=== PATIENT | male | born 1960 | race Caucasian/White ===

== ENCOUNTER → 2020-02-08 | Outpatient (CLI) | payer BC, SELFPAY | END | disposition home or self-care (01) | PROVIDERS: Referring Provider Family Medicine; Visit Provider Family Medicine | DX: R10.9 Unspecified abdominal pain (principal) | CPT/HCPCS: 87086 ==

== ENCOUNTER → 2020-03-13 10:27 | Outpatient (CLI) | payer BC, SELFPAY ==
[2020-03-13 10:46] LABS: Hematocrit 46.8 % (40-54); Hemoglobin 15.2 g/dL (13.0-16.5); Mean Corp Hgb Conc 32.5 g/dL (32-36); Mean Corpuscular Hgb 28.6 pg (27.0-32.0); Mean Corpuscular Volume 88.1 fL (80-94); Mean Platelet Vol. 10.3 fl (6.2-12.0); Platelet Count 213 K/mm3 (150-450); RBC Distribution Width CV 12.6 % (11.6-14.6); RBC Distribution Width SD 40.5 fl (35.1-43.9); Red Blood Count 5.31 M/mm3 (4.6-6.2); White Blood Count 6.6 K/mm3 (4.4-11.0)
[2020-03-13 11:10] LABS: ALB/GLOB Ratio 0.9 RATIO (0.9-2.4); AST(SGOT) 18 U/L (15-37); Alanine Aminotransfer ALT/SGPT 32 U/L (16-61); Albumin, Serum 3.8 g/dL (3.2-5.0); Alkaline Phosphatase 127 U/L (45-117); Anion Gap 4 (5-15); BUN 20 mg/dL (7-18); BUN/Creat Ratio 19.8 RATIO (10-20); Calcium,Total 9.2 mg/dL (8.5-10.1); Chloride 105 mmol/L (98-107); Creatinine, Serum 1.01 mg/dL (0.70-1.30); EST Glomerular Filtration Rate 80 mL/min (>60); Est Glom Filt Rate - Afr Amer 97 mL/min (>60); Globulin 4.1 g/dL (2.2-4.2); Glucose 155 mg/dL (74-106); Potassium 4.4 mmol/L (3.5-5.1); Protein, Total 7.9 g/dL (6.4-8.2); Sodium Level 137 mmol/L (136-145)
== END ==
PROVIDERS: PCP Family Medicine; Referring Provider Surgery; Visit Provider Surgery
DX: K62.5 Hemorrhage of anus and rectum (principal); R53.83 Other fatigue
CPT/HCPCS: 36415; 80053; 85027

== ENCOUNTER 2020-03-28 08:29 | Day surgery (SDC) | payer OTHER, SELFPAY ==
--- NOTE | 2020-03-28 08:52 | HP.PCM_ITS ---
Problem List (1) Rectal bleeding Status: Acute History of Present Illness Date of Admission: 03/28/20 The patient is a 59 year old M who presents for colonoscopy secondary to rectal bleeding. CBC was normal. BUN 20. Glucose 155. Body weight 335 pounds. Intake Intake Visit Reasons: PHONE VISIT/ CSCOPE,RECTAL BLEEDING Allergies No Known Allergies Allergy (Verified 03/13/20 09:51) Medications NK 03/13/20 [History Confirmed 03/13/20] [facility] Medical History (Updated 03/13/20 @ 10:[address] Isai Taylor MD) Morbid obesity due to excess calories (Acute) Heart murmur (Acute) Rectal bleeding (Acute) Acid reflux (Acute) Fatigue (Acute) Hypertension (Chronic) Surgical History (Updated 03/13/20 @ 09:50 by Aidee Soto) Hx of cardiac cath (Acute) Family History (Updated 03/13/20 @ 09:50 by Aidee Soto) Father Heart disease HPI HPI Details: Patient was informed that this visit will be billed to patient. This visit was conducted during - pandemic. HERMINIA OREILLY, is a 59 M who Was contacted by telephone today. He is present in his home and I am present in the office.The patient states that a month ago he had an episode of bright red rectal bleeding.He has had approximately a week later he had another episode. He was evaluated by his primary care physician Dr Gasper Schmidt and stool was Hemoccult positive. He complains also that he had a previous episode of abdominal pain and bloating. He was not sure whether he had a bladder infection or colon problem. He states he was placed on antibiotic with improvement. He denies family history of colon cancer or colon polyps. States that he used to be a cigarette smoker. He ceased that and over the past year or so put on 100 pounds. He claims that his body weight is 335 pounds. In addition he claims that he will drive 6 to 8 hours daily. He is been very fatigued. He has tried to change his eating habits to more fruits and vegetables with some improvement. He does not recall that he has had any laboratory obtained recently. He denies constipation. He is not currently having rectal bleeding. He does not recall being told that he has diverticula or hemorrhoids. He has never had a colonoscopy Exam Details: Details:: Exam was limited due to phone visit with no video. Assessment & Plan Problems 1. Rectal hemorrhage K62.5 2. Morbid obesity due to excess calories E66.01 Plan 59-year-old gentleman. 2 episodes of rectal bleeding. Complained of fatigue. I recommend to the him that we obtain a CMP and a CBC to assure that he is not markedly anemic. I have offered him a colonoscopy with possible biopsy or polypectomy as indicated. He has had an opportunity to ask and have questions answered. Because of his body habitus we will utilize monitored anesthesia care. I anticipate utilizing an adult colonoscope. He is aware that if it is hemorrhoidal bleeding that we will not be treating his hemorrhoids at that same setting. He has had an opportunity ask and have questions answered. We will schedule and proceed at his discretion. I appreciate the opportunity of assisting with his surgical care Copy: Dr Gasper Taylor M.D., F.A.C.S. Past Medical History Past Medical History (Chronic Problems): Chronic Problems (Last Reviewed 03/13/20 @ 09:51 by Aidee Soto) Hypertension (Chronic) Medical History: Medical History (Last Reviewed 03/13/20 @ 09:51 by Aidee Soto) Morbid obesity due to excess calories (Acute) E66.01 Heart murmur (Acute) R01.1 Rectal bleeding (Acute) K62.5 Acid reflux (Acute) K21.9 Fatigue (Acute) R53.83 Hypertension (Chronic) I10 Allergies No Known Allergies Allergy (Verified 03/21/20 15:39) Home Medications: Ambulatory Orders Medication Instructions Recorded NK 03/13/20 Surgical History: Surgical History (Last Reviewed 03/13/20 @ 09:51 by Aidee Soto) Hx of cardiac cath (Acute) Z98.890 Smoking Status: Former smoker Tobacco Use: Non-smoker Review of Systems Constitutional: Denies: Fever, Night Sweats Cardiovascular: Denies: Chest Pressure Respiratory: Denies: Cough Gastrointestinal: Denies: Abdominal Pain - No further rectal bleeding Endocrine: Denies: Change in Body Habitus VTE Information - Inpt Only VTE Present on Admission: No Patient Problems: Active and Suspected Problems (Last Reviewed 03/13/20 @ 09:51 by Aidee Soto) Rectal bleeding (Acute) - Physical Exam General: Alert, Oriented x3, Cooperative, No apparent distress HEENT: Atraumatic Neck: Supple Lungs: Clear to auscultation, Normal air movement Cardiovascular: Regular rate, Regular Rhythm Abdomen: Soft, - - Morbidly obese Psych/Mental Status: Normal Affect Microbiology Past 72 Hours 03/27/20 08:40 Interface Orders SARS-CoV-2 Antigen (Rapid) - Final Assessment/Plan All Active Problems (Last Reviewed 03/13/20 @ 09:51 by Aidee Soto) Morbid obesity due to excess calories (Acute) Hx of cardiac cath (Acute) Heart murmur (Acute) Rectal bleeding (Acute) Acid reflux (Acute) Fatigue (Acute) 59-year-old gentleman with presentation concerning for rectal bleeding. Laboratory for blood count normal except BUN is 20 and glucose 155. Plan to proceed with a colonoscopy with possible biopsy or polypectomy is indicated. He is aware of the technique, benefit, risk, alternatives. He has had an opportunity to ask and have questions answered. We will proceed as noted. Isai Taylor M.D., F.A.C.S.
[2020-03-28 09:04] VITALS: BP 156/101; PULSE 93; RESP 18; TEMP 36.6; O2SAT 99
[2020-03-28] MEDS: Lactated Ringers 1,000 ML 100 ML IV (09:25)
--- NOTE | 2020-03-28 10:15 | COLBX_PTH ---
PATIENT: HERMINIA OREILLY LOC: EN U#:[id number] AGE/SX: 59/M ROOM: RE03/28/[address]: Dr. Isai Taylor MD : 1960 BED: DIS: 03/28/2020 SPEC #: [id number] RECD: 03/28/20 11:26 STATUS: ANA STEPHANIE #: [id number] PONCHO: 03/28/20 10:[address]: Isai Taylor DEPT: SURGICAL PATHOLOGY RECD BY: Allie Shin ENTERED: 03/28/20 12:06 SP TYPE: COLON BX OTHR DR: Dr. Angely Weems MD Tissues: Sigmoid colon biopsy Procedures: Surgery Specimen Level IV HEADER OPERATION: Colonoscopy (MAC) PRE-OP DIAGNOSIS: Rectal bleeding TISSUE SUBMITTED: Distal sigmoid polyp MICROSCOPIC DIAGNOSIS Distal sigmoid polyp, biopsy: Hyperplastic polyp. AM:earnestine 03/31/2020 MICROSCOPIC DESCRIPTION Slides are reviewed. GROSS DESCRIPTION Received in fixative is one container labeled with the patient's name and designated distal sigmoid polyp. The specimen consists of a escobar-pink polyp measuring 0.5 x 0.5 x 0.2 cm. The specimen is totally submitted in one cassette. / SJ:earnestine 03/28/20 TC:5 CPT: 15177
[2020-03-28 10:26] VITALS: BP 124/96; BP 156/101; PULSE 88; RESP 16; TEMP 36.4; O2SAT 93
--- NOTE | 2020-03-28 10:28 | OP.COLON_ITS ---
Patient Name: Francis Thapa Procedure Date: 03/28/2020 10:03 AM Date of : 1960 Age: 59 Procedure: Colonoscopy Indications: Rectal bleeding Providers: Isai Taylor MD Referring MD: Angely Weems Medicines: See the Anesthesia note for documentation of the administered medications Patient Profile: Last Colonoscopy: none. The patient's first colonoscopy is today. Complications: No immediate complications. Procedure: Pre-Anesthesia Assessment: - Prior to the procedure, a History and Physical was performed, and patient medications and allergies were reviewed. The patient's tolerance of previous anesthesia was also reviewed. The risks and benefits of the procedure and the sedation options and risks were discussed with the patient. All questions were answered, and informed consent was obtained. Prior Anticoagulants: The patient has taken no previous anticoagulant or antiplatelet agents. ASA Grade Assessment: III - A patient with severe systemic disease. After reviewing the risks and benefits, the patient was deemed in satisfactory condition to undergo the procedure. After I obtained informed consent, the scope was passed under direct vision. Throughout the procedure, the patient's blood pressure, pulse, and oxygen saturations were monitored continuously. The colonoscope was introduced through the anus and advanced to the cecum, identified by appendiceal orifice and ileocecal valve. The colonoscopy was performed without difficulty. The patient tolerated the procedure well. The quality of the bowel preparation was good. The ileocecal valve and the appendiceal orifice were photographed. Scope In: 10:08:54 AM Scope Withdrawal Time 0 hours 8 minutes 57 seconds Scope Out: 10:22:02 AM Total Procedure Duration Time 0 hours 13 minutes 8 seconds Findings: The digital rectal exam findings include non-thrombosed internal hemorrhoids and internal hemorrhoids that prolapse with straining, but require manual replacement into the anal canal (Grade III). Pertinent negatives include normal prostate (size, shape, and consistency). A 7 mm polyp was found in the distal sigmoid colon. The polyp was sessile. The polyp was removed with a hot snare. Resection and retrieval were complete. The exam was otherwise without abnormality. Impression: - Non-thrombosed internal hemorrhoids and internal hemorrhoids that prolapse with straining, but require manual replacement into the anal canal (Grade III) found on digital rectal exam. - One 7 mm polyp in the distal sigmoid colon, removed with a hot snare. Resected and retrieved. - The examination was otherwise normal. Recommendation: - Discharge patient to home. - Resume previous diet. - Continue present medications. - Repeat colonoscopy in 5 years for surveillance based on pathology results. - Telephone my office for pathology results in 1 week. Suspect hemorrhoidal bleeding. Encourage daily fiber supplementation and working with Dr Weems on a planned weight loss program if feasible Procedure Code(s): --- Professional --- 43096, Colonoscopy, flexible; with removal of tumor(s), polyp(s), or other lesion(s) by snare technique Diagnosis Code(s): --- Professional --- K64.2, Third degree hemorrhoids D12.5, Benign neoplasm of sigmoid colon K62.5, Hemorrhage of anus and rectum CPT copyright 2017 [employer]. All rights reserved. The codes documented in this report are preliminary and upon professional fee coder review may be revised to meet current compliance requirements. Isai Taylor MD 03/28/2020 10:27:54 AM This report has been signed electronically. Number of Addenda: 0 Note Initiated On: 03/28/2020 10:03 AM
--- NOTE | 2020-03-28 10:28 | OP.CCLET_ITS ---
03/28/2020 Angely Weems [address] [place] [address] Re : Colonoscopy procedure for Francis Thapa Dear Dr. Weems This procedure was performed on Saturday, March 28, 2020. My impressions and recommendations are as follows: Impressions : - Non-thrombosed internal hemorrhoids and internal hemorrhoids that prolapse with straining, but require manual replacement into the anal canal (Grade III) found on digital rectal exam. - One 7 mm polyp in the distal sigmoid colon, removed with a hot snare. Resected and retrieved. - The examination was otherwise normal. Recommendations : - Discharge patient to home. - Resume previous diet. - Continue present medications. - Repeat colonoscopy in 5 years for surveillance based on pathology results. - Telephone my office for pathology results in 1 week. Suspect hemorrhoidal bleeding. Encourage daily fiber supplementation and working with Dr Weems on a planned weight loss program if feasible My findings are described in the full procedure note, which is enclosed. If I can be of further assistance, please feel free to contact me at Doctor phone number(s): Work: . Sincerely, Isai Taylor MD 03/28/2020 10:27:54 AM This report has been signed electronically.
[2020-03-28 10:30] VITALS: BP 136/97; BP 156/101; PULSE 90; RESP 16; O2SAT 95
[2020-03-28 10:35] VITALS: BP 135/91; BP 156/101; PULSE 86; RESP 16; O2SAT 94
[2020-03-28 10:40] VITALS: BP 139/96; BP 156/101; PULSE 84; RESP 16; TEMP 36.3; O2SAT 93
[2020-03-28 11:00] VITALS: BP 156/101
== END 2020-03-28 11:26 | disposition home or self-care (01) ==
LOC: EN 08:34 → AC 08:44
PROVIDERS: PCP Family Medicine; Referring Provider Family Medicine; Visit Provider Surgery
PROC: 0DJD8ZZ Inspection of Lower Intestinal Tract, Via Natural or Artificial Opening Endoscopic (ICD-10-PCS; CPT 45378; principal; 2020-03-28 10:10)
DX: K63.5 Polyp of colon (principal); K64.2 Third degree hemorrhoids; K21.9 Gastro-esophageal reflux disease without esophagitis; I10 Essential (primary) hypertension; E66.01 Morbid (severe) obesity due to excess calories; Z68.41 Body mass index [BMI] 40.0-44.9, adult; Z87.891 Personal history of nicotine dependence; Z20.822 Contact with and (suspected) exposure to COVID-19
CPT/HCPCS: 45380; 87426; 88305; C9803; J7120; J2405

== ENCOUNTER → 2021-01-16 16:12 | Outpatient (CLI) | payer OTHER, SELFPAY | PROVIDERS: PCP Family Medicine; Visit Provider Family Medicine | DX: L02.91 Cutaneous abscess, unspecified (principal); L03.90 Cellulitis, unspecified | CPT/HCPCS: 87070; 87077; 87186; 87205 ==

== ENCOUNTER 2021-04-27 08:06 | Outpatient (CLI) | payer BC, SELFPAY ==
[2021-04-27 14:15] LABS: Anion Gap 9 (5-15); BUN 20 mg/dL (7-18); BUN/Creat Ratio 19.2 RATIO (10-20); Calcium,Total 9.1 mg/dL (8.5-10.1); Chloride 99 mmol/L (98-107); Cholesterol 207 mg/dL (200); Creatinine, Serum 1.04 mg/dL (0.70-1.30); EST Glomerular Filtration Rate 77 mL/min (>60); Est Glom Filt Rate - Afr Amer 93 mL/min (>60); Glucose 162 mg/dL (74-106); High Density Lipoprotein 48 mg/dL; Potassium 4.1 mmol/L (3.5-5.1); Sodium Level 137 mmol/L (136-145); Thyroid Stim Hormone (TSH) 3.59 uIU/mL (0.358-3.74); Triglycerides 183 mg/dL; Very Low Density Lipoprotein 37 mg/dL (5-40)
== END 2021-04-27 23:59 | disposition home or self-care (01) ==
PROVIDERS: PCP Family Medicine; Visit Provider Family Medicine
DX: E66.01 Morbid (severe) obesity due to excess calories (principal); I10 Essential (primary) hypertension
CPT/HCPCS: 36415; 80048; 80061; 84403; 84443

== ENCOUNTER → 2021-12-16 | Outpatient (CLI) | payer BC, SELFPAY ==
[2021-12-16 13:08] LABS: Anion Gap 5 (5-15); BUN 18 mg/dL (7-18); Calcium,Total 9.3 mg/dL (8.5-10.1); Chloride 105 mmol/L (98-107); EST Glomerular Filtration Rate 91 mL/min (>60); Est Glom Filt Rate - Afr Amer 110 mL/min (>60); Glucose 144 mg/dL (74-106); PSA,Total - Annual Screen 0.52 ng/mL (0.00-4.00); Potassium 4.3 mmol/L (3.5-5.1); Sodium Level 138 mmol/L (136-145)
[2021-12-16 14:37] LABS: Hemoglobin A1c 6.8 % (3.8-5.6)
[2021-12-17 14:44] LABS: Microalbumin:Creatinine Ratio 73.6 mg/g CRE (<30 mg/g CRE)
== END | disposition home or self-care (01) ==
LOC: MFPLAB 10:18
PROVIDERS: PCP Family Medicine; Referring Provider Family Medicine; Visit Provider Family Medicine
DX: Z00.00 Encounter for general adult medical examination without abnormal findings (principal); E11.9 Type 2 diabetes mellitus without complications; Z12.5 Encounter for screening for malignant neoplasm of prostate
CPT/HCPCS: 36415; 80048; 82043; 82570; 83036; 84153; G0103

== ENCOUNTER → 2022-12-20 | Outpatient (CLI) | payer BC, SELFPAY ==
[2022-12-20 13:23] LABS: AST(SGOT) 19 U/L (15-37); Alanine Aminotransfer ALT/SGPT 35 U/L (16-61); Albumin, Serum 3.5 g/dL (3.2-5.0); Alkaline Phosphatase 135 U/L (45-117); Anion Gap 5 (5-15); BUN 19 mg/dL (7-18); BUN/Creat Ratio 19.4 RATIO (10-20); Bilirubin, Direct 0.11 mg/dL (0.00-0.30); Calcium,Total 8.9 mg/dL (8.5-10.1); Chloride 101 mmol/L (98-107); Cholesterol 152 mg/dL (200); Creatinine, Serum 0.98 mg/dL (0.70-1.30); EST Glomerular Filtration Rate 82 mL/min (>60); Est Glom Filt Rate - Afr Amer 100 mL/min (>60); Globulin 3.8 g/dL (2.2-4.2); Glucose 173 mg/dL (74-106); High Density Lipoprotein 38 mg/dL; PSA,Total - Annual Screen 0.43 ng/mL (0.00-4.00); Potassium 4.7 mmol/L (3.5-5.1); Protein, Total 7.3 g/dL (6.4-8.2); Sodium Level 134 mmol/L (136-145); Triglycerides 185 mg/dL; Very Low Density Lipoprotein 37 mg/dL (5-40)
== END | disposition home or self-care (01) ==
LOC: MFPLAB 09:56
PROVIDERS: PCP Family Medicine; Visit Provider Family Medicine
DX: E11.69 Type 2 diabetes mellitus with other specified complication (principal); Z12.5 Encounter for screening for malignant neoplasm of prostate
CPT/HCPCS: 36415; 80048; 80061; 80076; 84153; G0103

== ENCOUNTER → 2023-12-28 | Outpatient (CLI) | payer BC, SELFPAY ==
[2023-12-28 12:20] LABS: Absolute Lymphocyte Count 0.81 X10^3/uL (0.83-4.51); Absolute Neutrophil Count 5.5 X10^3/uL (2.0-7.7); Basophil# 0.03 X10^3/uL; Basophil% 0.4 % (0-1); Eosinophil# 0.11 X10^3/uL; Eosinophils% 1.6 % (0-5); Hematocrit 49.9 % (40-54); Hemoglobin 14.9 g/dL (13.0-16.5); Lymphocyte # 0.81 X10^3/ul (0.83-4.51); Lymphocyte % 11.5 % (19-41); Mean Corp Hgb Conc 29.9 g/dL (32-36); Mean Corpuscular Hgb 27.7 pg (27.0-32.0); Mean Corpuscular Volume 92.8 fL (80-94); Mean Platelet Vol. 10.4 fl (6.2-12.0); Monocyte# 0.57 X10^3/uL; Monocyte% 8.1 % (0-10); NRBC Flagged by Analyzer 0 % (0-5); Neutrophil # 5.49 X10^3/uL (2.7-7.7); Neutrophil % 78.3 % (47-70); Platelet Count 194 K/mm3 (150-450); RBC Distribution Width CV 14.3 % (11.6-14.6); Red Blood Count 5.38 M/mm3 (4.6-6.2)
== END | disposition home or self-care (01) ==
LOC: MFPLAB 11:16
PROVIDERS: PCP Family Medicine; Visit Provider Family Medicine
DX: R06.00 Dyspnea, unspecified (principal)
CPT/HCPCS: 36415; 84443; 85025

== ENCOUNTER 2024-02-20 16:15 | Inpatient (IN) | payer BC, SELFPAY ==
[2024-02-20] VITALS (7 sets, daily range): BP systolic 153–180; BP diastolic 79–121; PULSE 87–114; RESP 18–26; TEMP 36.7–36.8; O2SAT 91–100; BMI 51.5
[2024-02-20 17:32] LABS: Absolute Lymphocyte Count 0.85 X10^3/uL (0.83-4.51); Absolute Neutrophil Count 6.4 X10^3/uL (2.0-7.7); Basophil# 0.03 X10^3/uL; Basophil% 0.4 % (0-1); Eosinophil# 0.08 X10^3/uL; Hematocrit 48.3 % (40-54); Hemoglobin 14.1 g/dL (13.0-16.5); Lymphocyte # 0.85 X10^3/ul (0.83-4.51); Lymphocyte % 10.6 % (19-41); Mean Corp Hgb Conc 29.2 g/dL (32-36); Mean Corpuscular Hgb 26.4 pg (27.0-32.0); Mean Corpuscular Volume 90.4 fL (80-94); Mean Platelet Vol. 9.9 fl (6.2-12.0); Monocyte# 0.67 X10^3/uL; Monocyte% 8.3 % (0-10); NRBC Flagged by Analyzer 0 % (0-5); Neutrophil # 6.38 X10^3/uL (2.7-7.7); Neutrophil % 79.5 % (47-70); Platelet Count 186 K/mm3 (150-450); RBC Distribution Width CV 14.9 % (11.6-14.6); RBC Distribution Width SD 49.1 fl (35.1-43.9); Red Blood Count 5.34 M/mm3 (4.6-6.2)
[2024-02-20 17:47] LABS: ALB/GLOB Ratio 1.1 RATIO (0.9-2.4); AST(SGOT) 16 U/L (15-37); Alanine Aminotransfer ALT/SGPT 24 U/L (16-61); Albumin, Serum 3.5 g/dL (3.2-5.0); Alkaline Phosphatase 129 U/L (45-117); Anion Gap 3 (5-15); BUN 18 mg/dL (7-18); BUN/Creat Ratio 16.2 RATIO (10-20); Calcium,Total 9.2 mg/dL (8.5-10.1); Chloride 101 mmol/L (98-107); Creatinine, Serum 1.11 mg/dL (0.70-1.30); EST Glomerular Filtration Rate 71 mL/min (>60); Est Glom Filt Rate - Afr Amer 86 mL/min (>60); Estimated Creatinine Clearance 109.84 ml/min; Globulin 3.3 g/dL (2.2-4.2); Glucose 119 mg/dL (74-106); Potassium 4.5 mmol/L (3.5-5.1); Protein, Total 6.8 g/dL (6.4-8.2); Sodium Level 140 mmol/L (136-145)
--- NOTE | 2024-02-20 18:24 | ED.VIS.GI ---
HPI HPI - GI History of Present Illness Chief Complaint: Abd Pain Informant: patient Abdominal Pain/Flank Pain Onset: Today Context: Gradual Onset Timing: Continuous Quality: Dull Location: RLQ and LLQ Worsened by: Nothing Relieved by: Nothing Nausea/Vomiting/Emesis GI Symptom: Positive for Nausea; Negative for Vomiting Diarrhea/Melena/Hematochezia GI Symptom: Positive for Diarrhea; Negative for Melena or Hematochezia Associated Symptoms Associated Symptoms: Positive for Frequency; Negative for Dysuria or Hematuria Narrative Narrative: Patient presents with abdominal pain and bloating that became worse today. Patient states that he has had pain in his abdomen for the past 2 months. Patient describes it as dull. Patient states today it became sharp. Patient states today it was worse over the lower abdomen. Patient states nothing makes it better and nothing makes it worse. Patient admits to some nausea but denies any vomiting. Patient admits to some diarrhea but denies any melena or hematochezia. Patient admits to some urinary frequency but denies any dysuria or hematuria. Patient states he knows he has not umbilical hernia but has not been able to have a CT scan done to evaluate this. [facility] Medical History (Updated 02/20/24 @ 23:[address] Andrew Cary DO) Hypercholesterolemia Diabetes mellitus Morbid obesity due to excess calories Heart murmur Rectal bleeding Acid reflux Fatigue Hypertension Home Medications ?Medication ?Instructions ?Recorded ?Last Taken ?Type atorvastatin 20 mg tablet 20 mg PO QHS 02/20/24 Unknown History losartan 100 mg tablet 100 mg PO DAILY 02/20/24 Unknown History metformin 1,000 mg tablet 2,000 mg PO QHS 02/20/24 Unknown History Allergy/AdvReac Type Severity Reaction Status Date / Time No Known Allergies Allergy Verified 02/20/24 16:15 Family History Father Heart disease Surgical History (Updated 02/20/24 @ 18:[address] Andrew Cary DO) History of back surgery Hx of cardiac cath Social History Smoking Status: Former smoker second hand exposure: No alcohol intake: former substance use type: former substance user caffeine: Yes frequency: does not exercise ROS ROS ED Constitutional Constitutional ED: Denies chills or fever(s) Eyes Eyes: Denies blurry vision or change in vision ENT ENT ED: Denies rhinorrhea or sore throat Cardiovascular Cardiovascular: Denies chest pain or palpitations Respiratory/Chest Respiratory/Chest: Reports dyspnea; Denies cough Gastrointestinal Gastrointestinal: Reports abdominal pain, diarrhea and nausea; Denies vomiting Genitourinary Genitourinary ED: Denies dysuria or hematuria Musculoskeletal Musculoskeletal: Reports back pain; Denies neck pain Integumentary Denies abscess or rash Neurologic Neurologic: Reports headache(s); Denies weakness Allergic/Immunologic Allergic/Immunologic ED: Denies mouth swelling or urticaria EXAM Physical Exam Const Vital Signs: 02/20/24 16:15 02/20/24 19:03 02/20/24 19:58 Temperature 98.1 F Temperature Source Oral Pulse Rate 106 H 87 105 H Respiratory Rate 26 H 18 18 Blood Pressure 168/121 H 177/106 H 180/117 H Blood Pressure Mean 136 129 138 Pulse Ox 93 100 96 Oxygen Delivery Method Room Air Nasal Cannula Oxygen Flow Rate (L/min) 2 02/20/24 21:00 02/20/24 23:00 Temperature Temperature Source Pulse Rate 109 H 110 H Respiratory Rate 18 18 Blood Pressure 166/79 H 153/105 H Blood Pressure Mean 108 121 Pulse Ox 96 92 Oxygen Delivery Method Nasal Cannula Nasal Cannula Oxygen Flow Rate (L/min) 2 2 Positive well nourished and well developed General Appearance ED: well developed HEENT Reports moist mucous membranes Neck supple and no JVD Resp normal respiratory effort Auscultation: diminished lung sounds diffuse Cardio regular rhythm Rate: tachycardic GI Palpation: soft and tender epigastric, LLQ, RLQ, LUQ, RUQ, periumbilical and suprapubic; Negative for rebound tenderness present Neuro CN's II-XII intact bilaterally, moves all extremities and no sensory deficits noted Sensorium / Orientation: alert Motor Exam: strength 5/5 throughout Psych mental status grossly normal and thought process normal MDM MDM MDM Narrative Medical decision making narrative: Differential diagnosis includes incarcerated hernia, strangulated hernia, bowel obstruction, perforation, colitis, pancreatitis, pyelonephritis, urinary tract infection, and viral illness. CBC will be obtained to assess for leukocytosis and anemia. Comprehensive metabolic profile will be obtained to assess for hepatic function, renal function, and electrolyte abnormality. Lipase will be obtained to assess for pancreatitis. Urinalysis will be obtained to assess for urinary tract infection and hematuria. CT scan of the abdomen pelvis will be obtained to assess for bowel obstruction, perforation, incarcerated hernia, strangulated hernia. Lab Data Attestation: I reviewed the patient's lab results. Lab results narrative: CBC was reviewed and was essentially within normal limits. Comprehensive metabolic profile was reviewed and showed a slightly elevated alkaline phosphatase of 129. The remainder is within normal limits. Lipase was reviewed and was normal at 24. Urinalysis was reviewed. There is no evidence of urinary tract infection or hematuria. Labs: Laboratory Results - last 24 hr 02/20/24 02/20/24 17:18 19:36 WBC 8.0 RBC 5.34 Hgb 14.1 Hct 48.3 MCV 90.4 MCH 26.4 L MCHC 29.2 L RDW Std Deviation 49.1 H RDW Coeff of Ezequiel 14.9 H Plt Count 186 MPV 9.9 Immature Gran % (Auto) 0.200 Neut % (Auto) 79.5 H Lymph % (Auto) 10.6 L Beaver % (Auto) 8.3 Eos % (Auto) 1.0 Baso % (Auto) 0.4 Absolute Neuts (auto) 6.4 Absolute Lymphs (auto) 0.85 Nucleated RBC % 0 Sodium 140 Potassium 4.5 Chloride 101 Carbon Dioxide 36.0 H Anion Gap 3 L BUN 18 Creatinine 1.11 Estim Creat Clear Calc 109.84 Est GFR (MDRD) Af Amer 86 Est GFR (MDRD) Non-Af 71 BUN/Creatinine Ratio 16.2 Glucose 119 H Calcium 9.2 Total Bilirubin 0.60 AST 16 ALT 24 Alkaline Phosphatase 129 H Total Protein 6.8 Albumin 3.5 Globulin 3.3 Albumin/Globulin Ratio 1.1 Lipase 24 Urine Color Yellow Urine Clarity Clear Urine pH 6.0 Ur Specific [place] 1.010 Urine Protein 100 H Urine Glucose (UA) Normal Urine Ketones Negative Urine Occult Blood 10 H Urine Nitrite Negative Urine Bilirubin Negative Urine Urobilinogen Normal Ur Leukocyte Esterase Negative Urine RBC 0-5 SEEN Urine WBC 0 SEEN Ur Squamous Epith Cells 0-5 SEEN Urine Bacteria 0 SEEN Urine Mucus 0 SEEN Radiography Diagnostic Testing: Clinical Impression(s) from Imaging Studies Abdomen/Pelvis CT 02/20/24 18:49 IMPRESSION: 1. Inflammatory changes in the right lower quadrant. Normal caliber of the appendix. Doubt appendicitis. Overall appearance is likely secondary to distal ileitis. Consider oral contrast for further evaluation if definitive management is not performed. No free air. Small volume free fluid. 2. Small right pleural effusion. 3. Colonic diverticulosis without evidence of acute diverticulitis. Electronically Signed: Erick Maya DO at 20:09 EST , Abdomen CT 02/20/24 21:06 IMPRESSION: 1. The oral contrast administered is not propagate through the small bowel into the right lower quadrant, specifically the colon and appendix region. Inflammatory changes in the right lower quadrant are again identified. Doubt appendicitis. Suspect small bowel disease. 2. Colonic diverticulosis without discrete evidence of acute diverticulitis. Electronically Signed: Erick Maya DO at 22:45 EST , Chest X-Ray 02/20/24 21:06 IMPRESSION: Patchy ill-defined pulmonary opacities bilaterally may be in part due to multifocal pneumonia and/or pulmonary edema. Electronically Signed: Erick Maya DO at 22:46 EST , CT scan of the abdomen pelvis was obtained. There are inflammatory changes in the right lower quadrant however there is normal caliber of the appendix. Appendicitis is doubtful. This could be distal ileitis. There is a small volume of free fluid noted. Repeat CT scan with oral contrast may be helpful. There is a small right pleural effusion. This was interpreted by the radiologist and was also independently reviewed by myself. Repeat CT scan of the abdomen and pelvis with oral contrast was obtained. The contrast did not go through the small bowel into the right lower quadrant. There are inflammatory changes in the right lower quadrant. It is suspected to be from small bowel disease and doubtful that it is appendicitis. This was interpreted by the radiologist and was also dependently reviewed by myself. PA and lateral chest x-ray was obtained. There are 2 views. On my independent interpretation, there are patchy ill-defined infiltrates and/or pulmonary edema. Radiologist also interpreted the x-rays and agrees. Treatment and Re-Evaluation :: Patient was given IV fluids, morphine, and Zofran. Patient was feeling better on reevaluation. However, patient ambulated to the bathroom and became hypoxic after that. Patient was placed on 2 L nasal cannula. Because of this, chest x-ray will be obtained to assess for pneumonia. Patient was advised of his findings. Blood cultures were obtained to assess for sepsis. Patient was started on Unasyn and Zithromax. Patient was advised of the need for hospitalization since he became hypoxic while ambulating. Patient is agreeable with this. Case was discussed with the hospitalist. He will admit the patient to his service. Patient understood and was agreeable with plan. All questions were answered. Discharge Plan Dx/Rx/DC Orders Clinical Impression: Pneumonia, Hypoxia, Enteritis, Hypertension Disposition Disposition: Acute Care Hospital [facility]
--- NOTE | 2024-02-20 18:49 | CT_ITS ---
EXAM: CT ABDOMEN AND PELVIS WITH INTRAVENOUS CONTRAST CLINICAL INDICATION: Abdominal pain TECHNIQUE: Helically acquired images were obtained of the abdomen and pelvis with intravenous contrast. This CT exam was performed using one or more of the following dose reduction techniques: automated exposure control, adjustment of the mA and/or kV according to patient size, and/or use of iterative reconstruction technique. CONTRAST: IV 100mL [id number] COMPARISON: MRI lumbar spine, 05/25/2007 FINDINGS: LOWER THORAX: Small right pleural effusion. No cardiomegaly. ABDOMEN: LIVER: No significant abnormality. Homogeneous. No focal mass. GALLBLADDER AND BILE DUCTS: No significant abnormality. No calcified gallstones. No gallbladder distention or wall edema. No intra- or extrahepatic biliary ductal dilation. PANCREAS: No significant abnormality. No focal cystic or solid mass. SPLEEN: No significant abnormality. Normal size without focal cystic or solid mass. ADRENALS: No significant abnormality. No nodules. KIDNEYS AND URETERS: Left renal cyst for which no follow-up is indicated. Normal renal size and position. No hydronephrosis. STOMACH AND BOWEL: Apparent diverticulum of the distal ileum and bowel wall thickening of the ileum. Colonic diverticulosis without evidence of acute diverticulitis. No evidence of bowel obstruction. PELVIS: APPENDIX: Normal diameter of the retrocecal appendix. BLADDER: No significant abnormality. REPRODUCTIVE: Normal as visualized. No mass. ABDOMEN and PELVIS: INTRAPERITONEAL SPACE: Small volume scattered free fluid within the peritoneum is nonspecific. Minimal free fluid focally in the right lower quadrant mesentery. No distinct evidence of free air. Focal inflammatory changes in the right lower quadrant mesentery. BONES/JOINTS: Degenerative changes. No suspicious lytic or blastic abnormality. SOFT TISSUES: No significant abnormality. No discrete abdominal or pelvic wall hernia. VASCULATURE: No significant abnormality. Abdominal aorta is non-dilated. LYMPH NODES: No significant abnormality. No enlarged lymph nodes. CT/Abdomen/Pelvis W IV Cont ONLY IMPRESSION: 1. Inflammatory changes in the right lower quadrant. Normal caliber of the appendix. Doubt appendicitis. Overall appearance is likely secondary to distal ileitis. Consider oral contrast for further evaluation if definitive management is not performed. No free air. Small volume free fluid. 2. Small right pleural effusion. 3. Colonic diverticulosis without evidence of acute diverticulitis. Electronically Signed: Erick Maya DO at 20:09 EST ,
[2024-02-20] MEDS: Ondansetron 4 MG/2 ML Vial IV (18:57)
[2024-02-20] MEDS: 0.9% Normal Saline (1000mL) 1,000 ML 999 ML IV (18:57)
[2024-02-20] MEDS: Morphine 4 MG/ML Syringe IV (18:58)
[2024-02-20 19:00] LABS: Lipase 24 U/L (13-75)
[2024-02-20 19:43] LABS: Bacteria 0 SEEN /hpf (None Seen); Mucous, Urine 0 SEEN /hpf (<or=2+); White Blood Cells 0 SEEN /hpf (0-5)
[2024-02-20 19:45] LABS: Color, Urine Yellow (Yellow); Glucose, Dipstick Normal (Normal); Ketone-Dipstick Negative (Negative); Leukocyte Esterase-Dipstick Negative /ul (Negative); Nitrite-Dipstick Negative (Negative); Occult Blood-Urine 10 /ul (Negative); Protein-Dipstick 100 mg/dl (Negative); Urine Bilirubin Dipstick Negative (Negative); Urine Clarity Clear (Clear); Urine Urobilinogen Normal (Normal)
--- NOTE | 2024-02-20 19:50 | ED.RN ---
Pt got up to go to the bathroom, noticeably short of breath and face changed colors. Pt oxygen levels were in the 80s upon returning. Pt placed on 2L NC, now oxygen levels 98% on 2L NC. Pt states he does not wear oxygen at home.
[2024-02-20 20:12] LABS: Red Blood Cells-Urine 0-5 SEEN /hpf (0-5); Squamous Epithelial Cells - UA 0-5 SEEN /hpf (0-5)
--- NOTE | 2024-02-20 21:06 | CT_ITS ---
EXAM: CT ABDOMEN AND PELVIS WITHOUT INTRAVENOUS CONTRAST CLINICAL INDICATION: Abdominal pain TECHNIQUE: Helically acquired images were obtained of the abdomen and pelvis without intravenous contrast. This CT exam was performed using one or more of the following dose reduction techniques: automated exposure control, adjustment of the mA and/or kV according to patient size, and/or use of iterative reconstruction technique. CONTRAST: gastrograffin oral contrast COMPARISON: CT abdomen and pelvis earlier on the same date. FINDINGS: LOWER THORAX: Small right pleural effusion is again identified. No cardiomegaly. ABDOMEN: LIVER: No significant abnormality. Homogeneous. GALLBLADDER AND BILE DUCTS: No significant abnormality. No calcified gallstones. No gallbladder distention or wall edema. No intra- or extrahepatic biliary ductal dilation. PANCREAS: No significant abnormality. No focal cystic mass. SPLEEN: No significant abnormality. Normal size without focal cystic or solid mass. ADRENALS: No significant abnormality. No nodules. KIDNEYS AND URETERS: Left upper pole renal cyst for which no follow-up is indicated. Normal renal size and position. No hydronephrosis. STOMACH AND BOWEL: Inflammatory changes along the course of the distal ileum. Colonic diverticulosis without discrete evidence of acute diverticulitis. No stomach or bowel distention. PELVIS: APPENDIX: The oral contrast administered is not propagate through the small bowel into the right lower quadrant, specifically the colon and appendix region. Normal caliber of the appendix. BLADDER: Excreted contrast in the urinary bladder. REPRODUCTIVE: Normal as visualized. No mass. ABDOMEN and PELVIS: INTRAPERITONEAL SPACE: See below. BONES/JOINTS: Degenerative changes in the axial and appendicular skeletal structures. No suspicious lytic or blastic abnormality. SOFT TISSUES: Body wall edema/anasarca. Edematous changes in the right lower quadrant mesentery. No discrete abdominal or pelvic wall hernia. VASCULATURE: Atherosclerosis. Abdominal aorta is non-dilated. LYMPH NODES: No significant abnormality. No enlarged lymph nodes. CT/Abdomen/Pel W ORAL Cont Only IMPRESSION: 1. The oral contrast administered is not propagate through the small bowel into the right lower quadrant, specifically the colon and appendix region. Inflammatory changes in the right lower quadrant are again identified. Doubt appendicitis. Suspect small bowel disease.
--- NOTE | 2024-02-20 21:06 | RAD_ITS ---
EXAM: XR CHEST, 2 VIEWS CLINICAL INDICATION: Dyspnea TECHNIQUE: Frontal and lateral views of the chest. COMPARISON: No relevant prior studies available. FINDINGS: LUNGS AND PLEURAL SPACES: Patchy ill-defined pulmonary opacities bilaterally may be in part due to multifocal pneumonia and/or pulmonary edema. No pneumothorax. No effusion. HEART: No significant abnormality. Cardiac silhouette not enlarged. MEDIASTINUM: Central airways and mediastinal contour are unremarkable. BONES/JOINTS: No significant abnormality. No acute fracture. SOFT TISSUES: No significant abnormality. RAD/Chest PA and Lateral IMPRESSION: Patchy ill-defined pulmonary opacities bilaterally may be in part due to multifocal pneumonia and/or pulmonary edema. Electronically Signed: Erick Maya DO at 22:46 EST ,
--- NOTE | 2024-02-20 23:29 | PCM.HP.STD ---
HPI - General General Date of Admission: 02/20/24 Date of Service: 02/20/24 Chief Complaint: Abdominal pain, shortness of breath HPI Narrative HERMINIA OREILLY, is a 63 M who presents to the emergency room with chief complaint of abdominal pain. Onset of symptoms began 2 months ago but became suddenly worse today. Pain is described as generalized and he has had some nausea but no vomiting. Patient has a past medical history of an umbilical hernia that has not been repaired. CT scan was negative for appendicitis but did show ileitis. Chest x-ray revealed bilateral infiltrates consistent with pneumonia. When patient ambulated to the bathroom he desaturated his oxygen into the 80% range and required oxygen support. Laboratory studies show normal white blood cell count however he does have a shift to the left with neutrophils. Due to new pneumonia requiring oxygen support patient was started on Unasyn and azithromycin in the emergency room and admission for observation was requested. Blood cultures were obtained prior to administration of antibiotic therapy. [facility] Medical History (Updated 02/20/24 @ 23:[address] Andrew Cary DO) Hypercholesterolemia Diabetes mellitus Morbid obesity due to excess calories Heart murmur Rectal bleeding Acid reflux Fatigue Hypertension Home Medications ?Medication ?Instructions ?Recorded ?Last Taken ?Type atorvastatin 20 mg tablet 20 mg PO QHS 02/20/24 Unknown History losartan 100 mg tablet 100 mg PO DAILY 02/20/24 Unknown History metformin 1,000 mg tablet 2,000 mg PO QHS 02/20/24 Unknown History Allergy/AdvReac Type Severity Reaction Status Date / Time No Known Allergies Allergy Verified 02/20/24 16:15 Family History Father Heart disease Surgical History (Updated 02/20/24 @ 18:[address] Andrew Cary DO) History of back surgery Hx of cardiac cath Social History Smoking Status: Former smoker second hand exposure: No alcohol intake: former substance use type: former substance user caffeine: Yes frequency: does not exercise ROS Constitutional Constitutional: Reports chills and fever(s) Eyes Eyes: Denies blurry vision ENT HEENT: Denies abnormal hearing Cardiovascular Cardiovascular: Denies chest pain Respiratory/Chest Respiratory/Chest: Reports shortness of breath with exertion Gastrointestinal Gastrointestinal: Reports abdominal pain and nausea; Denies vomiting Musculoskeletal Musculoskeletal: Denies back pain Integumentary Integumentary: Denies dry skin Neurologic Neurologic: Denies abnormal speech Psychiatric Psychiatric: Denies anxiety Vital Signs Vital Signs Vital Signs: 02/20/24 16:15 02/20/24 19:03 02/20/24 19:58 Temperature 98.1 F Temperature Source Oral Pulse Rate 106 H 87 105 H Respiratory Rate 26 H 18 18 Blood Pressure 168/121 H 177/106 H 180/117 H Blood Pressure Mean 136 129 138 Pulse Ox 93 100 96 Oxygen Delivery Method Room Air Nasal Cannula Oxygen Flow Rate (L/min) 2 02/20/24 21:00 02/20/24 23:00 Temperature Temperature Source Pulse Rate 109 H 110 H Respiratory Rate 18 18 Blood Pressure 166/79 H 153/105 H Blood Pressure Mean 108 121 Pulse Ox 96 92 Oxygen Delivery Method Nasal Cannula Nasal Cannula Oxygen Flow Rate (L/min) 2 2 Weight Weight: 380 lb Body Mass Index (BMI) 51.5 Physical Exam Const oriented x3 General Appearance: cooperative HEENT normocephalic and head/scalp atraumatic Eyes PERRL Neck no lymphadenopathy Lymph Lymphatic: no lymphadenopathy noted Resp Auscultation: diminished lung sounds bilateral; Negative for rales, rhonchi or wheezes Cardio regular rate, regular rhythm, S1 normal heart sound and S2 normal heart sound GI GI Narrative: Positive bowel sounds, generalized tenderness with abdominal distention and obesity Palpation: Negative for guarding Extremity normal capillary refill Skin General Skin Exam: no breakdown Neuro no focal motor deficits and no sensory deficits noted Psych thought process normal and cooperative Results Lab / Micro Data 02/20/24 17:18 02/20/24 17:18 Labs: Laboratory Results - last 24 hr 02/20/24 17:18: WBC 8.0, RBC 5.34, Hgb 14.1, Hct 48.3, MCV 90.4, MCH 26.4 L, MCHC 29.2 L, RDW Std Deviation 49.1 H, RDW Coeff of Ezequiel 14.9 H, Plt Count 186, MPV 9.9, Immature Gran % (Auto) 0.200, Neut % (Auto) 79.5 H, Lymph % (Auto) 10.6 L, [place] % (Auto) 8.3, Eos % (Auto) 1.0, Baso % (Auto) 0.4, Absolute Neuts (auto) 6.4, Absolute Lymphs (auto) 0.85, Nucleated RBC % 0, Sodium 140, Potassium 4.5, Chloride 101, Carbon Dioxide 36.0 H, Anion Gap 3 L, BUN 18, Creatinine 1.11, Estim Creat Clear Calc 109.84, Est GFR (MDRD) Af Amer 86, Est GFR (MDRD) Non-Af 71, BUN/Creatinine Ratio 16.2, Glucose 119 H, Calcium 9.2, Total Bilirubin 0.60, AST 16, ALT 24, Alkaline Phosphatase 129 H, Total Protein 6.8, Albumin 3.5, Globulin 3.3, Albumin/Globulin Ratio 1.1, Lipase 24 02/20/24 19:36: Urine Color Yellow, Urine Clarity Clear, Urine pH 6.0, Ur Specific [place] 1.010, Urine Protein 100 H, Urine Glucose (UA) Normal, Urine Ketones Negative, Urine Occult Blood 10 H, Urine Nitrite Negative, Urine Bilirubin Negative, Urine Urobilinogen Normal, Ur Leukocyte Esterase Negative, Urine RBC 0-5 SEEN, Urine WBC 0 SEEN, Ur Squamous Epith Cells 0-5 SEEN, Urine Bacteria 0 SEEN, Urine Mucus 0 SEEN Imaging Radiology Impression Abdomen/Pelvis CT 02/20/24 18:49 IMPRESSION: 1. Inflammatory changes in the right lower quadrant. Normal caliber of the appendix. Doubt appendicitis. Overall appearance is likely secondary to distal ileitis. Consider oral contrast for further evaluation if definitive management is not performed. No free air. Small volume free fluid. 2. Small right pleural effusion. 3. Colonic diverticulosis without evidence of acute diverticulitis. Electronically Signed: Erick Maya DO at 20:09 EST , Abdomen CT 02/20/24 21:06 IMPRESSION: 1. The oral contrast administered is not propagate through the small bowel into the right lower quadrant, specifically the colon and appendix region. Inflammatory changes in the right lower quadrant are again identified. Doubt appendicitis. Suspect small bowel disease. 2. Colonic diverticulosis without discrete evidence of acute diverticulitis. Electronically Signed: Erick Maya DO at 22:45 EST , Chest X-Ray 02/20/24 21:06 IMPRESSION: Patchy ill-defined pulmonary opacities bilaterally may be in part due to multifocal pneumonia and/or pulmonary edema. Electronically Signed: Erick Maya, DO at 22:46 EST , Assessment & Plan Assessment/Plan (1) Enteritis: (2) Hypoxia: (3) Pneumonia: (4) Hypercholesterolemia: (5) Diabetes mellitus: (6) Morbid obesity due to excess calories: PLAN: Plan 1. Community-acquired pneumonia?patient will be admitted to general medical floor for observation, oxygen therapy per routine protocol will continue Unasyn and azithromycin initiated in the emergency room. And Unasyn was added to assist with abdominal infection as well. Will repeat CBC BMP in the morning. Will add respiratory inhalation treatments every 4 hours with albuterol as needed. 2. Enteritis?will allow patient for p.o. fluid intake at this point and monitor progression as he gets IV antibiotics, will initiate liquid diet and advance as tolerated 3. Diabetes?continue routine home management 4. Hyperlipidemia?continue statin 4. DVT prophylaxis?low molecular weight heparin Charges/Coding Visit Charges OBSV E&M: 38583 Observ/hosp same date L2
[2024-02-20] MEDS: Ampicillin/Sulbactam 3 GM in 0.9% Normal Saline (100mL MB+) 100 ML IV (23:35)
[2024-02-21] VITALS (22 sets, daily range): BP systolic 71–162; BP diastolic 54–118; PULSE 74–110; RESP 12–20; TEMP 36.6–39.7; O2SAT 88–100; BMI 52.4
[2024-02-21] MEDS: Azithromycin 500 MG in Dextrose 5%-Water (250mL Bag) 250 ML 250 MG IV (00:32)
[2024-02-21] MEDS: Acetaminophen 325 MG Tablet 650 MG PO ×2 (00:43→22:06)
[2024-02-21] MEDS: Losartan Potassium 100 MG Tablet PO (00:47)
[2024-02-21] MEDS: Ampicillin/Sulbactam 3 GM in 0.9% Normal Saline (100mL MB+) 100 ML IV (05:23)
--- NOTE | 2024-02-21 06:51 | PCM.PN.HOSP ---
Reason for Visit Reason for Visit: Abdominal pain and shortness of breath Subjective Subjective Mr. Thapa is a 63-year-old white male who presents emergency department [facility] on 02/20/2024 with a chief complaint of abdominal pain and shortness of breath. He reported that he started having abdominal pain about 2 months ago. He describes his pain as generalized and has been associated nausea but no vomiting. He does have a known umbilical hernia which has not been repaired. He states he has had some bloating associated with this and the pain has been dull in nature up until the day of admission at which time it became sharp. He indicated nothing was making it better or worse he did admit to having some diarrhea but no melena or hematochezia. Vital signs on presentation showed temperature of 98.1, heart rate 106, respiratory 26, blood pressure 168/121 with a repeat of 177/106 and pulse ox was 93% on room air at rest. CBC showed a normal white count but he did have a left shift with a 79.5% neutrophilia. Chemistry panel was consistent with him being a bit dry as his serum bicarb was elevated beyond his typical at 36. It does appear that he runs in the upper 20s to 30. Renal function remained normal. Serum glucose was 119. Liver functions were unremarkable. Lipase was normal at 24. UA was not suggestive of infection. Chest x-ray showed patchy ill-defined pulmonary opacities bilaterally thought to be related to pulmonary edema or multifocal pneumonia. CT of the abdomen pelvis showed inflammatory changes in the right lower quadrant with a normal caliber appendix suspicious for distal ileitis, small right pleural effusion and colonic diverticulosis without diverticulitis. Contrasted CT abdomen showed oral contrast that did not propagate through the small bowel into the right lower quadrant at the cecum/appendix reason with inflammatory changes in the right lower quadrant suspicious for small bowel disease. Sats were fine at rest however upon ambulation he desatted into the 80s with exertion and he was placed on oxygen. He has had no cough or sputum production and no respiratory symptoms. Initially this was thought to be pneumonia however it appears to be more consistent with heart failure on review of the current data I have available. Patient is not super forthcoming with his history. He does admits that he is having some abdominal discomfort for about 2 months. He states he overall feels better today. I did note that he had lower extremity edema and when I asked him about it he stated that was not new. We discussed sleep apnea and he has never been diagnosed and never had a study however he reports he has an upcoming study ordered in May. I strongly advised him to complete the study as I do anticipate he has untreated sleep apnea probably causing right-sided heart failure. We did discuss that I do not think he has a pneumonia and this is likely volume overload in combination with his enteritis. We discussed for the plan with regards to his bowel is to have a small bowel follow-through tomorrow as long as he continues to improve to assess contrast movement from the small bowel to large bowel. Objective Data Objective Data Vital Signs: Vital Signs Temp Pulse Resp BP Pulse Ox O2 Del Method O2 Flow Rate 97.8 F 74 18 157/81 H 98 Nasal Cannula 4 02/21/24 05:27 02/21/24 05:27 02/21/24 05:27 02/21/24 05:27 02/21/24 05:27 02/21/24 05:30 02/21/24 05:30 Oxygen Flow Rate (L/min) 4 Oxygen Delivery Method Nasal Cannula Weight: 175.54 kg Body Mass Index (BMI) 52.4 Intake & Output: Intake and Output for Last 24 Hours 02/19/24 02/20/24 02/21/24 23:59 23:59 23:59 Intake Total 1000 / 1000 479 / 479 Balance 1000 / 1000 479 / 479 Lab / Micro Data 02/21/24 07:30 02/21/24 07:30 Labs: Laboratory Results - last 24 hr 02/20/24 17:18: WBC 8.0, RBC 5.34, Hgb 14.1, Hct 48.3, MCV 90.4, MCH 26.4 L, MCHC 29.2 L, RDW Std Deviation 49.1 H, RDW Coeff of Ezequiel 14.9 H, Plt Count 186, MPV 9.9, Immature Gran % (Auto) 0.200, Neut % (Auto) 79.5 H, Lymph % (Auto) 10.6 L, [place] % (Auto) 8.3, Eos % (Auto) 1.0, Baso % (Auto) 0.4, Absolute Neuts (auto) 6.4, Absolute Lymphs (auto) 0.85, Nucleated RBC % 0, Sodium 140, Potassium 4.5, Chloride 101, Carbon Dioxide 36.0 H, Anion Gap 3 L, BUN 18, Creatinine 1.11, Estim Creat Clear Calc 109.84, Est GFR (MDRD) Af Amer 86, Est GFR (MDRD) Non-Af 71, BUN/Creatinine Ratio 16.2, Glucose 119 H, Calcium 9.2, Total Bilirubin 0.60, AST 16, ALT 24, Alkaline Phosphatase 129 H, Total Protein 6.8, Albumin 3.5, Globulin 3.3, Albumin/Globulin Ratio 1.1, Lipase 24 02/20/24 19:36: Urine Color Yellow, Urine Clarity Clear, Urine pH 6.0, Ur Specific [place] 1.010, Urine Protein 100 H, Urine Glucose (UA) Normal, Urine Ketones Negative, Urine Occult Blood 10 H, Urine Nitrite Negative, Urine Bilirubin Negative, Urine Urobilinogen Normal, Ur Leukocyte Esterase Negative, Urine RBC 0-5 SEEN, Urine WBC 0 SEEN, Ur Squamous Epith Cells 0-5 SEEN, Urine Bacteria 0 SEEN, Urine Mucus 0 SEEN Radiography Diagnostic Testing: Radiology Impression Abdomen/Pelvis CT 02/20/24 18:49 IMPRESSION: 1. Inflammatory changes in the right lower quadrant. Normal caliber of the appendix. Doubt appendicitis. Overall appearance is likely secondary to distal ileitis. Consider oral contrast for further evaluation if definitive management is not performed. No free air. Small volume free fluid. 2. Small right pleural effusion. 3. Colonic diverticulosis without evidence of acute diverticulitis. Electronically Signed: Erick Maya DO at 20:09 EST , Abdomen CT 02/20/24 21:06 IMPRESSION: 1. The oral contrast administered is not propagate through the small bowel into the right lower quadrant, specifically the colon and appendix region. Inflammatory changes in the right lower quadrant are again identified. Doubt appendicitis. Suspect small bowel disease. 2. Colonic diverticulosis without discrete evidence of acute diverticulitis. Electronically Signed: Erick Maya DO at 22:45 EST , Chest X-Ray 02/20/24 21:06 IMPRESSION: Patchy ill-defined pulmonary opacities bilaterally may be in part due to multifocal pneumonia and/or pulmonary edema. Electronically Signed: Erick Maya DO at 22:46 EST , Physical Exam Const alert, oriented x3, no apparent distress and well nourished; Negative for average body habitus or healthy appearing Constitutional Narrative: Super morbidly obese, white male, lying flat in bed with oxygen in place, appears comfortable, nontoxic HEENT head/scalp atraumatic and moist oral mucous membranes HEENT Narrative: Mallampati 4, no thrush Head and Scalp: normocephalic Eyes PERRL and conjunctivae normal Eyes Narrative: No scleral icterus Neck no lymphadenopathy and supple Neck Narrative: Trachea midline, no thyroid enlargement, neck is short and thick Resp normal respiratory effort, no retractions, no use of accessory muscles and clear to auscultation bilaterally Resp Narrative: Extremely distant due to body habitus Auscultation: Negative for rales, rhonchi or wheezes Cardio regular rate, regular rhythm, S1 normal heart sound, S2 normal heart sound, no murmurs, no rub, no gallops and no clicks GI normal to inspection, nondistended, normoactive bowel sounds, soft to palpation and non-tender GI Narrative: Large protuberant abdomen, no significant tenderness, umbilical hernia palpated Extremity Extremity Narrative: 2+ lower extremity edema, no cyanosis or clubbing Skin skin turgor normal, no jaundice, no petechiae and no mottling Skin Narrative: Slight lower extremity changes consistent with venous stasis Neuro oriented x3, moves all extremities and no focal motor deficits Speech: speech normal Psych Psych Narrative: Affect is flat but I cannot get is good and patient interacts appropriately Assessment & Plan Assessment/Plan (1) Enteritis: (2) Hypoxia: (3) Abnormal chest x-ray: (4) Uncontrolled hypertension: PLAN: Plan Abdominal pain/nausea/bloating secondary to enteritis -Appears that there may be a mild small bowel obstruction based on the read of the CT -Currently on clear liquid diet and will continue for now and assess for tolerance -If patient remains symptomatic we will make n.p.o. -Will hold off on fluids for now his chest x-ray looks volume overloaded -Continue as needed antiemetics -Add as needed medication for pain but use sparingly as this could worsen any obstruction -Will consider small bowel follow-through tomorrow depending on symptoms and may need to engage general surgery depending on progress -Given enteritis on imaging we will transition from Unasyn and azithromycin which were started for coverage of possible pneumonia to Zosyn -Patient did have a colonoscopy done on 03/28/[address] Isai Taylor that showed a non-thrombosed internal hemorrhoid with some prolapse and one 7 mm polyp in the distal sigmoid colon that was removed via hot snare with repeat colonoscopy recommended in 5 years Diarrhea -Check lactoferrin -Check enteric panel -Check C. difficile -Monitor stool output Hypoxia -Currently on 4 L nasal cannula -Was on room air at rest but required 4 L with exertion -Chest x-ray with patchy bilateral infiltrates versus volume overload and CT shows small right pleural effusion -Highly suspect this is volume overload and not pneumonia as patient does not have a markedly elevated white count, fever, chills, cough or sputum production -Check BNP--> with morbid obesity even if it is in normal range I am going to suspect he is volume overloaded given the significance of BNP and obese with lower ranges -Start Lasix 40 mg IV push twice daily -Check daily weights -Check I's and O's -Check echocardiogram -At the very least I do anticipate patient has pulmonary hypertension based on morbid obesity -Patient also appears to have uncontrolled hypertension so highly suspect diastolic dysfunction as well -Start Jardiance 25 mg daily -Continue losartan -Add Coreg Uncontrolled hypertension -Blood pressures are consistently in the 160s home 200 range with diastolics greater than 100 -Add Coreg 12.5 mg p.o. twice daily -Continue home losartan 100 mg daily -IV Lasix -Add as needed hydralazine for systolic pressure greater than 150 DM-2 -Discontinue metformin -Start Jardiance 25 mg daily as this will be beneficial for suspected heart failure and for diabetes -Add SSI -Currently on clear liquid diet but when able to advance will utilize cardiac/carb control -Accu-Cheks as ordered Hyperlipidemia -Continue home statin History of tobacco abuse -Recommend ongoing cessation Morbid obesity -BMI is 52.5 -Complicates treatment, prognosis, outcomes -Highly suspect patient has obstructive sleep apnea and should have outpatient polysomnography DVT prophylaxis -Increase Lovenox to 40 twice daily as patient's BMI is greater than 40 CODE STATUS -Full code as verified with patient today Charges/Coding Visit Charges Inpatient E&M: 48807 Subs Hosp L3
--- NOTE | 2024-02-21 07:02 | ECHOCS_ITS ---
Reason For Study: CONGESTIVE HEART FAILURE Procedure This was a 2D Doppler, Color Flow transthoracic echocardiogram. The study was technically difficult. Contrast injection was performed. Exam performed portable in patient room. Left Ventricle Normal LV size. Left ventricular systolic function is lower limits of normal. There is mild global hypokinesis of the left ventricle. Right Ventricle Mildly dilated right ventricle. Moderate global right ventricular systolic dysfunction. Atria Normal left atrium. Normal right atrium. Mitral Valve Normal mitral valve. Tricuspid Valve Normal tricuspid valve. Mild (1+) tricuspid valve insufficiency. Pulmonary artery systolic pressure is 30 mmHg. Great Vessels Normal aortic root. The pulmonary artery is normal size. The inferior vena cava is dilated. Pericardium/Pleural No pericardial effusion. Medication Diluted definity 6.5ml given slow IV push to enhance endocardial definition. MMode/2D Measurements & Calculations LVIDd: 5.3 cm IVSd: 1.5 cm LVOT diam: 2.3 cm LVIDs: 3.8 cm LVPWd: 1.3 cm LVOT area: 4.1 cm2 FS: 28.6 % asc Aorta Diam: 3.9 cm LAV(MOD-bp): 57.0 ml LVAd ap4: 40.1 cm2 LAV(MOD-bp) Indexed: 20.2 ml/m2 LVLd ap4: 10.1 cm LAV(MOD-sp2): 61.2 ml EDV(MOD-sp4): 129.1 ml LAV(MOD-sp4): 52.4 ml EDV(sp4-el): 135.7 ml LVAs ap4: 28.0 cm2 LVLs ap4: 8.8 cm ESV(MOD-sp4): 74.2 ml ESV(sp4-el): 75.5 ml EF(MOD-sp4): 42.5 % EF(sp4-el): 44.4 % SV(MOD-sp4): 54.9 ml SV(sp4-el): 60.2 ml Ao sinus diam: 3.4 cm SI(MOD-sp4): 19.5 ml/m2 Ao ST Junction: 2.8 cm LA A4 area: 20.1 cm2 LA dimension(2D): 4.4 cm RA A4 area: 23.1 cm2 TAPSE: 1.4 cm Time Measurements MV dec time: 0.19 sec Doppler Measurements & Calculations MV E max isaac: 57.9 cm/sec Lat Peak E' Isaac: 8.4 cm/sec Med Peak E' Isaac: 6.2 cm/sec MV A max isaac: 78.8 cm/sec E/E' lat: 6.9 E/E' med: 9.3 MV E/A: 0.73 MV dec slope: 305.0 cm/sec2 Ao V2 max: 180.6 cm/sec LV V1 max: 116.8 cm/sec Ao max P.0 mmHg LV V1 max P.5 mmHg Ao V2 mean: 142.8 cm/sec LV V1 mean P.0 mmHg Ao mean P.6 mmHg LV V1 mean: 98.8 cm/sec Ao V2 VTI: 30.6 cm LV V1 VTI: 17.8 cm AV (velocity ratio): 0.58 DHARA(I,D): 2.4 cm2 DHARA(V,D): 2.6 cm2 SV(LVOT): 72.7 ml PA V2 max: 82.5 cm/sec TR max isaac: 254.1 cm/sec TR max P.8 mmHg ECHO/Echo Complete W/ Contrast Interpretation Summary Normal LV size. Left ventricular systolic function is lower limits of normal. Mildly dilated right ventricle. Moderate global right ventricular systolic dysfunction. Ordering Physician: Alejandra Morin Referring Physician: Angely Weems M.D. Performed By: Anita Dumont RDCS and Student
[2024-02-21 07:46] LABS: Absolute Lymphocyte Count 0.71 X10^3/uL (0.83-4.51); Basophil# 0.06 X10^3/uL; Basophil% 0.6 % (0-1); Eosinophil# 0.02 X10^3/uL; Eosinophils% 0.2 % (0-5); Hemoglobin 15.5 g/dL (13.0-16.5); Lymphocyte # 0.71 X10^3/ul (0.83-4.51); Lymphocyte % 6.7 % (19-41); Mean Corp Hgb Conc 27.1 g/dL (32-36); Mean Corpuscular Hgb 26.2 pg (27.0-32.0); Mean Corpuscular Volume 96.5 fL (80-94); Mean Platelet Vol. 9.6 fl (6.2-12.0); Monocyte# 0.72 X10^3/uL; Monocyte% 6.8 % (0-10); NRBC Flagged by Analyzer 0 % (0-5); Neutrophil # 9.02 X10^3/uL (2.7-7.7); Neutrophil % 85.2 % (47-70); Platelet Count 196 K/mm3 (150-450); RBC Distribution Width CV 15.7 % (11.6-14.6); RBC Distribution Width SD 55.2 fl (35.1-43.9); Red Blood Count 5.92 M/mm3 (4.6-6.2); White Blood Count 10.6 K/mm3 (4.4-11.0)
[2024-02-21 07:50] LABS: Hematocrit 57.1 % (40-54)
[2024-02-21 07:59] LABS: BNP,B-Type NATRIURETIC PEPTIDE 408.3 pg/mL (0-100)
[2024-02-21 08:24] LABS: Anion Gap 9 (5-15); BUN 19 mg/dL (7-18); BUN/Creat Ratio 13.8 RATIO (10-20); Calcium,Total 8.9 mg/dL (8.5-10.1); Chloride 101 mmol/L (98-107); Creatinine, Serum 1.38 mg/dL (0.70-1.30); EST Glomerular Filtration Rate 55 mL/min (>60); Est Glom Filt Rate - Afr Amer 67 mL/min (>60); Estimated Creatinine Clearance 89.32 ml/min; Glucose 168 mg/dL (74-106); Potassium 4.4 mmol/L (3.5-5.1); Sodium Level 134 mmol/L (136-145)
[2024-02-21] MEDS: Piperacil/Tazobactam 3.375 GM in 0.9% Normal Saline (50mL MB+) 50 ML IV ×3 (08:55→22:27)
[2024-02-21] MEDS: Furosemide 40 MG/4 ML Vial IV ×2 (08:55→22:25)
[2024-02-21] MEDS: Empagliflozin 25 MG Tablet PO (09:03)
[2024-02-21] MEDS: Enoxaparin 40 MG/0.4 ML Syringe SC ×2 (09:03→22:25)
[2024-02-21] MEDS: Carvedilol 12.5 MG Tablet PO ×2 (09:03→22:26)
--- NOTE | 2024-02-21 11:55 | CM.UR ---
RN CM NOTE: RN CM to room to complete initial assessment. Pt sleeping. Able to wake pt up, but then falls back asleep quickly and unable to stay awake to answer questions for RN CM. Bhupendra HENRY, @ bedside and aware. RN CM to attempt assessment at a later time. Mayank BSN RN CM
[2024-02-21 12:31] LABS: Bedside Glucose 179 mg/dL (74-106)
--- NOTE | 2024-02-21 14:56 | NURSING ---
called respiratory. requested bedside for ABGs. sent message pt rather drowsy. glucose ok 94% on 6l, 153/86-[address] [place] [phone] lincoln reply abg stat please. did he get pain meds? [phone] Dr. lincoln to room. primary RN still bedside. discussed POC. plater supervisor Kaelyn updated. 1515 CPS called again, to unit to get ABGS.
--- NOTE | 2024-02-21 15:03 | CASEMGMT ---
RN CM COOK FRUIT CM?to room to attempt initial assessment again. Pt sleeping, difficult to awaken. Would open eyes, say a word or two and then go right back to sleep. RNBhupendra, made aware as well as chargemaster analystEva. Call placed to pt's and the following information obtained. Care providers, pharmacy, and demographics verified/updated at this time. Strata:?1 PCP: Dr Weems Specialists: none Preferred Pharmacy: Pt goes to [facility] in [place] Insurance: [place] Prescription Benefit: Yes LNOK: , Ana Living Arrangements: Lives w/ in 2-story home. Independent. Transportation:?Pt drives. does not drive. DME: Pt does not use DME. states he does not have a glucometer. HHC/SNF: No hx. PLAN: TBD. Anticipate discharge home. Follow for possible home O2. Mayank FINCH RN CM
[2024-02-21 15:39] LABS: Base Excess 7 mmol/L (-2 to +2); Bicarbonate 35.3 mmol/L (22-26); Blood Gas Specimen Type ART; Mode Not entered; O2 Delivery Device Cannula; PO2 52 mmHG (75-100); SITE R Radial; SO2 73 % (95-99); Total Carbon Dioxide 38 mmol/L; pCO2 99.5 mmHg (35-45); pH 7.16 (7.35-7.45)
--- NOTE | 2024-02-21 15:48 | NURSING ---
dr. lincoln sent photo of abg results in computer. supervisor housecleaner notified. dr. lincoln to unit, aware of transfer to ICU, supervisor housecleaner updated. attempted to notify of transfer, no answer vmail left to call unit.
--- NOTE | 2024-02-21 16:10 | NURSING ---
primary RN updated with ICU4 bed. calling report. cps x2 bedside updated.
--- NOTE | 2024-02-21 16:13 | NURSING ---
was able to get a hold of pt's , updated including transfer to icu. states she is working right now, did inform her transfer.
--- NOTE | 2024-02-21 16:16 | PCM.HOSP.N ---
Hospitalist Note I was called to evaluate the patient as he was more somnolent. Stat ABG was ordered as I did highly suspect hypercapnia. Patient was oriented and placed to self but confused on time which is a change from this morning. I highly suspect patient has untreated sleep apnea. ABG showed a pH of 7.16/pCO2 of 99.5/pO2 of 52 with a serum bicarb of 35.3. We placed him initially on AVAPS mode however he was not getting adequate tidal volume so I transition him to BiPAP with high IPAP and EPAP and his minute ventilation significantly increased. I would like to keep his minute ventilation between 13 and 16 L/min. We will repeat an ABG an hour after being on BiPAP to see if he improves if not he may require mechanical ventilation. He will be maintained on IV antibiotics. N.p.o. until he can be more awake. Place a Jimenez. Pulmonary medicine was consulted and the case was discussed with Dr. Rhoades. I did call his at [phone] but no one answered the phone at that time.
[2024-02-21 16:40] LABS: Base Excess 5 mmol/L (-2 to +2); Bicarbonate 34.1 mmol/L (22-26); Blood Gas Specimen Type ART; Mode NIV; O2 Delivery Device BiPAP; PO2 173 mmHG (75-100); RR 16; SITE R Radial; SO2 99 % (95-99); Total Carbon Dioxide 37 mmol/L; pCO2 96.9 mmHg (35-45); pH 7.15 (7.35-7.45)
[2024-02-21 16:56] LABS: Bedside Glucose 137 mg/dL (74-106)
[2024-02-21] MEDS: Etomidate 20 MG/10 ML Vial IV (17:00)
[2024-02-21] MEDS: Propofol 200 MG/20 ML Vial 50 MG IV BOLUS ×2 (17:05→17:08)
--- NOTE | 2024-02-21 17:07 | PCM.HOSP.N ---
Hospitalist Note ABG was drawn early due to the patient not pulling adequate tidal volumes and having low minute ventilation intermittently with periods of apnea. This showed virtually unchanged ABG so we did elect to intubate him. I was able to discuss this with his son as he had arrived at the hospital in the meantime. He was intubated without issue. We will obtain a sputum culture and place him on sedation. Upper extremity restraints will be required in the attempt to prevent him from removing life-sustaining devices.
--- NOTE | 2024-02-21 17:12 | RAD_ITS ---
STUDY: X-RAY CHEST REASON FOR EXAM: Male, 63 years old. Intubation/ETT OG placement TECHNIQUE: AP portable COMPARISON: February 20, 2024 FINDINGS: Bilateral perihilar infiltrate or pulmonary edema. There is no demonstrated pleural abnormality. Heart is enlarged.. Normal mediastinum and am[place]. Normal visualized pulmonary arteries. Tortuous aortic arch and descending thoracic aorta. Endotracheal tube noted approximately 3.5 cm proximal to maryann Normal visualized thoracic spine. Normal visualized ribs, clavicles, and shoulders. NG tube placement with tip in distal gastric body There is no demonstrated abnormality of the visualized soft tissue structures of the upper abdomen. RAD/Chest 1 View (Portable) IMPRESSION: Bilateral perihilar infiltrates or pulmonary edema status post intubation. Electronically Signed: Jimmy Tubbs MD at 18:39 EST ,
[2024-02-21] MEDS: Propofol 10MG/Ml 1,000 MG/100 ML Bottle 42.1 MG CONT INF (17:15)
[2024-02-21] MEDS: fentaNYL drip 100 ML 20 MCG CONT INF ×2 (17:30→22:30)
[2024-02-21] MEDS: Dexmedetomidine 1,000 mcg in 0.9% NS 240 mL 21.9 MCG CONT INF (17:45)
--- NOTE | 2024-02-21 18:25 | PCM.HOSP.N ---
Hospitalist Note Intubation Indication: Altered mental secondary to apnea Consent was obtained from: Emergent The patient was placed in the appropriate sniffing position. Preoxygenated sedation via BiPAP was provided for a minimum of 3 minutes. The patient had continuous cardiac as well as pulse oximetry monitoring during the procedure. Procedure sedation was provided by the administration of 20 mg of etomidate. Direct laryngoscopy was then performed using a number 4 blade, which revealed a grade 2A view. A 8 mm endotracheal tube was visualized advancing between the cords to the level of 26 cm at the lip. The stylette was then removed and discarded. Tube placement was confirmed by fogging in the tube along with equal and bilateral breath sounds. Colorimetric change was visualized on the CO2 meter. The cuff was then inflated and the tube secured using a commercially available device. A good pulse oximetry waveform was seen on the monitor throughout the procedure. A portable chest x-ray has been ordered to confirm appropriate placement. The patient tolerated the procedure well. Postintubation chest x-ray was reviewed and ET tube was pulled back 1 cm. Procedures Hospitalists Procedures: [id number] Insert Emergency Airway
[2024-02-21 19:53] LABS: Base Excess 3 mmol/L (-2 to +2); Bicarbonate 30.2 mmol/L (22-26); Blood Gas Specimen Type ART; Mode AC; O2 Delivery Device Adult Vent; PEEP 8; PO2 75 mmHG (75-100); RR 16; SITE L Radial; SO2 92 % (95-99); Total Carbon Dioxide 32 mmol/L; pCO2 64.9 mmHg (35-45); pH 7.28 (7.35-7.45)
[2024-02-21] MEDS: 0.9% Saline Lock 10 ML Syringe IV (20:00)
--- NOTE | 2024-02-21 20:29 | NURSING ---
2027- this RN bedside, pt core temp perez reading low temperatures. When checked, perez was sitting on top of patient and no longer in bladder. new perez inserted
[2024-02-21 20:31] LABS: CPK Total, Creatine Kinase 74 U/L (39-308); Triglycerides 116 mg/dL
[2024-02-21 20:45] LABS: Anion Gap 3 (5-15); BUN 20 mg/dL (7-18); BUN/Creat Ratio 13.7 RATIO (10-20); Calcium,Total 8.8 mg/dL (8.5-10.1); Chloride 98 mmol/L (98-107); Creatinine, Serum 1.46 mg/dL (0.70-1.30); EST Glomerular Filtration Rate 52 mL/min (>60); Est Glom Filt Rate - Afr Amer 63 mL/min (>60); Estimated Creatinine Clearance 84.42 ml/min; Glucose 144 mg/dL (74-106); Potassium 6.1 mmol/L (3.5-5.1); Sodium Level 135 mmol/L (136-145)
[2024-02-21] MEDS: Sodium Polystyrene Sulfonate 15 GM/60 ML UDC 30 GM GT (21:49)
[2024-02-21] MEDS: Dexmedetomidine 1,000 mcg in 0.9% NS 240 mL 43.9 MCG CONT INF (22:00)
[2024-02-21] MEDS: Atorvastatin Calcium 20 MG Tablet PO (22:26)
--- NOTE | 2024-02-21 23:33 | NURSING ---
2300- pt placed on cooling blanket for T 103.4F after trying ice packs, tylenol and ice water to flush OG.
[2024-02-22] VITALS (34 sets, daily range): BP systolic 109–156; BP diastolic 71–108; PULSE 73–95; RESP 16; TEMP 37.9–39.4; O2SAT 83–97; BMI 52.8
--- NOTE | 2024-02-22 00:40 | CON.PCM.CC_ITS ---
HPI Consult Data Date of Consult: 02/22/24 HPI Narrative Reason for Consultation: Acute respiratory failure required intubation HPI Narrative: 63 yrs old male with past medical history of HLD, DM, Morbid obesity, HTN presented to ED on 02/19 for abdominal pain for few weeks and was getting worse. On arrival to ED, CT abdomen pelvis with ileitis. CT abdomen with contrast with finding of no oral contrast propagation through the small bowel into the right lower quadrant , inflammatory changes in the right lower quadrant, suspect small bowel disease. Patient had episode of hypoxemia in ED required oxyen supplement. He had worsening hypoxemia and got intubated Labs reviewed Na 135, K 6.1, CL 98, Hco3 34, BUN 20, Cr 1.4, BNP 408 Worsening creatinine and hyperkalemia compared to morning lab On my evaluation of patient in ICU, he is intubated and sedated with precedex and fentanyl P/E: Morbidly obese HEENT: Atraumatic/ETT Respiratory: Decreased breath sounds on the bases CVS: S1, S2 are well heard Abd: Soft Extre: Bilateral leg swelling with ulceration SENIOR BUSINESS DEVELOPMENT MANAGER: Intubated, sedated Assessment/Plan # Ileitis CT abdomen with contrast noted Check lactic acid level Serial abdominal exam Consider repeat CT with IV contrast to r/o ischemia if clinically worsening # Acute hypoxic hypercapneic respiratory failure most likely due to fluid overload vs pneumonia Underlying JESSICA vs OHS ABG noted, vent adjusted, repeat ABG BNP elevated 480, could be falsely low due to obesity Follow up on cultures Agree with empiric antibiotics Bronchodilators ECHO noted with lower normal limits, dilated RV and moderate global RV dysfunction # LENORE/Hyperkalemia Received Kayexalate as per report Will give calcium gluconate, albuterol 10 mg, D50, insulin Repeat BMP in 1 hr # Cellulitis Continue with antibiotics # Underlying JESSICA/OHS Needs sleep study as outpatient #Hx of DM ISS Monitor blood sugar Hold oral hypoglycemic agents # Morbid obesity Life style modification counselling once acute issue resolves DVT prophylaxis Critical care time 60 minutes Entire encounter done via Telemedicine [facility] Medical History (Updated 02/21/24 @ 07:[address] Alejandra Morin, DO) Hypercholesterolemia Diabetes mellitus Morbid obesity due to excess calories Heart murmur Rectal bleeding Acid reflux Fatigue Hypertension Home Medications ?Medication ?Instructions ?Recorded ?Last Taken ?Type atorvastatin 20 mg tablet 20 mg PO QHS 02/20/24 Unknown History losartan 100 mg tablet 100 mg PO QHS blood pressure 02/20/24 Unknown History metformin 1,000 mg tablet 2,000 mg PO QHS 02/20/24 Unknown History Allergy/AdvReac Type Severity Reaction Status Date / Time No Known Allergies Allergy Verified 02/20/24 16:15 Family History Father Heart disease Surgical History (Updated 02/20/24 @ 18:[address] Andrew Cary DO) History of back surgery Hx of cardiac cath Social History Smoking Status: Former smoker second hand exposure: No alcohol intake: former substance use type: former substance user caffeine: Yes frequency: does not exercise Objective Data Objective Data Vital Signs: Vital Signs Last response 3 Temperature 39.4 C H 02/22/24 00:00 Temperature Source Core 02/22/24 00:00 Pulse Rate 81 02/22/24 00:00 Pulse Strength Weak (1+) 02/21/24 22:00 Respiratory Rate 16 02/22/24 00:00 Respiratory Effort Mechanically Ventilated 02/21/24 21:17 Respiratory Depth Normal 02/21/24 21:17 Respiratory Pattern Normal 02/21/24 23:09 Blood Pressure 109/71 02/22/24 00:00 Blood Pressure Mean 83 02/22/24 00:00 Blood Pressure Source Monitor 02/22/24 00:00 Blood Pressure Position Semi-Fowlers 02/22/24 00:00 Blood Pressure Location Right Arm 02/22/24 00:00 Pulse Ox 90 02/22/24 00:00 Oxygen Delivery Method Mechanical Ventilator 02/22/24 00:00 Oxygen Flow Rate (L/min) 6 02/21/24 19:07 Fraction of Inspired Oxygen (FIO2) 90 02/22/24 00:00 I&O: I&O Last 24 Hours 3 02/21/24 02/21/24 02/22/24 11:59 23:59 11:59 Intake Total 479 / 1009.20 530.20 / 1009.20 Output Total 300 / 1708 1398 / 1708 Balance 179 / -698.80 -867.80 / -698.80 -10 -10 I&O: Total Stay 3 02/20/24 16:15 thru 02/22/24 00:00 Intake Total 2009.20 Output Total 1708 Balance 301.20 Current Meds Ordered / Administered: Current meds ordered / Administered 3 Generic Name Dose Route Start Last Admin Trade Name Freyolette PRN Reason Stop Dose Admin Acetaminophen 650 mg 02/21/24 00:09 02/21/24 22:06 Acetaminophen 325 Mg Tablet PO 650 mg Q6H PRN PRN Administration Pain 1-10 Or Fever >100.7 Albuterol Sulfate 2.5 mg 02/21/24 16:26 Albuterol 2.5 Mg/3 Ml Vial.Neb. INHALATION Q2H PRN PRN SOB &/OR WHEEZING Atorvastatin Calcium 20 mg 02/21/24 22:00 02/21/24 22:26 Atorvastatin Calcium 20 Mg Tablet PO 20 mg QHS ELISSA Administration Carvedilol 12.5 mg 02/21/24 10:00 02/21/24 22:26 Carvedilol 12.5 Mg Tablet PO 12.5 mg BID ELISSA Administration Protocol Chlorhexidine Gluconate 1 each 02/22/24 10:00 Chlorhexidine Gluc 2% Cloth 1 Each Towelette TOPICAL DAILY ELISSA Empagliflozin 25 mg 02/21/24 10:00 02/21/24 09:03 Empagliflozin 25 Mg Tablet PO 25 mg DAILY ELISSA Administration Enoxaparin Sodium 40 mg 02/21/24 10:00 02/21/24 22:25 Enoxaparin 40 Mg/0.4 Ml Syringe SC 40 mg BID ELISSA Administration Furosemide 40 mg 02/21/24 16:26 02/21/24 22:25 Furosemide 40 Mg/4 Ml Vial IV 40 mg Q8 ELISSA Administration Protocol Hydralazine HCl 10 mg 02/21/24 07:52 Hydralazine 20 Mg/Ml Vial IV Q6H PRN PRN SBP>150 Protocol Sodium Chloride 500 mls @ 15 mls/hr 02/21/24 00:22 IV .[id number] PRN Saline Flush Piperacillin Sod/Tazobactam 50 mls @ 12.5 mls/hr 02/21/24 07:31 02/21/24 22:27 Sod 3.375 gm/ Sodium Chloride IV 12.5 mls/hr Q8 ELISSA Administration Propofol 1,000 mg in 100 mls @ 10.53 mls/hr 02/21/24 17:15 02/21/24 17:41 Diprivan CONT INF Infused .Q9H30M [facility] Titration Protocol 10 MCG/KG/MIN Fentanyl 100 mls @ 5 mls/hr 02/21/24 17:15 02/21/24 22:30 CONT INF 200 mcg/hr UD ELISSA 20 mls/hr Administration Protocol 50 MCG/HR Dexmedetomidine HCl 1,000 mcg/ 250 mls @ 21.938 mls/hr 02/21/24 17:30 02/21/24 22:15 Sodium Chloride CONT INF 0.9 mcg/kg/hr .[id number] ELISSA 39.5 mls/hr Titration Protocol 0.5 MCG/KG/HR Pantoprazole Sodium 40 mg/ 110 mls @ 330 mls/hr 02/22/24 10:00 Sodium Chloride IV Q24 [facility] Insulin Human Lispro 0 unit 02/21/24 11:00 02/21/24 17:13 Insulin Lispro 100 Unit/Ml Insuln.Pen SC Not Given TIDAC [facility] Protocol Losartan Potassium 100 mg 02/21/24 00:45 02/21/24 22:47 Losartan Potassium 100 Mg Tablet PO Not Given QHS [facility] Protocol Ondansetron HCl 4 mg 02/21/24 00:09 Ondansetron 4 Mg/2 Ml Vial IV Q8H PRN PRN NAUSEA/VOMITING Sodium Chloride 10 - 40 ml 02/21/24 00:22 02/21/24 20:00 0.9% Saline Lock 10 Ml Syringe IV 20 ml UD PRN Administration SALINE FLUSH Lab / Micro Data 02/21/24 07:30 02/21/24 19:46 Labs: Laboratory Results - last 24 hr 02/21/24 07:30: WBC 10.6, RBC 5.92, Hgb 15.5, Hct 57.1 H, MCV 96.5 H D, MCH 26.2 L, MCHC 27.1 L D, RDW Std Deviation 55.2 H, RDW Coeff of Ezequiel 15.7 H, Plt Count 196, MPV 9.6, Immature Gran % (Auto) 0.500, Neut % (Auto) 85.2 H, Lymph % (Auto) 6.7 L, Roosevelt % (Auto) 6.8, Eos % (Auto) 0.2, Baso % (Auto) 0.6, Absolute Neuts (auto) 9.0 H, Absolute Lymphs (auto) 0.71 L, Nucleated RBC % 0, Sodium 134 L, Potassium 4.4, Chloride 101, Carbon Dioxide 24.0, Anion Gap 9, BUN 19 H, C reatinine 1.38 H, Estim Creat Clear Calc 89.32, Est GFR (MDRD) Af Amer 67, Est GFR (MDRD) Non-Af 55 L, BUN/Creatinine Ratio 13.8, Glucose 168 H, Calcium 8.9, B -Natriuretic Peptide 408.3 H 02/21/24 12:14: POC Glucose 179 H 02/21/24 16:02: POC Glucose 137 H 02/21/24 17:50: Sodium Cancelled, Potassium Cancelled, Chloride Cancelled, Carbon Dioxide Cancelled, Anion Gap Cancelled, BUN Cancelled, Creatinine Cancelled, Estim Creat Clear Calc Cancelled, Est GFR (MDRD) Af Amer Cancelled, Est GFR (MDRD) Non-Af Cancelled, BUN/Creatinine Ratio Cancelled, Glucose Cancelled, Calcium Cancelled 02/21/24 19:46: Sodium 135 L, Potassium 6.1 H*, Chloride 98, Carbon Dioxide 34.0 H, Anion Gap 3 L, BUN 20 H, Creatinine 1.46 H, Estim Creat Clear Calc 84.42, Est GFR (MDRD) Af Amer 63, Est GFR (MDRD) Non-Af 52 L, BUN/Creatinine Ratio 13.7, G lucose 144 H, Calcium 8.8, Total Creatine Kinase 74, Triglycerides 116 ABG Data ABG results: ABG 02/21/24 02/21/24 02/21/24 15:27 16:28 19:48 Specimen Type ART ART ART Sample Site R Radial R Radial L Radial pH 7.16 L* 7.15 L* 7.28 L Bicarbonate Actual 35.3 H 34.1 H 30.2 H Total CO2 38 37 32 Base Excess 7 H 5 H 3 H O2 Saturation 73 L 99 92 L O2 % 6.0 50.0 60.0 ABG pCO2 99.5 H* 96.9 H* 64.9 H ABG pO2 52 L 173 H 75 William Test N/A N/A N/A Respiration Rate 16 16 O2 Delivery Device Cannula BiPAP Adult Vent Vent Mode Not entered NIV AC Tidal Volume 500.0 POC PEEP 8 Crit Call To/Read Back Yes Yes Blood Gas Notified Whom Dr Mikel Morin Blood Gas Notified Time 15:36:02 16:30:44 Imaging Radiology Impression Echocardiogram 02/21/24 07:02 Interpretation Summary Normal LV size. Left ventricular systolic function is lower limits of normal. Mildly dilated right ventricle. Moderate global right ventricular systolic dysfunction. Ordering Physician: Alejandra Morin Referring Physician: Angely Weems M.D. Performed By: Anita Dumont RDCS and Student Chest X-Ray 02/21/24 17:12 IMPRESSION: Bilateral perihilar infiltrates or pulmonary edema status post intubation. Electronically Signed: Jimmy Tubbs MD at 18:39 EST , Assessment and Plan . Assessment and plan: Critical Care Time: The entirety of this encounter was done via Telemedicine
--- NOTE | 2024-02-22 00:46 | NURSING ---
0046- radiologist Jessie mendoza, called to ICU to inform this RN that pt may not get his small bowel series imaging done as there is no radiology on today and d/t the patients size and being on the vent, portal imaging would not valuable.
[2024-02-22 01:25] LABS: Base Excess 2 mmol/L (-2 to +2); Blood Gas Specimen Type ART; Mode AC; O2 Delivery Device Adult Vent; PEEP 10; PO2 60 mmHG (75-100); RR 60; SITE L Radial; SO2 89 % (95-99); Total Carbon Dioxide 28 mmol/L; pCO2 47.9 mmHg (35-45); pH 7.36 (7.35-7.45)
[2024-02-22 01:48] LABS: Bedside Glucose 140 mg/dL (74-106)
--- NOTE | 2024-02-22 01:54 | RAD_ITS ---
EXAM: XR CHEST, 1 VIEW CLINICAL INDICATION: Hypoxia TECHNIQUE: Frontal view of the chest. COMPARISON: Single view chest from 02/21/2024 FINDINGS: LUNGS AND PLEURAL SPACES: Bilateral lower lobe consolidations with moderate pleural effusions. No pneumothorax. HEART: Unremarkable. Cardiac silhouette not enlarged. MEDIASTINUM: Central airways and mediastinal contour are unremarkable. BONES/JOINTS: Unremarkable. No acute fracture. SOFT TISSUES: Unremarkable. TUBES, LINES AND DEVICES: Stable endotracheal and enteric tubes. RAD/Chest 1 View (Portable) IMPRESSION: Bilateral lower lobe consolidations with moderate pleural effusions. Findings may indicate atelectasis or pneumonia. Electronically Signed: Marino Felipe MD at 3:41 EST ,
--- NOTE | 2024-02-22 01:54 | RAD_ITS ---
EXAM: XR ABDOMEN, 1 VIEW CLINICAL INDICATION: Abdominal distention TECHNIQUE: Frontal supine view of the abdomen/pelvis. COMPARISON: No relevant prior studies available. FINDINGS: LOWER THORAX: No acute pathology. GASTROINTESTINAL TRACT: Unremarkable. Non-obstructive. No bowel or stomach distention. ORGANS: Unremarkable as visualized. No organomegaly. No abnormal calcifications. BONES/JOINTS: No acute pathology. SOFT TISSUES: No acute pathology. TUBES, LINES AND DEVICES: Enteric tube with tip in the distal stomach. RAD/Abdomen Single View (Portable) IMPRESSION: Enteric tube with tip in the distal stomach. Electronically Signed: Marino Felipe MD at 3:41 EST ,
--- NOTE | 2024-02-22 01:55 | PCM.HOSP.N ---
Hospitalist Note Patient with intermittent issues with hypoxia on the ventilator. Ongoing issues per discussion with staff certified nurse midwife with abdominal distention. No marked findings on CT A/P from 02/19 noted. Per discussion with RT vent settings changes made and seemed to have improved but now again having mild hypoxia. Encouraged patient rotation and will obtain CXR and KUB. ABG with pH 7.36, bicarb 27, O2 saturation 89%, pCO2 47.9, pO2 60. Recruiting Consultant is being contacted per ICU staff as well for input.
[2024-02-22] MEDS: CHLORHEXIDINE GLUC 2% CLOTH 1 EACH TOWELETTE TOPICAL (02:32)
[2024-02-22] MEDS: Dextrose 10%-Water 250 ML 999 ML IV ×2 (02:40→02:56)
[2024-02-22] MEDS: Sodium Bicarbonate 8.4% 50 ML Syringe 50 MEQ IV (02:42)
[2024-02-22] MEDS: Albuterol *CONC* 2.5mg/0.5mL VIAL.NEB. 10 MG INHALATION (02:42)
[2024-02-22] MEDS: 0.9% Saline Lock 10 ML Syringe IV ×4 (02:43→10:37)
[2024-02-22] MEDS: Calcium Gluconate IV 1 GM in 0.9% Normal Saline (100mL Bag) 100 ML IV (02:53)
[2024-02-22] MEDS: Insulin Lispro 100 UNIT/ML VIAL (ADMELOG) 10 UNIT IV (03:06)
[2024-02-22 03:35] LABS: Lactic Acid 2.3 mmol/L (0.4-1.9)
[2024-02-22] MEDS: Dexmedetomidine 1,000 mcg in 0.9% NS 240 mL 57 MCG CONT INF (03:43)
[2024-02-22] MEDS: fentaNYL drip 100 ML 20 MCG CONT INF (03:46)
[2024-02-22] MEDS: Piperacil/Tazobactam 3.375 GM in 0.9% Normal Saline (50mL MB+) 50 ML IV ×2 (05:11→14:00)
[2024-02-22 05:23] LABS: Absolute Lymphocyte Count 0.73 X10^3/uL (0.83-4.51); Absolute Neutrophil Count 8.3 X10^3/uL (2.0-7.7); Basophil# 0.03 X10^3/uL; Basophil% 0.3 % (0-1); Eosinophil# 0.05 X10^3/uL; Eosinophils% 0.5 % (0-5); Hematocrit 47.2 % (40-54); Hemoglobin 14.2 g/dL (13.0-16.5); Lymphocyte # 0.73 X10^3/ul (0.83-4.51); Lymphocyte % 7.3 % (19-41); Mean Corp Hgb Conc 30.1 g/dL (32-36); Mean Corpuscular Hgb 26.7 pg (27.0-32.0); Mean Corpuscular Volume 88.9 fL (80-94); Mean Platelet Vol. 9.8 fl (6.2-12.0); Monocyte# 0.84 X10^3/uL; Monocyte% 8.4 % (0-10); NRBC Flagged by Analyzer 0 % (0-5); Neutrophil # 8.34 X10^3/uL (2.7-7.7); Platelet Count 179 K/mm3 (150-450); RBC Distribution Width CV 15.5 % (11.6-14.6); RBC Distribution Width SD 50.3 fl (35.1-43.9); Red Blood Count 5.31 M/mm3 (4.6-6.2)
[2024-02-22 05:25] LABS: Erythrocyte Sedimentation Rate 25 mm/hr (0-20)
[2024-02-22] MEDS: Cisatracurium *PARALYTIC 100 MG in 0.9% Normal Saline (250mL Bag) 200 ML 53.1 MG CONT INF ×4 (05:34→19:33)
[2024-02-22 05:48] LABS: Procalcitonin 1.29 ng/mL (0.00-0.09)
--- NOTE | 2024-02-22 06:30 | RAD_ITS ---
EXAM: XR CHEST, 1 VIEW CLINICAL INDICATION: hypoxia TECHNIQUE: Frontal view of the chest. COMPARISON: Single view chest 02/22/2024 FINDINGS: LUNGS AND PLEURAL SPACES: Moderate pleural effusions with bilateral interstitial and alveolar opacities. No pneumothorax. HEART: Unremarkable. Cardiac silhouette not enlarged. MEDIASTINUM: Central airways and mediastinal contour are unremarkable. BONES/JOINTS: Unremarkable. No acute fracture. SOFT TISSUES: Unremarkable. TUBES, LINES AND DEVICES: Stable endotracheal and enteric tubes. RAD/Chest 1 View (Portable) IMPRESSION: Moderate pleural effusions with bilateral interstitial and alveolar opacities. Findings may indicate edema and/or infection. Electronically Signed: Marino Felipe MD at 7:51 EST ,
[2024-02-22 06:53] LABS: Reflex Lactate? Y
[2024-02-22 06:59] LABS: ALB/GLOB Ratio 0.9 RATIO (0.9-2.4); AST(SGOT) 17 U/L (15-37); Alanine Aminotransfer ALT/SGPT 19 U/L (16-61); Albumin, Serum 2.9 g/dL (3.2-5.0); Alkaline Phosphatase 104 U/L (45-117); Anion Gap 7 (5-15); BUN 24 mg/dL (7-18); BUN/Creat Ratio 15.4 RATIO (10-20); Calcium,Total 8.5 mg/dL (8.5-10.1); Chloride 101 mmol/L (98-107); Creatinine, Serum 1.56 mg/dL (0.70-1.30); EST Glomerular Filtration Rate 48 mL/min (>60); Est Glom Filt Rate - Afr Amer 58 mL/min (>60); Estimated Creatinine Clearance 79.38 ml/min; Globulin 3.2 g/dL (2.2-4.2); Glucose 188 mg/dL (74-106); Magnesium 1.7 mg/dL (1.6-2.6); Phosphorus 3.5 mg/dL (2.5-4.9); Potassium 4.2 mmol/L (3.5-5.1); Protein, Total 6.1 g/dL (6.4-8.2); Sodium Level 136 mmol/L (136-145)
[2024-02-22] MEDS: Dexmedetomidine 1,000 mcg in 0.9% NS 240 mL 65.8 MCG CONT INF (07:57)
[2024-02-22] MEDS: Furosemide 500 MG in Empty Viaflex 50 mL 1 EACH CONT INF (08:18)
--- NOTE | 2024-02-22 08:29 | PCM.PN.INT ---
Assessment & Plan Assessment/Plan (1) Acute respiratory failure with hypoxia and hypercapnia: (2) COVID-19: PLAN: Plan RECOMMENDATIONS: 1. Continue current ventilator parameters. Wean FiO2 and PEEP as tolerated. 2. Continue empiric antibiotics. 3. Start remdesivir and Decadron. 4. Initiate aggressive diuresis, as tolerated by hemodynamics and renal function. 5. Continue cis atracurium. 6. Start empiric weight-based heparin infusion to cover for possible PE. 7. Continue PPI therapy. 8. PICC line to be placed today. IMPRESSIONS: 1. Acute hypoxemic and hypercapnic respiratory failure Clinical concern for multifactorial etiology, including untreated sleep apnea, alveolar hypoventilation secondary to obesity, concern for congestive heart failure, along with COVID-19 pneumonia with the possibility of secondary bacterial pneumonia. While PE would also be in the differential diagnosis, the patient is far too unstable to proceed with CT imaging of the chest. Therefore, the patient will be placed empirically on a weight-based heparin infusion. Given his refractory hypoxemia, the patient was initiated on cis atracurium overnight, which will be continued. Continue antimicrobials as ordered, along with aggressive diuresis as tolerated by hemodynamics. Lastly, the patient will be initiated on Decadron and remdesivir. 2. Abdominal pain and nausea Unclear etiology based upon CT imaging of the abdomen completed on admission. The patient's abdomen is markedly distended. However, the patient is too unstable clinically to be safely taken for repeat CT abdomen. In addition, he would not be a surgical candidate given his current clinical status. Therefore, we will plan to continue current supportive care. 3. History of super morbid obesity/hypertension/hyperlipidemia/diabetes mellitus/history of tobacco dependency Complicates care, management, recovery and prognosis. Continue supportive measures as noted above. TIME: 40 minutes of critical care time, independent of procedures, was spent addressing the patient's acute hypoxemic and hypercapnic respiratory failure abdominal pain and nausea, super morbid obesity, review of all data and collaboration with the care team. Subjective Subjective The patient was seen and examined at the bedside this morning. Events from the last 24 hours have been reviewed. The patient currently has a low-grade fever but remains otherwise hemodynamically stable on assist-control mode of mechanical ventilation with an FiO2 requirement of 100% and PEEP of 18. White blood cell count is normal. Platelet count is within normal limits. Arterial blood gas obtained earlier today demonstrated a pH of 7.36 with a pCO2 of 48 and pO2 of 60. Potassium is normal at 4.2 with a bicarbonate of 29, BUN of 24 and creatinine of 1.56. Chest x-ray continues to demonstrate pleural effusions and interstitial opacities. Nursing staff is concerned about the degree of abdominal distention that the patient is experiencing. The patient is currently sedated on Precedex and fentanyl. Due to refractory hypoxemia, the patient was initiated on cis atracurium overnight. In light of his chest x-ray findings, continuous Lasix infusion was ordered this morning along with a weight-based heparin infusion to cover the patient empirically for pulmonary embolism. Essentially, the patient presented to the emergency department on February 19 with abdominal pain and dyspnea. CT of the abdomen demonstrated nonpropagation of the contrast through the small bowel into the lower right quadrant at the cecum with inflammatory changes suspicious for small bowel disease. He was initially placed on antibiotics to cover for possible pneumonia. However, there was some concern that his chest imaging may be account manager sales representative of pulmonary edema as opposed to an occult infectious process. Last evening, the patient's hospitalist was contacted as the patient was noted to be more somnolent. An arterial blood gas was obtained which demonstrated a pH of 7.16 with a pCO2 of 99 and pO2 of 52. An attempt was made to utilize noninvasive positive pressure ventilatory support, which was largely unsuccessful. Therefore, the patient was intubated. Objective Data Objective Data The patient's most recent lab work, culture data and imaging studies have all been personally reviewed. Surface echocardiogram demonstrated normal LV size with systolic function at the lower limits of normal. There was mild global hypokinesis of the LV. There was mild RV dilation and moderate global RV systolic dysfunction. Pulmonary artery systolic pressure was estimated to be 30 mmHg. Strep and urine Legionella antigens were negative. Rapid COVID antigen was negative. Blood and sputum cultures are pending. Vital Signs: Vital Signs Temp Pulse Resp BP Pulse Ox O2 Del Method O2 Flow Rate 100.9 F H 78 16 142/100 H 89 Mechanical Ventilator 6 02/22/24 07:00 02/22/24 07:00 02/22/24 07:00 02/22/24 07:00 02/22/24 07:00 02/22/24 07:00 02/21/24 19:07 FiO2 100 02/22/24 07:00 Oxygen Flow Rate (L/min) 6 Oxygen Delivery Method Mechanical Ventilator Weight: 389 lb 15.964 oz Body Mass Index (BMI) 52.8 Intake & Output: Intake and Output for Last 24 Hours 02/20/24 02/21/24 02/22/24 23:59 23:59 23:59 Intake Total 1000 / 1000 1058.72 / 1108.35 1502.12 / 1502.12 Output Total 1698 / 1708 825 / 825 Balance 1000 / 1000 -639.28 / -599.65 677.12 / 677.12 Lab / Micro Data Attestation: I reviewed the patient's lab results. 02/22/24 05:09 02/22/24 05:09 Labs: Laboratory Results - last 24 hr 02/21/24 12:14: POC Glucose 179 H 02/21/24 16:02: POC Glucose 137 H 02/21/24 17:50: Sodium Cancelled, Potassium Cancelled, Chloride Cancelled, Carbon Dioxide Cancelled, Anion Gap Cancelled, BUN Cancelled, Creatinine Cancelled, Estim Creat Clear Calc Cancelled, Est GFR (MDRD) Af Amer Cancelled, Est GFR (MDRD) Non-Af Cancelled, BUN/Creatinine Ratio Cancelled, Glucose Cancelled, Calcium Cancelled 02/21/24 19:46: Sodium 135 L, Potassium 6.1 H*, Chloride 98, Carbon Dioxide 34.0 H, Anion Gap 3 L, BUN 20 H, Creatinine 1.46 H, Estim Creat Clear Calc 84.42, Est GFR (MDRD) Af Amer 63, Est GFR (MDRD) Non-Af 52 L, BUN/Creatinine Ratio 13.7, Glucose 144 H, Calcium 8.8, Total Creatine Kinase 74, Triglycerides 116 02/22/24 01:29: POC Glucose 140 H 02/22/24 02:48: Lactic Acid 2.3 H* 02/22/24 05:09: WBC 10.0, RBC 5.31, Hgb 14.2, Hct 47.2, MCV 88.9 D, MCH 26.7 L, MCHC 30.1 L D, RDW Std Deviation 50.3 H, RDW Coeff of Ezequiel 15.5 H, Plt Count 179, MPV 9.8, Immature Gran % (Auto) 0.500, Neut % (Auto) 83.0 H, Lymph % (Auto) 7.3 L, [place] % (Auto) 8.4, Eos % (Auto) 0.5, Baso % (Auto) 0.3, Absolute Neuts (auto) 8.3 H, Absolute Lymphs (auto) 0.73 L, Nucleated RBC % 0, ESR 25 H, Sodium 136, Potassium 4.2, Chloride 101, Carbon Dioxide 29.0, Anion Gap 7, BUN 24 H, Creatinine 1.56 H, Estim Creat Clear Calc 79.38, Est GFR (MDRD) Af Amer 58 L, Est GFR (MDRD) Non-Af 48 L, BUN/Creatinine Ratio 15.4, Glucose 188 H, Calcium 8.5, Phosphorus 3.5, Magnesium 1.7, Total Bilirubin 1.00, AST 17, ALT 19, Alkaline Phosphatase 104, C-React Prot Ext Range 26.00 H, Total Protein 6.1 L, Albumin 2.9 L, Globulin 3.2, Albumin/Globulin Ratio 0.9, Procalcitonin 1.29 H, TSH 1.800 Micro: Microbiology 02/22/24 07:02 Urine Catheter - Jimenez Legionella Antigen - Final 02/22/24 07:02 Urine Catheter - Jimenez Streptococcus pneumoniae Antigen (M - Final 02/22/24 05:26 Nasal Secretion SARS-CoV-2 Antigen (Rapid) - Final ABG Data ABG results: ABG 02/21/24 02/21/24 02/21/24 15:27 16:28 19:48 Specimen Type ART ART ART Sample Site R Radial R Radial L Radial pH 7.16 L* 7.15 L* 7.28 L Bicarbonate Actual 35.3 H 34.1 H 30.2 H Total CO2 38 37 32 Base Excess 7 H 5 H 3 H O2 Saturation 73 L 99 92 L O2 % 6.0 50.0 60.0 ABG pCO2 99.5 H* 96.9 H* 64.9 H ABG pO2 52 L 173 H 75 William Test N/A N/A N/A Respiration Rate 16 16 O2 Delivery Device Cannula BiPAP Adult Vent Vent Mode Not entered NIV AC Tidal Volume 500.0 POC PEEP 8 Crit Call To/Read Back Yes Yes Blood Gas Notified Whom Dr Mikel Morin Blood Gas Notified Time 15:36:02 16:30:44 02/22/24 01:21 Specimen Type ART Sample Site L Radial pH 7.36 Bicarbonate Actual 27.0 H Total CO2 28 Base Excess 2 O2 Saturation 89 L O2 % 90.0 ABG pCO2 47.9 H ABG pO2 60 L William Test N/A Respiration Rate 60 O2 Delivery Device Adult Vent Vent Mode AC Tidal Volume 500.0 POC PEEP 10 Crit Call To/Read Back Blood Gas Notified Whom Blood Gas Notified Time Radiography Diagnostic Testing: Radiology Impression Echocardiogram 02/21/24 07:02 Interpretation Summary Normal LV size. Left ventricular systolic function is lower limits of normal. Mildly dilated right ventricle. Moderate global right ventricular systolic dysfunction. Ordering Physician: Alejandra Morin Referring Physician: Angely Weems M.D. Performed By: Anita Dumont RDCS and Student Chest X-Ray 02/21/24 17:12 IMPRESSION: Bilateral perihilar infiltrates or pulmonary edema status post intubation. Electronically Signed: Jimmy Tubbs MD at 18:39 EST Reading Location ID and State: [address] [place] [address] Tel , Service support , Chest X-Ray 02/22/24 01:54 IMPRESSION: Bilateral lower lobe consolidations with moderate pleural effusions. Findings may indicate atelectasis or pneumonia. Electronically Signed: Marino Felipe MD at 3:41 EST , KUB X-Ray 02/22/24 01:54 IMPRESSION: Enteric tube with tip in the distal stomach. Electronically Signed: Marino Felipe MD at 3:41 EST Reading Location ID and State: [facility] / [place] Tel , Service support , Chest X-Ray 02/22/24 06:30 IMPRESSION: Moderate pleural effusions with bilateral interstitial and alveolar opacities. Findings may indicate edema and/or infection. Electronically Signed: Marino Felipe MD at 7:51 EST Reading Location ID and State: [address] / [place] Tel , Service support , Physical Exam Const Constitutional Narrative: Intubated, sedated and mechanically ventilated. Super morbidly obese. HEENT normocephalic and head/scalp atraumatic Eyes conjunctivae normal and no scleral icterus Neck supple General: trachea midline Chest inspection of chest normal Resp Auscultation: diminished lung sounds; Negative for rales, rhonchi or wheezes Cardio regular rate and regular rhythm GI GI Narrative: Markedly distended abdomen. Extremity General Extremity: edema bilateral lower extremity; Negative for clubbing Neuro Sensorium / Orientation: sedated on vent Charges/Coding Procedures Hospitalists Procedures: 10479 Critical Care 1st Hr
[2024-02-22 08:32] LABS: International Normalized Ratio 1.2; Partial Thromboplast Time 22.6 Seconds (24.1-36.2); Prothrombin Time (Protime)PT. 15.6 SECONDS (11.7-14.9)
[2024-02-22 08:41] LABS: Bedside Glucose 139 mg/dL (74-106)
--- NOTE | 2024-02-22 09:08 | PCM.PN.HOSP ---
Reason for Visit Reason for Visit: Abdominal pain/redness of breath Subjective Subjective Significant issues with oxygenation overnight. Ventilation improved. Patient ultimately required paralytics which did improve oxygenation overall but still not optimal. Patient still appears to be markedly volume overloaded so Lasix drip initiated. Did test positive for COVID-19 as well. Objective Data Objective Data Vital Signs: Vital Signs Temp Pulse Resp BP Pulse Ox O2 Del Method O2 Flow Rate 100.9 F H 78 16 142/100 H 89 Mechanical Ventilator 6 02/22/24 07:00 02/22/24 08:00 02/22/24 07:00 02/22/24 07:00 02/22/24 07:00 02/22/24 07:00 02/21/24 19:07 FiO2 100 02/22/24 07:00 Oxygen Flow Rate (L/min) 6 Oxygen Delivery Method Mechanical Ventilator Weight: 176.9 kg Body Mass Index (BMI) 52.8 Intake & Output: Intake and Output for Last 24 Hours 02/20/24 02/21/24 02/22/24 23:59 23:59 23:59 Intake Total 1000 / 1000 1058.72 / 1108.35 1532.12 / 1532.12 Output Total 1698 / 1708 825 / 825 Balance 1000 / 1000 -639.28 / -599.65 707.12 / 707.12 Lab / Micro Data 02/22/24 05:09 02/22/24 13:55 Labs: Laboratory Results - last 24 hr 02/21/24 12:14: POC Glucose 179 H 02/21/24 16:02: POC Glucose 137 H 02/21/24 17:50: Sodium Cancelled, Potassium Cancelled, Chloride Cancelled, Carbon Dioxide Cancelled, Anion Gap Cancelled, BUN Cancelled, Creatinine Cancelled, Estim Creat Clear Calc Cancelled, Est GFR (MDRD) Af Amer Cancelled, Est GFR (MDRD) Non-Af Cancelled, BUN/Creatinine Ratio Cancelled, Glucose Cancelled, Calcium Cancelled 02/21/24 19:46: Sodium 135 L, Potassium 6.1 H*, Chloride 98, Carbon Dioxide 34.0 H, Anion Gap 3 L, BUN 20 H, Creatinine 1.46 H, Estim Creat Clear Calc 84.42, Est GFR (MDRD) Af Amer 63, Est GFR (MDRD) Non-Af 52 L, BUN/Creatinine Ratio 13.7, Glucose 144 H, Calcium 8.8, Total Creatine Kinase 74, Triglycerides 116 02/22/24 01:29: POC Glucose 140 H 02/22/24 02:48: Lactic Acid 2.3 H* 02/22/24 05:09: WBC 10.0, RBC 5.31, Hgb 14.2, Hct 47.2, MCV 88.9 D, MCH 26.7 L, MCHC 30.1 L D, RDW Std Deviation 50.3 H, RDW Coeff of Ezequiel 15.5 H, Plt Count 179, MPV 9.8, Immature Gran % (Auto) 0.500, Neut % (Auto) 83.0 H, Lymph % (Auto) 7.3 L, [place] % (Auto) 8.4, Eos % (Auto) 0.5, Baso % (Auto) 0.3, Absolute Neuts (auto) 8.3 H, Absolute Lymphs (auto) 0.73 L, Nucleated RBC % 0, ESR 25 H, Sodium 136, Potassium 4.2, Chloride 101, Carbon Dioxide 29.0, Anion Gap 7, BUN 24 H, Creatinine 1.56 H, Estim Creat Clear Calc 79.38, Est GFR (MDRD) Af Amer 58 L, Est GFR (MDRD) Non-Af 48 L, BUN/Creatinine Ratio 15.4, Glucose 188 H, Calcium 8.5, Phosphorus 3.5, Magnesium 1.7, Total Bilirubin 1.00, AST 17, ALT 19, Alkaline Phosphatase 104, C-React Prot Ext Range 26.00 H, Total Protein 6.1 L, Albumin 2.9 L, Globulin 3.2, Albumin/Globulin Ratio 0.9, Procalcitonin 1.29 H, TSH 1.800 02/22/24 08:10: PT 15.6 H, INR 1.2, APTT 22.6 L 02/22/24 08:16: POC Glucose 139 H Micro: Microbiology 02/22/24 07:02 Urine Catheter - Jimenez Legionella Antigen - Final 02/22/24 07:02 Urine Catheter - Jimenez Streptococcus pneumoniae Antigen (M - Final 02/22/24 05:26 Nasal Secretion SARS-CoV-2 Antigen (Rapid) - Final ABG Data ABG results: ABG 1202/21/24 02/21/24 15:27 16:28 19:48 Specimen Type ART ART ART Sample Site R Radial R Radial L Radial pH 7.16 L* 7.15 L* 7.28 L Bicarbonate Actual 35.3 H 34.1 H 30.2 H Total CO2 38 37 32 Base Excess 7 H 5 H 3 H O2 Saturation 73 L 99 92 L O2 % 6.0 50.0 60.0 ABG pCO2 99.5 H* 96.9 H* 64.9 H ABG pO2 52 L 173 H 75 William Test N/A N/A N/A Respiration Rate 16 16 O2 Delivery Device Cannula BiPAP Adult Vent Vent Mode Not entered NIV AC Tidal Volume 500.0 POC PEEP 8 Crit Call To/Read Back Yes Yes Blood Gas Notified Whom Dr Mikel Morin Blood Gas Notified Time 15:36:02 16:30:44 02/22/24 01:21 Specimen Type ART Sample Site L Radial pH 7.36 Bicarbonate Actual 27.0 H Total CO2 28 Base Excess 2 O2 Saturation 89 L O2 % 90.0 ABG pCO2 47.9 H ABG pO2 60 L William Test N/A Respiration Rate 60 O2 Delivery Device Adult Vent Vent Mode AC Tidal Volume 500.0 POC PEEP 10 Crit Call To/Read Back Blood Gas Notified Whom Blood Gas Notified Time Radiography Diagnostic Testing: Radiology Impression Echocardiogram 02/21/24 07:02 Interpretation Summary Normal LV size. Left ventricular systolic function is lower limits of normal. Mildly dilated right ventricle. Moderate global right ventricular systolic dysfunction. Ordering Physician: Alejandra Morin Referring Physician: Angely Weems M.D. Performed By: Anita Dumont RDCS and Student Chest X-Ray 02/21/24 17:12 IMPRESSION: Bilateral perihilar infiltrates or pulmonary edema status post intubation. Electronically Signed: Jimmy Tubbs MD at 18:39 EST , Chest X-Ray 02/22/24 01:54 IMPRESSION: Bilateral lower lobe consolidations with moderate pleural effusions. Findings may indicate atelectasis or pneumonia. Electronically Signed: Marino Felipe MD at 3:41 EST , KUB X-Ray 02/22/24 01:54 IMPRESSION: Enteric tube with tip in the distal stomach. Electronically Signed: Marino Felipe MD at 3:41 EST Reading Location ID and State: [facility] / [place] Tel , Service support , Chest X-Ray 02/22/24 06:30 IMPRESSION: Moderate pleural effusions with bilateral interstitial and alveolar opacities. Findings may indicate edema and/or infection. Electronically Signed: Marino Felipe MD at 7:51 EST Reading Location ID and State: [facility] / [place] Tel , Service support , Physical Exam Const no apparent distress and well nourished; Negative for average body habitus or healthy appearing Constitutional Narrative: Super morbidly obese, white male lying in bed intubated and sedated, patient is paralyzed HEENT normocephalic, head/scalp atraumatic and moist oral mucous membranes HEENT Narrative: ET tube and OG in place Resp normal respiratory effort, no retractions, no use of accessory muscles and clear to auscultation bilaterally Resp Narrative: Extremely distant due to body habitus, diffusely diminished Auscultation: Negative for rales, rhonchi or wheezes Cardio regular rate, regular rhythm, S1 normal heart sound, S2 normal heart sound, no murmurs, no rub, no gallops and no clicks GI GI Narrative: Large protuberant abdomen, unclear if this is distention or his baseline, bowel sounds are hypoactive with paralytics, no fluid wave present, abdomen is soft with no signs of rigidity Extremity Extremity Narrative: 2+ lower extremity edema, no cyanosis or clubbing Neuro Neuro Narrative: Patient is intubated, sedated, and paralyzed Psych Psych Narrative: Unable to assess due to the above Assessment & Plan Assessment/Plan (1) Enteritis: (2) Hypoxia: (3) Abnormal chest x-ray: (4) Uncontrolled hypertension: PLAN: Plan Acute hypoxemic and hypercapnic respiratory failure-multifactorial -Suspect obesity hypoventilation syndrome, JESSICA, volume overload, and COVID-19 with possible secondary bacterial pneumonia -Remdesivir day 1 of 5 -Decadron day 1 of 10 -Continue empiric antibiotics -Lasix drip -Echocardiogram did show RV dysfunction and borderline low LV dysfunction with no wall motion abnormality specific to any territory -Continue paralytics to optimize oxygenation status -Continue sedation as ordered -Empiric weight-based heparin initiated until we can rule out PE as an etiology -Pulmonary/critical care medicine following Abdominal pain/nausea/bloating secondary to enteritis -Appears that there may be a mild small bowel obstruction based on the read of the CT -Due to the above unable to perform small bowel follow-through -Patient is not currently stable for repeat CT -Lactic acid was not markedly elevated -Surgery evaluated the imaging and recommended repeat when safe to perform -Patient is not currently a surgical candidate -Patient did have a colonoscopy done on 03/28/[address] Isai Taylor that showed a non-thrombosed internal hemorrhoid with some prolapse and one 7 mm polyp in the distal sigmoid colon that was removed via hot snare with repeat colonoscopy recommended in 5 years -Hold off on tube feed for now due to this Lactic acidosis -Mild -Highly suspect related to hypoxemia through the evening Hyperkalemia -Resolved -Highly suspect this related to his acidosis and resolved with transcellular shifts after correction of acidosis -No current need for renal replacement therapy or nephrology input LENORE -Baseline creatinine on presentation was 1.11 -Currently 1.61 but holding steady with diuretics -Continue to monitor with serial BMP for every 6 x 2 with Lasix drip Diarrhea -Resolved at this time with no output -Will likely discontinue enteric panel and C. difficile Uncontrolled hypertension -Antihypertensives on hold right now due to some hypotension experienced with sedation DM-2 -Oral home medications are on hold -Hold Jardiance for now -SSI is to continue -With initiation of Decadron will start Lantus 10 units at at bedtime Hyperlipidemia -Continue home statin History of tobacco abuse -Recommend ongoing cessation Morbid obesity -BMI is 52.9 -Complicates treatment, prognosis, outcomes -Highly suspect patient has obstructive sleep apnea and should have outpatient polysomnography DVT prophylaxis -Transition to full dose heparin for empiric coverage of PE since we cannot scan him at this time CODE STATUS -Full code as verified with patient today Charges/Coding Visit Charges Inpatient E&M: 26639 Subs Hosp L2
[2024-02-22] MEDS: fentaNYL drip 100 ML 17.5 MCG CONT INF (09:15)
[2024-02-22] MEDS: 0.9% Normal Saline (500mL Bag) 500 ML 15 ML IV (09:20)
[2024-02-22] MEDS: Pantoprazole Sodium 40 MG in 0.9% Normal Saline (100mL MB+) 100 ML 330 MG IV (09:20)
[2024-02-22] MEDS: Vancomycin HCl 2,000 MG in 0.9% Normal Saline (500mL Bag) 500 ML 250 MG IV (09:42)
[2024-02-22] MEDS: HEPARIN/D5w 25,000 UNITS 25,000 UNITS/250 ML IV.SOLN. 21 UNITS CONT INF ×2 (09:43→21:24)
[2024-02-22] MEDS: Chlorhexidine 15 ML PO ×2 (09:47→20:35)
[2024-02-22 10:18] LABS: Alkaline Phosphatase 105 U/L (45-117)
[2024-02-22] MEDS: dexAMETHasone 10 MG/ML Vial 6 MG IV (10:37)
[2024-02-22] MEDS: Remdesivir 200 MG in 0.9% Normal Saline (250mL Bag) 210 ML 250 MG IV (10:42)
[2024-02-22] MEDS: Cisatracurium *PARALYTIC 100 MG in 0.9% Normal Saline (250mL Bag) 200 ML 79.6 MG CONT INF (11:10)
[2024-02-22] MEDS: Acetaminophen 650 MG/20 ML UDC GT (11:15)
[2024-02-22] MEDS: Insulin Lispro 100 UNIT/ML INSULN.PEN SC ×2 (12:14→17:10)
[2024-02-22] MEDS: Dexmedetomidine 1,000 mcg in 0.9% NS 240 mL 52.7 MCG CONT INF (12:16)
[2024-02-22 12:35] LABS: Bedside Glucose 184 mg/dL (74-106)
--- NOTE | 2024-02-22 13:19 | PCM.RX.CS ---
Consult Antibiotic Management Pharmacy has been consulted to manage selected antibiotic: Vancomycin Type of Intervention Type of Consult: New start Suspected Infection Suspected Infection: Pneumonia Labs Labs: Sodium 136 mmol/L (136-145) 02/22/24 05:09 Potassium 4.2 mmol/L (3.5-5.1) 02/22/24 05:09 Chloride 101 mmol/L (98-107) 02/22/24 05:09 Carbon Dioxide 29.0 mmol/L (21.0-32.0) 02/22/24 05:09 Anion Gap 7 (5-15) 02/22/24 05:09 BUN 24 mg/dL (7-18) H 02/22/24 05:09 Creatinine 1.56 mg/dL (0.70-1.30) H 02/22/24 05:09 Est GFR (MDRD) Af Amer 58 mL/min (>60) L 02/22/24 05:09 Est GFR (MDRD) Non-Af 48 mL/min (>60) L 02/22/24 05:09 BUN/Creatinine Ratio 15.4 RATIO (10-20) 02/22/24 05:09 Glucose 188 mg/dL (74-106) H 02/22/24 05:09 Microbiology Microbiology: Microbiology 02/21/24 17:15 Sputum, Induced/[place] Respiratory Culture - Preliminary Appears to be normal respiratory lisa. Further studies to follow. 02/22/24 07:05 Mucosa - Nasopharyngeal Respiratory Panel (PCR) - Final 02/22/24 07:05 Mucosa - Nasopharyngeal Coronavirus COVID-19 PCR - Final SARS-CoV-2 (COVID 19 PCR) 02/22/24 07:02 Urine Catheter - Jimenez Legionella Antigen - Final 02/22/24 07:02 Urine Catheter - Jimenez Streptococcus pneumoniae Antigen (M - Final 02/22/24 05:26 Nasal Secretion SARS-CoV-2 Antigen (Rapid) - Final Pharmacy Plan for Drug Dosing Pharmacy Plan for Drug Dosing: NEW START IV VANCOMYCIN Consulting Physician: Jf Indication: pneumonia Goal Trough: 15-20 mg/dL SrCr: 1.56 mg/dL CrCl: 79 mL/min Comments: 2000mg loading dose given 02/21 @ 0942 Vancomycin Dose: Will start 1750mg Q12 @ 2200 and get a level prior to 4th total dose per policy. Pending Level: 02/23/24 @ 2130 Pharmacy Service will continue to monitor and adjust dosing as required.
[2024-02-22 14:32] LABS: Anion Gap 6 (5-15); BUN 28 mg/dL (7-18); BUN/Creat Ratio 17.4 RATIO (10-20); Calcium,Total 8.6 mg/dL (8.5-10.1); Chloride 100 mmol/L (98-107); Creatinine, Serum 1.61 mg/dL (0.70-1.30); EST Glomerular Filtration Rate 46 mL/min (>60); Est Glom Filt Rate - Afr Amer 56 mL/min (>60); Estimated Creatinine Clearance 76.92 ml/min; Glucose 205 mg/dL (74-106); Potassium 4.5 mmol/L (3.5-5.1); Sodium Level 138 mmol/L (136-145)
[2024-02-22] MEDS: fentaNYL drip 100 ML 15 MCG CONT INF ×2 (15:17→21:57)
[2024-02-22 16:10] LABS: Bedside Glucose 213 mg/dL (74-106)
[2024-02-22 16:26] LABS: Partial Thromboplast Time 56.9 Seconds (24.1-36.2)
[2024-02-22] MEDS: Dexmedetomidine 1,000 mcg in 0.9% NS 240 mL 43.9 MCG CONT INF ×2 (17:17→22:59)
[2024-02-22 19:18] LABS: Anion Gap 7 (5-15); BUN 27 mg/dL (7-18); BUN/Creat Ratio 17.6 RATIO (10-20); Calcium,Total 8.6 mg/dL (8.5-10.1); Chloride 98 mmol/L (98-107); Creatinine, Serum 1.53 mg/dL (0.70-1.30); EST Glomerular Filtration Rate 49 mL/min (>60); Est Glom Filt Rate - Afr Amer 59 mL/min (>60); Estimated Creatinine Clearance 80.94 ml/min; Glucose 187 mg/dL (74-106); Potassium 3.9 mmol/L (3.5-5.1); Sodium Level 136 mmol/L (136-145)
[2024-02-22 19:52] LABS: Magnesium 1.4 mg/dL (1.6-2.6)
[2024-02-22] MEDS: Magnesium Sulfate 4gm/100mL 4 GM/100 ML IV.SOLN. IV (20:26)
[2024-02-22] MEDS: Potassium Chloride 20mEq/100mL 20 MEQ/100 ML IV.SOLN. 100 MEQ IV BOLUS ×3 (20:26→22:24)
[2024-02-22] MEDS: Insulin Glargine-YFGN 100 UNIT/ML Pen 10 UNIT SC (20:36)
[2024-02-22] MEDS: Atorvastatin Calcium 20 MG Tablet GT (20:36)
[2024-02-22] MEDS: Vancomycin HCl 1,750 MG in 0.9% Normal Saline (500mL Bag) 500 ML 250 MG IV (21:24)
[2024-02-22 22:04] LABS: Partial Thromboplast Time 76.5 Seconds (24.1-36.2)
[2024-02-23] VITALS (38 sets, daily range): BP systolic 121–148; BP diastolic 76–99; PULSE 66–83; RESP 16; TEMP 36.7–37.8; O2SAT 90–96; BMI 51.7
[2024-02-23] MEDS: Piperacil/Tazobactam 3.375 GM in 0.9% Normal Saline (50mL MB+) 50 ML IV ×4 (00:05→21:56)
[2024-02-23] MEDS: Cisatracurium *PARALYTIC 100 MG in 0.9% Normal Saline (250mL Bag) 200 ML 53.1 MG CONT INF ×6 (00:09→23:55)
[2024-02-23] MEDS: Insulin Lispro 100 UNIT/ML INSULN.PEN SC ×4 (00:11→23:27)
[2024-02-23 01:02] LABS: Anion Gap 8 (5-15); BUN 30 mg/dL (7-18); BUN/Creat Ratio 19.6 RATIO (10-20); Calcium,Total 8.7 mg/dL (8.5-10.1); Chloride 98 mmol/L (98-107); Creatinine, Serum 1.53 mg/dL (0.70-1.30); EST Glomerular Filtration Rate 49 mL/min (>60); Est Glom Filt Rate - Afr Amer 59 mL/min (>60); Estimated Creatinine Clearance 80.94 ml/min; Glucose 184 mg/dL (74-106); Potassium 4.3 mmol/L (3.5-5.1); Sodium Level 137 mmol/L (136-145)
[2024-02-23] MEDS: Dexmedetomidine 1,000 mcg in 0.9% NS 240 mL 52.7 MCG CONT INF ×4 (03:51→19:06)
[2024-02-23] MEDS: fentaNYL drip 100 ML 17.5 MCG CONT INF ×3 (03:52→22:58)
[2024-02-23 04:35] LABS: Bedside Glucose 176 mg/dL (74-106)
[2024-02-23 05:24] LABS: Hematocrit 47.7 % (40-54); Hemoglobin 14.7 g/dL (13.0-16.5); Mean Corp Hgb Conc 30.8 g/dL (32-36); Mean Corpuscular Hgb 26.3 pg (27.0-32.0); Mean Corpuscular Volume 85.3 fL (80-94); Platelet Count 195 K/mm3 (150-450); RBC Distribution Width CV 14.8 % (11.6-14.6); RBC Distribution Width SD 46.3 fl (35.1-43.9); Red Blood Count 5.59 M/mm3 (4.6-6.2); White Blood Count 9.8 K/mm3 (4.4-11.0)
[2024-02-23 05:41] LABS: ALB/GLOB Ratio 0.8 RATIO (0.9-2.4); AST(SGOT) 22 U/L (15-37); Alanine Aminotransfer ALT/SGPT 18 U/L (16-61); Albumin, Serum 2.8 g/dL (3.2-5.0); Alkaline Phosphatase 93 U/L (45-117); Anion Gap 8 (5-15); BUN 28 mg/dL (7-18); BUN/Creat Ratio 19.6 RATIO (10-20); Calcium,Total 8.6 mg/dL (8.5-10.1); Chloride 97 mmol/L (98-107); Creatinine, Serum 1.43 mg/dL (0.70-1.30); EST Glomerular Filtration Rate 53 mL/min (>60); Est Glom Filt Rate - Afr Amer 64 mL/min (>60); Estimated Creatinine Clearance 85.51 ml/min; Globulin 3.4 g/dL (2.2-4.2); Glucose 190 mg/dL (74-106); Potassium 3.7 mmol/L (3.5-5.1); Protein, Total 6.2 g/dL (6.4-8.2); Sodium Level 136 mmol/L (136-145)
[2024-02-23 05:42] LABS: Bedside Glucose 144 mg/dL (74-106)
[2024-02-23 05:46] LABS: Phosphorus 4.9 mg/dL (2.5-4.9)
[2024-02-23 05:51] LABS: Partial Thromboplast Time 84.6 Seconds (24.1-36.2)
--- NOTE | 2024-02-23 06:40 | PCM.PN.INT ---
Assessment & Plan Assessment/Plan (1) Acute respiratory failure with hypoxia and hypercapnia: (2) COVID-19: PLAN: Plan RECOMMENDATIONS: 1. Continue current ventilator parameters. Wean FiO2 and PEEP as tolerated. 2. Continue empiric antibiotics. 3. Continue remdesivir and Decadron. 4. Continue aggressive diuresis, as tolerated by hemodynamics and renal function. 5. Continue cis atracurium for at least 24 additional hours. 6. Continue empiric weight-based heparin infusion to cover for possible PE. 7. Monitor serial BMP levels. 8. Continue PPI therapy. IMPRESSIONS: 1. Acute hypoxemic and hypercapnic respiratory failure Clinical concern for multifactorial etiology, including untreated sleep apnea, alveolar hypoventilation secondary to obesity, concern for congestive heart failure, along with COVID-19 pneumonia with the possibility of secondary bacterial pneumonia. While PE would also be in the differential diagnosis, the patient is far too unstable to proceed with CT imaging of the chest. Therefore, the patient will be continued empirically on a weight-based heparin infusion. Given his refractory hypoxemia, the patient was initiated on cis atracurium, which will be continued for at least 24 additional hours. Continue antimicrobials as ordered, along with aggressive diuresis as tolerated by hemodynamics. Continue Decadron and remdesivir. 2. Abdominal pain and nausea Unclear etiology based upon CT imaging of the abdomen completed on admission. The patient's abdomen is markedly distended. However, the patient is too unstable clinically to be safely taken for repeat CT abdomen. In addition, he would not be a surgical candidate given his current clinical status. Therefore, we will plan to continue current supportive care. 3. History of super morbid obesity/hypertension/hyperlipidemia/diabetes mellitus/history of tobacco dependency Complicates care, management, recovery and prognosis. Continue supportive measures as noted above. TIME: 35 minutes of critical care time, independent of procedures, was spent addressing the patient's acute hypoxemic and hypercapnic respiratory failure abdominal pain and nausea, super morbid obesity, review of all data and collaboration with the care team. Subjective Subjective The patient was seen and examined at the bedside this morning. Events from the last 24 hours have been reviewed. The patient is currently afebrile, hemodynamically stable and maintaining appropriate oxygen saturations on assist-control mode mechanical ventilation with an FiO2 requirement of 90% and PEEP of 18. The patient is currently documented to be overall net -2.8 L for the hospitalization. White blood cell count is normal. Hemoglobin and platelet count are stable. Creatinine is stable at 1.43. The patient remains sedated on fentanyl and Precedex. He remains on a continuous Lasix infusion along with a weight-based heparin infusion, antimicrobials, Decadron, remdesivir and cis atracurium. Objective Data Objective Data The patient's most recent lab work, culture data and imaging studies have all been personally reviewed. Surface echocardiogram demonstrated normal LV size with systolic function at the lower limits of normal. There was mild global hypokinesis of the LV. There was mild RV dilation and moderate global RV systolic dysfunction. Pulmonary artery systolic pressure was estimated to be 30 mmHg. Strep and urine Legionella antigens were negative. Blood and sputum cultures are pending. COVID PCR was positive on February 21. Vital Signs: Vital Signs Temp Pulse Resp BP Pulse Ox O2 Del Method O2 Flow Rate 98.9 F 71 16 133/82 H 94 Mechanical Ventilator 6 02/23/24 06:00 02/23/24 06:00 02/23/24 06:00 02/23/24 06:00 02/23/24 06:00 02/23/24 06:00 02/21/24 19:07 FiO2 90 02/23/24 06:00 Oxygen Flow Rate (L/min) 6 Oxygen Delivery Method Mechanical Ventilator Weight: 381 lb 13.45 oz Body Mass Index (BMI) 51.7 Intake & Output: Intake and Output for Last 24 Hours 02/21/24 02/22/24 02/23/24 23:59 23:59 23:59 Intake Total 1058.72 / 1108.35 5775.65 / 5850.68 957.13 / 957.13 Output Total 1698 / 1708 7575 / 7575 1450 / 1450 Balance -639.28 / -599.65 -1799.35 / -1724.32 -492.87 / -492.87 Lab / Micro Data Attestation: I reviewed the patient's lab results. 02/23/24 05:10 02/23/24 05:10 Labs: Laboratory Results - last 24 hr 02/22/24 05:09: Sodium 136, Potassium 4.2, Chloride 101, Carbon Dioxide 29.0, Anion Gap 7, BUN 24 H, Creatinine 1.56 H, Estim Creat Clear Calc 79.38, Est GFR (MDRD) Af Amer 58 L, Est GFR (MDRD) Non-Af 48 L, BUN/Creatinine Ratio 15.4, Glucose 188 H, Calcium 8.5, Phosphorus 3.5, Magnesium 1.7, Total Bilirubin 1.00, AST 17, ALT 19, Alkaline Phosphatase 104 02/22/24 05:09: Alkaline Phosphatase 105, Total Protein 6.1 L, Albumin 2.9 L, Globulin 3.2, Albumin/Globulin Ratio 0.9, TSH 1.800 02/22/24 08:10: PT 15.6 H, INR 1.2, APTT 22.6 L 02/22/24 08:16: POC Glucose 139 H 02/22/24 12:07: POC Glucose 184 H 02/22/24 13:55: Sodium 138, Potassium 4.5, Chloride 100, Carbon Dioxide 31.0, Anion Gap 6, BUN 28 H, Creatinine 1.61 H, Estim Creat Clear Calc 76.92, Est GFR (MDRD) Af Amer 56 L, Est GFR (MDRD) Non-Af 46 L, BUN/Creatinine Ratio 17.4, Glucose 205 H, Calcium 8.6 02/22/24 14:04: Magnesium Cancelled 02/22/24 15:45: APTT 56.9 H 02/22/24 15:49: POC Glucose 213 H 02/22/24 18:48: Sodium 136, Potassium 3.9, Chloride 98, Carbon Dioxide 31.0, Anion Gap 7, BUN 27 H, Creatinine 1.53 H, Estim Creat Clear Calc 80.94, Est GFR (MDRD) Af Amer 59 L, Est GFR (MDRD) Non-Af 49 L, BUN/Creatinine Ratio 17.6, Glucose 187 H, Calcium 8.6, Magnesium 1.4 L 02/22/24 21:30: APTT 76.5 H 02/23/24 00:11: POC Glucose 176 H 02/23/24 00:39: Sodium 137, Potassium 4.3, Chloride 98, Carbon Dioxide 32.0, Anion Gap 8, BUN 30 H, Creatinine 1.53 H, Estim Creat Clear Calc 80.94, Est GFR (MDRD) Af Amer 59 L, Est GFR (MDRD) Non-Af 49 L, BUN/Creatinine Ratio 19.6, Glucose 184 H, Calcium 8.7 02/23/24 05:10: WBC 9.8, RBC 5.59, Hgb 14.7, Hct 47.7, MCV 85.3, MCH 26.3 L, MCHC 30.8 L, RDW Std Deviation 46.3 H, RDW Coeff of Ezequiel 14.8 H, Plt Count 195, MPV 10.0, APTT 84.6 H, Sodium 136, Potassium 3.7, Chloride 97 L, Carbon Dioxide 32.0, Anion Gap 8, BUN 28 H, Creatinine 1.43 H, Estim Creat Clear Calc 85.51, Est GFR (MDRD) Af Amer 64, Est GFR (MDRD) Non-Af 53 L, BUN/Creatinine Ratio 19.6, Glucose 190 H, Calcium 8.6, Phosphorus 4.9, Magnesium 2.0, Total Bilirubin 0.70, AST 22, ALT 18, Alkaline Phosphatase 93, Total Protein 6.2 L, Albumin 2.8 L, Globulin 3.4, Albumin/Globulin Ratio 0.8 L 02/23/24 05:19: POC Glucose 144 H Micro: Microbiology 02/21/24 17:15 Sputum, Induced/Lukens Gram Stain - Final 02/21/24 17:15 Sputum, Induced/Lukens Respiratory Culture - Preliminary Appears to be normal respiratory lisa. Further studies to follow. 02/22/24 07:05 Mucosa - Nasopharyngeal Respiratory Panel (PCR) - Final 02/22/24 07:05 Mucosa - Nasopharyngeal Coronavirus COVID-19 PCR - Final SARS-CoV-2 (COVID 19 PCR) 02/22/24 07:02 Urine Catheter - Jimenez Legionella Antigen - Final 02/22/24 07:02 Urine Catheter - Jimenez Streptococcus pneumoniae Antigen (M - Final 02/22/24 05:26 Nasal Secretion SARS-CoV-2 Antigen (Rapid) - Final ABG Data ABG results: ABG 02/21/24 02/21/24 02/21/24 15:27 16:28 19:48 Specimen Type ART ART ART Sample Site R Radial R Radial L Radial pH 7.16 L* 7.15 L* 7.28 L Bicarbonate Actual 35.3 H 34.1 H 30.2 H Total CO2 38 37 32 Base Excess 7 H 5 H 3 H O2 Saturation 73 L 99 92 L O2 % 6.0 50.0 60.0 ABG pCO2 99.5 H* 96.9 H* 64.9 H ABG pO2 52 L 173 H 75 William Test N/A N/A N/A Respiration Rate 16 16 O2 Delivery Device Cannula BiPAP Adult Vent Vent Mode Not entered NIV AC Tidal Volume 500.0 POC PEEP 8 Crit Call To/Read Back Yes Yes Blood Gas Notified Whom Dr Mikel Morin Blood Gas Notified Time 15:36:02 16:30:44 02/22/24 01:21 Specimen Type ART Sample Site L Radial pH 7.36 Bicarbonate Actual 27.0 H Total CO2 28 Base Excess 2 O2 Saturation 89 L O2 % 90.0 ABG pCO2 47.9 H ABG pO2 60 L William Test N/A Respiration Rate 60 O2 Delivery Device Adult Vent Vent Mode AC Tidal Volume 500.0 POC PEEP 10 Crit Call To/Read Back Blood Gas Notified Whom Blood Gas Notified Time Radiography Diagnostic Testing: Radiology Impression Chest X-Ray 02/22/24 06:30 IMPRESSION: Moderate pleural effusions with bilateral interstitial and alveolar opacities. Findings may indicate edema and/or infection. Electronically Signed: Marino Felipe MD at 7:51 EST , Physical Exam Const Constitutional Narrative: Intubated, sedated and mechanically ventilated. Super morbidly obese. HEENT normocephalic and head/scalp atraumatic Eyes conjunctivae normal and no scleral icterus Neck supple General: trachea midline Chest inspection of chest normal Resp Auscultation: diminished lung sounds; Negative for rales, rhonchi or wheezes Cardio regular rate and regular rhythm GI GI Narrative: Distended abdomen, although improved from yesterday. Extremity General Extremity: edema bilateral lower extremity; Negative for clubbing Neuro Sensorium / Orientation: sedated on vent Charges/Coding Procedures Hospitalists Procedures: 94146 Critical Care 1st Hr
[2024-02-23] MEDS: 0.9% Saline Lock 10 ML Syringe IV ×5 (08:05→21:29)
[2024-02-23] MEDS: Potassium Chloride 20mEq/100mL 20 MEQ/100 ML IV.SOLN. 100 MEQ IV BOLUS ×2 (08:05→09:15)
[2024-02-23] MEDS: HEPARIN/D5w 25,000 UNITS 25,000 UNITS/250 ML IV.SOLN. 20 UNITS CONT INF (09:16)
[2024-02-23] MEDS: Pantoprazole Sodium 40 MG in 0.9% Normal Saline (100mL MB+) 100 ML 330 MG IV (09:20)
[2024-02-23] MEDS: Chlorhexidine 15 ML PO ×2 (09:20→21:55)
[2024-02-23] MEDS: CHLORHEXIDINE GLUC 2% CLOTH 1 EACH TOWELETTE TOPICAL (09:21)
[2024-02-23] MEDS: dexAMETHasone 10 MG/ML Vial 6 MG IV (09:21)
[2024-02-23] MEDS: Remdesivir 100 MG in 0.9% Normal Saline (250mL Bag) 230 ML 250 MG IV (09:37)
[2024-02-23] MEDS: Vancomycin HCl 1,750 MG in 0.9% Normal Saline (500mL Bag) 500 ML 250 MG IV ×2 (10:27→22:37)
[2024-02-23] MEDS: fentaNYL drip 100 ML 15 MCG CONT INF (10:49)
[2024-02-23 12:25] LABS: Partial Thromboplast Time 81.1 Seconds (24.1-36.2)
[2024-02-23 12:27] LABS: Bedside Glucose 186 mg/dL (74-106)
[2024-02-23 12:33] LABS: Anion Gap 7 (5-15); BUN 29 mg/dL (7-18); BUN/Creat Ratio 21.5 RATIO (10-20); Calcium,Total 8.4 mg/dL (8.5-10.1); Chloride 97 mmol/L (98-107); Creatinine, Serum 1.35 mg/dL (0.70-1.30); EST Glomerular Filtration Rate 57 mL/min (>60); Est Glom Filt Rate - Afr Amer 68 mL/min (>60); Estimated Creatinine Clearance 90.57 ml/min; Glucose 196 mg/dL (74-106); Sodium Level 136 mmol/L (136-145)
[2024-02-23] MEDS: Furosemide 500 MG in Empty Viaflex 50 mL 1 EACH CONT INF (14:19)
--- NOTE | 2024-02-23 17:10 | PN.HOSP_ITS ---
Reason for Visit Reason for Visit: Abdominal pain Subjective Subjective Excellent urine output with Lasix drip overnight. Able to wean FiO2. No significant issues. Patient remains intubated, paralyzed, and sedated. [id number] in place. Objective Data Objective Data Vital Signs: Vital Signs Temp Pulse Resp BP Pulse Ox O2 Del Method O2 Flow Rate 98.0 F 74 16 134/91 H 92 Mechanical Ventilator 6 02/23/24 12:00 02/23/24 17:07 02/23/24 17:07 02/23/24 14:00 02/23/24 17:07 02/23/24 15:55 02/21/24 19:07 FiO2 50 02/23/24 17:07 Oxygen Flow Rate (L/min) 6 Oxygen Delivery Method Mechanical Ventilator Weight: 173.2 kg Body Mass Index (BMI) 51.7 Intake & Output: Intake and Output for Last 24 Hours 02/21/24 02/22/24 02/23/24 23:59 23:59 23:59 Intake Total 1058.72 / 1108.35 5779.35 / 5854.38 3672.09 / 3672.09 Output Total 1698 / 1708 7575 / 7575 5075 / 5075 Balance -639.28 / -599.65 -1795.65 / -1720.62 -1402.91 / -1402.91 Lab / Micro Data 02/23/24 05:10 02/23/24 12:00 Labs: Laboratory Results - last 24 hr 02/22/24 14:04: Magnesium Cancelled 02/22/24 18:48: Sodium 136, Potassium 3.9, Chloride 98, Carbon Dioxide 31.0, Anion Gap 7, BUN 27 H, Creatinine 1.53 H, Estim Creat Clear Calc 80.94, Est GFR (MDRD) Af Amer 59 L, Est GFR (MDRD) Non-Af 49 L, BUN/Creatinine Ratio 17.6, G lucose 187 H, Calcium 8.6, Magnesium 1.4 L 02/22/24 21:30: APTT 76.5 H 02/23/24 00:11: POC Glucose 176 H 02/23/24 00:39: Sodium 137, Potassium 4.3, Chloride 98, Carbon Dioxide 32.0, Anion Gap 8, BUN 30 H, Creatinine 1.53 H, Estim Creat Clear Calc 80.94, Est GFR (MDRD) Af Amer 59 L, Est GFR (MDRD) Non-Af 49 L, BUN/Creatinine Ratio 19.6, G lucose 184 H, Calcium 8.7 02/23/24 05:10: WBC 9.8, RBC 5.59, Hgb 14.7, Hct 47.7, MCV 85.3, MCH 26.3 L, M CHC 30.8 L, RDW Std Deviation 46.3 H, RDW Coeff of Ezequiel 14.8 H, Plt Count 195, MPV 10.0, APTT 84.6 H, Sodium 136, Potassium 3.7, Chloride 97 L, Carbon Dioxide 32.0, Anion Gap 8, BUN 28 H, Creatinine 1.43 H, Estim Creat Clear Calc 85.51, Est GFR (MDRD) Af Amer 64, Est GFR (MDRD) Non-Af 53 L, BUN/Creatinine Ratio 19.6, Glucose 190 H, Calcium 8.6, Phosphorus 4.9, Magnesium 2.0, Total Bilirubin 0.70, AST 22, ALT 18, Alkaline Phosphatase 93, Total Protein 6.2 L, Albumin 2.8 L, Globulin 3.4, Albumin/Globulin Ratio 0.8 L 02/23/24 05:19: POC Glucose 144 H 02/23/24 12:00: APTT 81.1 H, Sodium 136, Potassium 4.0, Chloride 97 L, Carbon Dioxide 32.0, Anion Gap 7, BUN 29 H, Creatinine 1.35 H, Estim Creat Clear Calc 90.57, Est GFR (MDRD) Af Amer 68, Est GFR (MDRD) Non-Af 57 L, BUN/Creatinine Ratio 21.5 H, Glucose 196 H, Calcium 8.4 L 02/23/24 12:04: POC Glucose 186 H Micro: Microbiology 02/20/24 23:37 Blood Culture (Wb) - Right Forearm Blood Culture - Preliminary No growth in 48 hours. 02/20/24 23:27 Blood Culture (Wb) - Anticubital Right Blood Culture - Preliminary No growth in 48 hours. 02/21/24 17:15 Sputum, Induced/Lukens Gram Stain - Final 02/21/24 17:15 Sputum, Induced/Lukens Respiratory Culture - Preliminary Appears to be normal respiratory lisa. Further studies to follow. 02/22/24 07:05 Mucosa - Nasopharyngeal Respiratory Panel (PCR) - Final 02/22/24 07:05 Mucosa - Nasopharyngeal Coronavirus COVID-19 PCR - Final SARS-CoV-2 (COVID 19 PCR) 02/22/24 07:02 Urine Catheter - Jimenez Legionella Antigen - Final 02/22/24 07:02 Urine Catheter - Jimenez Streptococcus pneumoniae Antigen (M - Final 02/22/24 05:26 Nasal Secretion SARS-CoV-2 Antigen (Rapid) - Final Physical Exam Const alert, oriented x3, no apparent distress and well nourished; Negative for average body habitus or healthy appearing Constitutional Narrative: Super morbidly obese, white male lying in bed intubated and sedated, patient is paralyzed General Appearance: cooperative HEENT normocephalic, head/scalp atraumatic and moist oral mucous membranes Eyes PERRL and conjunctivae normal Eyes Narrative: No scleral icterus Neck no lymphadenopathy and supple Neck Narrative: Trachea midline, no thyroid enlargement, neck is short and thick Lymph Lymphatic: no lymphadenopathy noted Resp normal respiratory effort, no retractions, no use of accessory muscles and clear to auscultation bilaterally Resp Narrative: Extremely distant due to body habitus, diffusely diminished Auscultation: diminished lung sounds bilateral; Negative for rales, rhonchi or wheezes Cardio regular rate, regular rhythm, S1 normal heart sound, S2 normal heart sound, no murmurs, no rub, no gallops and no clicks GI normal to inspection, nondistended, normoactive bowel sounds, soft to palpation and non-tender GI Narrative: Large protuberant abdomen, unclear if this is distention or his baseline, bowel sounds are hypoactive with paralytics, no fluid wave present, abdomen is soft with no signs of rigidity Palpation: Negative for guarding Extremity normal capillary refill Extremity Narrative: 2+ lower extremity edema, no cyanosis or clubbing Skin skin turgor normal, no jaundice, no petechiae and no mottling Skin Narrative: Slight lower extremity changes consistent with venous stasis General Skin Exam: no breakdown Neuro oriented x3, moves all extremities, no focal motor deficits and no sensory deficits noted Neuro Narrative: Patient is intubated, sedated, and paralyzed Speech: speech normal Psych thought process normal and cooperative Psych Narrative: Unable to assess due to the above Assessment & Plan Assessment/Plan (1) Enteritis: (2) Hypoxia: (3) Abnormal chest x-ray: (4) Uncontrolled hypertension: PLAN: Plan Acute hypoxemic and hypercapnic respiratory failure-multifactorial -Suspect obesity hypoventilation syndrome, JESSICA, volume overload, and COVID-19 with possible secondary bacterial pneumonia -Remdesivir day 2 of 5 -Decadron day 2 of 10 -Continue empiric antibiotics -Continue Lasix drip -Echocardiogram did show RV dysfunction and borderline low LV dysfunction with no wall motion abnormality specific to any territory -Continue paralytics to optimize oxygenation status -Continue [id number] while paralyzed -Hopeful to be able to discontinue paralytic soon as combination of paralytics and steroids increases risk for critical care polyneuropathy -Continue sedation as ordered -Empiric weight-based heparin initiated until we can rule out PE as an etiology -Hopeful to be able to do CTA of the chest soon -Pulmonary/critical care medicine following Abdominal pain/nausea/bloating secondary to enteritis -Appears that there may be a mild small bowel obstruction based on the read of the CT -Due to the above unable to perform small bowel follow-through -May need to repeat CT of the abdomen once more clinically stable -Surgery evaluated the imaging and recommended repeat when safe to perform -Patient is not currently a surgical candidate -Patient did have a colonoscopy done on 03/28/[address] Isai Taylor that showed a non-thrombosed internal hemorrhoid with some prolapse and one 7 mm polyp in the distal sigmoid colon that was removed via hot snare with repeat colonoscopy recommended in 5 years -Hold off on tube feed for now due to this LENORE -Baseline creatinine on presentation was 1.11 -Currently 1.35 and continues to trend down with aggressive diuresis indicating patient may be off the Starling curve -Continue to monitor with serial BMP for every 6 x 2 with Lasix drip Diarrhea -Resolved at this time with no output Uncontrolled hypertension -Antihypertensives on hold right now due to some hypotension experienced with sedation DM-2 -Hold home oral medications -SSI is to continue -Increase Lantus to 15 units as fasting blood sugar this morning was 196 on steroids Hyperlipidemia -Continue home statin History of tobacco abuse -Recommend ongoing cessation Morbid obesity -BMI is 51.8 -Complicates treatment, prognosis, outcomes -Highly suspect patient has obstructive sleep apnea and should have outpatient polysomnography DVT prophylaxis -Continue heparin drip CODE STATUS -Full code as verified with patient today Charges/Coding Visit Charges Inpatient E&M: 81674 Subs Hosp L2
[2024-02-23] MEDS: 0.9% Normal Saline (500mL Bag) 500 ML 15 ML IV (18:13)
[2024-02-23 18:27] LABS: Anion Gap 5 (5-15); BUN 31 mg/dL (7-18); BUN/Creat Ratio 24.2 RATIO (10-20); Calcium,Total 8.6 mg/dL (8.5-10.1); Chloride 96 mmol/L (98-107); Creatinine, Serum 1.28 mg/dL (0.70-1.30); EST Glomerular Filtration Rate 60 mL/min (>60); Est Glom Filt Rate - Afr Amer 73 mL/min (>60); Estimated Creatinine Clearance 95.53 ml/min; Glucose 206 mg/dL (74-106); Potassium 3.8 mmol/L (3.5-5.1); Sodium Level 137 mmol/L (136-145)
[2024-02-23 18:33] LABS: Bedside Glucose 195 mg/dL (74-106)
[2024-02-23 18:46] LABS: Partial Thromboplast Time 65.2 Seconds (24.1-36.2)
[2024-02-23] MEDS: Magnesium Sulfate 2 GM in Dextrose 5%-Water (100mL Bag) 100 ML IV (19:42)
[2024-02-23] MEDS: Potassium Chloride Oral Soln 20 MEQ/15 ML UDC 60 MEQ PO (19:43)
[2024-02-23] MEDS: HEPARIN/D5w 25,000 UNITS 25,000 UNITS/250 ML IV.SOLN. 19 UNITS CONT INF (21:28)
[2024-02-23] MEDS: Vancomycin Trough/Random Due 1 LAB MC (21:28)
[2024-02-23] MEDS: Atorvastatin Calcium 20 MG Tablet GT (21:56)
[2024-02-23 22:20] LABS: Vancomycin, Trough Level 19.1 ug/mL (5.0-15.0)
--- NOTE | 2024-02-23 22:38 | PHA.PHARE_ITS ---
Consult Antibiotic Management Pharmacy has been consulted to manage selected antibiotic: Vancomycin Type of Intervention Type of Consult: Follow-up Labs Labs: Sodium 137 mmol/L (136-145) 02/23/24 18:05 Potassium 3.8 mmol/L (3.5-5.1) 02/23/24 18:05 Chloride 96 mmol/L (98-107) L 02/23/24 18:05 Carbon Dioxide 35.0 mmol/L (21.0-32.0) H 02/23/24 18:05 Anion Gap 5 (5-15) 02/23/24 18:05 BUN 31 mg/dL (7-18) H 02/23/24 18:05 Creatinine 1.28 mg/dL (0.70-1.30) 02/23/24 18:05 Est GFR (MDRD) Af Amer 73 mL/min (>60) 02/23/24 18:05 Est GFR (MDRD) Non-Af 60 mL/min (>60) 02/23/24 18:05 BUN/Creatinine Ratio 24.2 RATIO (10-20) H 02/23/24 18:05 Glucose 206 mg/dL (74-106) H 02/23/24 18:05 Vancomycin Trough 19.1 ug/mL (5.0-15.0) H 02/23/24 21:25 Microbiology Microbiology: Microbiology 02/20/24 23:37 Blood Culture (Wb) - Right Forearm Blood Culture - Preliminary No growth in 48 hours. 02/20/24 23:27 Blood Culture (Wb) - Anticubital Right Blood Culture - Prelim inary No growth in 48 hours. 02/21/24 17:15 Sputum, Induced/Lukens Gram Stain - Final 02/21/24 17:15 Sputum, Induced/Lukens Respiratory Culture - Preliminary Appears to be normal respiratory lisa. Further studies to follow. 02/22/24 07:05 Mucosa - Nasopharyngeal Respiratory Panel (PCR) - Final 02/22/24 07:05 Mucosa - Nasopharyngeal Coronavirus COVID-19 PCR - Final SARS-CoV-2 (COVID 19 PCR) 02/22/24 07:02 Urine Catheter - Jimenez Legionella Antigen - Final 02/22/24 07:02 Urine Catheter - Jimenez Streptococcus pneumoniae Antigen (M - Final 02/22/24 05:26 Nasal Secretion SARS-CoV-2 Antigen (Rapid) - Final Goal Trough Goal Trough: 15-20 mcg/mL Pharmacy Plan for Drug Dosing Pharmacy Plan for Drug Dosing: Pharmacy Service will continue to monitor and adjust dosing as required. TROUGH 19.1 @ 11 HOURS. SCr DECREASED FROM 1.56 TO 1.28. NO CHANGES, FOLLOW UP TROUGH IN 2 DAYS Follow-Up Labs Follow-Up Labs: Trough: Vancomycin Date/Time Labs Ordered Labs to be done on [date and time ordered]: 02/24 @ 3412
[2024-02-23] MEDS: Insulin Glargine-YFGN 100 UNIT/ML Pen 15 UNIT SC (23:28)
[2024-02-23 23:57] LABS: Anion Gap 4 (5-15); BUN 32 mg/dL (7-18); BUN/Creat Ratio 25.6 RATIO (10-20); Calcium,Total 8.7 mg/dL (8.5-10.1); Chloride 96 mmol/L (98-107); Creatinine, Serum 1.25 mg/dL (0.70-1.30); EST Glomerular Filtration Rate 62 mL/min (>60); Est Glom Filt Rate - Afr Amer 75 mL/min (>60); Estimated Creatinine Clearance 97.82 ml/min; Glucose 179 mg/dL (74-106); Potassium 3.9 mmol/L (3.5-5.1); Sodium Level 135 mmol/L (136-145)
[2024-02-24] VITALS (34 sets, daily range): BP systolic 120–221; BP diastolic 81–120; PULSE 65–93; RESP 15–28; TEMP 36.5–37.8; O2SAT 89–98; BMI 51.8
[2024-02-24 00:06] LABS: Partial Thromboplast Time 68.8 Seconds (24.1-36.2)
[2024-02-24] MEDS: Dexmedetomidine 1,000 mcg in 0.9% NS 240 mL 43.9 MCG CONT INF ×2 (00:12→05:28)
[2024-02-24] MEDS: Cisatracurium *PARALYTIC 100 MG in 0.9% Normal Saline (250mL Bag) 200 ML 53.1 MG CONT INF (04:38)
[2024-02-24] MEDS: fentaNYL drip 100 ML 17.5 MCG CONT INF (04:41)
[2024-02-24] MEDS: Piperacil/Tazobactam 3.375 GM in 0.9% Normal Saline (50mL MB+) 50 ML IV ×3 (05:29→21:02)
[2024-02-24] MEDS: 0.9% Saline Lock 10 ML Syringe IV ×2 (05:39→12:18)
[2024-02-24] MEDS: Insulin Lispro 100 UNIT/ML INSULN.PEN SC ×3 (05:40→18:03)
[2024-02-24 05:53] LABS: Absolute Lymphocyte Count 0.93 X10^3/uL (0.83-4.51); Absolute Neutrophil Count 8.4 X10^3/uL (2.0-7.7); Basophil# 0.04 X10^3/uL; Basophil% 0.4 % (0-1); Eosinophil# 0.03 X10^3/uL; Eosinophils% 0.3 % (0-5); Hematocrit 47.8 % (40-54); Hemoglobin 14.8 g/dL (13.0-16.5); Lymphocyte # 0.93 X10^3/ul (0.83-4.51); Mean Corpuscular Hgb 26.1 pg (27.0-32.0); Mean Corpuscular Volume 84.5 fL (80-94); Monocyte# 0.87 X10^3/uL; Monocyte% 8.4 % (0-10); NRBC Flagged by Analyzer 0 % (0-5); Neutrophil # 8.37 X10^3/uL (2.7-7.7); Neutrophil % 81.1 % (47-70); Platelet Count 188 K/mm3 (150-450); RBC Distribution Width CV 15.1 % (11.6-14.6); RBC Distribution Width SD 46.4 fl (35.1-43.9); Red Blood Count 5.66 M/mm3 (4.6-6.2); White Blood Count 10.3 K/mm3 (4.4-11.0)
[2024-02-24 06:01] LABS: Bedside Glucose 166 mg/dL (74-106)
--- NOTE | 2024-02-24 06:01 | PN.CC_ITS ---
Assessment & Plan Assessment/Plan (1) Acute respiratory failure with hypoxia and hypercapnia: (2) COVID-19: PLAN: Plan RECOMMENDATIONS: 1. Continue current ventilator parameters. Wean FiO2 and PEEP as tolerated. 2. Continue empiric antibiotics. 3. Continue remdesivir and Decadron. 4. Continue aggressive diuresis, as tolerated by hemodynamics and renal function. 5. Discontinue cis atracurium. 6. Continue empiric weight-based heparin infusion to cover for possible PE. 7. Continue PPI therapy. 8. Aggressive potassium repletion as needed. IMPRESSIONS: 1. Acute hypoxemic and hypercapnic respiratory failure Clinical concern for multifactorial etiology, including untreated sleep apnea, alveolar hypoventilation secondary to obesity, concern for congestive heart failure, along with COVID-19 pneumonia with the possibility of secondary bacterial pneumonia. While PE would also be in the differential diagnosis, the patient is far too unstable to proceed with CT imaging of the chest. Therefore, the patient will be continued empirically on a weight-based heparin infusion. Given his refractory hypoxemia, the patient was initially managed with paralytics, which have since been discontinued. He appears to be slowly improving with aggressive diuresis, which will be continued as tolerated by hemodynamics and renal function. Continue antimicrobials along with Decadron and remdesivir. Cautious weaning of the patient's PEEP can be undertaken once his FiO2 requirement has been decreased at least to 50%. 2. Abdominal pain and nausea Unclear etiology based upon CT imaging of the abdomen completed on admission. The patient's abdomen is markedly distended. However, the patient is too unstable clinically to be safely taken for repeat CT abdomen. In addition, he would not be a surgical candidate given his current clinical status. Therefore, we will plan to continue current supportive care. 3. History of super morbid obesity/hypertension/hyperlipidemia/diabetes mellitus/history of tobacco dependency Complicates care, management, recovery and prognosis. Continue supportive measures as noted above. TIME: 34 minutes of critical care time, independent of procedures, was spent addressing the patient's acute hypoxemic and hypercapnic respiratory failure abdominal pain and nausea, super morbid obesity, review of all data and collaboration with the care team. Subjective Subjective The patient was seen and examined at the bedside this morning. Events from the last 24 hours have been reviewed. The patient currently has a low-grade fever but remains otherwise hemodynamically stable on assist-control mode of mechanical ventilation with an FiO2 requirement of 55% and PEEP of 18. The patient continues to diurese well on a continuous Lasix infusion. He is currently documented to be overall net -6.6 L for the hospitalization. White blood cell count, hemoglobin and platelet count are all within normal limits. ABG this morning demonstrated a pH of 7.45 with a pCO2 of 48 and pO2 of 65. Chemistry profile was notable for a sodium of 135, bicarbonate of 35 and creatinine of 1.17. The patient remains sedated on Precedex and fentanyl. His Nimbex infusion was discontinued this morning. Objective Data Objective Data The patient's most recent lab work, culture data and imaging studies have all been personally reviewed. Surface echocardiogram demonstrated normal LV size with systolic function at the lower limits of normal. There was mild global hypokinesis of the LV. There was mild RV dilation and moderate global RV systolic dysfunction. Pulmonary artery systolic pressure was estimated to be 30 mmHg. Strep and urine Legionella antigens were negative. Blood and sputum cultures are pending. COVID PCR was positive on February 21. Vital Signs: Vital Signs Temp Pulse Resp BP Pulse Ox O2 Del Method O2 Flow Rate 99.4 F H 68 16 148/93 H 92 Mechanical Ventilator 6 02/24/24 04:00 02/24/24 05:37 02/24/24 05:37 02/24/24 05:00 02/24/24 05:37 02/24/24 05:00 02/21/24 19:07 FiO2 45 02/24/24 05:37 Oxygen Flow Rate (L/min) 6 Oxygen Delivery Method Mechanical Ventilator Weight: 382 lb 0.977 oz Body Mass Index (BMI) 51.8 Intake & Output: Intake and Output for Last 24 Hours 02/22/24 02/23/24 02/24/24 23:59 23:59 23:59 Intake Total 5779.35 / 5854.38 5471.23 / 5554.13 1309.86 / 1309.86 Output Total 7575 / 7575 6800 / 7800 4000 / 4000 Balance -1795.65 / -1720.62 -1328.77 / -2245.87 -2690.14 / -2690.14 Lab / Micro Data Attestation: I reviewed the patient's lab results. 02/24/24 05:35 02/24/24 05:35 Labs: Laboratory Results - last 24 hr 02/23/24 12:00: APTT 81.1 H, Sodium 136, Potassium 4.0, Chloride 97 L, Carbon Dioxide 32.0, Anion Gap 7, BUN 29 H, Creatinine 1.35 H, Estim Creat Clear Calc 90.57, Est GFR (MDRD) Af Amer 68, Est GFR (MDRD) Non-Af 57 L, BUN/Creatinine Ratio 21.5 H, Glucose 196 H, Calcium 8.4 L 02/23/24 12:04: POC Glucose 186 H 02/23/24 18:05: APTT 65.2 H, Sodium 137, Potassium 3.8, Chloride 96 L, Carbon Dioxide 35.0 H, Anion Gap 5, BUN 31 H, Creatinine 1.28, Estim Creat Clear Calc 95.53, Est GFR (MDRD) Af Amer 73, Est GFR (MDRD) Non-Af 60, BUN/Creatinine Ratio 24.2 H, Glucose 206 H, Calcium 8.6 02/23/24 18:07: POC Glucose 195 H 02/23/24 21:25: Vancomycin Trough 19.1 H 02/23/24 23:25: APTT 68.8 H, Sodium 135 L, Potassium 3.9, Chloride 96 L, Carbon Dioxide 35.0 H, Anion Gap 4 L, BUN 32 H, Creatinine 1.25, Estim Creat Clear Calc 97.82, Est GFR (MDRD) Af Amer 75, Est GFR (MDRD) Non-Af 62, BUN/Creatinine Ratio 25.6 H, Glucose 179 H, Calcium 8.7 02/24/24 05:34: POC Glucose 166 H 02/24/24 05:35: WBC 10.3, RBC 5.66, Hgb 14.8, Hct 47.8, MCV 84.5, MCH 26.1 L, M CHC 31.0 L, RDW Std Deviation 46.4 H, RDW Coeff of Ezequiel 15.1 H, Plt Count 188, MPV 10.0, Immature Gran % (Auto) 0.800, Neut % (Auto) 81.1 H, Lymph % (Auto) 9.0 L, [place] % (Auto) 8.4, Eos % (Auto) 0.3, Baso % (Auto) 0.4, Absolute Neuts (auto) 8.4 H, Absolute Lymphs (auto) 0.93, Nucleated RBC % 0 Micro: Microbiology 02/20/24 23:37 Blood Culture (Wb) - Right Forearm Blood Culture - Preliminary No growth in 48 hours. 02/20/24 23:27 Blood Culture (Wb) - Anticubital Right Blood Culture - Preliminary No growth in 48 hours. 02/21/24 17:15 Sputum, Induced/Lukens Gram Stain - Final 02/21/24 17:15 Sputum, Induced/Lukens Respiratory Culture - Preliminary Appears to be normal respiratory lisa. Further studies to follow. 02/22/24 07:05 Mucosa - Nasopharyngeal Respiratory Panel (PCR) - Final 02/22/24 07:05 Mucosa - Nasopharyngeal Coronavirus COVID-19 PCR - Final SARS-CoV-2 (COVID 19 PCR) 02/22/24 07:02 Urine Catheter - Jimenez Legionella Antigen - Final 02/22/24 07:02 Urine Catheter - Jimenez Streptococcus pneumoniae Antigen (M - Final 02/22/24 05:26 Nasal Secretion SARS-CoV-2 Antigen (Rapid) - Final ABG Data ABG results: ABG 02/21/24 02/21/24 02/21/24 15:27 16:28 19:48 Specimen Type ART ART ART Sample Site R Radial R Radial L Radial pH 7.16 L* 7.15 L* 7.28 L Bicarbonate Actual 35.3 H 34.1 H 30.2 H Total CO2 38 37 32 Base Excess 7 H 5 H 3 H O2 Saturation 73 L 99 92 L O2 % 6.0 50.0 60.0 ABG pCO2 99.5 H* 96.9 H* 64.9 H ABG pO2 52 L 173 H 75 William Test N/A N/A N/A Respiration Rate 16 16 O2 Delivery Device Cannula BiPAP Adult Vent Vent Mode Not entered NIV AC Tidal Volume 500.0 POC PEEP 8 Crit Call To/Read Back Yes Yes Blood Gas Notified Whom Dr Mikel Morin Blood Gas Notified Time 15:36:02 16:30:44 02/22/24 01:21 Specimen Type ART Sample Site L Radial pH 7.36 Bicarbonate Actual 27.0 H Total CO2 28 Base Excess 2 O2 Saturation 89 L O2 % 90.0 ABG pCO2 47.9 H ABG pO2 60 L William Test N/A Respiration Rate 60 O2 Delivery Device Adult Vent Vent Mode AC Tidal Volume 500.0 POC PEEP 10 Crit Call To/Read Back Blood Gas Notified Whom Blood Gas Notified Time Radiography Diagnostic Testing: Radiology Impression Chest X-Ray 02/22/24 06:30 IMPRESSION: Moderate pleural effusions with bilateral interstitial and alveolar opacities. Findings may indicate edema and/or infection. Electronically Signed: Marino Felipe MD at 7:51 EST , Physical Exam Const Constitutional Narrative: Intubated, sedated and mechanically ventilated. Super morbidly obese. HEENT normocephalic and head/scalp atraumatic Eyes conjunctivae normal and no scleral icterus Neck supple General: trachea midline Chest inspection of chest normal Resp Auscultation: diminished lung sounds; Negative for rales, rhonchi or wheezes Cardio regular rate and regular rhythm GI GI Narrative: Distended abdomen, although improved from yesterday with mild erythema. Extremity General Extremity: edema bilateral lower extremity; Negative for clubbing Neuro Sensorium / Orientation: sedated on vent Charges/Coding Procedures Hospitalists Procedures: 22714 Critical Care 1st Hr
[2024-02-24 06:10] LABS: Anion Gap 6 (5-15); BUN 31 mg/dL (7-18); BUN/Creat Ratio 26.5 RATIO (10-20); Calcium,Total 8.8 mg/dL (8.5-10.1); Chloride 94 mmol/L (98-107); Creatinine, Serum 1.17 mg/dL (0.70-1.30); EST Glomerular Filtration Rate 67 mL/min (>60); Est Glom Filt Rate - Afr Amer 81 mL/min (>60); Estimated Creatinine Clearance 104.55 ml/min; Glucose 160 mg/dL (74-106); Magnesium 2.1 mg/dL (1.6-2.6); Potassium 3.5 mmol/L (3.5-5.1); Sodium Level 135 mmol/L (136-145)
[2024-02-24 06:58] LABS: Phosphorus 3.9 mg/dL (2.5-4.9)
[2024-02-24 07:10] LABS: Partial Thromboplast Time 62.2 Seconds (24.1-36.2)
[2024-02-24 07:27] LABS: Base Excess 10 mmol/L (-2 to +2); Bicarbonate 33.9 mmol/L (22-26); Blood Gas Specimen Type ART; Mode Not entered; O2 Delivery Device Not entered; PEEP 18; PO2 65 mmHG (75-100); RR 16; SITE L Radial; SO2 93 % (95-99); Total Carbon Dioxide 35 mmol/L; pCO2 48.7 mmHg (35-45); pH 7.45 (7.35-7.45)
[2024-02-24] MEDS: CHLORHEXIDINE GLUC 2% CLOTH 1 EACH TOWELETTE TOPICAL (08:11)
[2024-02-24] MEDS: dexAMETHasone 10 MG/ML Vial 6 MG IV (08:11)
[2024-02-24] MEDS: Chlorhexidine 15 ML PO ×2 (08:11→21:02)
[2024-02-24] MEDS: Pantoprazole Sodium 40 MG in 0.9% Normal Saline (100mL MB+) 100 ML 330 MG IV (08:12)
[2024-02-24] MEDS: TITRATION PARAMETER CHANGE 1 EACH IV (09:58)
[2024-02-24] MEDS: Vancomycin HCl 1,750 MG in 0.9% Normal Saline (500mL Bag) 500 ML 250 MG IV ×2 (10:19→21:02)
[2024-02-24] MEDS: Remdesivir 100 MG in 0.9% Normal Saline (250mL Bag) 230 ML 250 MG IV (10:19)
--- NOTE | 2024-02-24 10:19 | PN_ITS ---
Subjective Subjective Patient seen and examined. He remains intubated and sedated. Unable to do review of systems. Objective Data Objective Data Vital Signs: Vital Signs Temp Pulse Resp BP Pulse Ox O2 Del Method O2 Flow Rate 98.7 F 78 16 186/109 H 91 Mechanical Ventilator 6 02/24/24 08:00 02/24/24 09:00 02/24/24 09:00 02/24/24 09:00 02/24/24 09:00 02/24/24 09:00 02/21/24 19:07 FiO2 60 02/24/24 09:00 Oxygen Flow Rate (L/min) 6 Oxygen Delivery Method Mechanical Ventilator Weight: 382 lb 0.977 oz Body Mass Index (BMI) 51.8 Intake & Output: Intake and Output for Last 24 Hours 02/22/24 02/23/24 02/24/24 23:59 23:59 23:59 Intake Total 5779.35 / 5854.38 5471.23 / 5554.13 1965.79 / 1965.79 Output Total 7575 / 7575 6800 / 7800 5350 / 5350 Balance -1795.65 / -1720.62 -1328.77 / -2245.87 -3384.21 / -3384.21 Lab / Micro Data 02/24/24 05:35 02/24/24 05:35 Labs: Laboratory Results - last 24 hr 02/23/24 12:00: APTT 81.1 H, Sodium 136, Potassium 4.0, Chloride 97 L, Carbon Dioxide 32.0, Anion Gap 7, BUN 29 H, Creatinine 1.35 H, Estim Creat Clear Calc 90.57, Est GFR (MDRD) Af Amer 68, Est GFR (MDRD) Non-Af 57 L, BUN/Creatinine Ratio 21.5 H, Glucose 196 H, Calcium 8.4 L 02/23/24 12:04: POC Glucose 186 H 02/23/24 18:05: APTT 65.2 H, Sodium 137, Potassium 3.8, Chloride 96 L, Carbon Dioxide 35.0 H, Anion Gap 5, BUN 31 H, Creatinine 1.28, Estim Creat Clear Calc 95.53, Est GFR (MDRD) Af Amer 73, Est GFR (MDRD) Non-Af 60, BUN/Creatinine Ratio 24.2 H, Glucose 206 H, Calcium 8.6 02/23/24 18:07: POC Glucose 195 H 02/23/24 21:25: Vancomycin Trough 19.1 H 02/23/24 23:25: APTT 68.8 H, Sodium 135 L, Potassium 3.9, Chloride 96 L, Carbon Dioxide 35.0 H, Anion Gap 4 L, BUN 32 H, Creatinine 1.25, Estim Creat Clear Calc 97.82, Est GFR (MDRD) Af Amer 75, Est GFR (MDRD) Non-Af 62, BUN/Creatinine Ratio 25.6 H, Glucose 179 H, Calcium 8.7 02/24/24 05:34: POC Glucose 166 H 02/24/24 05:35: WBC 10.3, RBC 5.66, Hgb 14.8, Hct 47.8, MCV 84.5, MCH 26.1 L, M CHC 31.0 L, RDW Std Deviation 46.4 H, RDW Coeff of Ezequiel 15.1 H, Plt Count 188, MPV 10.0, Immature Gran % (Auto) 0.800, Neut % (Auto) 81.1 H, Lymph % (Auto) 9.0 L, [place] % (Auto) 8.4, Eos % (Auto) 0.3, Baso % (Auto) 0.4, Absolute Neuts (auto) 8.4 H, Absolute Lymphs (auto) 0.93, Nucleated RBC % 0, APTT 62.2 H, Sodium 135 L , Potassium 3.5, Chloride 94 L, Carbon Dioxide 35.0 H, Anion Gap 6, BUN 31 H, Creatinine 1.17, Estim Creat Clear Calc 104.55, Est GFR (MDRD) Af Amer 81, Est GFR (MDRD) Non-Af 67, BUN/Creatinine Ratio 26.5 H, Glucose 160 H, Calcium 8.8, Phosphorus 3.9, Magnesium 2.1 Micro: Microbiology 02/22/24 07:02 Urine Catheter - Jimenez Legionella Antigen - Final 02/22/24 07:02 Urine Catheter - Jimenez Streptococcus pneumoniae Antigen (M - Final 02/20/24 23:37 Blood Culture (Wb) - Right Forearm Blood Culture - Preliminary No growth in 48 hours. 02/20/24 23:27 Blood Culture (Wb) - Anticubital Right Blood Culture - Preliminary No growth in 48 hours. 02/21/24 17:15 Sputum, Induced/Lukens Gram Stain - Final 02/21/24 17:15 Sputum, Induced/Lukens Respiratory Culture - Preliminary Appears to be normal respiratory lisa. Further studies to follow. 02/22/24 07:05 Mucosa - Nasopharyngeal Respiratory Panel (PCR) - Final 02/22/24 07:05 Mucosa - Nasopharyngeal Coronavirus COVID-19 PCR - Final SARS-CoV-2 (COVID 19 PCR) 02/22/24 05:26 Nasal Secretion SARS-CoV-2 Antigen (Rapid) - Final ABG Data ABG results: ABG 02/24/24 07:20 Specimen Type ART Sample Site L Radial pH 7.45 Bicarbonate Actual 33.9 H Total CO2 35 Base Excess 10 H O2 Saturation 93 L O2 % 45.0 ABG pCO2 48.7 H ABG pO2 65 L Respiration Rate 16 O2 Delivery Device Not entered Vent Mode Not entered Tidal Volume 500.0 POC PEEP 18 Physical Exam Const Constitutional Narrative: Patient intubated and sedated. RASS score is -4. super morbid obesity HEENT normocephalic and head/scalp atraumatic Eyes PERRL Neck no lymphadenopathy and supple Lymph Lymphatic: no lymphadenopathy noted Resp Resp Narrative: intubated, sedated, PEEP of 18. diminished breath sounds bibasally, no wheezes or crackles. On FiO2 of 60 Cardio regular rate, regular rhythm, S1 normal heart sound, S2 normal heart sound and no murmurs GI normal to inspection, nondistended, normoactive bowel sounds, soft to palpation and non-tender GI Narrative: obese abdomen Extremity normal capillary refill Extremity Narrative: 2+m bipedal pitting edema General Extremity: no tenderness to palpation of joints or extremities Skin General Skin Exam: no breakdown Neuro Neuro Narrative: intubated, sedated, RASS score is -4 Psych Psych Narrative: intubated, sedated, RASS score is -4 Assessment & Plan Assessment/Plan (1) COVID-19: (2) Acute respiratory failure with hypoxia and hypercapnia: (3) Uncontrolled hypertension: PLAN: Plan # Acute hypoxic and hypercapnic respiratory failure * Multifactorial, thought to be due to COVID infection, fluid overload and obesity hypoventilation syndrome with probable secondary bacterial pneumonia * Remdesivir and Decadron. Also on empiric IV antibiotics-vancomycin and Zosyn * On Lasix drip. Diuresing quite well. 2D echo showed biventricular dysfunction and borderline low left ventricular dysfunction with no regional wall motion abnormalities. * Currently on paralytics but this is to be weaned off today. Also on sedation. Currently RASS score is -4. * Critical care on board. * On heparin drip * In cumulative negative balance by 6 points liters. Has had a total output of 22 L fluid * Blood cultures have been negative and sputum culture showed normal respiratory lisa * #Acute enteritis * Patient developed abdominal pain, nausea and bloating. General surgery reviewed imaging as there was concern of normal small bowel obstruction and general surgery recommends repeating the imaging more clinically stable. * Patient is considered a surgical candidate #LENORE: Continue to monitor creatinine. #Hypertension: Poorly controlled. Antihypertensives were held due to hypotension also with sedation #Type 2 diabetes mellitus: Oral meds on hold. On insulin sliding scale. Accu- Cheks every 6 hourly. On Lantus 15 units daily #Hyperlipidemia: On statin #Morbid obesity: BMI 51.8. Complicates acute care, expected recovery and prognosis #Probable obesity hypoventilation syndrome: * Likely contributing to the acute hypoxic respiratory failure. * Follow-up with pulmonology on outpatient basis for proper sleep study. * #DVT prophylaxis: Heparin drip Charges/Coding Visit Charges Inpatient E&M: 70247 [facility] Hosp L3
[2024-02-24] MEDS: fentaNYL drip 100 ML 20 MCG CONT INF ×3 (10:20→21:46)
[2024-02-24] MEDS: Dexmedetomidine 1,000 mcg in 0.9% NS 240 mL 64.9 MCG CONT INF ×4 (10:21→21:47)
[2024-02-24] MEDS: HEPARIN/D5w 25,000 UNITS 25,000 UNITS/250 ML IV.SOLN. 19 UNITS CONT INF ×2 (10:23→21:47)
[2024-02-24] MEDS: Potassium Chloride 20mEq/100mL 20 MEQ/100 ML IV.SOLN. 50 MEQ IV BOLUS ×2 (10:39→12:24)
[2024-02-24 12:13] LABS: Bedside Glucose 165 mg/dL (74-106)
[2024-02-24] MEDS: hydrALAZINE 20 MG/ML Vial 10 MG IV (12:18)
[2024-02-24 12:43] LABS: Bedside Glucose 155 mg/dL (74-106)
[2024-02-24] MEDS: Losartan Potassium 50 MG Tablet PO (14:21)
[2024-02-24 18:25] LABS: Bedside Glucose 194 mg/dL (74-106)
[2024-02-24] MEDS: Senna/Docusate Sodium 1 Tablet 2 TABLET GT (21:01)
[2024-02-24] MEDS: Atorvastatin Calcium 20 MG Tablet GT (21:02)
[2024-02-25] VITALS (34 sets, daily range): BP systolic 125–168; BP diastolic 81–114; PULSE 63–74; RESP 16–26; TEMP 37.6–38.3; O2SAT 88–98; BMI 49.4
[2024-02-25 00:24] LABS: Bedside Glucose 162 mg/dL (74-106)
[2024-02-25] MEDS: Insulin Glargine-YFGN 100 UNIT/ML Pen 15 UNIT SC ×2 (00:25→21:26)
[2024-02-25] MEDS: Insulin Lispro 100 UNIT/ML INSULN.PEN SC ×5 (00:26→22:56)
[2024-02-25] MEDS: Dexmedetomidine 1,000 mcg in 0.9% NS 240 mL 64.9 MCG CONT INF ×2 (01:51→06:00)
[2024-02-25] MEDS: fentaNYL drip 100 ML 20 MCG CONT INF ×4 (03:00→19:25)
[2024-02-25] MEDS: hydrALAZINE 20 MG/ML Vial 10 MG IV ×2 (03:14→13:29)
[2024-02-25] MEDS: CHLORHEXIDINE GLUC 2% CLOTH 1 EACH TOWELETTE TOPICAL (03:14)
[2024-02-25] MEDS: 0.9% Saline Lock 10 ML Syringe IV ×6 (03:15→21:23)
[2024-02-25 03:36] LABS: Absolute Lymphocyte Count 0.83 X10^3/uL (0.83-4.51); Absolute Neutrophil Count 8.4 X10^3/uL (2.0-7.7); Basophil# 0.02 X10^3/uL; Basophil% 0.2 % (0-1); Hematocrit 48.8 % (40-54); Hemoglobin 15.3 g/dL (13.0-16.5); Lymphocyte # 0.83 X10^3/ul (0.83-4.51); Lymphocyte % 8.2 % (19-41); Mean Corp Hgb Conc 31.4 g/dL (32-36); Mean Corpuscular Hgb 26.3 pg (27.0-32.0); Mean Corpuscular Volume 83.8 fL (80-94); Mean Platelet Vol. 9.9 fl (6.2-12.0); Monocyte# 0.87 X10^3/uL; Monocyte% 8.6 % (0-10); NRBC Flagged by Analyzer 0 % (0-5); Neutrophil # 8.39 X10^3/uL (2.7-7.7); Neutrophil % 82.5 % (47-70); Platelet Count 194 K/mm3 (150-450); RBC Distribution Width CV 15.2 % (11.6-14.6); RBC Distribution Width SD 45.8 fl (35.1-43.9); Red Blood Count 5.82 M/mm3 (4.6-6.2); White Blood Count 10.2 K/mm3 (4.4-11.0)
[2024-02-25 03:49] LABS: Anion Gap 9 (5-15); BUN 32 mg/dL (7-18); BUN/Creat Ratio 25.4 RATIO (10-20); Calcium,Total 8.9 mg/dL (8.5-10.1); Chloride 91 mmol/L (98-107); Creatinine, Serum 1.26 mg/dL (0.70-1.30); EST Glomerular Filtration Rate 61 mL/min (>60); Est Glom Filt Rate - Afr Amer 74 mL/min (>60); Estimated Creatinine Clearance 97.08 ml/min; Glucose 171 mg/dL (74-106); Potassium 3.5 mmol/L (3.5-5.1); Sodium Level 134 mmol/L (136-145)
[2024-02-25 03:53] LABS: Partial Thromboplast Time 66.6 Seconds (24.1-36.2)
[2024-02-25] MEDS: Piperacil/Tazobactam 3.375 GM in 0.9% Normal Saline (50mL MB+) 50 ML IV ×3 (05:08→21:10)
[2024-02-25 05:32] LABS: Bedside Glucose 155 mg/dL (74-106)
[2024-02-25] MEDS: TITRATION PARAMETER CHANGE 1 EACH IV (06:38)
[2024-02-25] MEDS: Furosemide 500 MG in Empty Viaflex 50 mL 1 EACH CONT INF (08:52)
[2024-02-25] MEDS: Chlorhexidine 15 ML PO ×2 (09:54→21:10)
[2024-02-25] MEDS: Remdesivir 100 MG in 0.9% Normal Saline (250mL Bag) 230 ML 250 MG IV (09:55)
[2024-02-25] MEDS: Dexmedetomidine 1,000 mcg in 0.9% NS 240 mL 62.1 MCG CONT INF ×4 (09:59→22:36)
[2024-02-25] MEDS: Senna/Docusate Sodium 1 Tablet 2 TABLET GT ×2 (10:04→21:22)
[2024-02-25] MEDS: Losartan Potassium 50 MG Tablet PO (10:04)
[2024-02-25] MEDS: HEPARIN/D5w 25,000 UNITS 25,000 UNITS/250 ML IV.SOLN. 19 UNITS CONT INF ×2 (10:04→22:32)
[2024-02-25] MEDS: dexAMETHasone 10 MG/ML Vial 6 MG IV (10:05)
[2024-02-25] MEDS: Vancomycin HCl 1,750 MG in 0.9% Normal Saline (500mL Bag) 500 ML 250 MG IV (10:08)
[2024-02-25] MEDS: Acetaminophen 650 MG/20 ML UDC GT (10:36)
[2024-02-25] MEDS: Polyethylene Glycol 3350 17 GM PACKET NG (10:37)
--- NOTE | 2024-02-25 10:42 | PN_ITS ---
Subjective Subjective Patient seen and examined. He remains intubated. He is able to open his eyes but cannot respond when spoken to. RASS score is 0. His PEEP is down to 12 from 18. He is off the paralytics. Objective Data Objective Data Vital Signs: Vital Signs Temp Pulse Resp BP Pulse Ox O2 Del Method O2 Flow Rate 100.8 F H 72 20 H 133/86 H 93 Mechanical Ventilator 6 02/25/24 07:00 02/25/24 07:19 02/25/24 07:19 02/25/24 07:00 02/25/24 07:19 02/25/24 07:00 02/21/24 19:07 FiO2 45 02/25/24 07:19 Oxygen Flow Rate (L/min) 6 Oxygen Delivery Method Mechanical Ventilator Weight: 364 lb 13.84 oz Body Mass Index (BMI) 49.4 Intake & Output: Intake and Output for Last 24 Hours 02/23/24 02/24/24 02/25/24 23:59 23:59 23:59 Intake Total 5471.23 / 5554.13 5253.95 / 5380.97 1669.54 / 1669.54 Output Total 6800 / 7800 79387 / 41797 2500 / 2500 Balance -1328.77 / -2245.87 -6896.05 / -7519.03 -830.46 / -830.46 Lab / Micro Data 02/25/24 03:20 02/25/24 03:20 Labs: Laboratory Results - last 24 hr 02/22/24 05:09: Sodium 136 02/22/24 05:09: Sodium Cancelled, Potassium 4.2 02/22/24 05:09: Potassium Cancelled, Chloride 101 02/22/24 05:09: Chloride Cancelled, Carbon Dioxide 29.0 02/22/24 05:09: Carbon Dioxide Cancelled, Anion Gap 7 02/22/24 05:09: Anion Gap Cancelled, BUN 24 H 02/22/24 05:09: BUN Cancelled, Creatinine 1.56 H 02/22/24 05:09: Creatinine Cancelled, Estim Creat Clear Calc 79.38, Est GFR (MDRD) Af Amer 58 L 02/22/24 05:09: Est GFR (MDRD) Af Amer Cancelled, Est GFR (MDRD) Non-Af 48 L 02/22/24 05:09: Est GFR (MDRD) Non-Af Cancelled, BUN/Creatinine Ratio 15.4 02/22/24 05:09: BUN/Creatinine Ratio Cancelled, Glucose 188 H 02/22/24 05:09: Glucose Cancelled, Calcium 8.5 02/22/24 05:09: Calcium Cancelled, Phosphorus 3.5, Magnesium 1.7, Total Bilirubin 1.00 02/22/24 05:09: Total Bilirubin Cancelled, AST 17 02/22/24 05:09: AST Cancelled, ALT 19 02/22/24 05:09: ALT Cancelled, Alkaline Phosphatase 104 02/22/24 05:09: Alkaline Phosphatase Cancelled, C-React Prot Ext Range 26.00 H, Total Protein 6.1 L 02/22/24 05:09: Total Protein Cancelled, Albumin 2.9 L 02/22/24 05:09: Albumin Cancelled, Globulin 3.2 02/22/24 05:09: Globulin Cancelled, Albumin/Globulin Ratio 0.9 02/22/24 05:09: Albumin/Globulin Ratio Cancelled, TSH 1.800 02/23/24 23:25: POC Glucose 165 H 02/24/24 12:01: POC Glucose 155 H 02/24/24 18:03: POC Glucose 194 H 02/24/24 23:46: POC Glucose 162 H 02/25/24 03:20: WBC 10.2, RBC 5.82, Hgb 15.3, Hct 48.8, MCV 83.8, MCH 26.3 L, M CHC 31.4 L, RDW Std Deviation 45.8 H, RDW Coeff of Ezequiel 15.2 H, Plt Count 194, MPV 9.9, Immature Gran % (Auto) 0.500, Neut % (Auto) 82.5 H, Lymph % (Auto) 8.2 L, [place] % (Auto) 8.6, Eos % (Auto) 0.0, Baso % (Auto) 0.2, Absolute Neuts (auto) 8.4 H, Absolute Lymphs (auto) 0.83, Nucleated RBC % 0, APTT 66.6 H, Sodium 134 L , Potassium 3.5, Chloride 91 L, Carbon Dioxide 34.0 H, Anion Gap 9, BUN 32 H, Creatinine 1.26, Estim Creat Clear Calc 97.08, Est GFR (MDRD) Af Amer 74, Est GFR (MDRD) Non-Af 61, BUN/Creatinine Ratio 25.4 H, Glucose 171 H, Calcium 8.9 02/25/24 05:07: POC Glucose 155 H Micro: Microbiology 02/21/24 17:15 Sputum, Induced/Lukens Gram Stain - Final 02/21/24 17:15 Sputum, Induced/Lukens Respiratory Culture - Final Mixed normal respiratory lisa. No Streptococcus pneumoniae, beta-hemolytic Streptococcus or Staphylococcus aureus isolated. 02/22/24 07:02 Urine Catheter - Jimenez Legionella Antigen - Final 02/22/24 07:02 Urine Catheter - Jimenez Streptococcus pneumoniae Antigen (M - Final 02/20/24 23:37 Blood Culture (Wb) - Right Forearm Blood Culture - Preliminary No growth in 48 hours. 02/20/24 23:27 Blood Culture (Wb) - Anticubital Right Blood Culture - Preliminary No growth in 48 hours. 02/22/24 07:05 Mucosa - Nasopharyngeal Respiratory Panel (PCR) - Final 02/22/24 07:05 Mucosa - Nasopharyngeal Coronavirus COVID-19 PCR - Final SARS-CoV-2 (COVID 19 PCR) 02/22/24 05:26 Nasal Secretion SARS-CoV-2 Antigen (Rapid) - Final Physical Exam Const well nourished; Negative for average body habitus or healthy appearing Constitutional Narrative: Patient intubated and sedated. RASS score is -4. super morbid obesity HEENT normocephalic, head/scalp atraumatic and moist oral mucous membranes Eyes PERRL and conjunctivae normal Eyes Narrative: No scleral icterus Neck no lymphadenopathy and supple Neck Narrative: Trachea midline, no thyroid enlargement, neck is short and thick Lymph Lymphatic: no lymphadenopathy noted Resp normal respiratory effort, no retractions, no use of accessory muscles and clear to auscultation bilaterally Resp Narrative: intubated, sedated, PEEP down to 12. diminished breath sounds bibasally, no wheezes or crackles. Auscultation: diminished lung sounds bilateral; Negative for rales, rhonchi or wheezes Cardio regular rate, regular rhythm, S1 normal heart sound, S2 normal heart sound, no murmurs, no rub, no gallops and no clicks GI normal to inspection, nondistended, normoactive bowel sounds, soft to palpation and non-tender GI Narrative: obese abdomen Extremity normal capillary refill Extremity Narrative: 2+ bipedal pitting edema General Extremity: no tenderness to palpation of joints or extremities Skin skin turgor normal, no jaundice, no petechiae and no mottling General Skin Exam: no breakdown Neuro no focal motor deficits Neuro Narrative: intubated, sedated, RASS score is 0 today Psych Psych Narrative: intubated, sedated, RASS score is 0 Assessment & Plan Assessment/Plan (1) COVID-19: (2) Acute respiratory failure with hypoxia and hypercapnia: (3) Uncontrolled hypertension: PLAN: Plan # Acute hypoxic and hypercapnic respiratory failure * Multifactorial, thought to be due to COVID infection, fluid overload and obesity hypoventilation syndrome with probable secondary bacterial pneumonia * Remdesivir and Decadron. Also on empiric IV antibiotics-vancomycin and Zosyn * On Lasix drip. Diuresing quite well. 2D echo showed biventricular dysfunction and borderline low left ventricular dysfunction with no regional wall motion abnormalities. * Weaned off of paralytics. RASS score today 0. * Critical care on board. * On heparin drip * In cumulative negative balance by 10.49 L. Has had a total output of 30.7 L. * Blood cultures have been negative and sputum culture showed normal respiratory lisa * #Acute enteritis * Patient developed abdominal pain, nausea and bloating. General surgery reviewed imaging as there was concern of normal small bowel obstruction and general surgery recommends repeating the imaging more clinically stable. * Patient is not considered a surgical candidate #LENORE: resolved. Cr is 1.26. #Hypertension: BP much controlled. Losartan resumed. #Type 2 diabetes mellitus: Oral meds on hold. On insulin sliding scale. Accu- Cheks every 6 hourly. On Lantus 15 units daily #Hyperlipidemia: On statin #Morbid obesity: BMI 51.8. Complicates acute care, expected recovery and prognosis #Probable obesity hypoventilation syndrome: * Likely contributing to the acute hypoxic respiratory failure. * Follow-up with pulmonology on outpatient basis for proper sleep study. * #DVT prophylaxis: Heparin drip Charges/Coding Visit Charges Inpatient E&M: 31945 [facility] Hosp L3
[2024-02-25] MEDS: Pantoprazole Sodium 40 MG in 0.9% Normal Saline (100mL MB+) 100 ML 330 MG IV (12:59)
[2024-02-25 13:30] LABS: Bedside Glucose 201 mg/dL (74-106)
[2024-02-25 17:59] LABS: Anion Gap 5 (5-15); BUN 36 mg/dL (7-18); BUN/Creat Ratio 26.3 RATIO (10-20); Calcium,Total 8.8 mg/dL (8.5-10.1); Chloride 92 mmol/L (98-107); Creatinine, Serum 1.37 mg/dL (0.70-1.30); EST Glomerular Filtration Rate 56 mL/min (>60); Est Glom Filt Rate - Afr Amer 67 mL/min (>60); Estimated Creatinine Clearance 86.88 ml/min; Glucose 218 mg/dL (74-106); Magnesium 1.8 mg/dL (1.6-2.6); Potassium 3.5 mmol/L (3.5-5.1); Sodium Level 133 mmol/L (136-145)
--- NOTE | 2024-02-25 18:26 | PN.CC_ITS ---
Objective Data Objective Data Vital Signs: Vital Signs Last response 3 Temperature 37.7 C H 02/25/24 18:00 Temperature Source Core 02/25/24 18:00 Pulse Rate 70 02/25/24 18:00 Pulse Strength Weak (1+) 02/25/24 10:00 Respiratory Rate 19 H 02/25/24 18:00 Respiratory Effort Mechanically Ventilated 02/25/24 16:00 Respiratory Depth Normal 02/25/24 16:00 Respiratory Pattern Normal 02/25/24 16:00 Blood Pressure 168/105 H 02/25/24 18:00 Blood Pressure Mean 126 02/25/24 18:00 Blood Pressure Source Monitor 02/25/24 18:00 Blood Pressure Position Semi-Fowlers 02/25/24 18:00 Blood Pressure Location Left Forearm 02/25/24 18:00 Pulse Ox 92 02/25/24 18:00 Oxygen Delivery Method Mechanical Ventilator 02/25/24 18:00 Oxygen Flow Rate (L/min) 6 02/21/24 19:07 Fraction of Inspired Oxygen (FIO2) 45 02/25/24 18:00 I&O: I&O Last 24 Hours 3 02/24/24 02/25/24 02/25/24 23:59 11:59 23:59 Intake Total 2904.64 / 5380.97 2011.68 / 3716.74 1704.06 / 3716.74 Output Total 5950 / 79218 3900 / 6550 2650 / 6550 Balance -3045.36 / -7519.03 -1887.32 / -2833.26 -945.94 / -2833.26 I&O: Total Stay 3 02/20/24 16:15 thru 02/25/24 18:22 Intake Total 15748.99 Output Total 19846 Balance -73412.01 Current Meds Ordered / Administered: Current meds ordered / Administered 3 Generic Name Dose Route Start Last Admin Trade Name Freq PRN Reason Stop Dose Admin Acetaminophen 650 mg 02/22/24 09:05 02/25/24 10:36 Acetaminophen 650 Mg/20 Ml Udc GT 650 mg Q6H PRN PRN Administration Pain 1-10 Or Fever >100.7 Albuterol Sulfate 2.5 mg 02/21/24 16:26 Albuterol 2.5 Mg/3 Ml Vial.Neb. INHALATION Q2H PRN PRN SOB &/OR WHEEZING Atorvastatin Calcium 20 mg 02/22/24 22:00 02/24/24 21:02 Atorvastatin Calcium 20 Mg Tablet GT 20 mg QHS ELISSA Administration Chlorhexidine Gluconate 1 each 02/22/24 10:00 02/25/24 03:14 Chlorhexidine Gluc 2% Cloth 1 Each [place] TOPICAL 1 each DAILY ELISSA Administration Chlorhexidine Gluconate 15 ml 02/22/24 10:00 02/25/24 09:54 Chlorhexidine 15 Ml PO 15 ml BID ELISSA Administration Dexamethasone Sodium Phosphate 6 mg 02/22/24 10:00 02/25/24 10:05 Dexamethasone 10 Mg/Ml Vial IV 6 mg DAILY ELISSA Administration Heparin Sodium (Porcine) 0 unit 02/22/24 07:55 Heparin Injection (Vial) 5,000 Unit/Ml Vial IV UD PRN dose adjustment Protocol Hydralazine HCl 10 mg 02/21/24 07:52 02/25/24 13:29 Hydralazine 20 Mg/Ml Vial IV 10 mg Q6H PRN PRN Administration SBP>150 Protocol Sodium Chloride 500 mls @ 15 mls/hr 02/21/24 00:22 02/25/24 03:35 IV Infused .[id number] PRN Infusion Saline Flush Piperacillin Sod/Tazobactam 50 mls @ 12.5 mls/hr 02/21/24 07:31 02/25/24 18:17 Sod 3.375 gm/ Sodium Chloride IV Infused Q8 ELISSA Infusion Fentanyl 100 mls @ 5 mls/hr 02/21/24 17:15 02/25/24 18:00 CONT INF 200 mcg/hr UD ELISSA 20 mls/hr Titration Protocol 50 MCG/HR Dexmedetomidine HCl 1,000 mcg/ 250 mls @ 20.688 mls/hr 02/21/24 17:30 02/25/24 18:18 Sodium Chloride CONT INF 1.5 mcg/kg/hr .Q12H6M ELISSA 62.1 mls/hr Administration Protocol 0.5 MCG/KG/HR Pantoprazole Sodium 40 mg/ 110 mls @ 330 mls/hr 02/22/24 10:00 02/25/24 16:28 Sodium Chloride IV Infused Q24 ELISSA Infusion Furosemide 500 mg/ N/A 50 mls @ 1 mls/hr 02/22/24 07:45 02/25/24 18:00 CONT INF 10 mg/hr .Q50H ELISSA 1 mls/hr Infusion 10 MG/HR Heparin Sodium/Dextrose 25,000 units in 250 mls @ 21 mls/hr 02/22/24 07:45 02/25/24 18:00 CONT INF 1,900 units/hr .[id number] ELISSA 19 mls/hr Titration Protocol As Directed Vancomycin IV-PHARMACY TO DOSE 500 mls @ 250 mls/hr 02/22/24 09:25 1 each/ Sodium Chloride IV X1 PRN Rx to Dose Protocol Remdesivir 100 mg/ Sodium 250 mls @ 250 mls/hr 02/23/24 10:00 02/25/24 16:28 Chloride IV 02/26/24 10:59 Infused DAILY ELISSA Infusion Protocol Vancomycin HCl 1,750 mg/ 535 mls @ 250 mls/hr 02/22/24 22:00 02/25/24 13:15 Sodium Chloride IV Infused Q12H ELISSA Infusion Insulin Glargine 15 unit 02/23/24 22:00 02/25/24 00:25 Insulin Glargine-Yfgn 100 Unit/Ml Pen SC 15 unit QHS ELISSA Administration Insulin Human Lispro 0 unit 02/22/24 12:00 02/25/24 18:20 Insulin Lispro 100 Unit/Ml Insuln.Pen SC 2 u Q6 ELISSA Administration Protocol Losartan Potassium 50 mg 02/24/24 12:50 02/25/24 10:04 Losartan Potassium 50 Mg Tablet PO 50 mg DAILY ELISSA Administration Protocol Ondansetron HCl 4 mg 02/21/24 00:09 Ondansetron 4 Mg/2 Ml Vial IV Q8H PRN PRN NAUSEA/VOMITING Polyethylene Glycol 17 gm 02/25/24 10:00 02/25/24 10:37 Polyethylene Glycol 3350 17 Gm Packet NG 17 gm DAILY ELISSA Administration Senna/Docusate Sodium 2 tablet 02/24/24 22:00 02/25/24 10:04 Senna/Docusate Sodium 1 Tablet GT 2 tablet BID ELISSA Administration Sodium Chloride 10 - 40 ml 02/21/24 00:22 02/25/24 18:18 0.9% Saline Lock 10 Ml Syringe IV 10 ml UD PRN Administration SALINE FLUSH Vancomycin Protocol 1 lab 02/25/24 19:30 02/25/24 16:00 Vancomycin Trough/Random Due MC 02/25/24 23:30 Not Given DAILY [facility] Lab / Micro Data 02/25/24 03:20 02/25/24 17:30 Labs: Laboratory Results - last 24 hr 02/24/24 23:46: POC Glucose 162 H 02/25/24 03:20: WBC 10.2, RBC 5.82, Hgb 15.3, Hct 48.8, MCV 83.8, MCH 26.3 L, M CHC 31.4 L, RDW Std Deviation 45.8 H, RDW Coeff of Ezequiel 15.2 H, Plt Count 194, MPV 9.9, Immature Gran % (Auto) 0.500, Neut % (Auto) 82.5 H, Lymph % (Auto) 8.2 L, [place] % (Auto) 8.6, Eos % (Auto) 0.0, Baso % (Auto) 0.2, Absolute Neuts (auto) 8.4 H, Absolute Lymphs (auto) 0.83, Nucleated RBC % 0, APTT 66.6 H, Sodium 134 L , Potassium 3.5, Chloride 91 L, Carbon Dioxide 34.0 H, Anion Gap 9, BUN 32 H, Creatinine 1.26, Estim Creat Clear Calc 97.08, Est GFR (MDRD) Af Amer 74, Est GFR (MDRD) Non-Af 61, BUN/Creatinine Ratio 25.4 H, Glucose 171 H, Calcium 8.9 02/25/24 05:07: POC Glucose 155 H 02/25/24 12:56: POC Glucose 201 H 02/25/24 17:30: Sodium 133 L, Potassium 3.5, Chloride 92 L, Carbon Dioxide 36.0 H, Anion Gap 5, BUN 36 H, Creatinine 1.37 H, Estim Creat Clear Calc 86.88, Est GFR (MDRD) Af Amer 67, Est GFR (MDRD) Non-Af 56 L, BUN/Creatinine Ratio 26.3 H, Glucose 218 H, Calcium 8.8, Magnesium 1.8 Assessment and Plan . Assessment and plan: Assessment/Plan (1) Acute respiratory failure with hypoxia and hypercapnia: (2) COVID-19: Plan -wean PEEP slowly as long as gains in FiO2 are maintained -aggressive diuresis with lasix gtt -cont remdesivir/decadron for COVID -so far tolerating cessation of neuromuscular blockade -trial enteric feeds Critical Care Time: 35 minutes The entirety of this encounter was done via Telemedicine Physical Exam Narrative Gen: Intubated, sedated ENT: Sclera anicteric; moist conjunctiva and mucous membranes; connected to vent via ETT CV: rrr, nl s1 and s2, no mrg; pulses 2+/symmetric and normal cap refill Lungs: CTAB, well-synchronized with vent; no nasal flaring or accessory muscle use Abdomen: Soft, nt/nd; normal bowel sounds, no organomegaly and no ascites or abnormal tympany Ext: no clubbing, cyanosis, + edema Neuro: sedated; CN reflexes appear intact Skin: normal turgor; no rash Psych: sedated Subjective Subjective deepa down to 12 with FiO2 at 45%
[2024-02-25] MEDS: Potassium Chloride 10mEq/100mL 10 MEQ/100 ML IV.SOLN. 100 MEQ IV BOLUS ×4 (19:28→22:32)
[2024-02-25] MEDS: Magnesium Sulfate 2 GM in Dextrose 5%-Water (100mL Bag) 100 ML IV (19:30)
[2024-02-25] MEDS: Atorvastatin Calcium 20 MG Tablet GT (21:23)
[2024-02-25 21:53] LABS: Bedside Glucose 208 mg/dL (74-106)
[2024-02-25 22:49] LABS: Vancomycin, Trough Level 22.8 ug/mL (5.0-15.0)
--- NOTE | 2024-02-25 23:05 | PCM.RX.CS ---
Consult Antibiotic Management Pharmacy has been consulted to manage selected antibiotic: Vancomycin Type of Intervention Type of Consult: Follow-up Labs Labs: Sodium 133 mmol/L (136-145) L 02/25/24 17:30 Potassium 3.5 mmol/L (3.5-5.1) 02/25/24 17:30 Chloride 92 mmol/L (98-107) L 02/25/24 17:30 Carbon Dioxide 36.0 mmol/L (21.0-32.0) H 02/25/24 17:30 Anion Gap 5 (5-15) 02/25/24 17:30 BUN 36 mg/dL (7-18) H 02/25/24 17:30 Creatinine 1.37 mg/dL (0.70-1.30) H 02/25/24 17:30 Est GFR (MDRD) Af Amer 67 mL/min (>60) 02/25/24 17:30 Est GFR (MDRD) Non-Af 56 mL/min (>60) L 02/25/24 17:30 BUN/Creatinine Ratio 26.3 RATIO (10-20) H 02/25/24 17:30 Glucose 218 mg/dL (74-106) H 02/25/24 17:30 Vancomycin Trough 22.8 ug/mL (5.0-15.0) H 02/25/24 21:30 Microbiology Microbiology: Microbiology 02/21/24 17:15 Sputum, Induced/Lukens Gram Stain - Final 02/21/24 17:15 Sputum, Induced/Lukens Respiratory Culture - Final Mixed normal respiratory lisa. No Streptococcus pneumoniae, beta-hemolytic Streptococcus or Staphylococcus aureus isolated. 02/22/24 07:02 Urine Catheter - Jimenez Legionella Antigen - Final 02/22/24 07:02 Urine Catheter - Jimenez Streptococcus pneumoniae Antigen (M - Final 02/20/24 23:37 Blood Culture (Wb) - Right Forearm Blood Culture - Preliminary No growth in 48 hours. 02/20/24 23:27 Blood Culture (Wb) - Anticubital Right Blood Culture - Preliminary No growth in 48 hours. 02/22/24 07:05 Mucosa - Nasopharyngeal Respiratory Panel (PCR) - Final 02/22/24 07:05 Mucosa - Nasopharyngeal Coronavirus COVID-19 PCR - Final SARS-CoV-2 (COVID 19 PCR) 02/22/24 05:26 Nasal Secretion SARS-CoV-2 Antigen (Rapid) - Final Goal Trough Goal Trough: 15-20 mcg/mL Pharmacy Plan for Drug Dosing Pharmacy Plan for Drug Dosing: Pharmacy Service will continue to monitor and adjust dosing as required. TROUGH 22.8 @ 11.5 HOURS. HOLD DOSE AND DRAW LEVEL IN 8 HOURS Follow-Up Labs Follow-Up Labs: Trough: Vancomycin Date/Time Labs Ordered Labs to be done on [date and time ordered]: 02/25 @ 4744
[2024-02-25 23:17] LABS: Bedside Glucose 201 mg/dL (74-106)
[2024-02-26] VITALS (35 sets, daily range): BP systolic 122–179; BP diastolic 71–114; PULSE 62–74; RESP 16–27; TEMP 37.4–37.7; O2SAT 88–99; BMI 47.5
[2024-02-26] MEDS: fentaNYL drip 100 ML 20 MCG CONT INF ×5 (00:40→21:14)
[2024-02-26] MEDS: hydrALAZINE 20 MG/ML Vial 10 MG IV ×2 (00:40→21:15)
[2024-02-26] MEDS: Dexmedetomidine 1,000 mcg in 0.9% NS 240 mL 62.1 MCG CONT INF ×6 (02:41→22:37)
[2024-02-26] MEDS: Piperacil/Tazobactam 3.375 GM in 0.9% Normal Saline (50mL MB+) 50 ML IV ×3 (05:02→21:11)
--- NOTE | 2024-02-26 05:28 | RAD_ITS ---
INDICATION: Respiratory Failure EXAMINATION/TECHNIQUE: X-RAY - XR Chest 1 View COMPARISON: 02/22/2024. FINDINGS: LINES/DEVICES: Endotracheal tube is stable. Right upper extremity PICC line with the tip at the superior vena cava. Distal enteric tube not well-visualized. LUNGS: No consolidation or evidence of an effusion. No evidence of edema or a pneumothorax. MEDIASTINUM AND CARDIOVASCULAR STRUCTURES: Stable cardiomegaly. Mediastinum is unremarkable. BONES AND SOFT TISSUES: No acute abnormality. RAD/Chest 1 View (Portable) IMPRESSION: No evidence of acute cardiopulmonary disease. Electronically Signed: Jimmy Lieberman DO at 6:53 EST ,
[2024-02-26] MEDS: Insulin Lispro 100 UNIT/ML INSULN.PEN SC ×4 (05:32→23:06)
[2024-02-26] MEDS: 0.9% Saline Lock 10 ML Syringe IV ×4 (05:39→19:45)
[2024-02-26 05:47] LABS: Absolute Neutrophil Count 6.9 X10^3/uL (2.0-7.7); Basophil# 0.01 X10^3/uL; Basophil% 0.1 % (0-1); Hematocrit 49.9 % (40-54); Hemoglobin 15.5 g/dL (13.0-16.5); Lymphocyte % 8.2 % (19-41); Mean Corp Hgb Conc 31.1 g/dL (32-36); Mean Corpuscular Volume 83.7 fL (80-94); Mean Platelet Vol. 9.8 fl (6.2-12.0); Monocyte# 0.91 X10^3/uL; Monocyte% 10.7 % (0-10); NRBC Flagged by Analyzer 0 % (0-5); Neutrophil # 6.87 X10^3/uL (2.7-7.7); Neutrophil % 80.6 % (47-70); Platelet Count 181 K/mm3 (150-450); RBC Distribution Width CV 15.1 % (11.6-14.6); RBC Distribution Width SD 45.6 fl (35.1-43.9); Red Blood Count 5.96 M/mm3 (4.6-6.2); White Blood Count 8.5 K/mm3 (4.4-11.0)
[2024-02-26 06:01] LABS: Bedside Glucose 184 mg/dL (74-106)
[2024-02-26 06:09] LABS: Vancomycin, Random Level 15.3 ug/mL (0.0-15.0)
[2024-02-26 06:12] LABS: ALB/GLOB Ratio 0.8 RATIO (0.9-2.4); AST(SGOT) 19 U/L (15-37); Alanine Aminotransfer ALT/SGPT 22 U/L (16-61); Alkaline Phosphatase 85 U/L (45-117); Anion Gap 6 (5-15); BUN 33 mg/dL (7-18); BUN/Creat Ratio 25.2 RATIO (10-20); Calcium,Total 9.1 mg/dL (8.5-10.1); Chloride 92 mmol/L (98-107); Creatinine, Serum 1.31 mg/dL (0.70-1.30); EST Glomerular Filtration Rate 59 mL/min (>60); Est Glom Filt Rate - Afr Amer 71 mL/min (>60); Estimated Creatinine Clearance 88.89 ml/min; Globulin 3.7 g/dL (2.2-4.2); Glucose 177 mg/dL (74-106); Potassium 4.7 mmol/L (3.5-5.1); Protein, Total 6.7 g/dL (6.4-8.2); Sodium Level 131 mmol/L (136-145)
[2024-02-26] MEDS: Vancomycin HCl 1,500 MG in 0.9% Normal Saline (500mL Bag) 500 ML 250 MG IV ×2 (06:38→17:54)
--- NOTE | 2024-02-26 06:52 | PCM.RX.CS ---
Consult Antibiotic Management Pharmacy has been consulted to manage selected antibiotic: Vancomycin Type of Intervention Type of Consult: Follow-up Labs Labs: Sodium 131 mmol/L (136-145) L 02/26/24 05:36 Potassium 4.7 mmol/L (3.5-5.1) 02/26/24 05:36 Chloride 92 mmol/L (98-107) L 02/26/24 05:36 Carbon Dioxide 33.0 mmol/L (21.0-32.0) H 02/26/24 05:36 Anion Gap 6 (5-15) 02/26/24 05:36 BUN 33 mg/dL (7-18) H 02/26/24 05:36 Creatinine 1.31 mg/dL (0.70-1.30) H 02/26/24 05:36 Est GFR (MDRD) Af Amer 71 mL/min (>60) 02/26/24 05:36 Est GFR (MDRD) Non-Af 59 mL/min (>60) L 02/26/24 05:36 BUN/Creatinine Ratio 25.2 RATIO (10-20) H 02/26/24 05:36 Glucose 177 mg/dL (74-106) H 02/26/24 05:36 Vancomycin Trough 22.8 ug/mL (5.0-15.0) H 02/25/24 21:30 Random Vancomycin 15.3 ug/mL (0.0-15.0) H 02/26/24 05:36 Microbiology Microbiology: Microbiology 02/21/24 17:15 Sputum, Induced/Lukens Gram Stain - Final 02/21/24 17:15 Sputum, Induced/Lukens Respiratory Culture - Final Mixed normal respiratory lisa. No Streptococcus pneumoniae, beta-hemolytic Streptococcus or Staphylococcus aureus isolated. 02/22/24 07:02 Urine Catheter - Jimenez Legionella Antigen - Final 02/22/24 07:02 Urine Catheter - Jimenez Streptococcus pneumoniae Antigen (M - Final 02/20/24 23:37 Blood Culture (Wb) - Right Forearm Blood Culture - Preliminary No growth in 48 hours. 02/20/24 23:27 Blood Culture (Wb) - Anticubital Right Blood Culture - Preliminary No growth in 48 hours. 02/22/24 07:05 Mucosa - Nasopharyngeal Respiratory Panel (PCR) - Final 02/22/24 07:05 Mucosa - Nasopharyngeal Coronavirus COVID-19 PCR - Final SARS-CoV-2 (COVID 19 PCR) 02/22/24 05:26 Nasal Secretion SARS-CoV-2 Antigen (Rapid) - Final Goal Trough Goal Trough: 15-20 mcg/mL Pharmacy Plan for Drug Dosing Pharmacy Plan for Drug Dosing: Pharmacy Service will continue to monitor and adjust dosing as required. RANDOM LEVEL 15.3. START 1500MG Q12H AND FOLLOW UP TROUGH PRIOR TO 4TH DOSE Follow-Up Labs Follow-Up Labs: Trough: Vancomycin Date/Time Labs Ordered Labs to be done on [date and time ordered]: 02/26 @ 1800
[2024-02-26] MEDS: Chlorhexidine 15 ML PO ×2 (08:03→21:13)
[2024-02-26] MEDS: Senna/Docusate Sodium 1 Tablet 2 TABLET GT ×2 (08:04→21:13)
[2024-02-26] MEDS: Polyethylene Glycol 3350 17 GM PACKET NG (08:04)
[2024-02-26] MEDS: Losartan Potassium 50 MG Tablet PO ×2 (08:04→14:03)
[2024-02-26] MEDS: dexAMETHasone 10 MG/ML Vial 6 MG IV (08:04)
[2024-02-26 08:53] LABS: Partial Thromboplast Time 67.7 Seconds (24.1-36.2)
[2024-02-26] MEDS: Pantoprazole Sodium 40 MG in 0.9% Normal Saline (100mL MB+) 100 ML 330 MG IV (10:41)
[2024-02-26] MEDS: Remdesivir 100 MG in 0.9% Normal Saline (250mL Bag) 230 ML 250 MG IV (10:42)
[2024-02-26] MEDS: HEPARIN/D5w 25,000 UNITS 25,000 UNITS/250 ML IV.SOLN. 19 UNITS CONT INF ×2 (10:48→23:03)
[2024-02-26 11:55] LABS: Bedside Glucose 201 mg/dL (74-106)
--- NOTE | 2024-02-26 12:02 | PCM.PROGNOTE ---
Subjective Subjective Patient seen and examined. He remains intubated. He is on Precedex infusion. He is however alert and able to nod or shake his head in response to questions. He denied being in pain. HE was working with physical therapy. Objective Data Objective Data Vital Signs: Vital Signs Temp Pulse Resp BP Pulse Ox O2 Del Method O2 Flow Rate 99.3 F H 66 17 151/93 H 90 Mechanical Ventilator 6 02/26/24 07:00 02/26/24 08:57 02/26/24 08:57 02/26/24 07:00 02/26/24 09:00 02/26/24 08:00 02/26/24 09:00 FiO2 45 02/26/24 08:57 Oxygen Flow Rate (L/min) 6 Oxygen Delivery Method Mechanical Ventilator Weight: 351 lb 6.669 oz Body Mass Index (BMI) 47.5 Intake & Output: Intake and Output for Last 24 Hours 02/24/24 02/25/24 02/26/24 23:59 23:59 23:59 Intake Total 5253.95 / 5380.97 4707.04 / 4789.14 / Output Total 33619 / 18594 9300 / 9300 4020 / 4020 Balance -6896.05 / -7519.03 -4592.96 / -4510.86 -2003.47 / -2003.47 Lab / Micro Data 02/26/24 05:36 02/26/24 05:36 Labs: Laboratory Results - last 24 hr 02/25/24 12:56: POC Glucose 201 H 02/25/24 17:30: Sodium 133 L, Potassium 3.5, Chloride 92 L, Carbon Dioxide 36.0 H, Anion Gap 5, BUN 36 H, Creatinine 1.37 H, Estim Creat Clear Calc 86.88, Est GFR (MDRD) Af Amer 67, Est GFR (MDRD) Non-Af 56 L, BUN/Creatinine Ratio 26.3 H, Glucose 218 H, Calcium 8.8, Magnesium 1.8 02/25/24 21:25: POC Glucose 208 H 02/25/24 21:30: Vancomycin Trough 22.8 H 02/25/24 22:55: POC Glucose 201 H 02/26/24 05:27: POC Glucose 184 H 02/26/24 05:36: WBC 8.5, RBC 5.96, Hgb 15.5, Hct 49.9, MCV 83.7, MCH 26.0 L, MCHC 31.1 L, RDW Std Deviation 45.6 H, RDW Coeff of Ezequiel 15.1 H, Plt Count 181, MPV 9.8, Immature Gran % (Auto) 0.400, Neut % (Auto) 80.6 H, Lymph % (Auto) 8.2 L, [place] % (Auto) 10.7 H, Eos % (Auto) 0.0, Baso % (Auto) 0.1, Absolute Neuts (auto) 6.9, Absolute Lymphs (auto) 0.70 L, Nucleated RBC % 0, Sodium 131 L, Potassium 4.7, Chloride 92 L, Carbon Dioxide 33.0 H, Anion Gap 6, BUN 33 H, Creatinine 1.31 H, Estim Creat Clear Calc 88.89, Est GFR (MDRD) Af Amer 71, Est GFR (MDRD) Non-Af 59 L, BUN/Creatinine Ratio 25.2 H, Glucose 177 H, Calcium 9.1, Total Bilirubin 1.30 H, AST 19, ALT 22, Alkaline Phosphatase 85, Total Protein 6.7, Albumin 3.0 L, Globulin 3.7, Albumin/Globulin Ratio 0.8 L, Random Vancomycin 15.3 H 02/26/24 08:10: APTT 67.7 H 02/26/24 11:28: POC Glucose 201 H Micro: Microbiology 02/20/24 23:27 Blood Culture (Wb) - Anticubital Right Blood Culture - Final No growth in 5 days. 02/20/24 23:37 Blood Culture (Wb) - Right Forearm Blood Culture - Final No growth in 5 days. 02/21/24 17:15 Sputum, Induced/Lukens Gram Stain - Final 02/21/24 17:15 Sputum, Induced/Lukens Respiratory Culture - Final Mixed normal respiratory lisa. No Streptococcus pneumoniae, beta-hemolytic Streptococcus or Staphylococcus aureus isolated. 02/22/24 07:02 Urine Catheter - Jimenez Legionella Antigen - Final 02/22/24 07:02 Urine Catheter - Jimenez Streptococcus pneumoniae Antigen (M - Final 02/22/24 07:05 Mucosa - Nasopharyngeal Respiratory Panel (PCR) - Final 02/22/24 07:05 Mucosa - Nasopharyngeal Coronavirus COVID-19 PCR - Final SARS-CoV-2 (COVID 19 PCR) 02/22/24 05:26 Nasal Secretion SARS-CoV-2 Antigen (Rapid) - Final Radiography Diagnostic Testing: Radiology Impression Chest X-Ray 02/26/24 05:28 IMPRESSION: No evidence of acute cardiopulmonary disease. Electronically Signed: Jimmy Lieberman DO at 6:53 EST Reading Location ID and State: [facility] / [place] Tel , Service support , Physical Exam Const alert Constitutional Narrative: RASS score is +3 HEENT normocephalic, head/scalp atraumatic and moist oral mucous membranes Eyes PERRL, EOMs intact bilaterally and conjunctivae normal Eyes Narrative: No scleral icterus Neck no lymphadenopathy and supple Neck Narrative: neck is short and thick Lymph Lymphatic: no lymphadenopathy noted Resp normal respiratory effort, no retractions, no use of accessory muscles and clear to auscultation bilaterally Resp Narrative: intubated, sedated, PEEP down to 10. diminished breath sounds bibasally, no wheezes or crackles. FiO2 is down to 45 today Cardio regular rate, regular rhythm, S1 normal heart sound, S2 normal heart sound, no murmurs, no rub, no gallops and no clicks GI normal to inspection, nondistended, normoactive bowel sounds, soft to palpation and non-tender GI Narrative: obese abdomen Extremity normal capillary refill Extremity Narrative: 2+ bipedal pitting edema General Extremity: no tenderness to palpation of joints or extremities Skin skin turgor normal, no jaundice, no petechiae and no mottling General Skin Exam: no breakdown Neuro Neuro Narrative: intubated, sedated, RASS score is +3 today Psych Psych Narrative: intubated, sedated, RASS score is +3 Assessment & Plan Assessment/Plan (1) COVID-19: (2) Acute respiratory failure with hypoxia and hypercapnia: (3) Uncontrolled hypertension: PLAN: Plan # Acute hypoxic and hypercapnic respiratory failure Multifactorial, thought to be due to COVID infection, fluid overload and obesity hypoventilation syndrome with probable secondary bacterial pneumonia Remdesivir and Decadron. Also on empiric IV antibiotics-vancomycin and Zosyn On Lasix drip. Diuresing quite well. 2D echo showed biventricular dysfunction and borderline low left ventricular dysfunction with no regional wall motion abnormalities. Weaned off of paralytics. RASS score today 0. Critical care on board. On heparin drip In cumulative negative balance by 16.25 L. Has had a total output of 41.5 L. Blood cultures have been negative and sputum culture showed normal respiratory lisa #Acute enteritis Patient developed abdominal pain, nausea and bloating. General surgery reviewed imaging as there was concern of normal small bowel obstruction and general surgery recommends repeating the imaging more clinically stable. Patient is not considered a surgical candidate #LENORE: resolved. Cr is 1.26. #Hypertension: on losartan 50mg daily. BP has been poorly controlled. Will increase losartan to 100mg daily. IV hydralazine prn #Type 2 diabetes mellitus: Oral meds on hold. On insulin sliding scale. Accu-Cheks every 6 hourly. On Lantus 15 units daily #Hyperlipidemia: On statin #Morbid obesity: BMI 51.8. Complicates acute care, expected recovery and prognosis #Probable obesity hypoventilation syndrome: Likely contributing to the acute hypoxic respiratory failure. Follow-up with pulmonology on outpatient basis for proper sleep study. #DVT prophylaxis: Heparin drip Charges/Coding Visit Charges Inpatient E&M: 97071 Subs Hosp L3
[2024-02-26] MEDS: Furosemide 500 MG in Empty Viaflex 50 mL 1 EACH CONT INF (12:06)
--- NOTE | 2024-02-26 17:42 | PCM.PN.TICU ---
Objective Data Objective Data Vital Signs: Vital Signs Last response Temperature 37.5 C H 02/26/24 14:00 Temperature Source Core 02/26/24 14:00 Pulse Rate 68 02/26/24 16:58 Pulse Strength Normal (2+) 02/26/24 09:23 Respiratory Rate 26 H 02/26/24 16:58 Respiratory Effort Mechanically Ventilated 02/26/24 16:00 Respiratory Depth Normal 02/26/24 16:00 Respiratory Pattern Normal 02/26/24 16:00 Blood Pressure 148/99 H 02/26/24 14:00 Blood Pressure Mean 115 02/26/24 14:00 Blood Pressure Source Monitor 02/26/24 14:00 Blood Pressure Position Semi-Fowlers 02/26/24 14:00 Blood Pressure Location Left Forearm 02/26/24 14:00 Pulse Ox 94 02/26/24 16:58 Oxygen Delivery Method Mechanical Ventilator 02/26/24 16:00 Oxygen Flow Rate (L/min) 6 02/26/24 09:00 Fraction of Inspired Oxygen (FIO2) 55 02/26/24 16:58 I&O: I&O Last 24 Hours 02/25/24 02/26/24 02/26/24 23:59 11:59 23:59 Intake Total 2694.36 / 4789.14 2037.12 / 2875.01 837.89 / 2875.01 Output Total 5400 / 9300 4020 / 5920 1900 / 5920 Balance -2705.64 / -4510.86 -1982.88 / -3044.99 -1062.11 / -3044.99 I&O: Total Stay 02/20/24 16:15 thru 02/26/24 17:15 Intake Total 68215.30 Output Total 35204 Balance -95645.70 Current Meds Ordered / Administered: Current meds ordered / Administered Generic Name Dose Route Start Last Admin Trade Name Freq PRN Reason Stop Dose Admin Acetaminophen 650 mg 02/22/24 09:05 02/25/24 10:36 Acetaminophen 650 Mg/20 Ml Udc GT 650 mg Q6H PRN PRN Administration Pain 1-10 Or Fever >100.7 Albuterol Sulfate 2.5 mg 02/21/24 16:26 Albuterol 2.5 Mg/3 Ml Vial.Neb. INHALATION Q2H PRN PRN SOB &/OR WHEEZING Atorvastatin Calcium 20 mg 12/11/24 22:00 02/25/24 21:23 Atorvastatin Calcium 20 Mg Tablet GT 20 mg QHS ELISSA Administration Chlorhexidine Gluconate 1 each 02/22/24 10:00 02/25/24 03:14 Chlorhexidine Gluc 2% Cloth 1 Each [place] TOPICAL 1 each DAILY ELISSA Administration Chlorhexidine Gluconate 15 ml 02/22/24 10:00 02/26/24 08:03 Chlorhexidine 15 Ml PO 15 ml BID ELISSA Administration Dexamethasone Sodium Phosphate 6 mg 02/22/24 10:00 02/26/24 08:04 Dexamethasone 10 Mg/Ml Vial IV 6 mg DAILY ELISSA Administration Heparin Sodium (Porcine) 0 unit 02/22/24 07:55 Heparin Injection (Vial) 5,000 Unit/Ml Vial IV UD PRN dose adjustment Protocol Hydralazine HCl 10 mg 02/21/24 07:52 02/26/24 00:40 Hydralazine 20 Mg/Ml Vial IV 10 mg Q6H PRN PRN Administration SBP>150 Protocol Sodium Chloride 500 mls @ 15 mls/hr 02/21/24 00:22 02/25/24 03:35 IV Infused .[id number] PRN Infusion Saline Flush Piperacillin Sod/Tazobactam 50 mls @ 12.5 mls/hr 02/21/24 07:31 02/26/24 14:04 Sod 3.375 gm/ Sodium Chloride IV 12.5 mls/hr Q8 ELISSA Administration Fentanyl 100 mls @ 5 mls/hr 02/21/24 17:15 02/26/24 17:00 CONT INF 200 mcg/hr UD ELISSA 20 mls/hr Titration Protocol 50 MCG/HR Dexmedetomidine HCl 1,000 mcg/ 250 mls @ 20.688 mls/hr 02/21/24 17:30 02/26/24 17:00 Sodium Chloride CONT INF 1.5 mcg/kg/hr .Q12H6M ELISSA 62.1 mls/hr Titration Protocol 0.5 MCG/KG/HR Pantoprazole Sodium 40 mg/ 110 mls @ 330 mls/hr 02/22/24 10:00 02/26/24 10:41 Sodium Chloride IV 330 mls/hr Q24 ELISSA Administration Furosemide 500 mg/ N/A 50 mls @ 1 mls/hr 02/22/24 07:45 02/26/24 12:06 CONT INF 10 mg/hr .Q50H ELISSA 1 mls/hr Administration 10 MG/HR Heparin Sodium/Dextrose 25,000 units in 250 mls @ 21 mls/hr 02/22/24 07:45 02/26/24 12:00 CONT INF 1,900 units/hr .[id number] ELISSA 19 mls/hr Titration Protocol As Directed Vancomycin IV-PHARMACY TO DOSE 500 mls @ 250 mls/hr 02/22/24 09:25 1 each/ Sodium Chloride IV X1 PRN Rx to Dose Protocol Vancomycin HCl 1,500 mg/ 530 mls @ 250 mls/hr 02/26/24 06:30 02/26/24 10:44 Sodium Chloride IV Infused Q12H ELISSA Infusion Insulin Glargine 15 unit 02/23/24 22:00 02/25/24 21:26 Insulin Glargine-Yfgn 100 Unit/Ml Pen SC 15 unit QHS ELISSA Administration Insulin Human Lispro 0 unit 02/22/24 12:00 02/26/24 12:05 Insulin Lispro 100 Unit/Ml Insuln.Pen SC 2 u Q6 ELISSA Administration Protocol Losartan Potassium 100 mg 02/27/24 10:00 Losartan Potassium 100 Mg Tablet PO DAILY [facility] Protocol Ondansetron HCl 4 mg 02/21/24 00:09 Ondansetron 4 Mg/2 Ml Vial IV Q8H PRN PRN NAUSEA/VOMITING Polyethylene Glycol 17 gm 02/26/24 22:00 Polyethylene Glycol 3350 17 Gm Packet GT BID ELISSA Senna/Docusate Sodium 2 tablet 02/24/24 22:00 02/26/24 08:04 Senna/Docusate Sodium 1 Tablet GT 2 tablet BID ELISSA Administration Sodium Chloride 10 - 40 ml 02/21/24 00:22 02/26/24 08:04 0.9% Saline Lock 10 Ml Syringe IV 10 ml UD PRN Administration SALINE FLUSH Vancomycin Protocol 1 lab 02/27/24 16:00 Vancomycin Trough/Random Due MC 02/27/24 20:00 DAILY [facility] Lab / Micro Data 02/26/24 05:36 02/26/24 05:36 Labs: Laboratory Results - last 24 hr 02/25/24 17:30: Sodium 133 L, Potassium 3.5, Chloride 92 L, Carbon Dioxide 36.0 H, Anion Gap 5, BUN 36 H, Creatinine 1.37 H, Estim Creat Clear Calc 86.88, Est GFR (MDRD) Af Amer 67, Est GFR (MDRD) Non-Af 56 L, BUN/Creatinine Ratio 26.3 H, Glucose 218 H, Calcium 8.8, Magnesium 1.8 02/25/24 21:25: POC Glucose 208 H 02/25/24 21:30: Vancomycin Trough 22.8 H 02/25/24 22:55: POC Glucose 201 H 02/26/24 05:27: POC Glucose 184 H 02/26/24 05:36: WBC 8.5, RBC 5.96, Hgb 15.5, Hct 49.9, MCV 83.7, MCH 26.0 L, MCHC 31.1 L, RDW Std Deviation 45.6 H, RDW Coeff of Ezequiel 15.1 H, Plt Count 181, MPV 9.8, Immature Gran % (Auto) 0.400, Neut % (Auto) 80.6 H, Lymph % (Auto) 8.2 L, [place] % (Auto) 10.7 H, Eos % (Auto) 0.0, Baso % (Auto) 0.1, Absolute Neuts (auto) 6.9, Absolute Lymphs (auto) 0.70 L, Nucleated RBC % 0, Sodium 131 L, Potassium 4.7, Chloride 92 L, Carbon Dioxide 33.0 H, Anion Gap 6, BUN 33 H, Creatinine 1.31 H, Estim Creat Clear Calc 88.89, Est GFR (MDRD) Af Amer 71, Est GFR (MDRD) Non-Af 59 L, BUN/Creatinine Ratio 25.2 H, Glucose 177 H, Calcium 9.1, Total Bilirubin 1.30 H, AST 19, ALT 22, Alkaline Phosphatase 85, Total Protein 6.7, Albumin 3.0 L, Globulin 3.7, Albumin/Globulin Ratio 0.8 L, Random Vancomycin 15.3 H 02/26/24 08:10: APTT 67.7 H 02/26/24 11:28: POC Glucose 201 H Micro: Microbiology 02/20/24 23:27 Blood Culture (Wb) - Anticubital Right Blood Culture - Final No growth in 5 days. 02/20/24 23:37 Blood Culture (Wb) - Right Forearm Blood Culture - Final No growth in 5 days. Imaging Radiology Impression Chest X-Ray 02/26/24 05:28 IMPRESSION: No evidence of acute cardiopulmonary disease. Electronically Signed: Jimmy Lieberman, DO at 6:53 EST , Assessment and Plan . Assessment and plan: Assessment/Plan (1) Acute respiratory failure with hypoxia and hypercapnia: (2) COVID-19: Plan -doing well; advance PS/CPAP trials as tolerated -aggressive diuresis with lasix gtt -cont remdesivir/decadron for COVID -so far tolerating cessation of neuromuscular blockade -trial enteric feeds -increase losartan to his home dose Critical Care Time: 35 minutes The entirety of this encounter was done via Telemedicine Physical Exam Narrative Gen: Intubated, sedated ENT: Sclera anicteric; moist conjunctiva and mucous membranes; connected to vent via ETT CV: rrr, nl s1 and s2, no mrg; pulses 2+/symmetric and normal cap refill Lungs: CTAB, well-synchronized with vent; no nasal flaring or accessory muscle use Abdomen: Soft, nt/nd; normal bowel sounds, no organomegaly and no ascites or abnormal tympany Ext: no clubbing, cyanosis, + edema Neuro: sedated; CN reflexes appear intact Skin: normal turgor; no rash Psych: sedated Subjective Subjective Did some PT this AM per mobilization protocol PEEP at 8 this AM with FiO2 at 50%.
[2024-02-26 18:49] LABS: Bedside Glucose 205 mg/dL (74-106)
[2024-02-26] MEDS: Midazolam 2 MG/2 ML Syringe IV (19:45)
[2024-02-26] MEDS: Polyethylene Glycol 3350 17 GM PACKET GT (21:13)
[2024-02-26] MEDS: Atorvastatin Calcium 20 MG Tablet GT (21:13)
[2024-02-26] MEDS: Insulin Glargine-YFGN 100 UNIT/ML Pen 15 UNIT SC (23:06)
[2024-02-26 23:32] LABS: Bedside Glucose 171 mg/dL (74-106)
[2024-02-27] VITALS (33 sets, daily range): BP systolic 101–153; BP diastolic 74–105; PULSE 59–66; RESP 14–27; TEMP 37.3–37.8; O2SAT 90–96; BMI 47.1
[2024-02-27] MEDS: Midazolam 2 MG/2 ML Syringe IV (01:47)
[2024-02-27] MEDS: 0.9% Saline Lock 10 ML Syringe IV ×2 (01:47→22:17)
[2024-02-27] MEDS: CHLORHEXIDINE GLUC 2% CLOTH 1 EACH TOWELETTE TOPICAL (02:00)
[2024-02-27] MEDS: Dexmedetomidine 1,000 mcg in 0.9% NS 240 mL 62.1 MCG CONT INF ×2 (02:27→06:34)
[2024-02-27] MEDS: fentaNYL drip 100 ML 20 MCG CONT INF ×4 (02:27→20:00)
[2024-02-27] MEDS: Insulin Lispro 100 UNIT/ML INSULN.PEN SC ×3 (05:07→17:56)
[2024-02-27] MEDS: Piperacil/Tazobactam 3.375 GM in 0.9% Normal Saline (50mL MB+) 50 ML IV ×3 (05:07→21:56)
[2024-02-27 05:30] LABS: Absolute Lymphocyte Count 1.09 X10^3/uL (0.83-4.51); Absolute Neutrophil Count 8.1 X10^3/uL (2.0-7.7); Basophil# 0.04 X10^3/uL; Basophil% 0.4 % (0-1); Eosinophil# 0.03 X10^3/uL; Eosinophils% 0.3 % (0-5); Hematocrit 49.7 % (40-54); Hemoglobin 15.5 g/dL (13.0-16.5); Lymphocyte # 1.09 X10^3/ul (0.83-4.51); Lymphocyte % 10.7 % (19-41); Mean Corp Hgb Conc 31.2 g/dL (32-36); Mean Corpuscular Hgb 26.1 pg (27.0-32.0); Mean Corpuscular Volume 83.8 fL (80-94); Mean Platelet Vol. 10.5 fl (6.2-12.0); Monocyte# 0.91 X10^3/uL; Monocyte% 8.9 % (0-10); NRBC Flagged by Analyzer 0 % (0-5); Neutrophil # 8.12 X10^3/uL (2.7-7.7); Neutrophil % 79.3 % (47-70); Platelet Count 169 K/mm3 (150-450); RBC Distribution Width SD 45.5 fl (35.1-43.9); Red Blood Count 5.93 M/mm3 (4.6-6.2); White Blood Count 10.2 K/mm3 (4.4-11.0)
[2024-02-27 05:42] LABS: Bedside Glucose 166 mg/dL (74-106)
[2024-02-27 05:46] LABS: Partial Thromboplast Time 155.3 Seconds (24.1-36.2)
[2024-02-27 05:48] LABS: ALB/GLOB Ratio 0.8 RATIO (0.9-2.4); AST(SGOT) 16 U/L (15-37); Alanine Aminotransfer ALT/SGPT 23 U/L (16-61); Albumin, Serum 3.1 g/dL (3.2-5.0); Alkaline Phosphatase 80 U/L (45-117); Anion Gap 8 (5-15); BUN 36 mg/dL (7-18); BUN/Creat Ratio 29.3 RATIO (10-20); Chloride 92 mmol/L (98-107); Creatinine, Serum 1.23 mg/dL (0.70-1.30); EST Glomerular Filtration Rate 63 mL/min (>60); Est Glom Filt Rate - Afr Amer 76 mL/min (>60); Estimated Creatinine Clearance 94.16 ml/min; Globulin 3.7 g/dL (2.2-4.2); Glucose 174 mg/dL (74-106); Potassium 3.1 mmol/L (3.5-5.1); Protein, Total 6.8 g/dL (6.4-8.2); Sodium Level 132 mmol/L (136-145)
--- NOTE | 2024-02-27 05:55 | RAD_ITS ---
INDICATION: Respiratory Failure EXAMINATION/TECHNIQUE: X-RAY - XR Chest 1 View COMPARISON: 02/26/2024. FINDINGS: LINES/DEVICES: Endotracheal tube and enteric tube are stable. Stable right upper extremity PICC line. LUNGS: Left basilar atelectasis versus infiltrate. No evidence of a pleural effusion or a pneumothorax. MEDIASTINUM AND CARDIOVASCULAR STRUCTURES: Stable cardiomegaly. Mediastinum is unremarkable. BONES AND SOFT TISSUES: No acute abnormality. RAD/Chest 1 View (Portable) IMPRESSION: Left basilar atelectasis versus infiltrate. Electronically Signed: Jimmy Lieberman DO at 5:56 EST ,
--- NOTE | 2024-02-27 05:56 | PN.CC_ITS ---
Assessment & Plan Assessment/Plan (1) Acute respiratory failure with hypoxia and hypercapnia: (2) COVID-19: PLAN: Plan RECOMMENDATIONS: 1. Continue current ventilator parameters. Wean FiO2 and PEEP as tolerated. 2. Continue empiric antibiotics to complete 7 days of therapy. 3. Continue Decadron to complete 10 days of therapy. 4. Ongoing diuresis as tolerated by hemodynamics and renal function. 5. Okay to stop heparin infusion and transition to Lovenox for DVT prophylaxis. 6. Continue PPI therapy. 7. Aggressive potassium repletion as needed. 8. Initiate tube feeding today. 9. Attempt spontaneous awakening and breathing trial tomorrow. IMPRESSIONS: 1. Acute hypoxemic and hypercapnic respiratory failure Clinical concern for multifactorial etiology, including untreated sleep apnea, alveolar hypoventilation secondary to obesity, concern for congestive heart failure, along with COVID-19 pneumonia with the possibility of secondary bacterial pneumonia. Given his refractory hypoxemia, the patient was initially managed with paralytics, which have since been discontinued. He appears to be slowly improving with aggressive diuresis, which will be continued as tolerated by hemodynamics and renal function. Continue antimicrobials along with Decadron. Continue to wean FiO2 and PEEP as tolerated. Plan to initiate spontaneous awakening and breathing trials beginning tomorrow, if the patient continues to improve. 2. Abdominal pain and nausea Unclear etiology based upon CT imaging of the abdomen completed on admission. Will reevaluate the need for repeat abdominal imaging, pending the patient's clinical course. 3. History of super morbid obesity/hypertension/hyperlipidemia/diabetes mellitus/history of tobacco dependency Complicates care, management, recovery and prognosis. Continue supportive measures as noted above. Okay to initiate tube feeding. TIME: 32 minutes of critical care time, independent of procedures, was spent addressing the patient's acute hypoxemic and hypercapnic respiratory failure abdominal pain and nausea, super morbid obesity, review of all data and collaboration with the care team. Subjective Subjective The patient was seen and examined at the bedside this morning. Events from the last 24 hours have been reviewed. The patient is currently afebrile, hemodynamically stable and maintaining appropriate oxygen saturations on assist- control mode of mechanical ventilation with an FiO2 requirement of 55% and PEEP of 8. The patient continues to diurese well. He is currently documented to be overall net -17.3 L for the hospitalization. The patient is alert and able to follow some commands. White blood cell count is normal. Hemoglobin and platelet count are stable. Potassium is low at 3.1 with a creatinine of 1.23. Objective Data Objective Data The patient's most recent lab work, culture data and imaging studies have all been personally reviewed. Surface echocardiogram demonstrated normal LV size with systolic function at the lower limits of normal. There was mild global hypokinesis of the LV. There was mild RV dilation and moderate global RV systolic dysfunction. Pulmonary artery systolic pressure was estimated to be 30 mmHg. Strep and urine Legionella antigens were negative. Blood and sputum cultures are pending. COVID PCR was positive on February 21. Vital Signs: Vital Signs Temp Pulse Resp BP Pulse Ox O2 Del Method O2 Flow Rate 99.3 F H 63 22 H 137/85 H 96 Mechanical Ventilator 6 02/27/24 05:00 02/27/24 05:00 02/27/24 05:00 02/27/24 05:00 02/27/24 05:00 02/27/24 05:00 02/26/24 09:00 FiO2 55 02/27/24 05:00 Oxygen Flow Rate (L/min) 6 Oxygen Delivery Method Mechanical Ventilator Weight: 348 lb 1.758 oz Body Mass Index (BMI) 47.1 Intake & Output: Intake and Output for Last 24 Hours 02/25/24 02/26/24 02/27/24 23:59 23:59 23:59 Intake Total 4707.04 / 4789.14 4383.04 / 4465.14 538.28 / 538.28 Output Total 9300 / 9300 7720 / 7720 1200 / 1200 Balance -4592.96 / -4510.86 -3336.96 / -3254.86 -661.72 / -661.72 Lab / Micro Data Attestation: I reviewed the patient's lab results. 02/27/24 05:23 02/27/24 05:23 Labs: Laboratory Results - last 24 hr 02/26/24 05:27: POC Glucose 184 H 02/26/24 05:36: Sodium 131 L, Potassium 4.7, Chloride 92 L, Carbon Dioxide 33.0 H, Anion Gap 6, BUN 33 H, Creatinine 1.31 H, Estim Creat Clear Calc 88.89, Est GFR (MDRD) Af Amer 71, Est GFR (MDRD) Non-Af 59 L, BUN/Creatinine Ratio 25.2 H, Glucose 177 H, Calcium 9.1, Total Bilirubin 1.30 H, AST 19, ALT 22, Alkaline Phosphatase 85, Total Protein 6.7, Albumin 3.0 L, Globulin 3.7, Albumin/Globulin Ratio 0.8 L, Random Vancomycin 15.3 H 02/26/24 08:10: APTT 67.7 H 02/26/24 11:28: POC Glucose 201 H 02/26/24 17:50: POC Glucose 205 H 02/26/24 23:06: POC Glucose 171 H 02/27/24 05:06: POC Glucose 166 H 02/27/24 05:23: WBC 10.2, RBC 5.93, Hgb 15.5, Hct 49.7, MCV 83.8, MCH 26.1 L, M CHC 31.2 L, RDW Std Deviation 45.5 H, RDW Coeff of Ezequiel 15.0 H, Plt Count 169, MPV 10.5, Immature Gran % (Auto) 0.400, Neut % (Auto) 79.3 H, Lymph % (Auto) 10.7 L, [place] % (Auto) 8.9, Eos % (Auto) 0.3, Baso % (Auto) 0.4, Absolute Neuts (auto) 8.1 H, Absolute Lymphs (auto) 1.09, Nucleated RBC % 0, APTT 155.3 H*, S odium 132 L, Potassium 3.1 L, Chloride 92 L, Carbon Dioxide 32.0, Anion Gap 8, B UN 36 H, Creatinine 1.23, Estim Creat Clear Calc 94.16, Est GFR (MDRD) Af Amer 76, Est GFR (MDRD) Non-Af 63, BUN/Creatinine Ratio 29.3 H, Glucose 174 H, Calcium 9.0, Total Bilirubin 1.30 H, AST 16, ALT 23, Alkaline Phosphatase 80, Total Protein 6.8, Albumin 3.1 L, Globulin 3.7, Albumin/Globulin Ratio 0.8 L Micro: Microbiology 02/20/24 23:27 Blood Culture (Wb) - Anticubital Right Blood Culture - Final No growth in 5 days. 02/20/24 23:37 Blood Culture (Wb) - Right Forearm Blood Culture - Final No growth in 5 days. 02/21/24 17:15 Sputum, Induced/Lukens Gram Stain - Final 02/21/24 17:15 Sputum, Induced/Lukens Respiratory Culture - Final Mixed normal respiratory lisa. No Streptococcus pneumoniae, beta-hemolytic Streptococcus or Staphylococcus aureus isolated. 02/22/24 07:02 Urine Catheter - Jimenez Legionella Antigen - Final 02/22/24 07:02 Urine Catheter - Jimenez Streptococcus pneumoniae Antigen (M - Final 02/22/24 07:05 Mucosa - Nasopharyngeal Respiratory Panel (PCR) - Final 02/22/24 07:05 Mucosa - Nasopharyngeal Coronavirus COVID-19 PCR - Final SARS-CoV-2 (COVID 19 PCR) 02/22/24 05:26 Nasal Secretion SARS-CoV-2 Antigen (Rapid) - Final ABG Data ABG results: ABG 02/21/24 02/21/24 02/21/24 15:27 16:28 19:48 Specimen Type ART ART ART Sample Site R Radial R Radial L Radial pH 7.16 L* 7.15 L* 7.28 L Bicarbonate Actual 35.3 H 34.1 H 30.2 H Total CO2 38 37 32 Base Excess 7 H 5 H 3 H O2 Saturation 73 L 99 92 L O2 % 6.0 50.0 60.0 ABG pCO2 99.5 H* 96.9 H* 64.9 H ABG pO2 52 L 173 H 75 William Test N/A N/A N/A Respiration Rate 16 16 O2 Delivery Device Cannula BiPAP Adult Vent Vent Mode Not entered NIV AC Tidal Volume 500.0 POC PEEP 8 Crit Call To/Read Back Yes Yes Blood Gas Notified Whom Dr Mikel Morin Blood Gas Notified Time 15:36:02 16:30:44 02/22/24 01:21 Specimen Type ART Sample Site L Radial pH 7.36 Bicarbonate Actual 27.0 H Total CO2 28 Base Excess 2 O2 Saturation 89 L O2 % 90.0 ABG pCO2 47.9 H ABG pO2 60 L William Test N/A Respiration Rate 60 O2 Delivery Device Adult Vent Vent Mode AC Tidal Volume 500.0 POC PEEP 10 Crit Call To/Read Back Blood Gas Notified Whom Blood Gas Notified Time Radiography Diagnostic Testing: Radiology Impression Chest X-Ray 02/26/24 05:28 IMPRESSION: No evidence of acute cardiopulmonary disease. Electronically Signed: Jimmy Lieberman DO at 6:53 EST , Physical Exam Const Constitutional Narrative: Intubated, sedated and mechanically ventilated. Super morbidly obese. HEENT normocephalic and head/scalp atraumatic Eyes conjunctivae normal and no scleral icterus Neck supple General: trachea midline Chest inspection of chest normal Resp Auscultation: diminished lung sounds; Negative for rales, rhonchi or wheezes Cardio regular rate and regular rhythm GI soft to palpation and non-tender Extremity General Extremity: edema bilateral lower extremity; Negative for clubbing Neuro Sensorium / Orientation: sedated on vent Charges/Coding Procedures Hospitalists Procedures: [id number] Critical Care 1st Hr
[2024-02-27] MEDS: Vancomycin HCl 1,500 MG in 0.9% Normal Saline (500mL Bag) 500 ML 250 MG IV ×2 (08:26→18:18)
[2024-02-27] MEDS: Pantoprazole Sodium 40 MG in 0.9% Normal Saline (100mL MB+) 100 ML 330 MG IV (08:28)
[2024-02-27] MEDS: Polyethylene Glycol 3350 17 GM PACKET GT ×2 (08:28→21:57)
[2024-02-27] MEDS: dexAMETHasone 10 MG/ML Vial 6 MG IV (08:28)
[2024-02-27] MEDS: Senna/Docusate Sodium 1 Tablet 2 TABLET GT ×2 (08:29→21:57)
[2024-02-27] MEDS: Losartan Potassium 100 MG Tablet PO (08:29)
[2024-02-27] MEDS: Chlorhexidine 15 ML PO ×2 (08:31→20:53)
--- NOTE | 2024-02-27 10:10 | PCM.PROGNOTE ---
Subjective Subjective Patient seen and examined. He is alert and conscious though he remains on precedex. RASS score is 0. He remains on lasix drip. He is in cumulative negative balance by 17.8L. Objective Data Objective Data Vital Signs: Vital Signs Temp Pulse Resp BP Pulse Ox O2 Del Method O2 Flow Rate 99.5 F H 60 14 131/84 H 92 Mechanical Ventilator 6 02/27/24 09:00 02/27/24 09:00 02/27/24 09:00 02/27/24 09:00 02/27/24 09:00 02/27/24 09:00 02/26/24 09:00 FiO2 55 02/27/24 09:00 Oxygen Flow Rate (L/min) 6 Oxygen Delivery Method Mechanical Ventilator Weight: 348 lb 1.758 oz Body Mass Index (BMI) 47.1 Intake & Output: Intake and Output for Last 24 Hours 02/25/24 02/26/24 02/27/24 23:59 23:59 23:59 Intake Total 4707.04 / 4789.14 4383.04 / 4465.14 1010.08 / 1010.08 Output Total 9300 / 9300 7720 / 7720 1200 / 1200 Balance -4592.96 / -4510.86 -3336.96 / -3254.86 -189.92 / -189.92 Lab / Micro Data 02/27/24 05:23 02/27/24 05:23 Labs: Laboratory Results - last 24 hr 02/26/24 11:28: POC Glucose 201 H 02/26/24 17:50: POC Glucose 205 H 02/26/24 23:06: POC Glucose 171 H 02/27/24 05:06: POC Glucose 166 H 02/27/24 05:23: WBC 10.2, RBC 5.93, Hgb 15.5, Hct 49.7, MCV 83.8, MCH 26.1 L, MCHC 31.2 L, RDW Std Deviation 45.5 H, RDW Coeff of Ezequiel 15.0 H, Plt Count 169, MPV 10.5, Immature Gran % (Auto) 0.400, Neut % (Auto) 79.3 H, Lymph % (Auto) 10.7 L, [place] % (Auto) 8.9, Eos % (Auto) 0.3, Baso % (Auto) 0.4, Absolute Neuts (auto) 8.1 H, Absolute Lymphs (auto) 1.09, Nucleated RBC % 0, APTT 155.3 H*, Sodium 132 L, Potassium 3.1 L, Chloride 92 L, Carbon Dioxide 32.0, Anion Gap 8, BUN 36 H, Creatinine 1.23, Estim Creat Clear Calc 94.16, Est GFR (MDRD) Af Amer 76, Est GFR (MDRD) Non-Af 63, BUN/Creatinine Ratio 29.3 H, Glucose 174 H, Calcium 9.0, Total Bilirubin 1.30 H, AST 16, ALT 23, Alkaline Phosphatase 80, Total Protein 6.8, Albumin 3.1 L, Globulin 3.7, Albumin/Globulin Ratio 0.8 L Micro: Microbiology 02/20/24 23:27 Blood Culture (Wb) - Anticubital Right Blood Culture - Final No growth in 5 days. 02/20/24 23:37 Blood Culture (Wb) - Right Forearm Blood Culture - Final No growth in 5 days. 02/21/24 17:15 Sputum, Induced/Lukens Gram Stain - Final 02/21/24 17:15 Sputum, Induced/Lukens Respiratory Culture - Final Mixed normal respiratory lisa. No Streptococcus pneumoniae, beta-hemolytic Streptococcus or Staphylococcus aureus isolated. 02/22/24 07:02 Urine Catheter - Jimenez Legionella Antigen - Final 02/22/24 07:02 Urine Catheter - Jimenez Streptococcus pneumoniae Antigen (M - Final 02/22/24 07:05 Mucosa - Nasopharyngeal Respiratory Panel (PCR) - Final 02/22/24 07:05 Mucosa - Nasopharyngeal Coronavirus COVID-19 PCR - Final SARS-CoV-2 (COVID 19 PCR) 02/22/24 05:26 Nasal Secretion SARS-CoV-2 Antigen (Rapid) - Final Radiography Diagnostic Testing: Radiology Impression Chest X-Ray 02/27/24 05:55 IMPRESSION: Left basilar atelectasis versus infiltrate. Electronically Signed: Jimmy Lieberman DO at 5:56 EST , Physical Exam Const Constitutional Narrative: RASS score is 0 General Appearance: cooperative HEENT normocephalic, head/scalp atraumatic and moist oral mucous membranes Eyes PERRL, EOMs intact bilaterally and conjunctivae normal Eyes Narrative: No scleral icterus Neck no lymphadenopathy and supple Neck Narrative: neck is short and thick Lymph Lymphatic: no lymphadenopathy noted Resp clear to auscultation bilaterally Resp Narrative: intubated, sedated, PEEP down to 8. diminished breath sounds bibasally, no wheezes or crackles. FiO2 is 45 today Cardio regular rate, regular rhythm, S1 normal heart sound, S2 normal heart sound, no murmurs and no rub GI normal to inspection, nondistended, normoactive bowel sounds, soft to palpation and non-tender GI Narrative: obese abdomen Palpation: Negative for guarding Extremity normal capillary refill General Extremity: no tenderness to palpation of joints or extremities Skin Skin Narrative: Slight lower extremity changes consistent with venous stasis Neuro Neuro Narrative: intubated, sedated, RASS score is 0 today Psych Psych Narrative: intubated, sedated, RASS score is 0 Assessment & Plan Assessment/Plan (1) COVID-19: (2) Acute respiratory failure with hypoxia and hypercapnia: (3) Uncontrolled hypertension: PLAN: Plan # Acute hypoxic and hypercapnic respiratory failure Multifactorial, thought to be due to COVID infection, fluid overload and obesity hypoventilation syndrome with probable secondary bacterial pneumonia completed a course of remdesivir on decadron for a 10 day course. Also on IV vancomycin and zosyn. Remains On Lasix drip. Diuresing quite well. 2D echo showed biventricular dysfunction and borderline low left ventricular dysfunction with no regional wall motion abnormalities. Weaned off of paralytics. RASS score today 0. Critical care on board. In cumulative negative balance by 16.25 L. Has had a total output of 41.5 L. Blood cultures have been negative and sputum culture showed normal respiratory lisa remains on heparin drip #Acute enteritis Patient developed abdominal pain, nausea and bloating. General surgery reviewed imaging as there was concern of normal small bowel obstruction and general surgery recommends repeating the imaging more clinically stable. Patient is not considered a surgical candidate #LENORE: resolved. #Hypokalemia: Potassium is 3.1. Replace and trend. #Hypertension: on losartan 100 mg daily. IV hydralazine prn #Type 2 diabetes mellitus: Oral meds on hold. On insulin sliding scale. Accu-Cheks every 6 hourly. On Lantus 15 units daily #Hyperlipidemia: On statin #Morbid obesity: BMI 51.8. Complicates acute care, expected recovery and prognosis #Probable obesity hypoventilation syndrome: Likely contributing to the acute hypoxic respiratory failure. Follow-up with pulmonology on outpatient basis for proper sleep study. #DVT prophylaxis: Heparin drip Charges/Coding Visit Charges Inpatient E&M: 77927 Subs Hosp L3
[2024-02-27] MEDS: Potassium Chloride Oral Soln 20 MEQ/15 ML UDC 40 MEQ PO (10:11)
[2024-02-27] MEDS: Potassium Chloride 10mEq/100mL 10 MEQ/100 ML IV.SOLN. 100 MEQ IV BOLUS ×4 (10:11→13:38)
[2024-02-27] MEDS: Dexmedetomidine 1,000 mcg in 0.9% NS 240 mL 59.2 MCG CONT INF ×3 (11:00→20:00)
[2024-02-27] MEDS: Vital AF 1.2 Cal Liquid 1,000 ML 10 ML GT (11:09)
[2024-02-27 11:46] LABS: Bedside Glucose 173 mg/dL (74-106)
[2024-02-27 17:44] LABS: Vancomycin, Trough Level 21.2 ug/mL (5.0-15.0)
[2024-02-27 17:50] LABS: Bedside Glucose 204 mg/dL (74-106)
--- NOTE | 2024-02-27 17:58 | PCM.RX.CS ---
Consult Antibiotic Management Pharmacy has been consulted to manage selected antibiotic: Vancomycin Type of Intervention Type of Consult: Follow-up Suspected Infection Suspected Infection: Sepsis and Pneumonia Prior Doses of Antibiotics Prior Doses of Antibiotics Received/Current Regimen: Vancomycin 1500 mg Q12H last dose given 02/26 @ 0826 Labs Labs: Sodium 132 mmol/L (136-145) L 02/27/24 05:23 Potassium 3.1 mmol/L (3.5-5.1) L 02/27/24 05:23 Chloride 92 mmol/L (98-107) L 02/27/24 05:23 Carbon Dioxide 32.0 mmol/L (21.0-32.0) 02/27/24 05:23 Anion Gap 8 (5-15) 02/27/24 05:23 BUN 36 mg/dL (7-18) H 02/27/24 05:23 Creatinine 1.23 mg/dL (0.70-1.30) 02/27/24 05:23 Est GFR (MDRD) Af Amer 76 mL/min (>60) 02/27/24 05:23 Est GFR (MDRD) Non-Af 63 mL/min (>60) 02/27/24 05:23 BUN/Creatinine Ratio 29.3 RATIO (10-20) H 02/27/24 05:23 Glucose 174 mg/dL (74-106) H 02/27/24 05:23 Vancomycin Trough 21.2 ug/mL (5.0-15.0) H 02/27/24 17:05 Random Vancomycin 15.3 ug/mL (0.0-15.0) H 02/26/24 05:36 Microbiology Microbiology: Microbiology 02/20/24 23:27 Blood Culture (Wb) - Anticubital Right Blood Culture - Final No growth in 5 days. 02/20/24 23:37 Blood Culture (Wb) - Right Forearm Blood Culture - Final No growth in 5 days. 02/21/24 17:15 Sputum, Induced/Lukens Gram Stain - Final 02/21/24 17:15 Sputum, Induced/Lukens Respiratory Culture - Final Mixed normal respiratory lisa. No Streptococcus pneumoniae, beta-hemolytic Streptococcus or Staphylococcus aureus isolated. 02/22/24 07:02 Urine Catheter - Jimenez Legionella Antigen - Final 02/22/24 07:02 Urine Catheter - Jimenez Streptococcus pneumoniae Antigen (M - Final 02/22/24 07:05 Mucosa - Nasopharyngeal Respiratory Panel (PCR) - Final 02/22/24 07:05 Mucosa - Nasopharyngeal Coronavirus COVID-19 PCR - Final SARS-CoV-2 (COVID 19 PCR) 02/22/24 05:26 Nasal Secretion SARS-CoV-2 Antigen (Rapid) - Final Dosing Weight Weight used for dosin kg Estimated Creatinine Clearance Estimated Creatinine Clearance: ~ 94 Goal Trough Goal Trough: 15-20 mcg/mL Pharmacy Plan for Drug Dosing Pharmacy Plan for Drug Dosing: Vancomycin trough = 21.2, but drawn 8.5 hours after last dose, per calculator estimated trough = 16.8, continue current dosing. Pharmacy Service will continue to monitor and adjust dosing as required. Follow-Up Labs Follow-Up Labs: Trough: Vancomycin Date/Time Labs Ordered Labs to be done on [date and time ordered]: 02/29/24 @ 1800
[2024-02-27] MEDS: Atorvastatin Calcium 20 MG Tablet GT (21:57)
[2024-02-27] MEDS: Enoxaparin 40 MG/0.4 ML Syringe SC (21:58)
[2024-02-27] MEDS: Insulin Glargine-YFGN 100 UNIT/ML Pen 15 UNIT SC (22:01)
[2024-02-27 22:41] LABS: Bedside Glucose 184 mg/dL (74-106)
[2024-02-28] VITALS (35 sets, daily range): BP systolic 94–156; BP diastolic 72–96; PULSE 59–66; RESP 13–25; TEMP 37.7–38.2; O2SAT 88–97; BMI 46.0
[2024-02-28] MEDS: Insulin Lispro 100 UNIT/ML INSULN.PEN SC ×5 (00:04→22:55)
[2024-02-28] MEDS: Dexmedetomidine 1,000 mcg in 0.9% NS 240 mL 59.2 MCG CONT INF ×2 (00:14→04:28)
[2024-02-28] MEDS: fentaNYL drip 100 ML 20 MCG CONT INF ×5 (01:00→22:54)
[2024-02-28 01:53] LABS: Bedside Glucose 160 mg/dL (74-106)
[2024-02-28 04:37] LABS: Absolute Lymphocyte Count 1.08 X10^3/uL (0.83-4.51); Absolute Neutrophil Count 9.2 X10^3/uL (2.0-7.7); Basophil# 0.03 X10^3/uL; Basophil% 0.3 % (0-1); Eosinophil# 0.03 X10^3/uL; Eosinophils% 0.3 % (0-5); Hematocrit 50.4 % (40-54); Hemoglobin 15.9 g/dL (13.0-16.5); Lymphocyte # 1.08 X10^3/ul (0.83-4.51); Lymphocyte % 9.5 % (19-41); Mean Corp Hgb Conc 31.5 g/dL (32-36); Mean Corpuscular Hgb 26.3 pg (27.0-32.0); Mean Corpuscular Volume 83.4 fL (80-94); Mean Platelet Vol. 10.2 fl (6.2-12.0); Monocyte# 1.05 X10^3/uL; Monocyte% 9.2 % (0-10); NRBC Flagged by Analyzer 0 % (0-5); Neutrophil # 9.18 X10^3/uL (2.7-7.7); Neutrophil % 80.3 % (47-70); Platelet Count 155 K/mm3 (150-450); RBC Distribution Width CV 15.2 % (11.6-14.6); RBC Distribution Width SD 45.6 fl (35.1-43.9); Red Blood Count 6.04 M/mm3 (4.6-6.2); White Blood Count 11.4 K/mm3 (4.4-11.0)
[2024-02-28 04:49] LABS: Anion Gap 9 (5-15); BUN 38 mg/dL (7-18); BUN/Creat Ratio 31.1 RATIO (10-20); Chloride 96 mmol/L (98-107); Creatinine, Serum 1.22 mg/dL (0.70-1.30); EST Glomerular Filtration Rate 64 mL/min (>60); Est Glom Filt Rate - Afr Amer 77 mL/min (>60); Estimated Creatinine Clearance 94.93 ml/min; Glucose 161 mg/dL (74-106); Potassium 3.2 mmol/L (3.5-5.1); Sodium Level 135 mmol/L (136-145)
[2024-02-28] MEDS: CHLORHEXIDINE GLUC 2% CLOTH 1 EACH TOWELETTE TOPICAL (04:59)
[2024-02-28] MEDS: Piperacil/Tazobactam 3.375 GM in 0.9% Normal Saline (50mL MB+) 50 ML IV ×3 (06:00→20:46)
--- NOTE | 2024-02-28 06:08 | PCM.PN.INT ---
Assessment & Plan Assessment/Plan (1) Acute respiratory failure with hypoxia and hypercapnia: (2) COVID-19: PLAN: Plan RECOMMENDATIONS: 1. Continue current ventilator parameters. Wean FiO2 and PEEP as tolerated. 2. Antimicrobial treatment course to be completed today. 3. Continue Decadron to complete 10 days of therapy. 4. Ongoing diuresis as tolerated by hemodynamics and renal function. 5. Continue appropriate DVT prophylaxis. 6. Continue PPI therapy. 7. Aggressive potassium repletion as needed. 8. Continue tube feeding as tolerated. 9. Attempt CPAP trial today with transition back to assist-control for overnight support. IMPRESSIONS: 1. Acute hypoxemic and hypercapnic respiratory failure Clinical concern for multifactorial etiology, including untreated sleep apnea, alveolar hypoventilation secondary to obesity, concern for congestive heart failure, along with COVID-19 pneumonia with the possibility of secondary bacterial pneumonia. Given his refractory hypoxemia, the patient was initially managed with paralytics, which have since been discontinued. He appears to be slowly improving with aggressive diuresis, which will be continued as tolerated by hemodynamics and renal function. The patient will complete his antibiotic treatment course today and will be maintained on Decadron to complete 10 days of therapy. Continue to wean FiO2 and PEEP as tolerated. Okay to transition to CPAP throughout the day today, with plans to resume assist-control mode of mechanical ventilation tonight. I am hopeful for possible extubation in the next 24 to 48 hours. 2. Abdominal pain and nausea Unclear etiology based upon CT imaging of the abdomen completed on admission. Will reevaluate the need for repeat abdominal imaging, pending the patient's clinical course. 3. History of super morbid obesity/hypertension/hyperlipidemia/diabetes mellitus/history of tobacco dependency Complicates care, management, recovery and prognosis. Continue supportive measures as noted above. Continue tube feeding as tolerated. TIME: 34 minutes of critical care time, independent of procedures, was spent addressing the patient's acute hypoxemic and hypercapnic respiratory failure abdominal pain and nausea, super morbid obesity, review of all data and collaboration with the care team. Subjective Subjective The patient was seen and examined at the bedside this morning. Events from the last 24 hours have been reviewed. The patient currently has a low-grade fever but remains otherwise hemodynamically stable. FiO2 and PEEP remain at 50% and 8, respectively. Despite his sedation, the patient is alert and able to follow commands appropriately. The patient is currently documented to be overall net -19.3 L for the hospitalization. Potassium is low at 3.2 with a BUN of 38 and creatinine of 1.2. He continues to tolerate tube feeding. Objective Data Objective Data The patient's most recent lab work, culture data and imaging studies have all been personally reviewed. Surface echocardiogram demonstrated normal LV size with systolic function at the lower limits of normal. There was mild global hypokinesis of the LV. There was mild RV dilation and moderate global RV systolic dysfunction. Pulmonary artery systolic pressure was estimated to be 30 mmHg. Strep and urine Legionella antigens were negative. Blood and sputum cultures are pending. COVID PCR was positive on February 21. Vital Signs: Vital Signs Temp Pulse Resp BP Pulse Ox O2 Del Method O2 Flow Rate 100.2 F H 64 22 H 132/87 H 92 Mechanical Ventilator 6 02/28/24 05:00 02/28/24 05:00 02/28/24 05:00 02/28/24 05:00 02/28/24 05:00 02/28/24 05:00 02/26/24 09:00 FiO2 55 02/28/24 05:00 Oxygen Flow Rate (L/min) 6 Oxygen Delivery Method Mechanical Ventilator Weight: 339 lb 8.19 oz Body Mass Index (BMI) 46.0 Intake & Output: Intake and Output for Last 24 Hours 02/26/24 02/27/24 02/28/24 23:59 23:59 23:59 Intake Total 4383.04 / 4465.14 4241.35 / 4482.07 785.49 / 785.49 Output Total 7720 / 7720 5450 / 6150 1900 / 1900 Balance -3336.96 / -3254.86 -1208.65 / -1667.93 -1114.51 / -1114.51 Lab / Micro Data Attestation: I reviewed the patient's lab results. 02/28/24 04:25 02/28/24 04:25 Labs: Laboratory Results - last 24 hr 02/27/24 11:10: POC Glucose 173 H 02/27/24 17:05: Vancomycin Trough 21.2 H 02/27/24 17:33: POC Glucose 204 H 02/27/24 22:00: POC Glucose 184 H 02/28/24 00:03: POC Glucose 160 H 02/28/24 04:25: WBC 11.4 H, RBC 6.04, Hgb 15.9, Hct 50.4, MCV 83.4, MCH 26.3 L, MCHC 31.5 L, RDW Std Deviation 45.6 H, RDW Coeff of Ezequiel 15.2 H, Plt Count 155, MPV 10.2, Immature Gran % (Auto) 0.400, Neut % (Auto) 80.3 H, Lymph % (Auto) 9.5 L, Hendry % (Auto) 9.2, Eos % (Auto) 0.3, Baso % (Auto) 0.3, Absolute Neuts (auto) 9.2 H, Absolute Lymphs (auto) 1.08, Nucleated RBC % 0, Sodium 135 L, Potassium 3.2 L, Chloride 96 L, Carbon Dioxide 30.0, Anion Gap 9, BUN 38 H, Creatinine 1.22, Estim Creat Clear Calc 94.93, Est GFR (MDRD) Af Amer 77, Est GFR (MDRD) Non-Af 64, BUN/Creatinine Ratio 31.1 H, Glucose 161 H, Calcium 9.0 Micro: Microbiology 02/20/24 23:27 Blood Culture (Wb) - Anticubital Right Blood Culture - Final No growth in 5 days. 02/20/24 23:37 Blood Culture (Wb) - Right Forearm Blood Culture - Final No growth in 5 days. 02/21/24 17:15 Sputum, Induced/Lukens Gram Stain - Final 02/21/24 17:15 Sputum, Induced/Lukens Respiratory Culture - Final Mixed normal respiratory lisa. No Streptococcus pneumoniae, beta-hemolytic Streptococcus or Staphylococcus aureus isolated. 02/22/24 07:02 Urine Catheter - Jimenez Legionella Antigen - Final 02/22/24 07:02 Urine Catheter - Jimenez Streptococcus pneumoniae Antigen (M - Final 02/22/24 07:05 Mucosa - Nasopharyngeal Respiratory Panel (PCR) - Final 02/22/24 07:05 Mucosa - Nasopharyngeal Coronavirus COVID-19 PCR - Final SARS-CoV-2 (COVID 19 PCR) 02/22/24 05:26 Nasal Secretion SARS-CoV-2 Antigen (Rapid) - Final ABG Data ABG results: ABG 02/21/24 02/21/24 02/21/24 15:27 16:28 19:48 Specimen Type ART ART ART Sample Site R Radial R Radial L Radial pH 7.16 L* 7.15 L* 7.28 L Bicarbonate Actual 35.3 H 34.1 H 30.2 H Total CO2 38 37 32 Base Excess 7 H 5 H 3 H O2 Saturation 73 L 99 92 L O2 % 6.0 50.0 60.0 ABG pCO2 99.5 H* 96.9 H* 64.9 H ABG pO2 52 L 173 H 75 William Test N/A N/A N/A Respiration Rate 16 16 O2 Delivery Device Cannula BiPAP Adult Vent Vent Mode Not entered NIV AC Tidal Volume 500.0 POC PEEP 8 Crit Call To/Read Back Yes Yes Blood Gas Notified Whom Dr Mikel Morin Blood Gas Notified Time 15:36:02 16:30:44 02/22/24 01:21 Specimen Type ART Sample Site L Radial pH 7.36 Bicarbonate Actual 27.0 H Total CO2 28 Base Excess 2 O2 Saturation 89 L O2 % 90.0 ABG pCO2 47.9 H ABG pO2 60 L William Test N/A Respiration Rate 60 O2 Delivery Device Adult Vent Vent Mode AC Tidal Volume 500.0 POC PEEP 10 Crit Call To/Read Back Blood Gas Notified Whom Blood Gas Notified Time Radiography Diagnostic Testing: Radiology Impression Chest X-Ray 02/26/24 05:28 IMPRESSION: No evidence of acute cardiopulmonary disease. Electronically Signed: Jimmy LiebermanDO at 6:53 EST , Physical Exam Const Constitutional Narrative: Intubated, sedated and mechanically ventilated. Super morbidly obese. HEENT normocephalic and head/scalp atraumatic Eyes conjunctivae normal and no scleral icterus Neck supple General: trachea midline Chest inspection of chest normal Resp Auscultation: diminished lung sounds; Negative for rales, rhonchi or wheezes Cardio regular rate and regular rhythm GI soft to palpation and non-tender Extremity General Extremity: edema bilateral lower extremity; Negative for clubbing Neuro Neuro Narrative: Alert and able to follow simple commands. Sensorium / Orientation: sedated on vent Charges/Coding Procedures Hospitalists Procedures: 57304 Critical Care 1st Hr
[2024-02-28] MEDS: Vancomycin HCl 1,500 MG in 0.9% Normal Saline (500mL Bag) 500 ML 250 MG IV ×2 (06:11→17:18)
[2024-02-28 06:44] LABS: Bedside Glucose 196 mg/dL (74-106)
[2024-02-28] MEDS: Losartan Potassium 100 MG Tablet PO (08:00)
[2024-02-28] MEDS: dexAMETHasone 10 MG/ML Vial 6 MG IV (08:00)
[2024-02-28] MEDS: Senna/Docusate Sodium 1 Tablet 2 TABLET GT (08:00)
[2024-02-28] MEDS: Polyethylene Glycol 3350 17 GM PACKET GT (08:00)
[2024-02-28] MEDS: Enoxaparin 40 MG/0.4 ML Syringe SC ×2 (08:00→20:49)
[2024-02-28] MEDS: Pantoprazole Sodium 40 MG in 0.9% Normal Saline (100mL MB+) 100 ML 330 MG IV (08:01)
[2024-02-28] MEDS: Chlorhexidine 15 ML PO ×2 (08:18→20:47)
[2024-02-28] MEDS: Potassium Chloride 20mEq/100mL 20 MEQ/100 ML IV.SOLN. 100 MEQ IV BOLUS ×2 (09:10→10:05)
[2024-02-28] MEDS: Potassium Chloride Oral Soln 20 MEQ/15 ML UDC 40 MEQ PO (09:10)
[2024-02-28] MEDS: Dexmedetomidine 1,000 mcg in 0.9% NS 240 mL 57.8 MCG CONT INF ×4 (09:11→22:55)
[2024-02-28] MEDS: Vital AF 1.2 Cal Liquid 1,000 ML 30 ML GT (10:05)
[2024-02-28] MEDS: Furosemide 500 MG in Empty Viaflex 50 mL 1 EACH CONT INF (10:06)
--- NOTE | 2024-02-28 11:28 | PN_ITS ---
Subjective Subjective Patient seen and examined. Remains intubated. He is alert and able to shake his head in response to questions. RASS score is 0. He still does have a fever this morning of 99.9 Fahrenheit. Objective Data Objective Data Vital Signs: Vital Signs Temp Pulse Resp BP Pulse Ox O2 Del Method O2 Flow Rate 99.9 F H 63 20 H 125/87 H 91 Mechanical Ventilator 6 02/28/24 11:00 02/28/24 11:00 02/28/24 11:00 02/28/24 11:00 02/28/24 11:00 02/28/24 11:00 02/26/24 09:00 FiO2 50 02/28/24 11:00 Oxygen Flow Rate (L/min) 6 Oxygen Delivery Method Mechanical Ventilator Weight: 339 lb 8.19 oz Body Mass Index (BMI) 46.0 Intake & Output: Intake and Output for Last 24 Hours 02/26/24 02/27/24 02/28/24 23:59 23:59 23:59 Intake Total 4383.04 / 4465.14 4241.35 / 4482.07 2532.26 / 2532.26 Output Total 7720 / 7720 5450 / 6150 3900 / 3900 Balance -3336.96 / -3254.86 -1208.65 / -1667.93 -1367.74 / -1367.74 Lab / Micro Data 02/28/24 04:25 02/28/24 04:25 Labs: Laboratory Results - last 24 hr 02/27/24 11:10: POC Glucose 173 H 02/27/24 17:05: Vancomycin Trough 21.2 H 02/27/24 17:33: POC Glucose 204 H 02/27/24 22:00: POC Glucose 184 H 02/28/24 00:03: POC Glucose 160 H 02/28/24 04:25: WBC 11.4 H, RBC 6.04, Hgb 15.9, Hct 50.4, MCV 83.4, MCH 26.3 L, MCHC 31.5 L, RDW Std Deviation 45.6 H, RDW Coeff of Ezequiel 15.2 H, Plt Count 155, MPV 10.2, Immature Gran % (Auto) 0.400, Neut % (Auto) 80.3 H, Lymph % (Auto) 9.5 L, Wetzel % (Auto) 9.2, Eos % (Auto) 0.3, Baso % (Auto) 0.3, Absolute Neuts (auto) 9.2 H, Absolute Lymphs (auto) 1.08, Nucleated RBC % 0, Sodium 135 L, Potassium 3.2 L, Chloride 96 L, Carbon Dioxide 30.0, Anion Gap 9, BUN 38 H, Creatinine 1.22, Estim Creat Clear Calc 94.93, Est GFR (MDRD) Af Amer 77, Est GFR (MDRD) Non-Af 64, BUN/Creatinine Ratio 31.1 H, Glucose 161 H, Calcium 9.0 02/28/24 06:16: POC Glucose 196 H Micro: Microbiology 02/20/24 23:27 Blood Culture (Wb) - Anticubital Right Blood Culture - Final No growth in 5 days. 02/20/24 23:37 Blood Culture (Wb) - Right Forearm Blood Culture - Final No growth in 5 days. 02/21/24 17:15 Sputum, Induced/Lukens Gram Stain - Final 02/21/24 17:15 Sputum, Induced/Lukens Respiratory Culture - Final Mixed normal respiratory lisa. No Streptococcus pneumoniae, beta-hemolytic Streptococcus or Staphylococcus aureus isolated. 02/22/24 07:02 Urine Catheter - Jimenez Legionella Antigen - Final 02/22/24 07:02 Urine Catheter - Jimenez Streptococcus pneumoniae Antigen (M - Final 02/22/24 07:05 Mucosa - Nasopharyngeal Respiratory Panel (PCR) - Final 02/22/24 07:05 Mucosa - Nasopharyngeal Coronavirus COVID-19 PCR - Final SARS-CoV-2 (COVID 19 PCR) 02/22/24 05:26 Nasal Secretion SARS-CoV-2 Antigen (Rapid) - Final Physical Exam Const alert, oriented x3, no apparent distress and well nourished; Negative for average body habitus or healthy appearing Constitutional Narrative: RASS score is 0 General Appearance: cooperative HEENT normocephalic, head/scalp atraumatic and moist oral mucous membranes Eyes PERRL, EOMs intact bilaterally and conjunctivae normal Eyes Narrative: No scleral icterus Neck no lymphadenopathy and supple Neck Narrative: neck is short and thick Lymph Lymphatic: no lymphadenopathy noted Resp clear to auscultation bilaterally Resp Narrative: intubated, sedated, PEEP is 8. diminished breath sounds bibasally, no wheezes or crackles. FiO2 is 50 today Auscultation: rhonchi and wheezes Cardio regular rate, regular rhythm, S1 normal heart sound, S2 normal heart sound, no murmurs, no rub, no gallops and no clicks GI normal to inspection, nondistended, normoactive bowel sounds, soft to palpation and non-tender GI Narrative: obese abdomen Palpation: Negative for guarding Extremity Extremity Narrative: 2+ bipedal pitting edema General Extremity: no tenderness to palpation of joints or extremities Skin Skin Narrative: Slight lower extremity changes consistent with venous stasis General Skin Exam: no breakdown Neuro Neuro Narrative: intubated, sedated, RASS score remains 0 today Psych Psych Narrative: intubated, sedated, RASS score is 0 Assessment & Plan Assessment/Plan (1) COVID-19: (2) Acute respiratory failure with hypoxia and hypercapnia: (3) Uncontrolled hypertension: PLAN: Plan # Acute hypoxic and hypercapnic respiratory failure * Multifactorial, thought to be due to COVID infection, fluid overload and obesity hypoventilation syndrome with probable secondary bacterial pneumonia * completed a course of remdesivir * on decadron for a 10 day course. Also on IV vancomycin and zosyn. * Remains On Lasix drip. Diuresing quite well. 2D echo showed biventricular dysfunction and borderline low left ventricular dysfunction with no regional wall motion abnormalities. * Weaned off of paralytics. RASS score today 0. * Critical care on board. * In cumulative negative balance by 20.17 L. Has had a total output of 54.6 L. * Blood cultures have been negative and sputum culture showed normal respiratory lisa * remains on heparin drip * #Acute enteritis * Patient developed abdominal pain, nausea and bloating. General surgery reviewed imaging as there was concern of normal small bowel obstruction and general surgery recommends repeating the imaging more clinically stable. * Patient is not considered a surgical candidate #LENORE: resolved. #Hypokalemia: Potassium is 3.2. Replace and trend. #Hypertension: on losartan 100 mg daily. IV hydralazine prn #Type 2 diabetes mellitus: Oral meds on hold. On insulin sliding scale. Accu- Cheks every 6 hourly. On Lantus 15 units daily #Hyperlipidemia: On statin #Morbid obesity: BMI is 46 today. Complicates acute care, expected recovery and prognosis #Probable obesity hypoventilation syndrome: * Likely contributing to the acute hypoxic respiratory failure. * Follow-up with pulmonology on outpatient basis for proper sleep study. * #DVT prophylaxis: Heparin drip Charges/Coding Visit Charges Inpatient E&M: 27248 Subs Hosp L3
[2024-02-28 11:41] LABS: Bedside Glucose 221 mg/dL (74-106)
--- NOTE | 2024-02-28 13:50 | NURSING ---
1255- therapy and respiratory therapist assisted patient to the chair 1340- patient coughing persistently, this RN entered room and OG laying on patients chest. Dr. Rhoades notified by Ken Martinez RN and ok to leave OG out
--- NOTE | 2024-02-28 15:00 | NURSING ---
while patient in chair he was coughing and this RN noted ETT at 23 at the lip, called respiratory stat, Jeannie, RT at bedside. This RN assisted with moving ETT back to 26 @ the lip. O2 sats maintained >90% throughout.
[2024-02-28 18:46] LABS: Bedside Glucose 175 mg/dL (74-106)
[2024-02-28] MEDS: Insulin Glargine-YFGN 100 UNIT/ML Pen 15 UNIT SC (22:55)
[2024-02-28 23:26] LABS: Bedside Glucose 161 mg/dL (74-106)
[2024-02-29] VITALS (34 sets, daily range): BP systolic 90–160; BP diastolic 41–101; PULSE 60–99; RESP 14–30; TEMP 36.1–38.2; O2SAT 88–98; BMI 45.1
[2024-02-29 03:22] LABS: Absolute Lymphocyte Count 1.33 X10^3/uL (0.83-4.51); Absolute Neutrophil Count 7.7 X10^3/uL (2.0-7.7); Basophil# 0.06 X10^3/uL; Basophil% 0.6 % (0-1); Eosinophil# 0.05 X10^3/uL; Eosinophils% 0.5 % (0-5); Hematocrit 52.8 % (40-54); Hemoglobin 16.3 g/dL (13.0-16.5); Lymphocyte # 1.33 X10^3/ul (0.83-4.51); Lymphocyte % 12.8 % (19-41); Mean Corp Hgb Conc 30.9 g/dL (32-36); Mean Corpuscular Volume 84.3 fL (80-94); Monocyte# 1.19 X10^3/uL; Monocyte% 11.4 % (0-10); NRBC Flagged by Analyzer 0 % (0-5); Neutrophil # 7.73 X10^3/uL (2.7-7.7); Neutrophil % 74.3 % (47-70); Platelet Count 172 K/mm3 (150-450); RBC Distribution Width CV 15.2 % (11.6-14.6); RBC Distribution Width SD 46.5 fl (35.1-43.9); Red Blood Count 6.26 M/mm3 (4.6-6.2); White Blood Count 10.4 K/mm3 (4.4-11.0)
[2024-02-29] MEDS: CHLORHEXIDINE GLUC 2% CLOTH 1 EACH TOWELETTE TOPICAL (03:28)
[2024-02-29] MEDS: Dexmedetomidine 1,000 mcg in 0.9% NS 240 mL 57.8 MCG CONT INF (03:30)
[2024-02-29 03:46] LABS: Anion Gap 7 (5-15); BUN 42 mg/dL (7-18); Calcium,Total 9.4 mg/dL (8.5-10.1); Chloride 96 mmol/L (98-107); EST Glomerular Filtration Rate 50 mL/min (>60); Est Glom Filt Rate - Afr Amer 61 mL/min (>60); Estimated Creatinine Clearance 75.38 ml/min; Glucose 167 mg/dL (74-106); Potassium 3.4 mmol/L (3.5-5.1); Sodium Level 136 mmol/L (136-145)
[2024-02-29] MEDS: 0.9% Saline Lock 10 ML Syringe IV (03:50)
[2024-02-29] MEDS: fentaNYL drip 100 ML 20 MCG CONT INF (03:50)
--- NOTE | 2024-02-29 06:04 | PN.CC_ITS ---
Assessment & Plan Assessment/Plan (1) Acute respiratory failure with hypoxia and hypercapnia: (2) COVID-19: PLAN: Plan RECOMMENDATIONS: 1. Proceed with extubation directly to BiPAP. 2. After 1 hour of BiPAP, the patient can be transitioned to nasal cannula oxygen, if clinically stable. 3. At a minimum, the patient will need to be continued on PAP therapy with naps and nightly. 4. Discontinue Lasix infusion. 5. Continue Decadron to complete 10 days of therapy. The patient has completed his antibiotic treatment course. 6. Continue appropriate ICU prophylaxis. 7. Bedside swallow evaluation with advancement of diet as tolerated. 8. Encourage incentive spirometer use and mobilize patient as tolerated. IMPRESSIONS: 1. Acute hypoxemic and hypercapnic respiratory failure Clinical concern for multifactorial etiology, including untreated sleep apnea, alveolar hypoventilation secondary to obesity, concern for congestive heart failure, along with COVID-19 pneumonia with the possibility of secondary bacterial pneumonia. Given his refractory hypoxemia, the patient was initially managed with paralytics, which have since been discontinued. He appears to be slowly improving with aggressive diuresis, which will be continued as tolerated by hemodynamics and renal function. The patient will complete his antibiotic treatment course today and will be maintained on Decadron to complete 10 days of therapy. Continue to wean FiO2 and PEEP as tolerated. Okay to transition to CPAP throughout the day today, with plans to resume assist-control mode of mechanical ventilation tonight. I am hopeful for possible extubation in the next 24 to 48 hours. 2. Abdominal pain and nausea Unclear etiology based upon CT imaging of the abdomen completed on admission. Will reevaluate the need for repeat abdominal imaging, pending the patient's clinical course. 3. History of super morbid obesity/hypertension/hyperlipidemia/diabetes mellitus/history of tobacco dependency Complicates care, management, recovery and prognosis. Continue supportive measures as noted above. Continue tube feeding as tolerated. TIME: 33 minutes of critical care time, independent of procedures, was spent addressing the patient's acute hypoxemic and hypercapnic respiratory failure abdominal pain and nausea, super morbid obesity, review of all data and collaboration with the care team. Subjective Subjective The patient was seen and examined at the bedside this morning. Events from the last 24 hours have been reviewed. The patient is currently afebrile, hemodynamically stable and maintaining appropriate oxygen saturations on assist- control mode mechanical ventilation with an FiO2 requirement of 40% and PEEP of 5. The patient is currently documented to be overall net -22 L for the hospitalization. White blood cell count is normal. Potassium is low at 3.4. Creatinine finally increased to 1.5 this morning. With this in mind, the patient's continuous Lasix infusion was discontinued. The patient was ultimately able to be placed on a spontaneous breathing trial, which she completed without issue. The patient is alert and appropriately interactive. Therefore, the decision was made to proceed with extubation directly to BiPAP. Objective Data Objective Data The patient's most recent lab work, culture data and imaging studies have all been personally reviewed. Surface echocardiogram demonstrated normal LV size with systolic function at the lower limits of normal. There was mild global hypokinesis of the LV. There was mild RV dilation and moderate global RV systolic dysfunction. Pulmonary artery systolic pressure was estimated to be 30 mmHg. Strep and urine Legionella antigens were negative. Blood and sputum cultures are pending. COVID PCR was positive on February 21. Vital Signs: Vital Signs Temp Pulse Resp BP Pulse Ox O2 Del Method O2 Flow Rate 100.7 F H 64 21 H 147/87 H 93 Mechanical Ventilator 6 02/29/24 05:00 02/29/24 05:35 02/29/24 05:35 02/29/24 05:00 02/29/24 05:35 02/29/24 05:00 02/26/24 09:00 FiO2 50 02/29/24 05:35 Oxygen Flow Rate (L/min) 6 Oxygen Delivery Method Mechanical Ventilator Weight: 333 lb 12.478 oz Body Mass Index (BMI) 45.1 Intake & Output: Intake and Output for Last 24 Hours 02/27/24 02/28/24 02/29/24 23:59 23:59 23:59 Intake Total 4241.35 / 4482.07 4124.08 / 4201.88 424.08 / 424.08 Output Total 5450 / 6150 7700 / 7700 Balance -1208.65 / -1667.93 -3575.92 / -3498.12 424.08 / 424.08 Lab / Micro Data Attestation: I reviewed the patient's lab results. 02/29/24 03:12 02/29/24 03:12 Labs: Laboratory Results - last 24 hr 02/28/24 06:16: POC Glucose 196 H 02/28/24 11:11: POC Glucose 221 H 02/28/24 17:19: POC Glucose 175 H 02/28/24 22:54: POC Glucose 161 H 02/29/24 03:12: WBC 10.4, RBC 6.26 H, Hgb 16.3, Hct 52.8, MCV 84.3, MCH 26.0 L, MCHC 30.9 L, RDW Std Deviation 46.5 H, RDW Coeff of Ezequiel 15.2 H, Plt Count 172, MPV 11.0, Immature Gran % (Auto) 0.400, Neut % (Auto) 74.3 H, Lymph % (Auto) 12.8 L, [place] % (Auto) 11.4 H, Eos % (Auto) 0.5, Baso % (Auto) 0.6, Absolute Neuts (auto) 7.7, Absolute Lymphs (auto) 1.33, Nucleated RBC % 0, Sodium 136, P otassium 3.4 L, Chloride 96 L, Carbon Dioxide 32.0, Anion Gap 7, BUN 42 H, C reatinine 1.50 H, Estim Creat Clear Calc 75.38, Est GFR (MDRD) Af Amer 61, Est GFR (MDRD) Non-Af 50 L, BUN/Creatinine Ratio 28.0 H, Glucose 167 H, Calcium 9.4 Micro: Microbiology 02/20/24 23:27 Blood Culture (Wb) - Anticubital Right Blood Culture - Final No growth in 5 days. 02/20/24 23:37 Blood Culture (Wb) - Right Forearm Blood Culture - Final No growth in 5 days. 02/21/24 17:15 Sputum, Induced/Lukens Gram Stain - Final 02/21/24 17:15 Sputum, Induced/Lukens Respiratory Culture - Final Mixed normal respiratory lisa. No Streptococcus pneumoniae, beta-hemolytic Streptococcus or Staphylococcus aureus isolated. 02/22/24 07:02 Urine Catheter - Jimenez Legionella Antigen - Final 02/22/24 07:02 Urine Catheter - Jimenez Streptococcus pneumoniae Antigen (M - Final 02/22/24 07:05 Mucosa - Nasopharyngeal Respiratory Panel (PCR) - Final 02/22/24 07:05 Mucosa - Nasopharyngeal Coronavirus COVID-19 PCR - Final SARS-CoV-2 (COVID 19 PCR) 02/22/24 05:26 Nasal Secretion SARS-CoV-2 Antigen (Rapid) - Final ABG Data ABG results: ABG 02/21/24 02/21/24 02/21/24 15:27 16:28 19:48 Specimen Type ART ART ART Sample Site R Radial R Radial L Radial pH 7.16 L* 7.15 L* 7.28 L Bicarbonate Actual 35.3 H 34.1 H 30.2 H Total CO2 38 37 32 Base Excess 7 H 5 H 3 H O2 Saturation 73 L 99 92 L O2 % 6.0 50.0 60.0 ABG pCO2 99.5 H* 96.9 H* 64.9 H ABG pO2 52 L 173 H 75 William Test N/A N/A N/A Respiration Rate 16 16 O2 Delivery Device Cannula BiPAP Adult Vent Vent Mode Not entered NIV AC Tidal Volume 500.0 POC PEEP 8 Crit Call To/Read Back Yes Yes Blood Gas Notified Whom Dr Mikel Morin Blood Gas Notified Time 15:36:02 16:30:44 02/22/24 01:21 Specimen Type ART Sample Site L Radial pH 7.36 Bicarbonate Actual 27.0 H Total CO2 28 Base Excess 2 O2 Saturation 89 L O2 % 90.0 ABG pCO2 47.9 H ABG pO2 60 L William Test N/A Respiration Rate 60 O2 Delivery Device Adult Vent Vent Mode AC Tidal Volume 500.0 POC PEEP 10 Crit Call To/Read Back Blood Gas Notified Whom Blood Gas Notified Time Radiography Diagnostic Testing: Radiology Impression Chest X-Ray 02/26/24 05:28 IMPRESSION: No evidence of acute cardiopulmonary disease. Electronically Signed: Jimmy Lieberman DO at 6:53 EST , Physical Exam Const Constitutional Narrative: Intubated, sedated and mechanically ventilated. Super morbidly obese. HEENT normocephalic and head/scalp atraumatic Eyes conjunctivae normal and no scleral icterus Neck supple General: trachea midline Chest inspection of chest normal Resp Auscultation: diminished lung sounds; Negative for rales, rhonchi or wheezes Cardio regular rate and regular rhythm GI soft to palpation and non-tender Extremity General Extremity: edema bilateral lower extremity; Negative for clubbing Neuro Neuro Narrative: Alert and able to follow simple commands. Charges/Coding Procedures Hospitalists Procedures: 13351 Critical Care 1st Hr
[2024-02-29 06:11] LABS: Bedside Glucose 146 mg/dL (74-106)
[2024-02-29] MEDS: Dexmedetomidine 1,000 mcg in 0.9% NS 240 mL 56.8 MCG CONT INF (07:59)
[2024-02-29] MEDS: Pantoprazole Sodium 40 MG in 0.9% Normal Saline (100mL MB+) 100 ML 330 MG IV (07:59)
--- NOTE | 2024-02-29 10:32 | PN_ITS ---
Subjective Subjective Patient seen and examined. He was extubated this morning to BiPAP. He was lying comfortably in bed and could answer questions. He had no complaints. He denied any shortness of breath, cough, chest pain, palpitations, dizziness, nausea vomiting or any other symptoms. Review of systems otherwise negative. Objective Data Objective Data Vital Signs: Vital Signs Temp Pulse Resp BP Pulse Ox O2 Del Method O2 Flow Rate 100.7 F H 63 24 H 145/77 H 97 Bi-pap 50 02/29/24 09:00 02/29/24 10:00 02/29/24 10:00 02/29/24 10:00 02/29/24 10:00 02/29/24 10:00 02/29/24 09:36 FiO2 40 02/29/24 10:00 Oxygen Flow Rate (L/min) 50 Oxygen Delivery Method Bi-pap Weight: 333 lb 12.478 oz Body Mass Index (BMI) 45.1 Intake & Output: Intake and Output for Last 24 Hours 02/27/24 02/28/24 02/29/24 23:59 23:59 23:59 Intake Total 4241.35 / 4482.07 4124.08 / 4201.88 909.60 / 909.60 Output Total 5450 / 6150 7700 / 7700 850 / 850 Balance -1208.65 / -1667.93 -3575.92 / -3498.12 59.60 / 59.60 Lab / Micro Data 02/29/24 03:12 02/29/24 03:12 Labs: Laboratory Results - last 24 hr 02/28/24 11:11: POC Glucose 221 H 02/28/24 17:19: POC Glucose 175 H 02/28/24 22:54: POC Glucose 161 H 02/29/24 03:12: WBC 10.4, RBC 6.26 H, Hgb 16.3, Hct 52.8, MCV 84.3, MCH 26.0 L, MCHC 30.9 L, RDW Std Deviation 46.5 H, RDW Coeff of Ezequiel 15.2 H, Plt Count 172, MPV 11.0, Immature Gran % (Auto) 0.400, Neut % (Auto) 74.3 H, Lymph % (Auto) 12.8 L, [place] % (Auto) 11.4 H, Eos % (Auto) 0.5, Baso % (Auto) 0.6, Absolute Neuts (auto) 7.7, Absolute Lymphs (auto) 1.33, Nucleated RBC % 0, Sodium 136, P otassium 3.4 L, Chloride 96 L, Carbon Dioxide 32.0, Anion Gap 7, BUN 42 H, C reatinine 1.50 H, Estim Creat Clear Calc 75.38, Est GFR (MDRD) Af Amer 61, Est GFR (MDRD) Non-Af 50 L, BUN/Creatinine Ratio 28.0 H, Glucose 167 H, Calcium 9.4 02/29/24 05:47: POC Glucose 146 H Micro: Microbiology 02/20/24 23:27 Blood Culture (Wb) - Anticubital Right Blood Culture - Final No growth in 5 days. 02/20/24 23:37 Blood Culture (Wb) - Right Forearm Blood Culture - Final No growth in 5 days. 02/21/24 17:15 Sputum, Induced/Lukens Gram Stain - Final 02/21/24 17:15 Sputum, Induced/Lukens Respiratory Culture - Final Mixed normal respiratory lisa. No Streptococcus pneumoniae, beta-hemolytic Streptococcus or Staphylococcus aureus isolated. 02/22/24 07:02 Urine Catheter - Jimenez Legionella Antigen - Final 02/22/24 07:02 Urine Catheter - Jimenez Streptococcus pneumoniae Antigen (M - Final 02/22/24 07:05 Mucosa - Nasopharyngeal Respiratory Panel (PCR) - Final 02/22/24 07:05 Mucosa - Nasopharyngeal Coronavirus COVID-19 PCR - Final SARS-CoV-2 (COVID 19 PCR) 02/22/24 05:26 Nasal Secretion SARS-CoV-2 Antigen (Rapid) - Final Physical Exam Const alert, oriented x3 and no apparent distress Constitutional Narrative: morbid obesity General Appearance: cooperative HEENT normocephalic, head/scalp atraumatic and moist oral mucous membranes Eyes PERRL, EOMs intact bilaterally and conjunctivae normal Neck no lymphadenopathy and supple Neck Narrative: neck is short and thick Lymph Lymphatic: no lymphadenopathy noted Resp Resp Narrative: diminished breath sounds bibasally, no wheezes or crackles. Tachypneic. on BIPAP Auscultation: rales Cardio regular rate, regular rhythm, S1 normal heart sound, S2 normal heart sound, no murmurs, no rub, no gallops and no clicks GI normal to inspection, nondistended, normoactive bowel sounds, soft to palpation and non-tender GI Narrative: obese abdomen Extremity normal capillary refill Extremity Narrative: 2+ bipedal pitting edema General Extremity: no tenderness to palpation of joints or extremities Skin skin turgor normal, no jaundice, no petechiae and no mottling General Skin Exam: no breakdown Neuro oriented x3, moves all extremities, no focal motor deficits and no sensory deficits noted Psych cooperative Mood & Affect: flat affect Assessment & Plan Assessment/Plan (1) COVID-19: (2) Acute respiratory failure with hypoxia and hypercapnia: (3) Uncontrolled hypertension: PLAN: Plan # Acute hypoxic and hypercapnic respiratory failure * Multifactorial, thought to be due to COVID infection, fluid overload and obesity hypoventilation syndrome with probable secondary bacterial pneumonia * completed a course of remdesivir * on decadron for a 10 day course. Also on IV vancomycin and zosyn. * Remains On Lasix drip. Diuresing quite well. 2D echo showed biventricular dysfunction and borderline low left ventricular dysfunction with no regional wall motion abnormalities. * Weaned off of paralytics. * Extubated to BiPAP today * Critical care on board. * In cumulative negative balance by 22.3 L. Has had a total output of 59.2 L. * Blood cultures have been negative and sputum culture showed normal respiratory lisa * remains on heparin drip * #Acute enteritis * Patient developed abdominal pain, nausea and bloating. General surgery reviewed imaging as there was concern of normal small bowel obstruction and general surgery recommends repeating the imaging more clinically stable. * Patient is not considered a surgical candidate #LENORE: resolved. #Hypokalemia: Potassium is 3.4. Replace and trend. #Hypertension: on losartan 100 mg daily. IV hydralazine prn #Type 2 diabetes mellitus: Oral meds on hold. On insulin sliding scale. Accu- Cheks every 6 hourly. On Lantus 15 units daily #Hyperlipidemia: On statin #Morbid obesity: BMI is 45. Complicates acute care, expected recovery and prognosis #Probable obesity hypoventilation syndrome: * Likely contributing to the acute hypoxic respiratory failure. * Follow-up with pulmonology on outpatient basis for proper sleep study. * #DVT prophylaxis: Heparin drip Charges/Coding Visit Charges Inpatient E&M: 906[address] [facility] Hosp L3
[2024-02-29] MEDS: Potassium Chloride 20mEq/100mL 20 MEQ/100 ML IV.SOLN. 100 MEQ IV BOLUS ×2 (10:42→11:24)
[2024-02-29] MEDS: Senna/Docusate Sodium 1 Tablet 2 TABLET GT ×2 (11:24→20:25)
[2024-02-29] MEDS: Polyethylene Glycol 3350 17 GM PACKET GT (11:24)
[2024-02-29] MEDS: Losartan Potassium 100 MG Tablet PO (11:24)
[2024-02-29] MEDS: Enoxaparin 40 MG/0.4 ML Syringe SC ×2 (11:25→20:24)
[2024-02-29] MEDS: dexAMETHasone 10 MG/ML Vial 6 MG IV (11:25)
[2024-02-29] MEDS: Insulin Lispro 100 UNIT/ML INSULN.PEN SC ×3 (11:34→23:16)
[2024-02-29 11:53] LABS: Bedside Glucose 160 mg/dL (74-106)
--- NOTE | 2024-02-29 16:21 | CPS ---
patient was extubated per dr gunn orders
[2024-02-29 17:59] LABS: Bedside Glucose 266 mg/dL (74-106)
[2024-02-29] MEDS: Atorvastatin Calcium 20 MG Tablet GT (20:25)
[2024-02-29] MEDS: Insulin Glargine-YFGN 100 UNIT/ML Pen 15 UNIT SC (20:25)
[2024-02-29 20:54] LABS: Bedside Glucose 233 mg/dL (74-106)
[2024-02-29 23:45] LABS: Bedside Glucose 186 mg/dL (74-106)
[2024-03-01] VITALS (19 sets, daily range): BP systolic 110–148; BP diastolic 57–97; PULSE 86–114; RESP 14–32; TEMP 36.3–37.8; O2SAT 90–98; BMI 45.2
--- NOTE | 2024-03-01 03:21 | CPS ---
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
[2024-03-01 05:32] LABS: Absolute Lymphocyte Count 0.99 X10^3/uL (0.83-4.51); Absolute Neutrophil Count 13.6 X10^3/uL (2.0-7.7); Basophil# 0.06 X10^3/uL; Basophil% 0.4 % (0-1); Eosinophil# 0.03 X10^3/uL; Eosinophils% 0.2 % (0-5); Hematocrit 52.4 % (40-54); Hemoglobin 16.2 g/dL (13.0-16.5); Lymphocyte # 0.99 X10^3/ul (0.83-4.51); Lymphocyte % 5.8 % (19-41); Mean Corp Hgb Conc 30.9 g/dL (32-36); Mean Corpuscular Hgb 26.3 pg (27.0-32.0); Mean Corpuscular Volume 85.1 fL (80-94); Mean Platelet Vol. 11.1 fl (6.2-12.0); Monocyte# 2.11 X10^3/uL; Monocyte% 12.5 % (0-10); NRBC Flagged by Analyzer 0 % (0-5); Neutrophil # 13.63 X10^3/uL (2.7-7.7); Neutrophil % 80.5 % (47-70); POSITIVE DIFFERENTIAL YES; Platelet Count 200 K/mm3 (150-450); RBC Distribution Width CV 15.7 % (11.6-14.6); RBC Distribution Width SD 47.5 fl (35.1-43.9); Red Blood Count 6.16 M/mm3 (4.6-6.2); White Blood Count 16.9 K/mm3 (4.4-11.0)
[2024-03-01 05:34] LABS: Differential Indicated SCAN CRITERIA MET
[2024-03-01 05:40] LABS: Bedside Glucose 125 mg/dL (74-106)
[2024-03-01 05:47] LABS: Anion Gap 10 (5-15); BUN 63 mg/dL (7-18); BUN/Creat Ratio 23.8 RATIO (10-20); Calcium,Total 9.5 mg/dL (8.5-10.1); Chloride 98 mmol/L (98-107); Creatinine, Serum 2.65 mg/dL (0.70-1.30); EST Glomerular Filtration Rate 26 mL/min (>60); Est Glom Filt Rate - Afr Amer 31 mL/min (>60); Estimated Creatinine Clearance 42.67 ml/min; Glucose 126 mg/dL (74-106); Potassium 3.2 mmol/L (3.5-5.1); Sodium Level 136 mmol/L (136-145)
--- NOTE | 2024-03-01 06:03 | CPS ---
Patient not tolerating BIPAP, patient stated he was nauseated
[2024-03-01 06:20] LABS: Anisocytosis 1+; Differential Comment SCANNED; Platelet Estimate ADEQUATE (ADEQ)
[2024-03-01] MEDS: Enoxaparin 40 MG/0.4 ML Syringe SC ×2 (08:23→21:47)
[2024-03-01] MEDS: dexAMETHasone 10 MG/ML Vial 6 MG IV (08:23)
[2024-03-01] MEDS: CHLORHEXIDINE GLUC 2% CLOTH 1 EACH TOWELETTE TOPICAL (08:24)
[2024-03-01] MEDS: Pantoprazole Sodium 40 MG in 0.9% Normal Saline (100mL MB+) 100 ML 330 MG IV (08:24)
[2024-03-01] MEDS: Potassium Chloride Oral Tablet 20 MEQ 40 MEQ PO (11:57)
[2024-03-01 12:15] LABS: Bedside Glucose 150 mg/dL (74-106)
--- NOTE | 2024-03-01 12:24 | PCM.PROGNOTE ---
Subjective Subjective Patient seen and examined. He complains of nausea and some retching. He denies any fever or chills, shortness of breath, palpitations or dizziness or any other symptoms. He is on 3 L of oxygen now. Review of systems otherwise negative. Objective Data Objective Data Vital Signs: Vital Signs Temp Pulse Resp BP Pulse Ox O2 Del Method O2 Flow Rate 98.1 F 100 22 H 118/61 92 Nasal Cannula 3 03/01/24 05:00 03/01/24 11:00 03/01/24 11:00 03/01/24 11:00 03/01/24 11:00 03/01/24 11:17 03/01/24 11:17 FiO2 50 03/01/24 06:01 Oxygen Flow Rate (L/min) 3 Oxygen Delivery Method Nasal Cannula Weight: 333 lb 12.478 oz Body Mass Index (BMI) 45.2 Intake & Output: Intake and Output for Last 24 Hours 02/28/24 02/29/24 03/01/24 23:59 23:59 23:59 Intake Total 4124.08 / 4201.88 1968.60 / 1968.60 110 / 110 Output Total 7700 / 7700 1825 / 1825 250 / 250 Balance -3575.92 / -3498.12 143.60 / 143.60 -140 / -140 Lab / Micro Data 03/01/24 05:20 03/01/24 05:20 Labs: Laboratory Results - last 24 hr 02/29/24 17:38: POC Glucose 266 H 02/29/24 20:27: POC Glucose 233 H 02/29/24 23:15: POC Glucose 186 H 03/01/24 05:14: POC Glucose 125 H 03/01/24 05:20: WBC 16.9 H, RBC 6.16, Hgb 16.2, Hct 52.4, MCV 85.1, MCH 26.3 L, MCHC 30.9 L, RDW Std Deviation 47.5 H, RDW Coeff of Ezequiel 15.7 H, Plt Count 200, MPV 11.1, Immature Gran % (Auto) 0.600, Neut % (Auto) 80.5 H, Lymph % (Auto) 5.8 L, [place] % (Auto) 12.5 H, Eos % (Auto) 0.2, Baso % (Auto) 0.4, Absolute Neuts (auto) 13.6 H, Absolute Lymphs (auto) 0.99, Nucleated RBC % 0, Differential Comment SCANNED, Diff Path Review May foll, Platelet Estimate ADEQUATE, Anisocytosis 1+, Sodium 136, Potassium 3.2 L, Chloride 98, Carbon Dioxide 28.0, Anion Gap 10, BUN 63 H, Creatinine 2.65 H, Estim Creat Clear Calc 42.67, Est GFR (MDRD) Af Amer 31 L, Est GFR (MDRD) Non-Af 26 L, BUN/Creatinine Ratio 23.8 H, Glucose 126 H, Calcium 9.5 03/01/24 11:56: POC Glucose 150 H Micro: Microbiology 02/20/24 23:27 Blood Culture (Wb) - Anticubital Right Blood Culture - Final No growth in 5 days. 02/20/24 23:37 Blood Culture (Wb) - Right Forearm Blood Culture - Final No growth in 5 days. 02/21/24 17:15 Sputum, Induced/Lukens Gram Stain - Final 02/21/24 17:15 Sputum, Induced/Lukens Respiratory Culture - Final Mixed normal respiratory lisa. No Streptococcus pneumoniae, beta-hemolytic Streptococcus or Staphylococcus aureus isolated. 02/22/24 07:02 Urine Catheter - Jimenez Legionella Antigen - Final 02/22/24 07:02 Urine Catheter - Jimenez Streptococcus pneumoniae Antigen (M - Final 02/22/24 07:05 Mucosa - Nasopharyngeal Respiratory Panel (PCR) - Final 02/22/24 07:05 Mucosa - Nasopharyngeal Coronavirus COVID-19 PCR - Final SARS-CoV-2 (COVID 19 PCR) 02/22/24 05:26 Nasal Secretion SARS-CoV-2 Antigen (Rapid) - Final Physical Exam Const alert, oriented x3, no apparent distress and well nourished; Negative for average body habitus or healthy appearing Constitutional Narrative: morbid obesity General Appearance: cooperative HEENT normocephalic, head/scalp atraumatic and moist oral mucous membranes Eyes PERRL, EOMs intact bilaterally and conjunctivae normal Eyes Narrative: No scleral icterus Neck no lymphadenopathy and supple Neck Narrative: neck is short and thick Lymph Lymphatic: no lymphadenopathy noted Resp normal respiratory effort, no retractions, no use of accessory muscles and clear to auscultation bilaterally Resp Narrative: on 3L of oxygen Auscultation: rales, rhonchi, wheezes and diminished lung sounds bilateral Cardio regular rate, regular rhythm, S1 normal heart sound, S2 normal heart sound, no murmurs, no rub, no gallops and no clicks GI normal to inspection, nondistended, normoactive bowel sounds, soft to palpation and non-tender GI Narrative: obese abdomen Palpation: Negative for guarding Extremity normal capillary refill General Extremity: no tenderness to palpation of joints or extremities Skin Skin Narrative: Slight lower extremity changes consistent with venous stasis General Skin Exam: no breakdown Neuro oriented x3, moves all extremities, no focal motor deficits and no sensory deficits noted Speech: speech normal Motor Exam: general weakness Psych thought process normal and cooperative Mood & Affect: flat affect Assessment & Plan Assessment/Plan (1) COVID-19: (2) Acute respiratory failure with hypoxia and hypercapnia: (3) Uncontrolled hypertension: PLAN: Plan # Acute hypoxic and hypercapnic respiratory failure Multifactorial, thought to be due to COVID infection, fluid overload and obesity hypoventilation syndrome with probable secondary bacterial pneumonia completed a course of remdesivir on decadron for a 10 day course. Also on IV vancomycin and zosyn. now off lasix drip Diuresing quite well. 2D echo showed biventricular dysfunction and borderline low left ventricular dysfunction with no regional wall motion abnormalities. Weaned off of paralytics. now on 3L of oxygen. Critical care on board. In cumulative negative balance by 22.3 L. Has had a total output of 60 L. Blood cultures have been negative and sputum culture showed normal respiratory lisa remains on heparin drip #Acute enteritis Patient developed abdominal pain, nausea and bloating. General surgery reviewed imaging as there was concern of normal small bowel obstruction and general surgery recommends repeating the imaging more clinically stable. Patient is not considered a surgical candidate #LENORE: resolved. #Hypokalemia: Potassium is 3.4. Replace and trend. #Hypertension: on losartan 100 mg daily. IV hydralazine prn #Type 2 diabetes mellitus: Oral meds on hold. On insulin sliding scale. Accu-Cheks every 6 hourly. On Lantus 15 units daily #Hyperlipidemia: On statin #Morbid obesity: BMI is 45. Complicates acute care, expected recovery and prognosis #Probable obesity hypoventilation syndrome: Likely contributing to the acute hypoxic respiratory failure. Follow-up with pulmonology on outpatient basis for proper sleep study. #DVT prophylaxis: Heparin drip Disposition: transfer to floor. Charges/Coding Visit Charges Inpatient E&M: 18926 Subs Hosp L2
--- NOTE | 2024-03-01 14:47 | PN.CC_ITS ---
Objective Data Objective Data Vital Signs: Vital Signs Last response 3 Temperature 37.8 C H 03/01/24 12:00 Temperature Source Core 03/01/24 12:00 Pulse Rate 114 H 03/01/24 13:00 Pulse Strength Normal (2+) 03/01/24 10:00 Respiratory Rate 24 H 03/01/24 13:00 Respiratory Effort Mechanically Ventilated 03/01/24 11:17 Respiratory Depth Normal 03/01/24 11:17 Respiratory Pattern Normal 03/01/24 11:17 Blood Pressure 131/62 H 03/01/24 13:00 Blood Pressure Mean 85 03/01/24 13:00 Blood Pressure Source Monitor 03/01/24 13:00 Blood Pressure Position Semi-Fowlers 03/01/24 13:00 Blood Pressure Location Left Forearm 03/01/24 13:00 Pulse Ox 91 03/01/24 13:00 Oxygen Delivery Method Nasal Cannula 03/01/24 13:00 Oxygen Flow Rate (L/min) 3 03/01/24 13:00 Fraction of Inspired Oxygen (FIO2) 50 03/01/24 06:01 I&O: I&O Last 24 Hours 3 02/29/24 03/01/24 03/01/24 23:59 11:59 23:59 Intake Total 989 / 1968.60 110 / 110 Output Total 975 / 1825 250 / 575 325 / 575 Balance 14 / 143.60 -140 / -465 -325 / -465 I&O: Total Stay 3 02/20/24 16:15 thru 03/01/24 14:00 Intake Total 51831.36 Output Total 29959 Balance -03894.64 Current Meds Ordered / Administered: Current meds ordered / Administered 3 Generic Name Dose Route Start Last Admin Trade Name Freq PRN Reason Stop Dose Admin Acetaminophen 650 mg 03/01/24 00:44 Acetaminophen 325 Mg Tablet PO Q6H PRN PRN Pain 1-10 Or Fever >100.7 Albuterol Sulfate 2.5 mg 02/21/24 16:26 Albuterol 2.5 Mg/3 Ml Vial.Neb. INHALATION Q2H PRN PRN SOB &/OR WHEEZING Atorvastatin Calcium 20 mg 03/01/24 22:00 Atorvastatin Calcium 20 Mg Tablet PO QHS [facility] Chlorhexidine Gluconate 1 each 02/22/24 10:00 03/01/24 08:24 Chlorhexidine Gluc 2% Cloth 1 Each Towelette TOPICAL 1 each DAILY ELISSA Administration Dexamethasone Sodium Phosphate 6 mg 02/22/24 10:00 03/01/24 08:23 Dexamethasone 10 Mg/Ml Vial IV 03/02/24 10:01 6 mg DAILY ELISSA Administration Enoxaparin Sodium 40 mg 02/27/24 22:00 03/01/24 08:23 Enoxaparin 40 Mg/0.4 Ml Syringe SC 40 mg BID ELISSA Administration Hydralazine HCl 10 mg 02/21/24 07:52 02/26/24 21:15 Hydralazine 20 Mg/Ml Vial IV 10 mg Q6H PRN PRN Administration SBP>150 Protocol Sodium Chloride 500 mls @ 15 mls/hr 02/21/24 00:22 02/25/24 03:35 IV Infused .[id number] PRN Infusion Saline Flush Insulin Glargine 15 unit 02/23/24 22:00 02/29/24 20:25 Insulin Glargine-Yfgn 100 Unit/Ml Pen SC 15 unit QHS ELISSA Administration Insulin Human Lispro 0 unit 02/22/24 12:00 03/01/24 11:57 Insulin Lispro 100 Unit/Ml Insuln.Pen SC Not Given Q6 ELISSA Protocol Losartan Potassium 100 mg 02/27/24 10:00 02/29/24 11:24 Losartan Potassium 100 Mg Tablet PO 100 mg DAILY ELISSA Administration Protocol Ondansetron HCl 4 mg 02/21/24 00:09 Ondansetron 4 Mg/2 Ml Vial IV Q8H PRN PRN NAUSEA/VOMITING Pantoprazole Sodium 40 mg 03/02/24 10:00 Pantoprazole Sodium 40 Mg Tablet PO DAILY ELISSA Polyethylene Glycol 17 gm 03/01/24 10:00 03/01/24 08:24 Polyethylene Glycol 3350 17 Gm Packet PO Not Given BID ELISSA Senna/Docusate Sodium 2 tablet 03/01/24 10:00 03/01/24 08:24 Senna/Docusate Sodium 1 Tablet PO Not Given BID ELISSA Sodium Chloride 10 - 40 ml 02/21/24 00:22 02/29/24 03:50 0.9% Saline Lock 10 Ml Syringe IV 20 ml UD PRN Administration SALINE FLUSH Lab / Micro Data 03/01/24 05:20 03/01/24 05:20 Labs: Laboratory Results - last 24 hr 02/29/24 17:38: POC Glucose 266 H 02/29/24 20:27: POC Glucose 233 H 02/29/24 23:15: POC Glucose 186 H 03/01/24 05:14: POC Glucose 125 H 03/01/24 05:20: WBC 16.9 H, RBC 6.16, Hgb 16.2, Hct 52.4, MCV 85.1, MCH 26.3 L, MCHC 30.9 L, RDW Std Deviation 47.5 H, RDW Coeff of Ezequiel 15.7 H, Plt Count 200, MPV 11.1, Immature Gran % (Auto) 0.600, Neut % (Auto) 80.5 H, Lymph % (Auto) 5.8 L, [place] % (Auto) 12.5 H, Eos % (Auto) 0.2, Baso % (Auto) 0.4, Absolute Neuts (auto) 13.6 H, Absolute Lymphs (auto) 0.99, Nucleated RBC % 0, Differential Comment SCANNED, Diff Path Review July foll, Platelet Estimate ADEQUATE, Anisocytosis 1+, Sodium 136, Potassium 3.2 L, Chloride 98, Carbon Dioxide 28.0, Anion Gap 10, BUN 63 H, Creatinine 2.65 H, Estim Creat Clear Calc 42.67, Est GFR (MDRD) Af Amer 31 L, Est GFR (MDRD) Non-Af 26 L, BUN/Creatinine Ratio 23.8 H, G lucose 126 H, Calcium 9.5 03/01/24 11:56: POC Glucose 150 H Assessment and Plan . Assessment and plan: Patient seen and examined Chart and data reviewed He is awake and alert - NAD Sitting up in chair Breathing 3 LPM O2 - NIV w/ sleep UOP adequate, despite creatinine rising EXAM GEN NAD VS as above HEENT O2 N/C NECK obese COR RRR CHEST diminished ABD obese EXT minimal edema SKIN w/d FABIOLA NF ASSESSMENT 1. Resolving acute respiratory failure requiirng MV support 2. Morbid obesity 3. LENORE - non-oliguric 4. OHVS 5. Chronic CHF 6. CoV-19 infection 7. DM 8. Tobacco use TREATMENT PLAN -supplemental O2 as needed -NIV w/ sleep -OK to stop steroids -hold diuretics -follow renal function closely -sq insulin -inhaled BD -VTE ppx -mobilize as able Critical Care Time: 50 min The entirety of this encounter was done via Telemedicine
--- NOTE | 2024-03-01 14:48 | CASEMGMT ---
This RN CM to pt room at this time to discuss tentative DC planning. See therapy notes. Pt up in the chair at this time and is A&Ox4. Pt is calm. Pt was extubated on 02/28.This RN CM reviewed how the pt has been doing with therapy. Pt states that his goal is to DC home with his once he is medically ready. At this time, the pt denies SNF needs. This RN CM inquired if the pt would be interested in HHC. The pt states that he would be agreeable to HHC. Pt denies wanting to review a list of local in-network HHC companies and states that he would prefer [facility]. At this time, the DC date is TBD. CM to follow and make referral once appropriate. TC to pt to see if she would be comfortable with the pt coming home at time of Dc. Pt did not answer the phone at this time and hung the phone call up early. Also, pt is currently requiring additional oxygen and may qualify for home oxygen use. A verbal list of local in-network DME companies were provided to the pt at this time. Pt prefers [facility]. CM to follow. Care Management to continue to follow.
[2024-03-01 17:28] LABS: Bedside Glucose 224 mg/dL (74-106)
[2024-03-01] MEDS: Insulin Lispro 100 UNIT/ML INSULN.PEN SC (18:03)
[2024-03-01] MEDS: Insulin Glargine-YFGN 100 UNIT/ML Pen 15 UNIT SC (21:34)
[2024-03-01] MEDS: Atorvastatin Calcium 20 MG Tablet PO (21:47)
[2024-03-01 22:12] LABS: Bedside Glucose 233 mg/dL (74-106)
[2024-03-02] VITALS (12 sets, daily range): BP systolic 124–160; BP diastolic 56–98; PULSE 87–97; RESP 18–20; TEMP 36.2–36.5; O2SAT 92–100; BMI 44.4
[2024-03-02 00:34] LABS: Bedside Glucose 164 mg/dL (74-106)
[2024-03-02 06:07] LABS: Absolute Lymphocyte Count 0.93 X10^3/uL (0.83-4.51); Absolute Neutrophil Count 9.5 X10^3/uL (2.0-7.7); Basophil# 0.04 X10^3/uL; Basophil% 0.3 % (0-1); Eosinophil# 0.04 X10^3/uL; Eosinophils% 0.3 % (0-5); Hematocrit 48.7 % (40-54); Hemoglobin 14.9 g/dL (13.0-16.5); Lymphocyte # 0.93 X10^3/ul (0.83-4.51); Lymphocyte % 7.7 % (19-41); Mean Corp Hgb Conc 30.6 g/dL (32-36); Mean Corpuscular Volume 85.1 fL (80-94); Mean Platelet Vol. 11.1 fl (6.2-12.0); Monocyte% 12.5 % (0-10); NRBC Flagged by Analyzer 0 % (0-5); Neutrophil # 9.47 X10^3/uL (2.7-7.7); Neutrophil % 78.7 % (47-70); Platelet Count 174 K/mm3 (150-450); RBC Distribution Width CV 15.4 % (11.6-14.6); RBC Distribution Width SD 47.7 fl (35.1-43.9); Red Blood Count 5.72 M/mm3 (4.6-6.2)
[2024-03-02 06:22] LABS: Bedside Glucose 131 mg/dL (74-106)
[2024-03-02 07:02] LABS: ALB/GLOB Ratio 0.8 RATIO (0.9-2.4); AST(SGOT) 23 U/L (15-37); Alanine Aminotransfer ALT/SGPT 20 U/L (16-61); Albumin, Serum 3.1 g/dL (3.2-5.0); Alkaline Phosphatase 79 U/L (45-117); Anion Gap 8 (5-15); BUN 68 mg/dL (7-18); BUN/Creat Ratio 26.8 RATIO (10-20); Chloride 102 mmol/L (98-107); Creatinine, Serum 2.54 mg/dL (0.70-1.30); EST Glomerular Filtration Rate 27 mL/min (>60); Est Glom Filt Rate - Afr Amer 33 mL/min (>60); Estimated Creatinine Clearance 44.05 ml/min; Globulin 3.8 g/dL (2.2-4.2); Glucose 123 mg/dL (74-106); Protein, Total 6.9 g/dL (6.4-8.2); Sodium Level 138 mmol/L (136-145)
--- NOTE | 2024-03-02 08:58 | PN.CC_ITS ---
Objective Data Objective Data Vital Signs: Vital Signs Last response 3 Temperature 36.2 C L 03/02/24 02:00 Temperature Source Temporal 03/02/24 02:00 Pulse Rate 97 03/02/24 03:00 Pulse Strength Normal (2+) 03/01/24 22:00 Respiratory Rate 18 03/02/24 03:00 Respiratory Effort Normal, Non-Labored 03/02/24 03:00 Respiratory Depth Normal 03/02/24 03:00 Respiratory Pattern Normal 03/02/24 03:00 Blood Pressure 139/56 H 03/02/24 02:00 Blood Pressure Mean 83 03/02/24 02:00 Blood Pressure Source Monitor 03/02/24 02:00 Blood Pressure Position Semi-Fowlers 03/02/24 02:00 Blood Pressure Location Left Arm 03/02/24 02:00 Pulse Ox 92 03/02/24 03:00 Oxygen Delivery Method Nasal Cannula 03/02/24 03:00 Oxygen Flow Rate (L/min) 3 03/02/24 03:00 Fraction of Inspired Oxygen (FIO2) 50 03/01/24 06:01 I&O: I&O Last 24 Hours 3 03/01/24 03/01/24 03/02/24 11:59 23:59 11:59 Intake Total 110 / 710 600 / 600 Output Total 250 / 1160 685 / 1160 450 / 450 Balance -140 / -450 -685 / -450 150 / 150 I&O: Total Stay 3 02/20/24 16:15 thru 03/02/24 06:00 Intake Total 64289.36 Output Total 30397 Balance -75462.64 Current Meds Ordered / Administered: Current meds ordered / Administered 3 Generic Name Dose Route Start Last Admin Trade Name Freq PRN Reason Stop Dose Admin Acetaminophen 650 mg 03/01/24 00:44 Acetaminophen 325 Mg Tablet PO Q6H PRN PRN Pain 1-10 Or Fever >100.7 Albuterol Sulfate 2.5 mg 02/21/24 16:26 Albuterol 2.5 Mg/3 Ml Vial.Neb. INHALATION Q2H PRN PRN SOB &/OR WHEEZING Atorvastatin Calcium 20 mg 03/01/24 22:00 03/01/24 21:47 Atorvastatin Calcium 20 Mg Tablet PO 20 mg QHS ELISSA Administration Chlorhexidine Gluconate 1 each 02/22/24 10:00 03/01/24 08:24 Chlorhexidine Gluc 2% Cloth 1 Each Towelette TOPICAL 1 each DAILY ELISSA Administration Enoxaparin Sodium 40 mg 02/27/24 22:00 03/01/24 21:47 Enoxaparin 40 Mg/0.4 Ml Syringe SC 40 mg BID ELISSA Administration Hydralazine HCl 10 mg 02/21/24 07:52 02/26/24 21:15 Hydralazine 20 Mg/Ml Vial IV 10 mg Q6H PRN PRN Administration SBP>150 Protocol Sodium Chloride 500 mls @ 15 mls/hr 02/21/24 00:22 02/25/24 03:35 IV Infused .[id number] PRN Infusion Saline Flush Insulin Glargine 15 unit 02/23/24 22:00 03/01/24 21:34 Insulin Glargine-Yfgn 100 Unit/Ml Pen SC 15 unit QHS ELISSA Administration Insulin Human Lispro 0 unit 02/22/24 12:00 03/02/24 06:05 Insulin Lispro 100 Unit/Ml Insuln.Pen SC Not Given Q6 [facility] Protocol Losartan Potassium 100 mg 02/27/24 10:00 02/29/24 11:24 Losartan Potassium 100 Mg Tablet PO 100 mg DAILY ELISSA Administration Protocol Ondansetron HCl 4 mg 02/21/24 00:09 Ondansetron 4 Mg/2 Ml Vial IV Q8H PRN PRN NAUSEA/VOMITING Pantoprazole Sodium 40 mg 03/02/24 10:00 Pantoprazole Sodium 40 Mg Tablet PO DAILY ELISSA Polyethylene Glycol 17 gm 03/01/24 10:00 03/01/24 21:35 Polyethylene Glycol 3350 17 Gm Packet PO Not Given BID ELISSA Senna/Docusate Sodium 2 tablet 03/01/24 10:00 03/01/24 21:35 Senna/Docusate Sodium 1 Tablet PO Not Given BID ELISSA Sodium Chloride 10 - 40 ml 02/21/24 00:22 02/29/24 03:50 0.9% Saline Lock 10 Ml Syringe IV 20 ml UD PRN Administration SALINE FLUSH Lab / Micro Data 03/02/24 05:53 03/02/24 05:53 Labs: Laboratory Results - last 24 hr 03/01/24 11:56: POC Glucose 150 H 03/01/24 17:08: POC Glucose 224 H 03/01/24 21:32: POC Glucose 233 H 03/02/24 00:12: POC Glucose 164 H 03/02/24 05:53: WBC 12.0 H, RBC 5.72, Hgb 14.9, Hct 48.7, MCV 85.1, MCH 26.0 L, MCHC 30.6 L, RDW Std Deviation 47.7 H, RDW Coeff of Ezequiel 15.4 H, Plt Count 174, MPV 11.1, Immature Gran % (Auto) 0.500, Neut % (Auto) 78.7 H, Lymph % (Auto) 7.7 L, Cherry % (Auto) 12.5 H, Eos % (Auto) 0.3, Baso % (Auto) 0.3, Absolute Neuts (auto) 9.5 H, Absolute Lymphs (auto) 0.93, Nucleated RBC % 0, Sodium 138, P otassium 3.0 L, Chloride 102, Carbon Dioxide 28.0, Anion Gap 8, BUN 68 H, C reatinine 2.54 H, Estim Creat Clear Calc 44.05, Est GFR (MDRD) Af Amer 33 L, Est GFR (MDRD) Non-Af 27 L, BUN/Creatinine Ratio 26.8 H, Glucose 123 H, Calcium 9.0, Total Bilirubin 1.30 H, AST 23, ALT 20, Alkaline Phosphatase 79, Total Protein 6.9, Albumin 3.1 L, Globulin 3.8, Albumin/Globulin Ratio 0.8 L 03/02/24 06:02: POC Glucose 131 H Assessment and Plan . Assessment and plan: Subjective: No acute events o/n. Feels breathing OK this AM. Sitting up in chair, working with PT Physical Exam: Gen - NAD, morbidly obese HEENT - MMM. Sclera anicteric Resp - Diminished BS. Breathing nonlabored CV - RRR. No m/g/r Abd - Soft, NT, ND Ext - No c/c. +trace edema Skin - No rashes? Neuro - Grossly nonfocal. Alert and oriented I have reviewed the pertinent vital sign, laboratory, and imaging data. ASSESSMENT: # Acute hypoxic respiratory failure - extubated 02/28 # COVID-19 # CHF exacerbation # LENORE # Suspected JESSICA/OHS # DM # Tobacco use # Morbid obesity PLAN: -On 3L NC, wean to keep sats > 90%. Encourage IS, mobilization, PT as tolerated -Cont NIV as tolerated with all naps/sleep. He was only able to wear 1 hr last night d/t discomfort/pressure, will try lowering IPAP some and see if can tolerate better -s/p course of decadron, remdesivir -s/p course of empiric abx -Holding further diuretics given worsening LENORE. Monitor Cr, UOP, slight improvement from yest -SQ insulin -Replete electrolytes PRN -Encourage tobacco cessation FEN/GI: PO diet Proph DVT/GI: SQ heparin Downgraded from ICU status now, but no beds available in PCU yet. We will sign off given clinical improvement, but please call us back if any questions or if clinical worsening The entirety of this encounter was completed via telemedicine
[2024-03-02] MEDS: Potassium Chloride Oral Tablet 20 MEQ 60 MEQ PO (09:45)
[2024-03-02] MEDS: Pantoprazole Sodium 40 MG Tablet PO (09:48)
[2024-03-02] MEDS: Enoxaparin 40 MG/0.4 ML Syringe SC (09:48)
--- NOTE | 2024-03-02 10:05 | PCM.PROGNOTE ---
Subjective Subjective Patient seen and examined. He had no active complaints. Review of systems is otherwise negative. Objective Data Objective Data Vital Signs: Vital Signs Temp Pulse Resp BP Pulse Ox O2 Del Method O2 Flow Rate 97.2 F L 97 18 139/56 H 92 Nasal Cannula 3 03/02/24 02:00 03/02/24 03:00 03/02/24 03:00 03/02/24 02:00 03/02/24 03:00 03/02/24 03:00 03/02/24 03:00 FiO2 50 03/01/24 06:01 Oxygen Flow Rate (L/min) 3 Oxygen Delivery Method Nasal Cannula Weight: 327 lb 9.71 oz Body Mass Index (BMI) 44.4 Intake & Output: Intake and Output for Last 24 Hours 02/29/24 03/01/24 03/02/24 23:59 23:59 23:59 Intake Total 1968.60 / 1968.60 110 / 710 600 / 600 Output Total 1825 / 1825 935 / 1160 450 / 450 Balance 143.60 / 143.60 -825 / -450 150 / 150 Lab / Micro Data 03/02/24 05:53 03/02/24 05:53 Labs: Laboratory Results - last 24 hr 03/01/24 11:56: POC Glucose 150 H 03/01/24 17:08: POC Glucose 224 H 03/01/24 21:32: POC Glucose 233 H 03/02/24 00:12: POC Glucose 164 H 03/02/24 05:53: WBC 12.0 H, RBC 5.72, Hgb 14.9, Hct 48.7, MCV 85.1, MCH 26.0 L, MCHC 30.6 L, RDW Std Deviation 47.7 H, RDW Coeff of Ezequiel 15.4 H, Plt Count 174, MPV 11.1, Immature Gran % (Auto) 0.500, Neut % (Auto) 78.7 H, Lymph % (Auto) 7.7 L, [place] % (Auto) 12.5 H, Eos % (Auto) 0.3, Baso % (Auto) 0.3, Absolute Neuts (auto) 9.5 H, Absolute Lymphs (auto) 0.93, Nucleated RBC % 0, Sodium 138, Potassium 3.0 L, Chloride 102, Carbon Dioxide 28.0, Anion Gap 8, BUN 68 H, Creatinine 2.54 H, Estim Creat Clear Calc 44.05, Est GFR (MDRD) Af Amer 33 L, Est GFR (MDRD) Non-Af 27 L, BUN/Creatinine Ratio 26.8 H, Glucose 123 H, Calcium 9.0, Total Bilirubin 1.30 H, AST 23, ALT 20, Alkaline Phosphatase 79, Total Protein 6.9, Albumin 3.1 L, Globulin 3.8, Albumin/Globulin Ratio 0.8 L 03/02/24 06:02: POC Glucose 131 H Micro: Microbiology 02/20/24 23:27 Blood Culture (Wb) - Anticubital Right Blood Culture - Final No growth in 5 days. 02/20/24 23:37 Blood Culture (Wb) - Right Forearm Blood Culture - Final No growth in 5 days. 02/21/24 17:15 Sputum, Induced/Lukens Gram Stain - Final 02/21/24 17:15 Sputum, Induced/Lukens Respiratory Culture - Final Mixed normal respiratory lisa. No Streptococcus pneumoniae, beta-hemolytic Streptococcus or Staphylococcus aureus isolated. 02/22/24 07:02 Urine Catheter - Jimenez Legionella Antigen - Final 02/22/24 07:02 Urine Catheter - Jimenez Streptococcus pneumoniae Antigen (M - Final 02/22/24 07:05 Mucosa - Nasopharyngeal Respiratory Panel (PCR) - Final 02/22/24 07:05 Mucosa - Nasopharyngeal Coronavirus COVID-19 PCR - Final SARS-CoV-2 (COVID 19 PCR) 02/22/24 05:26 Nasal Secretion SARS-CoV-2 Antigen (Rapid) - Final Physical Exam Const alert, oriented x3 and no apparent distress Constitutional Narrative: morbid obesity General Appearance: cooperative HEENT normocephalic, head/scalp atraumatic and moist oral mucous membranes Eyes PERRL, EOMs intact bilaterally and conjunctivae normal Neck no lymphadenopathy and supple Lymph Lymphatic: no lymphadenopathy noted Resp normal respiratory effort, no retractions, no use of accessory muscles and clear to auscultation bilaterally Resp Narrative: on 3L of oxygen Auscultation: rales, rhonchi, wheezes and diminished lung sounds bilateral Cardio regular rate, regular rhythm, S1 normal heart sound, S2 normal heart sound, no murmurs, no rub, no gallops and no clicks GI normal to inspection, nondistended, normoactive bowel sounds, soft to palpation and non-tender GI Narrative: obese abdomen Palpation: Negative for guarding Extremity normal capillary refill Extremity Narrative: 2+ bipedal pitting edema General Extremity: no tenderness to palpation of joints or extremities Skin skin turgor normal, no jaundice, no petechiae and no mottling General Skin Exam: no breakdown Neuro oriented x3, CN's II-XII intact bilaterally, moves all extremities, no focal motor deficits and no sensory deficits noted Motor Exam: general weakness Psych thought process normal and cooperative Mood & Affect: flat affect Assessment & Plan Assessment/Plan (1) COVID-19: (2) Acute respiratory failure with hypoxia and hypercapnia: (3) Uncontrolled hypertension: PLAN: Plan # Acute hypoxic and hypercapnic respiratory failure Multifactorial, thought to be due to COVID infection, fluid overload and obesity hypoventilation syndrome with probable secondary bacterial pneumonia completed a course of remdesivir on decadron for a 10 day course. Also on IV vancomycin and zosyn. now off lasix drip Diuresing quite well. 2D echo showed biventricular dysfunction and borderline low left ventricular dysfunction with no regional wall motion abnormalities. Weaned off of paralytics. remains on 3L of oxygen. Critical care on board. In cumulative negative balance by 22.3 L. Has had a total output of 60 L. Blood cultures have been negative and sputum culture showed normal respiratory lisa remains on heparin drip #Acute enteritis Patient developed abdominal pain, nausea and bloating. General surgery reviewed imaging as there was concern of normal small bowel obstruction and general surgery recommends repeating the imaging more clinically stable. Patient is not considered a surgical candidate #LENORE: resolved. #Hypokalemia: potassium is 3 today. Will replace and trend. #Hypertension: on losartan 100 mg daily. IV hydralazine prn #Type 2 diabetes mellitus: Oral meds on hold. On insulin sliding scale. Accu-Cheks every 6 hourly. On Lantus 15 units daily #Hyperlipidemia: On statin #Morbid obesity: BMI is 45. Complicates acute care, expected recovery and prognosis #Probable obesity hypoventilation syndrome: Likely contributing to the acute hypoxic respiratory failure. Follow-up with pulmonology on outpatient basis for proper sleep study. #DVT prophylaxis: Heparin drip Disposition: awaiting placement. Charges/Coding Visit Charges Inpatient E&M: 07962 Subs Hosp L2
[2024-03-02] MEDS: Insulin Lispro 100 UNIT/ML INSULN.PEN SC ×3 (11:23→20:45)
[2024-03-02 11:39] LABS: Bedside Glucose 226 mg/dL (74-106)
--- NOTE | 2024-03-02 12:55 | CASEMGMT ---
Addendum entered by Rebecca Edward 03/02/24 15:54: This RN CM educated the pt about CCN. Pt states that he is agreeable to this service. Dr. Smith aware. Referral placed in [facility]. Addendum entered by Rebecca Edward 03/02/24 15:39: At this time, all agencies that are in network with the pt insurance have declined the pt. [facility] states out of network. [facility] states they are unable to accommodate the referral. [facility] states they are out of the service area. [facility] states they are unable to accept at this time. states thank you but we are unable to accept. [facility] did not respond in [facility]. This RN CM called [facility] and they state they do not have the staffing to accommodate referral. Dr. Smith updated and aware. If pt continues to decline SNF needs, [facility] can reevalute referral on Tuesday. SW notified. Care Management to follow. Addendum entered by Rebecca Edward 03/02/24 14:11: Kely ([facility] curriculum development coordinator) #: [phone] Addendum entered by Rebecca Edward 03/02/24 14:07: Oneyda from [facility] states that they cannot accept the pt if the pt discharges over the weekend as they are at capacity. Oneyda states that they can reevaluate the pt on Tuesday. This RN CM updated Dr. Smith about this f2f. Dr. Smith states that she is unsure of the DC date at this time and states that she believes the pt requires placement at a SNF or the pt will come right back to the hospital. This RN CM to pt room at this time. This RN CM discussed this with the pt. However, pt adamantly refuses to go to any type of SNF, even for a short term stay. Pt also refused [facility]. Pt states that he wants to go home at time of DC but is still agreeable to [facility]. Pt states that he does not have a preference on the company that accepts him. Malini ND office manager executive assistant, notified and will make HH referrals. CM to follow. Original Note: RN CM noted pt progression with therapy. RN CM to pt room at this time. This RN CM reviewed how the pt did with therapy. Pt states that he believes that he did well and wants to DC home once medically ready. Pt is agreeable to [facility]. Pt states that he still would prefer [facility] (see previous note). TC to [facility] and referral made for SN, PT, and OT. Awaiting return response. Pt may also qualify for new home oxygen use. Pt still prefers [facility] (See previous note). Green sheet filled out and placed on pt chart to facilitate potential weekend DC. This RN CM also received a VM from Kely ([place] [facility] curriculum development coordinator), requesting updated DC plan. TC back to Kely at this time, no answer. This RN CM left a secure VM with pt tentative DC plan as of this time. CM to continue to follow.
[2024-03-02 13:57] LABS: Pathologist Review Reviewed
--- NOTE | 2024-03-02 14:14 | CASEMGMT ---
Discharge Planning A list of?HH providers including quality and resource use data and consistent with the patient's preferred geographic region, medical needs, and insurance network was created in [facility] [facility].? This list was provided to the RN DINORAH. Malini Ward, Discharge Planning Asst.
--- NOTE | 2024-03-02 14:17 | CASEMGMT ---
Addendum entered by Malini Ward 03/02/24 16:08: All agencies declined referral including [facility]. Malini Ward DC Planning Asst. Original Note: Discharge Planning HH referral sent to [facility] Shah, Edwin, Grzegorz, and . Malini Ward DC Planning Asst.
[2024-03-02 18:31] LABS: Bedside Glucose 183 mg/dL (74-106)
[2024-03-02] MEDS: Atorvastatin Calcium 20 MG Tablet PO (20:44)
[2024-03-02] MEDS: Insulin Glargine-YFGN 100 UNIT/ML Pen 15 UNIT SC (20:45)
[2024-03-02] MEDS: Heparin Injection (Vial) 5,000 UNIT/ML VIAL 5000 UNIT SC (20:45)
[2024-03-02 22:40] LABS: Bedside Glucose 174 mg/dL (74-106)
--- NOTE | 2024-03-03 02:04 | CPS ---
patient refusing BIPAP therapy QHS
[2024-03-03 06:11] VITALS: BP 160/93; PULSE 94; RESP 22; TEMP 37.1; O2SAT 94; O2SAT 95
[2024-03-03] MEDS: Heparin Injection (Vial) 5,000 UNIT/ML VIAL 5000 UNIT SC ×2 (06:23→13:54)
[2024-03-03 06:57] VITALS: PULSE 118
[2024-03-03 07:21] LABS: Bedside Glucose 126 mg/dL (74-106)
[2024-03-03 07:34] LABS: Absolute Lymphocyte Count 1.17 X10^3/uL (0.83-4.51); Absolute Neutrophil Count 8.3 X10^3/uL (2.0-7.7); Basophil# 0.04 X10^3/uL; Basophil% 0.4 % (0-1); Eosinophil# 0.21 X10^3/uL; Eosinophils% 1.9 % (0-5); Hematocrit 51.3 % (40-54); Lymphocyte # 1.17 X10^3/ul (0.83-4.51); Lymphocyte % 10.5 % (19-41); Mean Corp Hgb Conc 29.2 g/dL (32-36); Mean Corpuscular Hgb 25.4 pg (27.0-32.0); Mean Corpuscular Volume 86.9 fL (80-94); Mean Platelet Vol. 12.4 fl (6.2-12.0); Monocyte# 1.37 X10^3/uL; Monocyte% 12.3 % (0-10); NRBC Flagged by Analyzer 0 % (0-5); Neutrophil # 8.27 X10^3/uL (2.7-7.7); Neutrophil % 74.5 % (47-70); Platelet Count 167 K/mm3 (150-450); RBC Distribution Width CV 15.5 % (11.6-14.6); RBC Distribution Width SD 49.2 fl (35.1-43.9); White Blood Count 11.1 K/mm3 (4.4-11.0)
[2024-03-03 07:58] LABS: Anion Gap 8 (5-15); BUN 56 mg/dL (7-18); BUN/Creat Ratio 26.9 RATIO (10-20); Calcium,Total 8.8 mg/dL (8.5-10.1); Chloride 105 mmol/L (98-107); Creatinine, Serum 2.08 mg/dL (0.70-1.30); EST Glomerular Filtration Rate 34 mL/min (>60); Est Glom Filt Rate - Afr Amer 42 mL/min (>60); Estimated Creatinine Clearance 53.79 ml/min; Glucose 121 mg/dL (74-106); Potassium 3.4 mmol/L (3.5-5.1); Sodium Level 135 mmol/L (136-145)
[2024-03-03 07:59] LABS: Magnesium 2.6 mg/dL (1.6-2.6)
[2024-03-03 08:39] VITALS: O2SAT 96
[2024-03-03] MEDS: Pantoprazole Sodium 40 MG Tablet PO (08:42)
[2024-03-03 11:00] VITALS: BP 136/74; PULSE 92; RESP 20; TEMP 36.9; O2SAT 95
[2024-03-03] MEDS: Insulin Lispro 100 UNIT/ML INSULN.PEN SC (11:27)
[2024-03-03 11:56] LABS: Bedside Glucose 251 mg/dL (74-106)
--- NOTE | 2024-03-03 14:17 | DCINST_ITS ---
Discharge Instructions Diet Discharge Diet: 1800 Calorie Control Diet DC O2, CPAP, BIPAP needs PSN CPAP & BiPAP: BiPAP & CPAP Settings per PSN Mode BiPAP 03/01/24 06:01 Bipap Delivery Device Face Mask 03/01/24 06:01 BiPAP Inspiratory Pressure 14 03/01/24 06:01 BiPAP Expiratory Pressure 6 03/01/24 06:01 BiPAP Rate 14 03/01/24 06:01 Fraction of Inspired Oxygen ( 50 03/01/24 06:01 FIO2) Home O2 Discharge instructions: No Dressing / Incision Discharge Activity: Return to Normal Activity Weight Bearing Status: Weight bearing as tolerated Dressing / Incision Call your doctor if you observe: Fever of 101 or Higher, Shortness of breath, Dizziness, Swelling in the ankles and Chest pain Follow Up Care Test Results: Test results from this visit will be discussed in further detail at your follow- up appointment, if applicable. Discharge Plan Admission Admit Date/Time: 02/21/24 08:37 Primary Reason for Your Visit: acute respiratory failure, covid Attending Provider: Dayana Smith Primary Care Provider: Angely Weems Consulting Providers: Alvaro Best; Alejandra Morin; Jarret Linton; Tang Yepez; Cesar Sorensen; Phi Rhoades; Miguel Hennessy; Vidal Snow; Segundo Wilson; Lidia Aguirre; Asael Cope; Felix Rodrigues; Pedro Pablo Martin; Kylee Fuller; Aj Greene; Mateusz Esparza; Fred Lobo; Bandar Melgar; Paulo Pryor; Sunita Martinez; Tc Harkins; Juan Schwartz; Herman Hunt Instructions Patient Instructions: Coronavirus Disease 2019 (COVID-19): Caring for Yourself or Others Discharge Orders/Prescriptions Prescriptions: New potassium chloride 20 mEq tablet extended release 20 meq PO DAILY Qty: 30 0RF Continued atorvastatin 20 mg tablet 20 mg PO QHS metformin 1,000 mg tablet 2,000 mg PO QHS losartan 100 mg tablet 100 mg PO QHS Referrals / Follow Up: Angely Weems MD [Primary Care Provider] - Within 1 Week Disposition Disposition (needs filled in before D/C Order can be placed): Home Health Service
--- NOTE | 2024-03-03 14:18 | DS.PCM_ITS ---
Providers Date of Admission: 02/21/24 Date of Discharge: 03/03/24 Primary Care Physician: Dr. Angely Weems MD Consultations 02/21/24 22:33 Consult: Wedding Makeup Artist / Pulmonary Medicine Routine Consulting Provider: Intensivists/Pulmonary Med Reason for Consult: mechanical ventilation EMERGENT Consult: No MD Notified: Yes Date Notified: 02/21/24 Time Notified: 22:33 Method of Notification: Answering Service Reason For Visit: COMMUNITY-ACQUIRED PNEUMONIA, ENTERITIS Diagnosis Discharge Diagnosis (1) COVID-19: Status: Acute Code(s): U07.1 - COVID-19 (2) Acute respiratory failure with hypoxia and hypercapnia: Status: Acute Code(s): J96.01 - Acute respiratory failure with hypoxia; J96.02 - Acute respiratory failure with hypercapnia (3) Uncontrolled hypertension: Status: Acute Code(s): I10 - Essential (primary) hypertension Plan # Acute hypoxic and hypercapnic respiratory failure * Multifactorial, thought to be due to COVID infection, fluid overload and obesity hypoventilation syndrome with probable secondary bacterial pneumonia * completed a course of remdesivir * on decadron for a 10 day course. Also on IV vancomycin and zosyn. * now off lasix drip Diuresing quite well. 2D echo showed biventricular dysfunction and borderline low left ventricular dysfunction with no regional wall motion abnormalities. * Weaned off of paralytics. * remains on 3L of oxygen. * Critical care on board. * In cumulative negative balance by 22.3 L. Has had a total output of 60 L. * Blood cultures have been negative and sputum culture showed normal respiratory lisa * remains on heparin drip * #Acute enteritis * Patient developed abdominal pain, nausea and bloating. General surgery reviewed imaging as there was concern of normal small bowel obstruction and general surgery recommends repeating the imaging more clinically stable. * Patient is not considered a surgical candidate #LENORE: resolved. #Hypokalemia: potassium is 3 today. Will replace and trend. #Hypertension: on losartan 100 mg daily. IV hydralazine prn #Type 2 diabetes mellitus: Oral meds on hold. On insulin sliding scale. Accu- Cheks every 6 hourly. On Lantus 15 units daily #Hyperlipidemia: On statin #Morbid obesity: BMI is 45. Complicates acute care, expected recovery and prognosis #Probable obesity hypoventilation syndrome: * Likely contributing to the acute hypoxic respiratory failure. * Follow-up with pulmonology on outpatient basis for proper sleep study. * #DVT prophylaxis: Heparin drip Disposition: awaiting placement. Medications at Discharge Home Medications atorvastatin 20 mg tablet 20 mg PO QHS 02/20/24 losartan 100 mg tablet 100 mg PO QHS blood pressure 02/20/24 metformin 1,000 mg tablet 2,000 mg PO QHS 02/20/24 potassium chloride 20 mEq tablet,extended release 20 meq PO DAILY #30 tabs 03/03/24 Hospital Course Operations None Procedures 2-D Echocardiogram Summary of Care Provided Minutes Spent on Discharge: 50 Hospital Course: Patient is a 63-year-old male with an extensive past medical history as outlined was admitted through the ED on 02/22/2024 with a complaint of abdominal pain which have been going on for several weeks and had been getting worse. It worsened the day of admission. He had a stent nausea but no vomiting. CT of the abdomen done on admission showed no evidence of appendicitis but did show ileitis, with inflammatory changes in the right lower quadrant.. Chest x-ray showed bilateral infiltrates consistent with pneumonia. Patient tried ambulating in the bathroom but desaturated to the 80s. Labs were significant for normal white cell count with left shift. Chest x-ray showed evidence of pneumonia as stated. Was started on IV azithromycin and Unasyn in the ED and admitted to the floor and managed for acute hypoxic respiratory failure due to community-acquired pneumonia as well as ileitis. Antibiotics were subsequently
--- NOTE | 2024-03-03 14:18 | PCM.DC.SUM ---
Providers Date of Admission: 02/21/24 Date of Discharge: 03/03/24 Primary Care Physician: Dr. Angely Weems MD Consultations 02/21/24 22:33 Consult: Security Installation Technician / Pulmonary Medicine Routine Consulting Provider: Intensivists/Pulmonary Med Reason for Consult: mechanical ventilation EMERGENT Consult: No MD Notified: Yes Date Notified: 02/21/24 Time Notified: 22:33 Method of Notification: Answering Service Reason For Visit: COMMUNITY-ACQUIRED PNEUMONIA, ENTERITIS Diagnosis Discharge Diagnosis (1) COVID-19: Status: Acute Code(s): U07.1 - COVID-19 (2) Acute respiratory failure with hypoxia and hypercapnia: Status: Acute Code(s): J96.01 - Acute respiratory failure with hypoxia; J96.02 - Acute respiratory failure with hypercapnia (3) Uncontrolled hypertension: Status: Acute Code(s): I10 - Essential (primary) hypertension Plan # Acute hypoxic and hypercapnic respiratory failure Multifactorial, thought to be due to COVID infection, fluid overload and obesity hypoventilation syndrome with probable secondary bacterial pneumonia completed a course of remdesivir on decadron for a 10 day course. Also on IV vancomycin and zosyn. now off lasix drip Diuresing quite well. 2D echo showed biventricular dysfunction and borderline low left ventricular dysfunction with no regional wall motion abnormalities. Weaned off of paralytics. remains on 3L of oxygen. Critical care on board. In cumulative negative balance by 22.3 L. Has had a total output of 60 L. Blood cultures have been negative and sputum culture showed normal respiratory lisa remains on heparin drip #Acute enteritis Patient developed abdominal pain, nausea and bloating. General surgery reviewed imaging as there was concern of normal small bowel obstruction and general surgery recommends repeating the imaging more clinically stable. Patient is not considered a surgical candidate #LENORE: resolved. #Hypokalemia: potassium is 3 today. Will replace and trend. #Hypertension: on losartan 100 mg daily. IV hydralazine prn #Type 2 diabetes mellitus: Oral meds on hold. On insulin sliding scale. Accu-Cheks every 6 hourly. On Lantus 15 units daily #Hyperlipidemia: On statin #Morbid obesity: BMI is 45. Complicates acute care, expected recovery and prognosis #Probable obesity hypoventilation syndrome: Likely contributing to the acute hypoxic respiratory failure. Follow-up with pulmonology on outpatient basis for proper sleep study. #DVT prophylaxis: Heparin drip Disposition: awaiting placement. Medications at Discharge Home Medications atorvastatin 20 mg tablet 20 mg PO QHS 02/20/24 losartan 100 mg tablet 100 mg PO QHS blood pressure 02/20/24 metformin 1,000 mg tablet 2,000 mg PO QHS 02/20/24 potassium chloride 20 mEq tablet,extended release 20 meq PO DAILY #30 tabs 03/03/24 Hospital Course Operations None Procedures 2-D Echocardiogram Summary of Care Provided Minutes Spent on Discharge: 50 Hospital Course: Patient is a 63-year-old male with an extensive past medical history as outlined was admitted through the ED on 02/22/2024 with a complaint of abdominal pain which have been going on for several weeks and had been getting worse. It worsened the day of admission. He had a stent nausea but no vomiting. CT of the abdomen done on admission showed no evidence of appendicitis but did show ileitis, with inflammatory changes in the right lower quadrant.. Chest x-ray showed bilateral infiltrates consistent with pneumonia. Patient tried ambulating in the bathroom but desaturated to the 80s. Labs were significant for normal white cell count with left shift. Chest x-ray showed evidence of pneumonia as stated. Was started on IV azithromycin and Unasyn in the ED and admitted to the floor and managed for acute hypoxic respiratory failure due to community-acquired pneumonia as well as ileitis. Antibiotics were subsequently broadened to Zosyn. Hospital course was complicated by diarrhea. Patient was initially requiring 4 L of oxygen. He had 2D echo which showed normal left ventricular size and systolic function in the lower limits of normal with mild global hypokinesis of the left ventricle and mildly dilated right ventricle with moderate global right ventricular systolic dysfunction and pulmonary systolic pressure of 30 mmHg. Patient had a prolonged and protracted hospital course with him becoming increasingly more somnolent and this was thought to be due to untreated sleep apnea. ABGs done showed elevated pCO2 and pH of 7.16. He was initially placed on AVAPS but then subsequently switched to BiPAP. Pulmonology was consulted. Patient had to be emergently intubated on 02/21/2024. COVID test done was subsequently positive. Patient was found to have elevated BNP and found to be markedly edematous. He was therefore placed on Lasix drip and patient diuresed heavily, with output of about 60 L over the course of the admission. He completed a course of remdesivir and Decadron during the admission. Patient had to be on paralytics during the admission but this was subsequently weaned off of also. General surgery was consulted due to concerns about enteritis and possible small bowel obstruction but he was noted to be a surgical candidate. Patient stated had a prolonged and protracted hospital course. He was eventually extubated to BiPAP and then subsequently to oxygen by nasal cannula. He was eventually weaned down to room air. He was eventually weaned off of the Lasix drip. He was transferred out of the ICU to the regular nursing floor. Patient worked with therapy and did well. It was thought that patient would benefit from placement but this was denied by insurance as he was able to ambulate fairly well with therapy. Patient was also refusing to go to any rehab facility. Patient was discharged home with home health on 03/03/2024. His creatinine had trended up slightly to around 2 on day of discharge. He is follow-up with his primary care doctor for repeat BMP within 1 week to monitor creatinine level. This mildly elevated creatinine was thought to be due to his prolonged diuresis. He is follow-up with his primary care doctor within 1 to 2 weeks. Patient seen and examined prior to discharge. He felt well and had no complaints. He had an uneventful night. Review of systems otherwise negative. Labs and vitals reviewed. Home medication reviewed and reconciled. Physical Exam Const alert, oriented x3, no apparent distress and well nourished Constitutional Narrative: morbid obesity General Appearance: cooperative and comfortable Orientation / Consciousness: awake HEENT normocephalic, head/scalp atraumatic, hearing grossly normal bilaterally, moist oral mucous membranes and oropharynx normal Mouth: oral and palatal mucosa normal Eyes PERRL, EOMs intact bilaterally and conjunctivae normal Neck no lymphadenopathy and supple Neck Narrative: neck is short and thick Lymph Lymphatic: no lymphadenopathy noted Resp normal respiratory effort, no retractions, no use of accessory muscles and clear to auscultation bilaterally Resp Narrative: on room air. Cardio regular rate, regular rhythm, S1 normal heart sound, S2 normal heart sound, no murmurs, no rub, no gallops and no clicks GI normal to inspection, nondistended, normoactive bowel sounds, soft to palpation and non-tender GI Narrative: obese abdomen Palpation: Negative for guarding Extremity normal to inspection, full ROM, normal capillary refill and no clubbing, cyanosis or edema General Extremity: no tenderness to palpation of joints or extremities Skin no rashes or lesions noted, no wounds and skin turgor normal General Skin Exam: no breakdown Neuro oriented x3, CN's II-XII intact bilaterally, moves all extremities, no focal motor deficits and no sensory deficits noted Sensorium / Orientation: awake and alert Speech: speech normal Motor Exam: strength 5/5 throughout and general weakness Psych thought process normal and cooperative Weight / BMI Weight Weight: 327 lb 9.71 oz Body Mass Index (BMI) 44.4 ABG / Lab / Microbiology Data 03/03/24 07:00 03/03/24 07:00 Laboratory: Laboratory Results - last 24 hr 03/02/24 18:11: POC Glucose 183 H 03/02/24 20:43: POC Glucose 174 H 03/03/24 06:22: POC Glucose 126 H 03/03/24 07:00: WBC 11.1 H, RBC 5.90, Hgb 15.0, Hct 51.3, MCV 86.9, MCH 25.4 L, MCHC 29.2 L, RDW Std Deviation 49.2 H, RDW Coeff of Ezequiel 15.5 H, Plt Count 167, MPV 12.4 H, Immature Gran % (Auto) 0.400, Neut % (Auto) 74.5 H, Lymph % (Auto) 10.5 L, Radford % (Auto) 12.3 H, Eos % (Auto) 1.9, Baso % (Auto) 0.4, Absolute Neuts (auto) 8.3 H, Absolute Lymphs (auto) 1.17, Nucleated RBC % 0, Sodium 135 L, Potassium 3.4 L, Chloride 105, Carbon Dioxide 22.0, Anion Gap 8, BUN 56 H, Creatinine 2.08 H, Estim Creat Clear Calc 53.79, Est GFR (MDRD) Af Amer 42 L, Est GFR (MDRD) Non-Af 34 L, BUN/Creatinine Ratio 26.9 H, Glucose 121 H, Calcium 8.8, Magnesium 2.6 03/03/24 11:26: POC Glucose 251 H Microbiology: Microbiology 02/20/24 23:27 Blood Culture (Wb) - Anticubital Right Blood Culture - Final No growth in 5 days. 02/20/24 23:37 Blood Culture (Wb) - Right Forearm Blood Culture - Final No growth in 5 days. 02/21/24 17:15 Sputum, Induced/Lukens Gram Stain - Final 02/21/24 17:15 Sputum, Induced/Lukens Respiratory Culture - Final Mixed normal respiratory lisa. No Streptococcus pneumoniae, beta-hemolytic Streptococcus or Staphylococcus aureus isolated. 02/22/24 07:02 Urine Catheter - Jimenez Legionella Antigen - Final 02/22/24 07:02 Urine Catheter - Jimenez Streptococcus pneumoniae Antigen (M - Final 02/22/24 07:05 Mucosa - Nasopharyngeal Respiratory Panel (PCR) - Final 02/22/24 07:05 Mucosa - Nasopharyngeal Coronavirus COVID-19 PCR - Final SARS-CoV-2 (COVID 19 PCR) 02/22/24 05:26 Nasal Secretion SARS-CoV-2 Antigen (Rapid) - Final D/C Instructions Discharge Diet: 1800 Calorie Control Diet Discharge Activity: Return to Normal Activity Weight Bearing Status: Weight bearing as tolerated Call your doctor if you observe: Fever of 101 or Higher, Shortness of breath, Dizziness, Swelling in the ankles and Chest pain DC O2, CPAP, BIPAP Needs RN Home O2 Qualification: Home O2 Qualification: Is the patient on home oxygen No 03/03/24 14:31 Home O2 Qualification: AT REST 1- Pulse Ox at rest 94 03/03/24 14:31 Home O2 Qualification: WITH AMBULATION 1- Pulse Ox with ambulation 89 03/03/24 14:31 1- Oxygen Flow Rate with 0 03/03/24 14:31 ambulation PSN CPAP & BiPAP: BiPAP & CPAP Settings per PSN Mode BiPAP 03/01/24 06:01 Bipap Delivery Device Face Mask 03/01/24 06:01 BiPAP Inspiratory Pressure 14 03/01/24 06:01 BiPAP Expiratory Pressure 6 03/01/24 06:01 BiPAP Rate 14 03/01/24 06:01 Fraction of Inspired Oxygen ( 50 03/01/24 06:01 FIO2) Home O2 Discharge instructions: No DC home with Oxygen: No Meaningful Use Info Meaningful Use Meaningful Use Diagnoses (Choose all that apply): None applicable Ischemic Stroke Statin Dosing Therapy Reference: STATIN DOSE THERAPY REFERENCE: * Patients > 75 years receive moderate or high dose statin therapy. * Patients 75 years or YOUNGER should receive HIGH intensity statin dose unless contraindicated. You will be required to document reason for non-treatment if statin daily dose does not meet guidelines. HIGH DOSE STATIN THERAPY DAILY Atorvastatin > than or = to 40 mg Rosuvastatin > than or = to 20 mg Amlodipine + Atorvastatin > than or = to 2.5/40 mg Ezetimibe + Simvastatin 10/80 mg Simvastatin 80mg Discharge Plan Admission Admit Date/Time: 02/21/24 08:37 Primary Reason for Your Visit: acute respiratory failure, covid Attending Provider: Dayana Smith Primary Care Provider: Angely Weems Consulting Providers: Alvaro Best; Alejandra Morin; Jarret Linton; Tang Yepez; Cesar Sornesen; Phi Rhoades; Miguel Hennessy; Vidal Snow; Segundo Wilson; Lidia Aguirre; Asael Cope; Felix Rodrigues; Pedro Pablo Martin; Kylee Fuller; Aj Greene; Mateusz Esparza; Fred Lobo; Bandar Melgar; Paulo Pryor; Sunita Martinez; Tc Harkins; Juan Schwartz; Herman Hunt Instructions Patient Instructions: Coronavirus Disease 2019 (COVID-19): Caring for Yourself or Others Discharge Orders/Prescriptions Prescriptions: New potassium chloride 20 mEq tablet extended release 20 meq PO DAILY Qty: 30 0RF Continued atorvastatin 20 mg tablet 20 mg PO QHS metformin 1,000 mg tablet 2,000 mg PO QHS losartan 100 mg tablet 100 mg PO QHS Referrals / Follow Up: Angely Weems MD [Primary Care Provider] - Within 1 Week Disposition Disposition (needs filled in before D/C Order can be placed): Home Health Service Charges/Coding Visit Charges Inpatient E&M: 95725 Disch Hosp >30min
[2024-03-03 14:31] VITALS: O2SAT 89; O2SAT 94
[2024-03-03 15:27] VITALS: BP 140/72; PULSE 100; RESP 22; O2SAT 93
--- NOTE | 2024-03-05 09:52 | CCN.REFER ---
[facility] on [phone] to discuss CCN weekly home visits.
--- NOTE | 2024-03-12 12:44 | CCN.REFER ---
[facility]. [facility] DOES NOT ALLOW ANYONE INTO HIS HOME.
== END 2024-03-03 15:36 | disposition home health service (06) | DRG 207 ==
LOC: ED 23:23 → MS3 02-21 03:52 → ICU 02-21 16:45 → PCU 03-03 05:35
PROVIDERS: Family Medicine; Internal Medicine; Internal Medicine Critical Care Medicine; Admitting Provider Family Medicine; Emergency Provider Emergency Medicine; PCP Family Medicine; Visit Provider Student in an Organized Health Care Education/Training Program
DX: U07.1 COVID-19 (principal); J12.82 Pneumonia due to coronavirus disease 2019; J15.9 Unspecified bacterial pneumonia; J96.01 Acute respiratory failure with hypoxia; J96.02 Acute respiratory failure with hypercapnia; K56.609 Unspecified intestinal obstruction, unspecified as to partial versus complete obstruction; E87.20 Acidosis, unspecified; L97.919 Non-pressure chronic ulcer of unspecified part of right lower leg with unspecified severity; L97.929 Non-pressure chronic ulcer of unspecified part of left lower leg with unspecified severity; E66.2 Morbid (severe) obesity with alveolar hypoventilation; I50.32 Chronic diastolic (congestive) heart failure; N17.9 Acute kidney failure, unspecified; Z68.41 Body mass index [BMI] 40.0-44.9, adult; E11.622 Type 2 diabetes mellitus with other skin ulcer; I11.0 Hypertensive heart disease with heart failure; K63.5 Polyp of colon; K64.8 Other hemorrhoids; E78.00 Pure hypercholesterolemia, unspecified; K52.9 Noninfective gastroenteritis and colitis, unspecified; E87.5 Hyperkalemia; Z79.4 Long term (current) use of insulin; R14.0 Abdominal distension (gaseous); E87.6 Hypokalemia; E87.8 Other disorders of electrolyte and fluid balance, not elsewhere classified; E87.70 Fluid overload, unspecified; Z79.84 Long term (current) use of oral hypoglycemic drugs; Z87.891 Personal history of nicotine dependence; Z79.2 Long term (current) use of antibiotics; Z79.52 Long term (current) use of systemic steroids; R01.1 Cardiac murmur, unspecified
CPT/HCPCS: 31500; 31720; 36415; 36569; 36600; 71045; 71046; 74018; 74176; 74177; 80048; 80053; 80202; 81001; 82550; 82803; 82962; 83605; 83690; 83735; 83880; 84075; 84100; 84145; 84443; 84478; 85025; 85027; 85610; 85652; 85730; 86140; 87040; 87070; 87205; 87449; 87633; 87635; 87811; 93306; 94002; 94003; 94640; 94660; 94668; 94762; 97116; 97163; 97167; 97530; 97535; 97802; 97803; 99252; 99285; Q9957; Q9967; A4216; C8929; G0463; J0248; J0295; J0612; J1940; J2405

== ENCOUNTER → 2024-03-09 | Outpatient (CLI) | payer BC, SELFPAY ==
[2024-03-09 15:05] LABS: Absolute Lymphocyte Count 0.66 X10^3/uL (0.83-4.51); Absolute Neutrophil Count 5.6 X10^3/uL (2.0-7.7); Basophil# 0.03 X10^3/uL; Basophil% 0.4 % (0-1); Eosinophil# 0.12 X10^3/uL; Eosinophils% 1.7 % (0-5); Hematocrit 47.5 % (40-54); Hemoglobin 14.2 g/dL (13.0-16.5); Lymphocyte # 0.66 X10^3/ul (0.83-4.51); Lymphocyte % 9.3 % (19-41); Mean Corp Hgb Conc 29.9 g/dL (32-36); Mean Corpuscular Volume 86.8 fL (80-94); Mean Platelet Vol. 11.4 fl (6.2-12.0); Monocyte# 0.65 X10^3/uL; Monocyte% 9.2 % (0-10); NRBC Flagged by Analyzer 0 % (0-5); Neutrophil # 5.58 X10^3/uL (2.7-7.7); Neutrophil % 78.8 % (47-70); Platelet Count 203 K/mm3 (150-450); RBC Distribution Width CV 15.2 % (11.6-14.6); RBC Distribution Width SD 48.3 fl (35.1-43.9); Red Blood Count 5.47 M/mm3 (4.6-6.2); White Blood Count 7.1 K/mm3 (4.4-11.0)
[2024-03-09 15:25] LABS: Anion Gap 5 (5-15); BUN 17 mg/dL (7-18); BUN/Creat Ratio 10.2 RATIO (10-20); Calcium,Total 9.1 mg/dL (8.5-10.1); Chloride 104 mmol/L (98-107); Creatinine, Serum 1.66 mg/dL (0.70-1.30); EST Glomerular Filtration Rate 45 mL/min (>60); Est Glom Filt Rate - Afr Amer 54 mL/min (>60); Glucose 142 mg/dL (74-106); Potassium 4.3 mmol/L (3.5-5.1); Sodium Level 138 mmol/L (136-145)
== END | disposition home or self-care (01) ==
LOC: MTLAB 11:47
PROVIDERS: PCP Family Medicine; Referring Provider Family Medicine; Visit Provider Family Medicine
DX: E87.6 Hypokalemia (principal); J96.90 Respiratory failure, unspecified, unspecified whether with hypoxia or hypercapnia
CPT/HCPCS: 36415; 80048; 85025

== ENCOUNTER → 2024-03-23 | Outpatient (CLI) | payer BC, SELFPAY ==
[2024-03-23 17:58] LABS: Basophil# 0.03 X10^3/uL; Basophil% 0.4 % (0-1); Eosinophil# 0.16 X10^3/uL; Eosinophils% 2.4 % (0-5); Hematocrit 46.9 % (40-54); Hemoglobin 13.9 g/dL (13.0-16.5); Lymphocyte % 13.4 % (19-41); Mean Corp Hgb Conc 29.6 g/dL (32-36); Mean Corpuscular Hgb 25.5 pg (27.0-32.0); Mean Corpuscular Volume 85.9 fL (80-94); Mean Platelet Vol. 10.5 fl (6.2-12.0); Monocyte# 0.65 X10^3/uL; Monocyte% 9.7 % (0-10); NRBC Flagged by Analyzer 0 % (0-5); Neutrophil # 4.98 X10^3/uL (2.7-7.7); Platelet Count 206 K/mm3 (150-450); RBC Distribution Width CV 15.3 % (11.6-14.6); RBC Distribution Width SD 48.3 fl (35.1-43.9); Red Blood Count 5.46 M/mm3 (4.6-6.2); White Blood Count 6.7 K/mm3 (4.4-11.0)
[2024-03-23 18:34] LABS: ALB/GLOB Ratio 0.9 RATIO (0.9-2.4); AST(SGOT) 27 U/L (15-37); Alanine Aminotransfer ALT/SGPT 31 U/L (16-61); Albumin, Serum 3.6 g/dL (3.2-5.0); Alkaline Phosphatase 126 U/L (45-117); Anion Gap 3 (5-15); BUN 22 mg/dL (7-18); BUN/Creat Ratio 16.3 RATIO (10-20); Calcium,Total 9.6 mg/dL (8.5-10.1); Chloride 103 mmol/L (98-107); Creatinine, Serum 1.35 mg/dL (0.70-1.30); EST Glomerular Filtration Rate 57 mL/min (>60); Est Glom Filt Rate - Afr Amer 68 mL/min (>60); Globulin 4.1 g/dL (2.2-4.2); Glucose 125 mg/dL (74-106); Potassium 4.4 mmol/L (3.5-5.1); Protein, Total 7.7 g/dL (6.4-8.2); Sodium Level 136 mmol/L (136-145)
== END | disposition home or self-care (01) ==
LOC: MFPLAB 16:32
PROVIDERS: PCP Family Medicine; Referring Provider Family Medicine; Visit Provider Family Medicine
DX: I50.9 Heart failure, unspecified (principal)

== ENCOUNTER → 2024-04-02 | Outpatient (CLI) | payer BC, SELFPAY ==
--- NOTE | 2024-04-02 17:58 | CT_ITS ---
EXAM: CT ABDOMEN AND PELVIS WITH INTRAVENOUS CONTRAST CLINICAL INDICATION: abdominal pain TECHNIQUE: Helically acquired images were obtained of the abdomen and pelvis with intravenous contrast. This CT exam was performed using one or more of the following dose reduction techniques: automated exposure control, adjustment of the mA and/or kV according to patient size, and/or use of iterative reconstruction technique. CONTRAST: 100 cc of Isovue-370 IV. With oral contrast. RADIATION DOSE: CTDIvol = 23.73 mGy, DLP = 1384.42 mGy-cm COMPARISON: 02/19/2024. FINDINGS: LOWER THORAX: Unremarkable. Lung bases are clear. No cardiomegaly. No significant pericardial effusion. ABDOMEN: LIVER: Unremarkable. Homogeneous. No focal mass. GALLBLADDER AND BILE DUCTS: Unremarkable. No calcified gallstones. No gallbladder distention or wall edema. No intra- or extrahepatic biliary ductal dilation. PANCREAS: Unremarkable. No focal cystic or solid mass. SPLEEN: Unremarkable. Normal size without focal cystic or solid mass. ADRENALS: No change in the size of the right adrenal gland nodule that measures 2 cm. On the prior exam measured up to 21 Hounsfield units in density without IV contrast which is indeterminate for an adenoma. KIDNEYS AND URETERS: Tiny nonobstructing calculus lower pole right kidney. Simple left renal cyst. No follow-up of this simple cyst is necessary. STOMACH AND BOWEL: Unremarkable. No stomach or bowel distention. No focal inflammatory change. PELVIS: APPENDIX: Normal appendix. BLADDER: Unremarkable. REPRODUCTIVE: Unremarkable as visualized. No mass. ABDOMEN and PELVIS: INTRAPERITONEAL SPACE: Unremarkable. No ascites or other fluid collection. No free air. BONES/JOINTS: Mild asymmetrical sclerosis of the supra-acetabular right innominate bone with some thickening of the cortex unchanged since previous exam may be due to Paget''s disease. No suspicious lytic or blastic abnormality. SOFT TISSUES: Unremarkable. No discrete abdominal or pelvic wall hernia. VASCULATURE: Unremarkable. Abdominal aorta is non-dilated. LYMPH NODES: Unremarkable. No enlarged lymph nodes. CT/Abdomen/Pelvis WITH Contrast IMPRESSION: 1. No acute abdominal pelvic abnormality. 2. Right adrenal gland nodule measuring 2 cm that does not definitely represent an adrenal adenoma. If there is no history of malignancy consider a follow-up low dose, non-contrast adrenal CT or chemical-shift adrenal MRI in 12 months. If there is a history of malignancy recommend a low dose, non-emergent, non-contrast adrenal CT or chemical-shift adrenal MRI follow-up study. 3. Tiny nonobstructing calculus lower pole right kidney. 4. Mild asymmetrical sclerosis of the supra-acetabular right innominate bone with some thickening of the cortex unchanged since previous exam may be due to Paget''s disease. Electronically Signed: Braxton Hennessy MD at 22:23 EST ,
== END | disposition home or self-care (01) ==
LOC: CT 17:54
PROVIDERS: PCP Family Medicine; Referring Provider Family Medicine; Visit Provider Family Medicine
DX: R10.9 Unspecified abdominal pain (principal); R93.5 Abnormal findings on diagnostic imaging of other abdominal regions, including retroperitoneum
CPT/HCPCS: 74177; Q9967

== ENCOUNTER → 2024-06-21 | Outpatient (CLI) | payer BC, SELFPAY ==
--- NOTE | 2024-06-21 13:04 | ECHOD_ITS ---
Reason For Study Reason For Study: JESSICA Procedure This was a 2D Doppler, Color Flow transthoracic echocardiogram. The study was technically difficult. Contrast injection was performed. Exam performed in department. Left Ventricle Moderately dilated left ventricle. Mild concentric left ventricular hypertrophy. The left ventricular ejection fraction is 35 %. There is moderate global hypokinesis of the left ventricle. Right Ventricle Normal RV size. Normal systolic function. Atria The left atrium is moderately enlarged. The right atrium is mildly enlarged. Tricuspid Valve Normal tricuspid valve. Unable to estimate RV systolic pressure due to insufficient tricuspid regurgitant envelope. Aortic Valve Trisinus/trileaflet aortic valve. Great Vessels Normal aortic root. The pulmonary is not well visualized. Normal inferior vena cava. Pericardium/Pleural No pericardial effusion. Medication 22 gauge I.V. with prn adaptor inserted into left arm. Diluted definity 3ml given slow IV push to enhance endocardial definition. MMode/2D Measurements & Calculations LVIDd: 6.1 cm IVSd: 1.3 cm Ao root diam: 3.8 cm LVIDs: 4.9 cm LVPWd: 1.2 cm RVDd: 4.4 cm FS: 19.2 % LAV(MOD-bp): 88.5 ml LVAd ap4: 57.8 cm2 SV(MOD-sp4): 115.0 ml LAV(MOD-bp) Indexed: 33.1 ml/m2 LVLd ap4: 10.1 cm SI(MOD-sp4): 43.0 ml/m2 LAV(MOD-sp2): 87.0 ml EDV(MOD-sp4): 266.5 ml LAV(MOD-sp4): 85.4 ml EDV(sp4-el): 280.4 ml LVAs ap4: 39.7 cm2 LVLs ap4: 8.5 cm ESV(MOD-sp4): 151.5 ml ESV(sp4-el): 157.5 ml EF(MOD-sp4): 43.1 % EF(sp4-el): 43.8 % SV(sp4-el): 122.9 ml LA dimension(2D): 4.6 cm LA A4 area: 26.4 cm2 RA A4 area: 23.4 cm2 TAPSE: 1.6 cm Time Measurements MV dec time: 0.23 sec Doppler Measurements & Calculations MV E max isaac: 88.6 cm/sec Lat Peak E' Isaac: 6.9 cm/sec Med Peak E' Isaac: 6.9 cm/sec MV A max isaac: 134.9 cm/sec E/E' lat: 12.9 E/E' med: 12.9 MV E/A: 0.66 MV V2 max: 168.9 cm/sec Ao V2 max: 177.6 cm/sec MV max P.4 mmHg MV dec slope: 393.4 cm/sec2 Ao max P.6 mmHg MV V2 mean: 89.9 cm/sec Ao V2 mean: 125.1 cm/sec MV mean P.9 mmHg Ao mean P.2 mmHg MV V2 VTI: 29.3 cm Ao V2 VTI: 32.8 cm AV (velocity ratio): 0.57 LV V1 max: 102.6 cm/sec MR max isaac: 436.6 cm/sec PA V2 max: 97.1 cm/sec LV V1 max P.2 mmHg MR max P.2 mmHg LV V1 mean P.5 mmHg LV V1 mean: 75.6 cm/sec LV V1 VTI: 18.6 cm ECHO/Echo Complete W/ Contrast Interpretation Summary The left ventricular ejection fraction is 35 %. Moderately dilated left ventricle. Mild concentric left ventricular hypertrophy. Contrast injection was performed. Ordering Physician: Isai Gonzalez V Referring Physician: Isai Gonzalez V Performed By: Ta Sandoval RCS
== END | disposition home or self-care (01) ==
PROVIDERS: PCP Family Medicine; Referring Provider Internal Medicine Pulmonary Disease; Visit Provider Internal Medicine Pulmonary Disease
DX: G47.31 Primary central sleep apnea (principal)
CPT/HCPCS: 93306; Q9957; A4216; C8929

== ENCOUNTER 2024-08-20 10:18 | Observation (INO) | payer BC, SELFPAY ==
[2024-08-15 17:07] LABS: Absolute Lymphocyte Count 0.96 X10^3/uL (0.83-4.51); Absolute Neutrophil Count 5.3 X10^3/uL (2.0-7.7); Basophil# 0.04 X10^3/uL; Basophil% 0.5 % (0-1); Eosinophil# 0.23 X10^3/uL; Eosinophils% 3.1 % (0-5); Hematocrit 48.3 % (40-54); Hemoglobin 15.1 g/dL (13.0-16.5); Lymphocyte # 0.96 X10^3/ul (0.83-4.51); Mean Corp Hgb Conc 31.3 g/dL (32-36); Mean Corpuscular Hgb 29.4 pg (27.0-32.0); Mean Platelet Vol. 11.1 fl (6.2-12.0); Monocyte% 10.9 % (0-10); NRBC Flagged by Analyzer 0 % (0-5); Neutrophil # 5.32 X10^3/uL (2.7-7.7); Neutrophil % 72.2 % (47-70); Platelet Count 178 K/mm3 (150-450); RBC Distribution Width CV 13.8 % (11.6-14.6); RBC Distribution Width SD 47.3 fl (35.1-43.9); Red Blood Count 5.14 M/mm3 (4.6-6.2); White Blood Count 7.4 K/mm3 (4.4-11.0)
[2024-08-15 17:09] LABS: International Normalized Ratio 0.9; Prothrombin Time (Protime)PT. 12.6 SECONDS (11.7-14.9)
[2024-08-15 18:30] LABS: Anion Gap 12 (5-15); BUN 34 mg/dL (4-19); BUN/Creat Ratio 23.5 RATIO (10-20); Calcium,Total 9.6 mg/dL (7.6-11.0); Carbon Dioxide 27.3 mmol/L (21.0-32.0); Chloride 98 mmol/L (98-108); Creatinine, Serum 1.46 mg/dL (0.70-1.20); EST Glomerular Filtration Rate 53 (>60); Glucose 124 mg/dL (70-99); Potassium 4.9 mmol/L (3.3-5.1); Sodium Level 137 mmol/L (133-145)
[2024-08-17 07:34] VITALS: BMI 47.5
--- OUTSIDE RECORDS SUMMARY | 2024-08-20 07:07 | XMS RPT_ITS | CCD ---
Author Organization [facility] Care Team Providers Care Supervisor Building Maintenance Name Role Phone PHYSICIAN, NONE Attending Unavailable PHYSICIAN, NONE Primary Care Unavailable Faustina FERNANDEZ, Dr. Angely Chung Primary Care Provider [phone] Dr. Andrew Cary DO Emergency Provider Nasir FERNANDEZ, Dr. John Admit Provider Nasir FERNANDEZ, Dr. John Other Provider Sarah FERNANDEZ, Dr. Dayana Antonio Attending Provider Dr. Alejandra Morin DO Other Provider Shaila FERNANDEZ, Dr. Wheat Other Provider Marleni FERNANDEZ, Dr. Beckwith Other Provider Edu FERNANDEZ, Dr. Guerrero Other Provider Dr. Phi Rhoades DO Other Provider Gerhard FERNANDEZ, Dr. Miguel Sorto Other Provider Gwendolyn FERNANDEZ, Dr. Drake Other Provider Katie FERNANDEZ, Dr. Raymond Other Provider [phone] Timothy FERNANDEZ, Dr. Murillo Other Provider Dr. Asael Cope MD Other Provider Dr. Felix Rodrigues MD Other Provider [phone] Pedro Pablo Martin MD Other Provider Dr. Kylee Fuller MD Other Provider Dr. Aj Greene MD Other Provider Unavailformerly [facility] negro Esparza MD, Dr. Child Other Provider Lashell FERNANDEZ Dr. Ibarra Other Provider Ramón FERNANDEZ, Dr. Portillo Other Provider [phone] Roya PATTON, Dr. Bates Other Provider Michelle FERNANDEZ, Dr. Dorsey Other Provider Torin PATTON, Dr. Montez Other Provider Efren FERNANDEZ, Dr. Martinez Other Provider [phone] Gilbert FERNANDEZ, Dr. Sutton Other Provider Jf PATTON, Dr. Yip Attending Provider Sarah FERNANDEZ, Dr. Dayana Antonio Referring Provider Sarah FERNANDEZ, Dr. Dayana Antonio Other Provider Faustina FERNANDEZ, Dr. Angely Chung Attending Provider Faustina FERNANDEZ, Dr. Angely Chung Referring Provider Lisa FERNANDEZ, Dr. Isai Bundy Attending Provider Lisa FERNANDEZ, Dr. Isai Bundy Referring Provider James FERNANDEZ, Dr. Duran Attending Provider Faustina FERNANDEZ, Dr. Angely Chung Primary Care Provider Faustina FERNANDEZ, Dr. Angely Chung Attending Provider Faustina FERNANDEZ, Dr. Angely Chung Referring Provider Jose Miguel FERNANDEZ, Dr. Crandall Attending Provider Alvaro Best Admitting Unavailable Alvaro Best Consulting Unavailable Angely Weems Primary Care Unavailable Dayana Smith Attending Unavailable Alejandra Morin Consulting Unavailable Jarret Linton Consulting Unavailable Tang Yepez Consulting Unavailable Cesar Sorensen Consulting Unavailable Phi Rhoades Consulting Unavailable Miguel Hennessy Consulting Unavailable Vidal Snow Consulting Unavailable Segundo Wilson Consulting Unavailable Lidia Aguirre Consulting Unavailab Asael Damon Consulting Unavailable Felix Rodrigues Consulting Unavailable Pedro Pablo Martin Consulting Unavailable Alina, Kylee Consulting Unavailable Aljundi, Lamia Consulting Unavailable Isaias, Mateusz Consulting Unavailable Irukulla, Fred Consulting Unavailable Ramón, Bandar Consulting Unavailable Dhesi, Paulo Consulting Unavailable Sunita Martinez Consulting Unavailable Fanytroh, Tc Consulting Unavailable Efren, Juan Consulting Unavailable Herman Hunt Consulting Unavailable Koram, Dayana Marisela Consulting Unavailable Jolliff, Angely S Attending Unavailable Jolliff, Angely S Primary Care Unavailable Jolliff, Angely S Referring Unavailable Jose Miguel, Karley Referring Unavailable Jose Miguel, Karley Attending Unavailable Jolliff, Angely S Primary Care Unavailable Koram, Dayana Marisela Referring Unavailable Phi Rhoades Attending Unavailable Jolliff, Angely S Attending Unavailable Jolliff, Angely S Primary Care Unavailable JamesRoger Attending Unavailable Jolliff, Angely S Primary Care Unavailable Jolliff, Angely S Primary Care Unavailable JamesRoger Attending Unavailable Jolliff, Angely S Primary Care Unavailable Jolliff, Angely S Referring Unavailable Jolliff, Angely S Attending Unavailable Jolliff, Angely S Primary Care Unavailable Jolliff, Angely S Referring Unavailable Jolliff, Angely S Attending Unavailable Alejandra Morin Attending Unavailable Jose Miguel, Karley Attending Unavailable Jolliff, Angely S Primary Care Unavailable Jolliff, Angely S Referring Unavailable BestAlvaro Attending Unavailable Jolliff, Angely S Primary Care Unavailable BestAlvaro Consulting Unavailable BestAlvaro Admitting Unavailable Jolliff, Angely S Primary Care Unavailable Koram, Dayana Marisela Attending Unavailable Alejandra Morin Consulting Unavailable Jarret Linton Consulting Unavailable Tang Yepez Consulting Unavailable Cesar Sorensen Consulting Unavailable Phi Rhoades Consulting Unavailable Miguel Hennessy Consulting Unavailable Vidal Snow Consulting Unavailable Katie, Segundo Consulting Unavailable Lidia Aguirre Consulting Unavailab Asael Damon Consulting Unavailable Felix Rodrigues Consulting Unavailable Pedro Pablo Martin Consulting Unavailable Alina, Kylee Consulting Unavailable Aljundi, Lamia Consulting Unavailable Isaias, Mateusz Consulting Unavailable Irukulla, Fred Consulting Unavailable Ramón, Bandar Consulting Unavailable Dhesi, Paulo Consulting Unavailable Sunita Martinez Consulting Unavailable Marianonstroh, Tc Consulting Unavailable Efren, Juan Consulting Unavailable Herman Hunt Consulting Unavailable Isai Gonzalez V Attending Unavailable Jolliff, Angely S Primary Care Unavailable Isai Gonzalez V Referring Unavailable Angely Weems Attending Unavailable Angely Weems Primary Care Unavailable Angely Weems Referring Unavailable Medications Current Medications Medication Drug Class(es) Dates Sig (Normalized) Sig (Original) atorvastatin 20 mg oral tablet (2 sources) HMG-CoA Reductase Inhibitor Start: 4 take 1 tablet by mouth at bedtime Atorvastatin 20 mg tablet Active 20 mg PO AT BEDTIME February 20, 2024 1:00am hydroCHLOROthiazide 25 mg oral tablet (1 source) Thiazide Diuretic Start: 5 take 1 tablet by mouth once daily Hydrochlorothiazide 25 mg tablet Active 25 mg PO daily July 26, 2024 12:00am levothyroxine sodium 0.112 mg oral tablet (1 source) l-Thyroxine Start: 5 take 1 tablet by mouth once daily Levothyroxine 112 mcg tablet Active 112 ug PO daily July 19, 2024 12:00am losartan potassium 100 mg oral tablet (2 sources) Angiotensin 2 Receptor Wm Start: 4 take 1 tablet by mouth at bedtime Losartan 100 mg tablet Active 100 mg PO AT BEDTIME February 20, 2024 1:00am metFORMIN hydrochloride 1000 mg oral tablet (2 sources) Biguanide Start: 4 take 2 tablets by mouth at bedtime Metformin 1,000 mg tablet Active 2000 mg PO AT BEDTIME February 20, 2024 1:00am Completed/Discontinued Medications Medication Drug Class(es) Dates Sig (Normalized) Sig (Original) potassium chloride 20 meq extended release oral tablet (2 sources) Start: 03-03-2024 End: 07-19-2024 take 1 tablet by mouth once daily Potassium Chloride 20 mEq tablet extended release Discontinued 20 meq PO DAILY March 03, 2024 1:00am July 19, 2024 11:31am Problems Active Problems Problem Classification Problem Date Documented Da te Episodic/Chronic Congestive heart failure; nonhypertensive (6 sources) Chronic systolic heart failure; Translations: [Chronic systolic (congestive) heart failure] Onset: 5 07-26-2024 Chronic Diabetes mellitus without complication (6 sources) Diabetes mellitus; Translations: [Type 2 diabetes mellitus without complications] Onset: 5 03-11-2024 Chronic Disorders of lipid metabolism (7 sources) Hypercholesterolemia; Translations: [Pure hypercholesterolemia, unspecified] Onset: 5 03-11-2024 Chronic Esophageal disorders (4 sources) Gastroesophageal reflux disease; Translations: [Gastro-esophageal reflux disease without esophagitis] 03-28-2020 Chronic Essential hypertension (10 sources) Hypertensive disorder; Translations: [Essential (primary) hypertension] Onset: 5 03-28-2020 Chronic Gastrointestinal hemorrhage (4 sources) Rectal hemorrhage; Translations: [Hemorrhage of anus and rectum] 03-13-2020 Episodic Heart valve disorders (5 sources) Heart murmur; Translations: [Cardiac murmur, unspecified] Onset: 5 03-28-2020 Episodic Malaise and fatigue (6 sources) Fatigue; Translations: [Other fatigue] Onset: 5 03-28-2020 Episodic Other lower respiratory disease (3 sources) Hypoxia; Translations: [Hypoxemia] 03-11-2024 Episodic Other nutritional; endocrine; and metabolic disorders (5 sources) Morbid obesity; Translations: [Morbid (severe) obesity due to excess calories] 03-13-2020 Chronic Other nutritional; endocrine; and metabolic disorders (2 sources) Body mass index 40+ - severely obese; Translations: [Morbid (severe) obesity due to excess calories] 07-26-2024 Chronic Other nutritional; endocrine; and metabolic disorders (2 sources) Morbid (severe) obesity due to excess calories; Translations: [Morbid (severe) obesity due to excess calories] Onset: 5 Chronic Other nutritional; endocrine; and metabolic disorders (1 source) Body mass index (BMI) 45.0-49.9, adult; Translations: [Body mass index [BMI] 45.0-49.9, adult] Onset: 5 Chronic Other screening for suspected conditions (not mental disorders or infectious disease) (4 sources) Abnormal findings on diagnostic imaging of other specified body structures; Translations: [Abnormal chest x-ray] Onset: 5 03-11-2024 Chronic Other screening for suspected conditions (not mental disorders or infectious disease) (2 sources) Echocardiogram abnormal; Translations: [Abnormal findings on diagnostic imaging of heart and coronary circulation] Onset: 5 07-19-2024 Episodic Nica-; endo-; and myocarditis; cardiomyopathy (except that caused by tuberculosis or sexually transmitted disease) (4 sources) Cardiomyopathy; Translations: [Cardiomyopathy, unspecified] Onset: 5 07-26-2024 Chronic Residual codes; unclassified (2 sources) Obstructive sleep apnea syndrome; Translations: [Obstructive sleep apnea (adult) (pediatric)] 07-26-2024 Chronic Residual codes; unclassified (1 source) Obstructive sleep apnea (adult) (pediatric); Translations: [Obstructive sleep apnea (adult) (pediatric)] Onset: 5 Chronic Residual codes; unclassified (1 source) Primary central sleep apnea; Translations: [Primary central sleep apnea] Onset: 5 Chronic Residual codes; unclassified (3 sources) History of cardiac catheterization; Translations: [Other specified postprocedural states] 03-28-2020 Episodic Viral infection (3 sources) Disease caused by 2019-nCoV; Translations: [COVID-19] 03-11-2024 Episodic Viral infection (1 source) COVID-19; Translations: [COVID-19] Onset: Past or Other Problems Problem Classification Problem Date Documented Date Episodic/Chronic Abdominal hernia (1 source) Unspecified abdominal hernia without obstruction or gangrene; Translations: [Unspecified abdominal hernia without obstruction or gangrene] Onset: 02-20-2024 Episodic Abdominal pain (1 source) Unspecified abdominal pain; Translations: [Unspecified abdominal pain] Onset: 04-20-2024 Episodic Fluid and electrolyte disorders (1 source) Hypokalemia; Translations: [Hypokalemia] Onset: 04-05-2024 Episodic Noninfectious gastroenteritis (4 sources) Enteritis of small intestine; Translations: [Noninfective gastroenteritis and colitis, unspecified] Onset: 03-15-2024 03-11-2024 Episodic Other lower respiratory disease (1 source) Hypoxemia; Translations: [Hypoxemia] Onset: 03-15-2024 Episodic Other lower respiratory disease (1 source) Shortness of breath; Translations: [Shortness of breath] Onset: 03-15-2024 Episodic Other lower respiratory disease (1 source) Dyspnea, unspecified; Translations: [Dyspnea, unspecified] Onset: 01-20-2024 Episodic Pneumonia (except that caused by tuberculosis or sexually transmitted disease) (2 sources) Pneumonia; Translations: [Pneumonia, unspecified organism] Onset: 03-15-2024 03-03-2024 Episodic Respiratory failure; insufficiency; arrest (adult) (5 sources) Acute hypoxemic and hypercapnic respiratory failure; Translations: [Acute respiratory failure with hypoxia] Onset: 03-15-2024 03-11-2024 Episodic Results Test Name Value Interpretation Reference Range Facility Basic Metabolic Profile (BMP )on 08-15-2024 BUN/CRE 23.5 RATIO High 10-20 [facility] Comment on above: Performed By: #### L 100.0100, L500.2500, L300.3900 ####[facility] [address] [place], [address] Calcium [Mass/Vol] 9.6 mg/dL Normal 7.6-11.0 [facility] Comment on above: Performed By: #### L 100.0100, L500.2500, L300.3900 ####[facility] [address] [place], [address] Chloride [Moles/Vol] 98 mmol/L Normal 98-108 [facility] Comment on above: Performed By: #### L 100.0100, L500.2500, L300.3900 ####[facility] [address] [place], [address] CO2 [Moles/Vol] 27.3 mmol/L Normal 21.0-32.0 [facility] Comment on above: Performed By: #### L 100.0100, L500.2500, L300.3900 ####[facility] [address] [place], [address] Creatinine [Mass/Vol] 1.46 mg/dL High 0.70-1.20 [facility] Comment on above: Performed By: #### L 100.0100, L500.2500, L300.3900 ####[facility] [address] [place], [address] GAP 12 Normal 5-15 [facility] Comment on above: Performed By: #### L 100.0100, L500.2500, L300.3900 ####[facility] [address] [place], [address] GFR/1.73 sq M.predicted among non-blacks MDRD (S/P/Bld) [Vol rate/Area] 53 mL/min/{1.73_m2} Low >60 [facility] Comment on above: Result Comment: mL/m in/1.73m2 CKD-EPI Creatinine Equation (2020) Performed By: #### L 100.0100, L500.2500, L300.3900 ####[facility] [address] [place], [address] Glucose [Mass/Vol] 124 mg/dL High 70-99 [facility] Comment on above: Performed By: #### L 100.0100, L500.2500, L300.3900 ####[facility] [address] [place], [address] Potassium [Moles/Vol] 4.9 mmol/L Normal 3.3-5.1 [facility] Comment on above: Result Comment: Hemo lysis present, Results??could be affected.?? Performed By: #### L 100.0100, L500.2500, L300.3900 ####[facility] [address] [place], [address] Sodium [Moles/Vol] 137 mmol/L Normal 133-145 [facility] Comment on above: Performed By: #### L 100.0100, L500.2500, L300.3900 ####[facility] [address] [place], [address] Urea nitrogen [Mass/Vol] 34 mg/dL High 4-19 [facility] Comment on above: Performed By: #### L 100.0100, L500.2500, L300.3900 ####[facility] [address] [place], [address] CBC W/Diff, Automatedon 06-0 4-2025 Absolute Lymph 0.96 X10 3/uL Normal 0.83-4.51 [facility] Comment on above: Performed By: #### L 100.0100, L500.2500, L300.3900 ####[facility] [address] [place], [address] Absolute Neut 5.3 X10 3/uL Normal 2.0-7.7 [facility] Comment on above: Performed By: #### L 100.0100, L500.2500, L300.3900 ####[facility] [address] [place], [address] Basophils/100 WBC (Bld) 0.5 % Normal 0-1 [facility] Comment on above: Performed By: #### L 100.0100, L500.2500, L300.3900 ####[facility] [address] [place], [address] Eosinophils/100 WBC (Bld) 3.1 % Normal 0-5 [facility] Comment on above: Performed By: #### L 100.0100, L500.2500, L300.3900 ####[facility] [address] [place], [address] Erythrocyte distribution width (RBC) [Ratio] 13.8 % Normal 11.6-14.6 [facility] Comment on above: Performed By: #### L 100.0100, L500.2500, L300.3900 ####[facility] [address] [place], [address] Hematocrit (Bld) [Volume fraction] 48.3 % Normal 40-54 [facility] Comment on above: Performed By: #### L 100.0100, L500.2500, L300.3900 ####[facility] [address] [place], [address] Hemoglobin (Bld) [Mass/Vol] 15.1 g/dL Normal 13.0-16.5 [facility] Comment on above: Performed By: #### L 100.0100, L500.2500, L300.3900 ####[facility] [address] [place], [address] IG% 0.300 Normal 0.0-0.9 [facility] Comment on above: Result Comment: IG% - Immature Granulocytes (promyelocytes, myelocytes andmetamyelocytes) > 1% indicates that a LEFT SHIFT is Present. Performed By: #### L 100.0100, L500.2500, L300.3900 ####[facility] [address] [place], [address] Lymphocytes/100 WBC (Bld) 13.0 % Low 19-41 [facility] Comment on above: Performed By: #### L 100.0100, L500.2500, L300.3900 ####[facility] [address] [place], [address] MCH (RBC) [Entitic mass] 29.4 pg Normal 27.0-32.0 [facility] Comment on above: Performed By: #### L 100.0100, L500.2500, L300.3900 ####[facility] [address] [place], [address] MCHC (RBC) [Mass/Vol] 31.3 g/dL Low 32-36 [facility] Comment on above: Performed By: #### L 100.0100, L500.2500, L300.3900 ####[facility] [address] [place], [address] MCV (RBC) [Entitic vol] 94.0 fL Normal 80-94 [facility] Comment on above: Performed By: #### L 100.0100, L500.2500, L300.3900 ####[facility] [address] [place], [address] Monocytes/100 WBC (Bld) 10.9 % High 0-10 [facility] Comment on above: Performed By: #### L 100.0100, L500.2500, L300.3900 ####[facility] [address] [place], [address] Neutrophils/100 WBC (Bld) 72.2 % High 47-70 [facility] Comment on above: Performed By: #### L 100.0100, L500.2500, L300.3900 ####[facility] [address] [place], [address] Nucleated RBC (Bld) [#/Vol] 0 10*3/uL Normal 0-5 [facility] Comment on above: Performed By: #### L 100.0100, L500.2500, L300.3900 ####[facility] [address] [place], [address] Platelet mean volume (Bld) [Entitic vol] 11.1 fL Normal 6.2-12.0 [facility] Comment on above: Performed By: #### L 100.0100, L500.2500, L300.3900 ####[facility] [address] [place], [address] Platelets (Bld) [#/Vol] 178 10*3/uL Normal 150-450 [facility] Comment on above: Performed By: #### L 100.0100, L500.2500, L300.3900 ####[facility] [address] [place], [address] RBC (Bld) [#/Vol] 5.14 10*6/uL Normal 4.6-6.2 [facility] Comment on above: Performed By: #### L 100.0100, L500.2500, L300.3900 ####[facility] [address] [place], [address] RDW SD 47.3 fl High 35.1-43.9 [facility] Comment on above: Performed By: #### L 100.0100, L500.2500, L300.3900 ####[facility] [address] [place], [address] WBC (Bld) [#/Vol] 7.4 10*3/uL Normal 4.4-11.0 [facility] Comment on above: Performed By: #### L 100.0100, L500.2500, L300.3900 ####[facility] [address] [place], [address] Prothrombin Time w/INRon INR Coag (PPP) [Relative time] 0.9 {INR} Normal [facility] Comment on above: Performed By: #### L 100.0100, L500.2500, L300.3900 ####[facility] [address] [place], [address] PT Coag (PPP) [Time] 12.6 s Normal 11.7-14.9 [facility] Comment on above: Performed By: #### L 100.0100, L500.2500, L300.3900 ####[facility] [address] [place], [address] Cardiology Visit Reporton Cardiology Visit Report Normal [facility] Echo Complete W/ Contraston 06-21-2024 Echo Complete W/ Contrast Normal [facility] Echocardiogram study reportO rdered By: Roger Ramirez on 06-21-2024 Study report [facility] [address] [place] [address] Echo Complete W/ Contrast 06/21/24 1312 MR#: [id number] Acct: [id number] Name: HERMINIA OREILLY Rep #:[id number] : 1960 63 From: Roger Vincent Attending Dr: Dr. Isai Gonzalez MD Status: REG CLI Ordering Dr: Isai Gonzalez MD Date: 06/21/24 Location: [facility] Sex: M C Admitted: Reason For Study Reason For Study: JESSICA Procedure This was a 2D Doppler, Color Flow transthoracic echocardiogram. The study was technically difficult. Contrast injection was performed. Exam performed in department. Left Ventricle Moderately dilated left ventricle. Mild concentric left ventricular hypertrophy.The left ventricular ejection fraction is 35 %. There is moderate global hypokinesis of the left ventricle. Right Ventricle Normal RV size. Normal systolic function. Atria The left atrium is moderately enlarged. The right atrium is mildly enlarged. Tricuspid Valve Normal tricuspid valve. Unable to estimate RV systolic pressure due to insufficient tricuspid regurgitant envelope. Aortic Valve Trisinus/trileaflet aortic valve. Great Vessels Normal aortic root. The pulmonary is not well visualized. Normal inferior vena cava. Pericardium/Pleural No pericardial effusion. Medication 22 gauge I.V. with prn adaptor inserted into left arm. Diluted definity 3ml given slow IV push to enhance endocardial definition. MMode/2D Measurements & Calculations LVIDd: 6.1 cm IVSd: 1.3 cm Ao root diam: 3.8 cm LVIDs: 4.9 cm LVPWd: 1.2 cm RVDd: 4.4 cm FS: 19.2 % LAV(MOD-bp): 88.5 ml LVAd ap4: 57.8 cm2 SV(MOD-sp4): 115.0 ml LAV(MOD-bp) Indexed: 33.1 ml/m2 LVLd ap4: 10.1 cm SI(MOD-sp4): 43.0 ml/m2 LAV(MOD-sp2): 87.0 ml EDV(MOD-sp4): 266.5 ml LAV(MOD-sp4): 85.4 ml EDV(sp4-el): 280.4 ml LVAs ap4: 39.7 cm2 LVLs ap4: 8.5 cm ESV(MOD-sp4): 151.5 ml ESV(sp4-el): 157.5 ml EF(MOD-sp4): 43.1 % EF(sp4-el): 43.8 % SV(sp4-el): 122.9 ml LA dimension(2D): 4.6 cm LA A4 area: 26.4 cm2 ____ RA A4 area: 23.4 cm2 TAPSE: 1.6 cm Time Measurements MV dec time: 0.23 sec Doppler Measurements & Calculations MV E max jules: 88.6 cm/sec Lat Peak E' Jules: 6.9 cm/sec Med Peak E' Jules: 6.9 cm/sec MV A max jules: 134.9 cm/sec E/E' lat: 12.9 E/E' med: 12.9 MV E/A: 0.66 MV V2 max: 168.9 cm/sec Ao V2 max: 177.6 cm/sec MV max P.4 mmHg MV dec slope: 393.4 cm/sec2 Ao max P.6 mmHg MV V2 mean: 89.9 cm/sec Ao V2 mean: 125.1 cm/sec MV mean P.9 mmHg Ao mean P.2 mmHg MV V2 VTI: 29.3 cm Ao V2 VTI: 32.8 cm AV (velocity ratio): 0.57 LV V1 max: 102.6 cm/sec MR max jules: 436.6 cm/sec PA V2 max: 97.1 cm/sec LV V1 max P.2 mmHg MR max P.2 mmHg LV V1 mean P.5 mmHg LV V1 mean: 75.6 cm/sec LV V1 VTI: 18.6 cm ECHO/Echo Complete W/ Contrast Interpretation Summary The left ventricular ejection fraction is 35 %. Moderately dilated left ventricle. Mild concentric left ventricular hypertrophy. Contrast injection was performed. Ordering Physician: Isai Gonzalez V Referring Physician: Isai Gonzalez V Performed By: Ta Sandoval RCS 06/21/24 1557 Date _ Roger Ramirez MD CC: Dr. Angely Weems MD; Dr. Isai Gonzalez MD ~ Date Dictated: 06/21/24 1312 Date Transcribed: 06/21/24 1557 Protein Chemist: Signed [facility] Work Phone: Abdomen/Pelvis WITH Contrast on 04-02-2024 Abdomen/Pelvis WITH Contrast Normal [facility] Absolute neutrophil countOrd ered By: Angely Weems on 03-23-2024 Neutrophils (Bld) [#/Vol] 5.0 10*3/uL 2.0-7.7 [facility] Albumin to globulin ratioOrd ered By: Angely Weems on 03-23-2024 Albumin/Globulin [Mass ratio] 0.9 {ratio} 0.9-2.4 [facility] Basophil percentageOrdered B y: Angely Weems on 03-23-2024 Basophils/100 WBC (Bld) 0.4 % 0-1 [facility] Bilirubin, totalOrdered By: Angely Weems on 03-23-2024 Bilirubin [Mass/Vol] 0.50 mg/dL 0.20-1.00 [facility] Comment on above: For patients on eltr ombopag therapy, use of Dimension [place] TBIL is not recommended. Blood urea nitrogen (BUN)/cr eatinine ratioOrdered By: Angely Weems on 03-23-2024 Urea nitrogen/Creatinine [Mass ratio] 16.3 mg/mg 12-31 [facility] CBC W/Diff, Automatedon 03-14 Absolute Lymph 0.90 X10 3/uL Normal 0.83-4.51 [facility] Comment on above: Performed By: #### L 500.4050, L501.9520, L100.0100 ####[facility] [address] [place], [address] Absolute Neut 5.0 X10 3/uL Normal 2.0-7.7 [facility] Comment on above: Performed By: #### L 500.4050, L501.9520, L100.0100 ####[facility] [address] [place], [address] Basophils/100 WBC (Bld) 0.4 % Normal 0-1 [facility] Comment on above: Performed By: #### L 500.4050, L501.9520, L100.0100 ####[facility] [address] [place], [address] Eosinophils/100 WBC (Bld) 2.4 % Normal 0-5 [facility] Comment on above: Performed By: #### L 500.4050, L501.9520, L100.0100 ####[facility] [address] [place], [address] Erythrocyte distribution width (RBC) [Ratio] 15.3 % High 11.6-14.6 [facility] Comment on above: Performed By: #### L 500.4050, L501.9520, L100.0100 ####[facility] [address] [place], [address] Hematocrit (Bld) [Volume fraction] 46.9 % Normal 40-54 [facility] Comment on above: Performed By: #### L 500.4050, L501.9520, L100.0100 ####[facility] [address] [place], [address] Hemoglobin (Bld) [Mass/Vol] 13.9 g/dL Normal 13.0-16.5 [facility] Comment on above: Performed By: #### L 500.4050, L501.9520, L100.0100 ####[facility] [address] [place], [address] IG% 0.100 Normal 0.0-0.9 [facility] Comment on above: Result Comment: IG% - Immature Granulocytes (promyelocytes, myelocytes andmetamyelocytes) > 1% indicates that a LEFT SHIFT is Present. Performed By: #### L 500.4050, L501.9520, L100.0100 ####[facility] [address] [place], [address] Lymphocytes/100 WBC (Bld) 13.4 % Low 19-41 [facility] Comment on above: Performed By: #### L 500.4050, L501.9520, L100.0100 ####[facility] [address] [place], [address] MCH (RBC) [Entitic mass] 25.5 pg Low 27.0-32.0 [facility] Comment on above: Performed By: #### L 500.4050, L501.9520, L100.0100 ####[facility] [address] [place], [address] MCHC (RBC) [Mass/Vol] 29.6 g/dL Low 32-36 [facility] Comment on above: Performed By: #### L 500.4050, L501.9520, L100.0100 ####[facility] [address] [place], [address] MCV (RBC) [Entitic vol] 85.9 fL Normal 80-94 [facility] Comment on above: Performed By: #### L 500.4050, L501.9520, L100.0100 ####[facility] [address] [place], [address] Monocytes/100 WBC (Bld) 9.7 % Normal 0-10 [facility] Comment on above: Performed By: #### L 500.4050, L501.9520, L100.0100 ####[facility] [address] [place], [address] Neutrophils/100 WBC (Bld) 74.0 % High 47-70 [facility] Comment on above: Performed By: #### L 500.4050, L501.9520, L100.0100 ####[facility] [address] [place], [address] Nucleated RBC (Bld) [#/Vol] 0 10*3/uL Normal 0-5 [facility] Comment on above: Performed By: #### L 500.4050, L501.9520, L100.0100 ####[facility] [address] [place], [address] Platelet mean volume (Bld) [Entitic vol] 10.5 fL Normal 6.2-12.0 [facility] Comment on above: Performed By: #### L 500.4050, L501.9520, L100.0100 ####[facility] [address] [place], [address] Platelets (Bld) [#/Vol] 206 10*3/uL Normal 150-450 [facility] Comment on above: Performed By: #### L 500.4050, L501.9520, L100.0100 ####[facility] [address] [place], [address] RBC (Bld) [#/Vol] 5.46 10*6/uL Normal 4.6-6.2 [facility] Comment on above: Performed By: #### L 500.4050, L501.9520, L100.0100 ####[facility] [address] [place], [address] RDW SD 48.3 fl High 35.1-43.9 [facility] Comment on above: Performed By: #### L 500.4050, L501.9520, L100.0100 ####[facility] [address] [place], [address] WBC (Bld) [#/Vol] 6.7 10*3/uL Normal 4.4-11.0 [facility] Comment on above: Performed By: #### L 500.4050, L501.9520, L100.0100 ####[facility] [address] [place], [address] Carbon dioxide measurementOr dered By: Angely Weems on 03-23-2024 CO2 [Moles/Vol] 30.0 mmol/L 21.0-32.0 [facility] Chloride measurementOrdered By: Angely Weems on 03-23-2024 Chloride [Moles/Vol] 103 mmol/L 98-107 [facility] Comprehensive Metabolic Prof ilon 03-23-2024 Albumin [Mass/Vol] 3.6 g/dL Normal 3.2-5.0 [facility] Comment on above: Performed By: #### L 500.4050, L501.9520, L100.0100 ####[facility] [address] [place], [address] Albumin/Globulin [Mass ratio] 0.9 {ratio} Normal 0.9-2.4 [facility] Comment on above: Performed By: #### L 500.4050, L501.9520, L100.0100 ####[facility] [address] [place], [address] ALK P 126 U/L High 45-117 [facility] Comment on above: Performed By: #### L 500.4050, L501.9520, L100.0100 ####[facility] [address] [place], [address] ALT [Catalytic activity/Vol] 31 U/L Normal 16-61 [facility] Comment on above: Performed By: #### L 500.4050, L501.9520, L100.0100 ####[facility] [address] [place], [address] AST [Catalytic activity/Vol] 27 U/L Normal 15-37 [facility] Comment on above: Performed By: #### L 500.4050, L501.9520, L100.0100 ####[facility] [address] [place], [address] Bilirubin [Mass/Vol] 0.50 mg/dL Normal 0.20-1.00 [facility] Comment on above: Result Comment: For patients on eltrombopag therapy, use of Dimension [place] TBIL is not recommended. Performed By: #### L 500.4050, L501.9520, L100.0100 ####[facility] [address] [place], [address] BUN/CRE 16.3 RATIO Normal 10-20 [facility] Comment on above: Performed By: #### L 500.4050, L501.9520, L100.0100 ####[facility] [address] [place], [address] CA,Total 9.6 mg/dL Normal 8.5-10.1 [facility] Comment on above: Performed By: #### L 500.4050, L501.9520, L100.0100 ####[facility] [address] [place], [address] Chloride [Moles/Vol] 103 mmol/L Normal 98-107 [facility] Comment on above: Performed By: #### L 500.4050, L501.9520, L100.0100 ####[facility] [address] [place], [address] CO2 [Moles/Vol] 30.0 mmol/L Normal 21.0-32.0 [facility] Comment on above: Performed By: #### L 500.4050, L501.9520, L100.0100 ####[facility] [address] [place], [address] Creatinine [Mass/Vol] 1.35 mg/dL High 0.70-1.30 [facility] Comment on above: Result Comment: The validity of the calculated GFR GFRAA in patients over70 years has not been determined. Clinical correlation isessential. Performed By: #### L 500.4050, L501.9520, L100.0100 ####[facility] [address] [place], [address] EST GFR - AA 68 mL/min Normal >60 [facility] Comment on above: Result Comment: Afri can [place] GFR Calc Performed By: #### L 500.4050, L501.9520, L100.0100 ####[facility] [address] [place], [address] GAP 3 Low 5-15 [facility] Comment on above: Performed By: #### L 500.4050, L501.9520, L100.0100 ####[facility] [address] [place], [address] GFR/1.73 sq M.predicted among non-blacks MDRD (S/P/Bld) [Vol rate/Area] 57 mL/min/{1.73_m2} Low >60 [facility] Comment on above: Result Comment: Non- GFR Calc Performed By: #### L 500.4050, L501.9520, L100.0100 ####[facility] [address] [place], [address] Globulin (S) [Mass/Vol] 4.1 g/dL Normal 2.2-4.2 [facility] Comment on above: Performed By: #### L 500.4050, L501.9520, L100.0100 ####[facility] [address] [place], [address] Glucose [Mass/Vol] 125 mg/dL High 74-106 [facility] Comment on above: Result Comment: Fast ing Glucose result from 100 to 125 mg/dLsuggests IMPAIRED HOMEOSTASIS per A.D.A. criteria. Performed By: #### L 500.4050, L501.9520, L100.0100 ####[facility] [address] [place], [address] Potassium [Moles/Vol] 4.4 mmol/L Normal 3.5-5.1 [facility] Comment on above: Performed By: #### L 500.4050, L501.9520, L100.0100 ####[facility] [address] [place], [address] Sodium [Moles/Vol] 136 mmol/L Normal 136-145 [facility] Comment on above: Performed By: #### L 500.4050, L501.9520, L100.0100 ####[facility] [address] [place], [address] T PROT 7.7 g/dL Normal 6.4-8.2 [facility] Comment on above: Performed By: #### L 500.4050, L501.9520, L100.0100 ####[facility] [address] [place], [address] Urea nitrogen [Mass/Vol] 22 mg/dL High 7-18 [facility] Comment on above: Performed By: #### L 500.4050, L501.9520, L100.0100 ####[facility] [address] [place], [address] Eosinophil percentageOrdered By: Angely Weems on 03-23-2024 Eosinophils/100 WBC (Bld) 2.4 % 0-5 [facility] Erythrocyte distribution wid th (RBC) [Ratio]Ordered By: Angely Weems on 03-23-2024 Erythrocyte distribution width (RBC) [Entitic vol] 48.3 fL High 35.1-43.9 [facility] Erythrocyte distribution wid th ratioOrdered By: Angely Weems on 03-23-2024 Erythrocyte distribution width (RBC) [Ratio] 15.3 % High 11.6-14.6 [facility] Estimated glomerular filtrat ion rate (GFR) AmericanOrdered By: Angely Weems on 03-23-2024 Estimated GFR (MDRD) Amer 68 mL/min >60 [facility] Comment on above: GFR Calc Glomerular filtration rate ( GFR) estimationOrdered By: Angely Weems on 03-23-2024 Estimated GFR (MDRD) Non-Af Amer 57 mL/min Low >60 [facility] Comment on above: Non- GFR Calc Glucose measurementOrdered B y: Angely Weems on 03-23-2024 Glucose [Mass/Vol] 125 mg/dL High 74-106 [facility] Comment on above: Fasting Glucose resu lt from 100 to 125 mg/dL suggests IMPAIRED HOMEOSTASIS per A.D.A. criteria. Hematocrit Auto (Bld) [Volum e fraction]Ordered By: Angely Weems on 03-23-2024 Hematocrit (Bld) [Volume fraction] 46.9 % 40-54 [facility] Hemoglobin measurementOrdere d By: Angely Weems on 03-23-2024 Hemoglobin (Bld) [Mass/Vol] 13.9 g/dL 13.0-16.5 [facility] Immature granulocytes/100 WB C Auto (Bld)Ordered By: Angely Weems on 03-23-2024 Immature granulocytes/100 WBC (Bld) 0.100 % 0.0-0.9 [facility] Comment on above: IG% - Immature Granu locytes (promyelocytes, myelocytes and metamyelocytes) > 1% indicates that a LEFT SHIFT is Present. Laboratory - Chemistry and C hemistry - challengeOrdered By: Angely Weems on 03-23-2024 AST [Catalytic activity/Vol] 27 U/L 15-37 [facility] Lymphocytes Auto (Unsp spec) [#/Vol]Ordered By: Angely Weems on 03-23-2024 Lymphocytes (Bld) [#/Vol] 0.90 10*3/uL 0.83-4.51 [facility] Lymphocytes/100 WBC Auto (Un sp spec)Ordered By: Angely Weems on 03-23-2024 Lymphocytes/100 WBC (Bld) 13.4 % Low 19-41 [facility] MCV (mean corpuscular volume ) determinationOrdered By: Angely Weems on 03-23-2024 MCV (RBC) [Entitic vol] 85.9 fL 80-94 [facility] Mean corpuscular hemoglobin (MCH) determinationOrdered By: Angely Weems on 03-23-2024 MCH (RBC) [Entitic mass] 25.5 pg Low 27.0-32.0 [facility] Mean corpuscular hemoglobin concentration (MCHC) determinationOrdered By: Angely Weems on 03-23-2024 MCHC (RBC) [Mass/Vol] 29.6 g/dL Low 32-36 [facility] Mean platelet volume determi nationOrdered By: Angely Weems on 03-23-2024 Platelet mean volume (Bld) [Entitic vol] 10.5 fL 6.2-12.0 [facility] Monocyte percentageOrdered B y: Angely Weems on 03-23-2024 Monocytes/100 WBC (Bld) 9.7 % 0-10 [facility] Neutrophil percentageOrdered By: Angely Weems on 03-23-2024 Neutrophils/100 WBC (Bld) 74.0 % High 47-70 [facility] Nucleated red blood cell per centageOrdered By: Angely Weems on 03-23-2024 Nucleated RBC/100 WBC (Bld) [Ratio] 0 % 0-5 [facility] Platelet countOrdered By: Bartolo Weems on 03-23-2024 Platelets (Bld) [#/Vol] 206 10*3/uL 150-450 [facility] Potassium measurementOrdered By: Angely Weems on 03-23-2024 Potassium [Moles/Vol] 4.4 mmol/L 3.5-5.1 [facility] RBC Auto (Bld) [#/Vol]Ordere d By: Angely Weems on 03-23-2024 RBC (Bld) [#/Vol] 5.46 10*6/uL 4.6-6.2 [facility] Serum anion gap measurementO rdered By: Angely Weems on 03-23-2024 Anion gap [Moles/Vol] 3 mmol/L Low 5-15 [facility] Serum globulin measurementOr dered By: Angely Weems on 03-23-2024 Globulin (S) [Mass/Vol] 4.1 g/dL 2.2-4.2 [facility] Serum or plasma alanine umana otransferase (ALT) measurementOrdered By: Angely Weems on 03-23-2024 ALT [Catalytic activity/Vol] 31 U/L 16-61 [facility] Serum or plasma albumin nikkie urement (mass/volume)Ordered By: Angely Weems on 03-23-2024 Albumin [Mass/Vol] 3.6 g/dL 3.2-5.0 [facility] Serum or plasma alkaline iglesia sphatase measurementOrdered By: Angely Weems on 03-23-2024 ALP [Catalytic activity/Vol] 126 U/L High 45-117 [facility] Serum or plasma calcium nikkie urement (mass/volume)Ordered By: Angely Weems on 03-23-2024 Calcium [Mass/Vol] 9.6 mg/dL 8.5-10.1 [facility] Serum or plasma creatinine m easurement (mass/volume)Ordered By: Angely Weems on 03-23-2024 Creatinine [Mass/Vol] 1.35 mg/dL High 0.70-1.30 [facility] Comment on above: The validity of the calculated GFR & GFRAA in patients over 70 years has not been determined. Clinical correlation is essential. Serum or plasma urea nitroge n measurement (mass/volume)Ordered By: Angely Weems on 03-23-2024 Urea nitrogen [Mass/Vol] 22 mg/dL High 7-18 [facility] Sodium levelOrdered By: Angely Weems on 03-23-2024 Sodium [Moles/Vol] 136 mmol/L 136-145 [facility] TSH QnOrdered By: Angely Cabral f on 03-23-2024 Thyroid Stimulating Hormone (TSH) 4.030 uIU/mL High 0.358-3.740 [facility] Thyroid Stim Hormone (TSH)on 03-23-2024 TSH 4.030 uIU/mL High 0.358-3.740 [facility] Comment on above: Performed By: #### L 500.4050, L501.9520, L100.0100 ####[facility] [address] [place], [address] Total proteinOrdered By: Angely Weems on 03-23-2024 Protein [Mass/Vol] 7.7 g/dL 6.4-8.2 [facility] White blood cell (WBC) count Ordered By: Angely Weems on 03-23-2024 WBC (Bld) [#/Vol] 6.7 10*3/uL 4.4-11.0 [facility] Absolute neutrophil countOrd ered By: Angely Weems on 03-09-2024 Neutrophils (Bld) [#/Vol] 5.6 10*3/uL 2.0-7.7 [facility] Basic Metabolic Profile (BMP )on 03-09-2024 BUN/CRE 10.2 RATIO Normal 10-20 [facility] Comment on above: Performed By: #### L 100.0100, L500.2500 ####[facility] [address] [place], [address] CA,Total 9.1 mg/dL Normal 8.5-10.1 [facility] Comment on above: Performed By: #### L 100.0100, L500.2500 ####[facility] [address] [place], [address] Chloride [Moles/Vol] 104 mmol/L Normal 98-107 [facility] Comment on above: Performed By: #### L 100.0100, L500.2500 ####[facility] [address] [place], [address] CO2 [Moles/Vol] 29.0 mmol/L Normal 21.0-32.0 [facility] Comment on above: Performed By: #### L 100.0100, L500.2500 ####[facility] [address] [place], [address] Creatinine [Mass/Vol] 1.66 mg/dL High 0.70-1.30 [facility] Comment on above: Result Comment: The validity of the calculated GFR GFRAA in patients over70 years has not been determined. Clinical correlation isessential. Performed By: #### L 100.0100, L500.2500 ####[facility] [address] [place], [address] EST GFR - AA 54 mL/min Low >60 [facility] Comment on above: Result Comment: Afri can [place] GFR Calc Performed By: #### L 100.0100, L500.2500 ####[facility] [address] [place], [address] GAP 5 Normal 5-15 [facility] Comment on above: Performed By: #### L 100.0100, L500.2500 ####[facility] [address] [place], [address] GFR/1.73 sq M.predicted among non-blacks MDRD (S/P/Bld) [Vol rate/Area] 45 mL/min/{1.73_m2} Low >60 [facility] Comment on above: Result Comment: Non- GFR Calc Performed By: #### L 100.0100, L500.2500 ####[facility] [address] [place], [address] Glucose [Mass/Vol] 142 mg/dL High 74-106 [facility] Comment on above: Result Comment: Fast ing Glucose result greater than or equal to 126 mg/dLsuggests DIABETES MELLITUS per A.D.A. criteria. Performed By: #### L 100.0100, L500.2500 ####[facility] [address] [place], [address] Potassium [Moles/Vol] 4.3 mmol/L Normal 3.5-5.1 [facility] Comment on above: Performed By: #### L 100.0100, L500.2500 ####[facility] [address] [place], [address] Sodium [Moles/Vol] 138 mmol/L Normal 136-145 [facility] Comment on above: Performed By: #### L 100.0100, L500.2500 ####[facility] [address] [place], [address] Urea nitrogen [Mass/Vol] 17 mg/dL Normal 7-18 [facility] Comment on above: Performed By: #### L 100.0100, L500.2500 ####[facility] [address] [place], [address] Basophil percentageOrdered B y: Angely Weems on 03-09-2024 Basophils/100 WBC (Bld) 0.4 % 0-1 [facility] Blood urea nitrogen (BUN)/cr eatinine ratioOrdered By: Angely Weems on 03-09-2024 Urea nitrogen/Creatinine [Mass ratio] 10.2 mg/mg 10-20 [facility] CBC W/Diff, Automatedon 12- Absolute Lymph 0.66 X10 3/uL Low 0.83-4.51 [facility] Comment on above: Performed By: #### L 100.0100, L500.2500 ####[facility] [address] [place], [address] Absolute Neut 5.6 X10 3/uL Normal 2.0-7.7 [facility] Comment on above: Performed By: #### L 100.0100, L500.2500 ####[facility] [address] [place], [address] Basophils/100 WBC (Bld) 0.4 % Normal 0-1 [facility] Comment on above: Performed By: #### L 100.0100, L500.2500 ####[facility] [address] [place], [address] Eosinophils/100 WBC (Bld) 1.7 % Normal 0-5 [facility] Comment on above: Performed By: #### L 100.0100, L500.2500 ####[facility] [address] [place], [address] Erythrocyte distribution width (RBC) [Ratio] 15.2 % High 11.6-14.6 [facility] Comment on above: Performed By: #### L 100.0100, L500.2500 ####[facility] [address] [place], [address] Hematocrit (Bld) [Volume fraction] 47.5 % Normal 40-54 [facility] Comment on above: Performed By: #### L 100.0100, L500.2500 ####[facility] [address] [place], [address] Hemoglobin (Bld) [Mass/Vol] 14.2 g/dL Normal 13.0-16.5 [facility] Comment on above: Performed By: #### L 100.0100, L500.2500 ####[facility] [address] [place], [address] IG% 0.600 Normal 0.0-0.9 [facility] Comment on above: Result Comment: IG% - Immature Granulocytes (promyelocytes, myelocytes andmetamyelocytes) > 1% indicates that a LEFT SHIFT is Present. Performed By: #### L 100.0100, L500.2500 ####[facility] [address] [place], [address] Lymphocytes/100 WBC (Bld) 9.3 % Low 19-41 [facility] Comment on above: Performed By: #### L 100.0100, L500.2500 ####[facility] [address] [place], [address] MCH (RBC) [Entitic mass] 26.0 pg Low 27.0-32.0 [facility] Comment on above: Performed By: #### L 100.0100, L500.2500 ####[facility] [address] [place], [address] MCHC (RBC) [Mass/Vol] 29.9 g/dL Low 32-36 [facility] Comment on above: Performed By: #### L 100.0100, L500.2500 ####[facility] [address] [place], [address] MCV (RBC) [Entitic vol] 86.8 fL Normal 80-94 [facility] Comment on above: Performed By: #### L 100.0100, L500.2500 ####[facility] [address] [place], [address] Monocytes/100 WBC (Bld) 9.2 % Normal 0-10 [facility] Comment on above: Performed By: #### L 100.0100, L500.2500 ####[facility] [address] [place], [address] Neutrophils/100 WBC (Bld) 78.8 % High 47-70 [facility] Comment on above: Performed By: #### L 100.0100, L500.2500 ####[facility] [address] [place], [address] Nucleated RBC (Bld) [#/Vol] 0 10*3/uL Normal 0-5 [facility] Comment on above: Performed By: #### L 100.0100, L500.2500 ####[facility] [address] [place], [address] Platelet mean volume (Bld) [Entitic vol] 11.4 fL Normal 6.2-12.0 [facility] Comment on above: Performed By: #### L 100.0100, L500.2500 ####[facility] [address] [place], [address] Platelets (Bld) [#/Vol] 203 10*3/uL Normal 150-450 [facility] Comment on above: Performed By: #### L 100.0100, L500.2500 ####[facility] [address] [place], [address] RBC (Bld) [#/Vol] 5.47 10*6/uL Normal 4.6-6.2 [facility] Comment on above: Performed By: #### L 100.0100, L500.2500 ####[facility] [address] [place], [address] RDW SD 48.3 fl High 35.1-43.9 [facility] Comment on above: Performed By: #### L 100.0100, L500.2500 ####[facility] [address] [place], [address] WBC (Bld) [#/Vol] 7.1 10*3/uL Normal 4.4-11.0 [facility] Comment on above: Performed By: #### L 100.0100, L500.2500 ####[facility] [address] [place], [address] Carbon dioxide measurementOr dered By: Angely Weems on 03-09-2024 CO2 [Moles/Vol] 29.0 mmol/L 21.0-32.0 [facility] Chloride measurementOrdered By: Angely Weems on 03-09-2024 Chloride [Moles/Vol] 104 mmol/L 98-107 [facility] Eosinophil percentageOrdered By: Angely Weems on 03-09-2024 Eosinophils/100 WBC (Bld) 1.7 % 0-5 [facility] Erythrocyte distribution wid th (RBC) [Ratio]Ordered By: Angely Weems on 03-09-2024 Erythrocyte distribution width (RBC) [Entitic vol] 48.3 fL High 35.1-43.9 [facility] Erythrocyte distribution wid th ratioOrdered By: Angely Weems on 03-09-2024 Erythrocyte distribution width (RBC) [Ratio] 15.2 % High 11.6-14.6 [facility] Estimated glomerular filtrat ion rate (GFR) AmericanOrdered By: Angely Weems on 03-09-2024 Estimated GFR (MDRD) Amer 54 mL/min Low >60 [facility] Comment on above: GFR Calc Glomerular filtration rate ( GFR) estimationOrdered By: Angely Weems on 03-09-2024 Estimated GFR (MDRD) Non-Af Amer 45 mL/min Low >60 [facility] Comment on above: Non- GFR Calc Glucose measurementOrdered B y: Angely Weems on 03-09-2024 Glucose [Mass/Vol] 142 mg/dL High 74-106 [facility] Comment on above: Fasting Glucose resu lt greater than or equal to 126 mg/dL suggests DIABETES MELLITUS per A.D.A. criteria. Hematocrit Auto (Bld) [Volum e fraction]Ordered By: Angely Weems on 03-09-2024 Hematocrit (Bld) [Volume fraction] 47.5 % 40-54 [facility] Hemoglobin measurementOrdere d By: Angely Weems on 03-09-2024 Hemoglobin (Bld) [Mass/Vol] 14.2 g/dL 13.0-16.5 [facility] Immature granulocytes/100 WB C Auto (Bld)Ordered By: Angely Weems on 03-09-2024 Immature granulocytes/100 WBC (Bld) 0.600 % 0.0-0.9 [facility] Comment on above: IG% - Immature Granu locytes (promyelocytes, myelocytes and metamyelocytes) > 1% indicates that a LEFT SHIFT is Present. Lymphocytes Auto (Unsp spec) [#/Vol]Ordered By: Angely Weems on 03-09-2024 Lymphocytes (Bld) [#/Vol] 0.66 10*3/uL Low 0.83-4.51 [facility] Lymphocytes/100 WBC Auto (Un sp spec)Ordered By: Angely Weems on 03-09-2024 Lymphocytes/100 WBC (Bld) 9.3 % Low 19-41 [facility] MCV (mean corpuscular volume ) determinationOrdered By: Angely Weems on 03-09-2024 MCV (RBC) [Entitic vol] 86.8 fL 80-94 [facility] Mean corpuscular hemoglobin (MCH) determinationOrdered By: Angely Weems on 03-09-2024 MCH (RBC) [Entitic mass] 26.0 pg Low 27.0-32.0 [facility] Mean corpuscular hemoglobin concentration (MCHC) determinationOrdered By: Angely Weems on 03-09-2024 MCHC (RBC) [Mass/Vol] 29.9 g/dL Low 32-36 [facility] Mean platelet volume determi nationOrdered By: Angely Weems on 03-09-2024 Platelet mean volume (Bld) [Entitic vol] 11.4 fL 6.2-12.0 [facility] Monocyte percentageOrdered B y: Angely Weems on 03-09-2024 Monocytes/100 WBC (Bld) 9.2 % 0-10 [facility] Neutrophil percentageOrdered By: Angely Weems on 03-09-2024 Neutrophils/100 WBC (Bld) 78.8 % High 47-70 [facility] Nucleated red blood cell per centageOrdered By: Angely Weems on 03-09-2024 Nucleated RBC/100 WBC (Bld) [Ratio] 0 % 0-5 [facility] Platelet countOrdered By: Bartolo Weems on 03-09-2024 Platelets (Bld) [#/Vol] 203 10*3/uL 150-450 [facility] Potassium measurementOrdered By: Angely Weems on 03-09-2024 Potassium [Moles/Vol] 4.3 mmol/L 3.5-5.1 [facility] RBC Auto (Bld) [#/Vol]Ordere d By: Angely Weems on 03-09-2024 RBC (Bld) [#/Vol] 5.47 10*6/uL 4.6-6.2 [facility] Serum anion gap measurementO rdered By: Angely Weems on 03-09-2024 Anion gap [Moles/Vol] 5 mmol/L 5-15 [facility] Serum or plasma calcium nikkie urement (mass/volume)Ordered By: Angely Weems on 03-09-2024 Calcium [Mass/Vol] 9.1 mg/dL 8.5-10.1 [facility] Serum or plasma creatinine m easurement (mass/volume)Ordered By: Angely Weems on 03-09-2024 Creatinine [Mass/Vol] 1.66 mg/dL High 0.70-1.30 [facility] Comment on above: The validity of the calculated GFR & GFRAA in patients over 70 years has not been determined. Clinical correlation is essential. Serum or plasma urea nitroge n measurement (mass/volume)Ordered By: Angely Weems on 03-09-2024 Urea nitrogen [Mass/Vol] 17 mg/dL 7-18 [facility] Sodium levelOrdered By: Angely Weems on 03-09-2024 Sodium [Moles/Vol] 138 mmol/L 136-145 [facility] White blood cell (WBC) count Ordered By: Angely Weems on 03-09-2024 WBC (Bld) [#/Vol] 7.1 10*3/uL 4.4-11.0 [facility] Absolute neutrophil countOrd ered By: Dayana Smith on 03-03-2024 Neutrophils (Bld) [#/Vol] 8.3 10*3/uL High 2.0-7.7 [facility] Automated blood erythrocyte countOrdered By: Dayana Smith on 03-03-2024 RBC (Bld) [#/Vol] 5.90 10*6/uL Normal 4.6-6.2 [facility] Comment on above: Performed By: #### L 500.2500, L100.0100 ####[facility] [address] [facility] [address] Automated blood hematocrit ( percentage)Ordered By: Dayana Smith on 03-03-2024 Hematocrit (Bld) [Volume fraction] 51.3 % Normal 40-54 [facility] Comment on above: Performed By: #### L 500.2500, L100.0100 ####[facility] [address] [place], [address] Automated lymphocyte count a s percentage of total leukocytesOrdered By: Dayana Smith on 03-03-2024 Lymphocytes/100 WBC (Bld) 10.5 % Low 19-41 [facility] Comment on above: Performed By: #### L 500.2500, L100.0100 ####[facility] [address] [place], [address] Basic Metabolic Profile (BMP )on 03-03-2024 BUN/CRE 26.9 RATIO High 10-20 [facility] Comment on above: Performed By: #### L 500.2500, L100.0100 ####[facility] [address] [place], [address] CA,Total 8.8 mg/dL Normal 8.5-10.1 [facility] Comment on above: Performed By: #### L 500.2500, L100.0100 ####[facility] [address] [place], [address] ECRCL 53.79 ml/min Normal [facility] Comment on above: Performed By: #### L 500.2500, L100.0100 ####[facility] [address] [place], [address] EST GFR - AA 42 mL/min Low >60 [facility] Comment on above: Result Comment: Afri can [place] GFR Calc Performed By: #### L 500.2500, L100.0100 ####[facility] [address] [place], [address] GAP 8 Normal 5-15 [facility] Comment on above: Performed By: #### L 500.2500, L100.0100 ####[facility] [address] [place], [address] GFR/1.73 sq M.predicted among non-blacks MDRD (S/P/Bld) [Vol rate/Area] 34 mL/min/{1.73_m2} Low >60 [facility] Comment on above: Result Comment: Non- GFR Calc Performed By: #### L 500.2500, L100.0100 ####[facility] [address] [place], [address] Basophil percentageOrdered B y: Dayana Smith on 03-03-2024 Basophils/100 WBC (Bld) 0.4 % Normal 0-1 [facility] Comment on above: Performed By: #### L 500.2500, L100.0100 ####[facility] [address] [place], [address] Bedside Glucoseon 03-03-2024 FINGERSTICK GLU 251 mg/dL High 74-106 [facility] Comment on above: Result Comment: Dr Darrius hastings FollowedInsulin GivenMANAGEMENT OF PATIENT CARE PER NURSING PROTOCOL Performed By: #### L 501.080 ####[facility] [address] [place], [address] FINGERSTICK GLU 126 mg/dL High 74-106 [facility] Comment on above: Result Comment: RADHA GEMENT OF PATIENT CARE PER NURSING PROTOCOL Performed By: #### L 501.080 ####[facility] [address] [place], [address] Blood urea nitrogen (BUN)/cr eatinine ratioOrdered By: Dayana Smith on 03-03-2024 Urea nitrogen/Creatinine [Mass ratio] 26.9 mg/mg High 10-20 [facility] CBC W/Diff, Automatedon 02-12 Absolute Lymph 1.17 X10 3/uL Normal 0.83-4.51 [facility] Comment on above: Performed By: #### L 500.2500, L100.0100 ####[facility] [address] [place], [address] Absolute Neut 8.3 X10 3/uL High 2.0-7.7 [facility] Comment on above: Performed By: #### L 500.2500, L100.0100 ####[facility] [address] [place], [address] IG% 0.400 Normal 0.0-0.9 [facility] Comment on above: Result Comment: IG% - Immature Granulocytes (promyelocytes, myelocytes andmetamyelocytes) > 1% indicates that a LEFT SHIFT is Present. Performed By: #### L 500.2500, L100.0100 ####[facility] [address] [place], [address] Nucleated RBC (Bld) [#/Vol] 0 10*3/uL Normal 0-5 [facility] Comment on above: Performed By: #### L 500.2500, L100.0100 ####[facility] [address] [place], [address] RDW SD 49.2 fl High 35.1-43.9 [facility] Comment on above: Performed By: #### L 500.2500, L100.0100 ####[facility] [address] [place], [address] Carbon dioxide measurementOr dered By: Dayana Smith on 03-03-2024 CO2 [Moles/Vol] 22.0 mmol/L Normal 21.0-32.0 [facility] Comment on above: Performed By: #### L 500.2500, L100.0100 ####[facility] [address] [place], [address] Chloride measurementOrdered By: Dayana Smith on 03-03-2024 Chloride [Moles/Vol] 105 mmol/L Normal 98-107 [facility] Comment on above: Performed By: #### L 500.2500, L100.0100 ####[facility] [address] [place], [address] Discharge Instructionon 12-2023 Discharge Instruction Normal [facility] Eosinophil percentageOrdered By: Dayana Smith on 03-03-2024 Eosinophils/100 WBC (Bld) 1.9 % Normal 0-5 [facility] Comment on above: Performed By: #### L 500.2500, L100.0100 ####[facility] [address] [place], [address] Erythrocyte distribution wid th (RBC) [Ratio]Ordered By: Dayana Smith on 03-03-2024 Erythrocyte distribution width (RBC) [Entitic vol] 49.2 fL High 35.1-43.9 [facility] Erythrocyte distribution wid th ratioOrdered By: Dayana Sarah on 03-03-2024 Erythrocyte distribution width (RBC) [Ratio] 15.5 % High 11.6-14.6 [facility] Comment on above: Performed By: #### L 500.2500, L100.0100 ####[facility] [address] [place], [place], [id number] Estimated glomerular filtrat ion rate (GFR) AmericanOrdered By: Dayana Smith on 03-03-2024 Estimated GFR (MDRD) Amer 42 mL/min Low >60 [facility] Comment on above: GFR Calc Estimation of creatinine eliseo aranceOrdered By: Dayana Smith on 03-03-2024 Estimated Creatinine Clearance Calc 53.79 ml/min [facility] Glomerular filtration rate ( GFR) estimationOrdered By: Dayana Smith on 03-03-2024 Estimated GFR (MDRD) Non-Af Amer 34 mL/min Low >60 [facility] Comment on above: Non- GFR Calc Glucose measurementOrdered B y: Dayana Smith on 03-03-2024 Glucose [Mass/Vol] 121 mg/dL High 74-106 [facility] Comment on above: Fasting Glucose resu lt from 100 to 125 mg/dL suggests IMPAIRED HOMEOSTASIS per A.D.A. criteria. Result Comment: Fast ing Glucose result from 100 to 125 mg/dLsuggests IMPAIRED HOMEOSTASIS per A.D.A. criteria. Performed By: #### L 500.2500, L100.0100 ####[facility] [address] [place], [place], [id number] Glucose measurement at bedsi deOrdered By: Dayana Smith on 03-03-2024 Bedside Glucose (Misc Panel) 251 mg/dL High 74-106 [facility] Comment on above: Dr Jameel reese GivenMANAGEMENT OF PATIENT CARE PER NURSING PROTOCOL Hemoglobin measurementOrdere d By: Dayana Smith on 03-03-2024 Hemoglobin (Bld) [Mass/Vol] 15.0 g/dL Normal 13.0-16.5 [facility] Comment on above: Performed By: #### L 500.2500, L100.0100 ####[facility] [address] [place], [address] Immature granulocytes/100 WB C Auto (Bld)Ordered By: Dayana Smith on 03-03-2024 Immature granulocytes/100 WBC (Bld) 0.400 % 0.0-0.9 [facility] Comment on above: IG% - Immature Granu locytes (promyelocytes, myelocytes and metamyelocytes) > 1% indicates that a LEFT SHIFT is Present. Lymphocytes Auto (Unsp spec) [#/Vol]Ordered By: Dayana Smith on 03-03-2024 Lymphocytes (Bld) [#/Vol] 1.17 10*3/uL 0.83-4.51 [facility] MCV (mean corpuscular volume ) determinationOrdered By: Dayana Smith on 03-03-2024 MCV (RBC) [Entitic vol] 86.9 fL Normal 80-94 [facility] Comment on above: Performed By: #### L 500.2500, L100.0100 ####[facility] [address] [facility] [place], [address] Magnesium measurementOrdered By: Cecil Garay on 03-03-2024 Magnesium [Mass/Vol] 2.6 mg/dL Normal 1.6-2.6 [facility] Comment on above: Performed By: #### L 501.5200 ####[facility] [address] [place], [address] Mean corpuscular hemoglobin (MCH) determinationOrdered By: Dayana Smith on 03-03-2024 MCH (RBC) [Entitic mass] 25.4 pg Low 27.0-32.0 [facility] Comment on above: Performed By: #### L 500.2500, L100.0100 ####[facility] [address] [place], [address] Mean corpuscular hemoglobin concentration (MCHC) determinationOrdered By: Dayana Jeaninebartolo on 03-03-2024 MCHC (RBC) [Mass/Vol] 29.2 g/dL Low 32-36 [facility] Comment on above: Performed By: #### L 500.2500, L100.0100 ####[facility] [address] [place], [address] Mean platelet volume determi nationOrdered By: Dayanacarolyn Smith on 03-03-2024 Platelet mean volume (Bld) [Entitic vol] 12.4 fL High 6.2-12.0 [facility] Comment on above: Performed By: #### L 500.2500, L100.0100 ####[facility] [address] [place], [address] Monocyte percentageOrdered B y: Dayana Smith on 03-03-2024 Monocytes/100 WBC (Bld) 12.3 % High 0-10 [facility] Comment on above: Performed By: #### L 500.2500, L100.0100 ####[facility] [address] [place], [address] Neutrophil percentageOrdered By: Dayana Sarah on 03-03-2024 Neutrophils/100 WBC (Bld) 74.5 % High 47-70 [facility] Comment on above: Performed By: #### L 500.2500, L100.0100 ####[facility] [address] [place], [address] Nucleated red blood cell per centageOrdered By: Dayana Smith on 03-03-2024 Nucleated RBC/100 WBC (Bld) [Ratio] 0 % 0-5 [facility] Platelet countOrdered By: Deandra Smith on 03-03-2024 Platelets (Bld) [#/Vol] 167 10*3/uL Normal 150-450 [facility] Comment on above: Performed By: #### L 500.2500, L100.0100 ####[facility] [address] [place], [address] Potassium measurementOrdered By: Dayana Solorzanobartolo on 03-03-2024 Potassium [Moles/Vol] 3.4 mmol/L Low 3.5-5.1 [facility] Comment on above: Performed By: #### L 500.2500, L100.0100 ####[facility] [address] [place], [address] Serum anion gap measurementO rdered By: Dayana Jeaninebartolo on 03-03-2024 Anion gap [Moles/Vol] 8 mmol/L 5-15 [facility] Serum or plasma calcium nikkie urement (mass/volume)Ordered By: Dayana Jeaninebartolo on 03-03-2024 Calcium [Mass/Vol] 8.8 mg/dL 8.5-10.1 [facility] Serum or plasma creatinine m easurement (mass/volume)Ordered By: Dayana Jeaninebartolo on 03-03-2024 Creatinine [Mass/Vol] 2.08 mg/dL High 0.70-1.30 [facility] Comment on above: The validity of the calculated GFR & GFRAA in patients over 70 years has not been determined. Clinical correlation is essential. Result Comment: The validity of the calculated GFR GFRAA in patients over70 years has not been determined. Clinical correlation isessential. Performed By: #### L 500.2500, L100.0100 ####[facility] [address] [place], [address] Serum or plasma urea nitroge n measurement (mass/volume)Ordered By: Dayana Jeaninebartolo on 03-03-2024 Urea nitrogen [Mass/Vol] 56 mg/dL High 7-18 [facility] Comment on above: Performed By: #### L 500.2500, L100.0100 ####[facility] [address] [place], [address] Sodium levelOrdered By: Dayanacarolyn Smith on 03-03-2024 Sodium [Moles/Vol] 135 mmol/L Low 136-145 [facility] Comment on above: Performed By: #### L 500.2500, L100.0100 ####[facility] [address] [place], [address] White blood cell (WBC) count Ordered By: Dayana Smith on 03-03-2024 WBC (Bld) [#/Vol] 11.1 10*3/uL High 4.4-11.0 [facility] Comment on above: Performed By: #### L 500.2500, L100.0100 ####[facility] [address] [place], [address] Albumin to globulin ratioOrd ered By: Herman Hunt on 03-02-2024 Albumin/Globulin [Mass ratio] 0.8 {ratio} Low 0.9-2.4 [facility] Basic Metabolic Profile (BMP )on 03-02-2024 BUN Normal 7-18 [facility] Comment on above: Result Comment: @DUP LICATE Performed By: #### L 500.2500, L100.0100 ####[facility] [address] [place], [address] BUN/CRE Normal 10-20 [facility] Comment on above: Result Comment: @DUP LICATE Performed By: #### L 500.2500, L100.0100 ####[facility] [address] [place], [address] CA,Total Normal 8.5-10.1 [facility] Comment on above: Result Comment: @DUP LICATE Performed By: #### L 500.2500, L100.0100 ####[facility] [address] [place], [address] CL Normal 98-107 [facility] Comment on above: Result Comment: @DUP LICATE Performed By: #### L 500.2500, L100.0100 ####[facility] [address] [place], [address] CO2 Normal 21.0-32.0 [facility] Comment on above: Result Comment: @DUP LICATE Performed By: #### L 500.2500, L100.0100 ####[facility] [address] [place], [address] CREAT,SERUM Normal 0.70-1.30 [facility] Comment on above: Result Comment: @DUP LICATE Performed By: #### L 500.2500, L100.0100 ####[facility] [address] [place], [address] EST GFR Normal >60 [facility] Comment on above: Result Comment: @DUP LICATE Performed By: #### L 500.2500, L100.0100 ####[facility] [address] [place], [address] EST GFR - AA Normal >60 [facility] Comment on above: Result Comment: @DUP LICATE Performed By: #### L 500.2500, L100.0100 ####[facility] [address] [place], [address] GAP Normal 5-15 [facility] Comment on above: Result Comment: @DUP LICATE Performed By: #### L 500.2500, L100.0100 ####[facility] [address] [place], [address] GLU Normal 74-106 [facility] Comment on above: Result Comment: @DUP LICATE Performed By: #### L 500.2500, L100.0100 ####[facility] [address] [place], [address] Potassium Normal 3.5-5.1 [facility] Comment on above: Result Comment: @DUP LICATE Performed By: #### L 500.2500, L100.0100 ####[facility] [address] [place], [address] Basic Metabolic Profile (BMP) Normal 136-145 [facility] Comment on above: Result Comment: @DUP LICATE Performed By: #### L 500.2500, L100.0100 ####[facility] [address] [place], [address] Bedside Glucoseon 03-02-2024 FINGERSTICK GLU 174 mg/dL High 74-106 [facility] Comment on above: Result Comment: RADHA GEMENT OF PATIENT CARE PER NURSING PROTOCOL Performed By: #### L 501.080 ####[facility] [address] [place], [address] FINGERSTICK GLU 183 mg/dL High [facility]106 [facility] Comment on above: Result Comment: RADHA GEMENT OF PATIENT CARE PER NURSING PROTOCOL Performed By: #### L 501.080 ####[facility] [address] [place], [address] FINGERSTICK GLU 226 mg/dL High [facility]106 [facility] Comment on above: Result Comment: RADHA GEMENT OF PATIENT CARE PER NURSING PROTOCOL Performed By: #### L 501.080 ####[facility] [address] [place], [address] FINGERSTICK GLU 131 mg/dL High [facility]106 [facility] Comment on above: Result Comment: RADHA GEMENT OF PATIENT CARE PER NURSING PROTOCOL Performed By: #### L 501.080 ####[facility] [address] [place], [address] FINGERSTICK GLU 164 mg/dL High 74-[address] [place] [address] Comment on above: Result Comment: RADHA GEMENT OF PATIENT CARE PER NURSING PROTOCOL Performed By: #### L 501.080 ####[facility] [address] [place], [address] Bilirubin, totalOrdered By: Herman Hunt on 03-02-2024 Bilirubin [Mass/Vol] 1.30 mg/dL High 0.20-1.00 [facility] Comment on above: For patients on eltr ombopag therapy, use of Dimension [place] TBIL is not recommended. CBC W/Diff, Automatedon 12-2 PATH REV Reviewed Normal [facility] Comment on above: Result Comment: Neut rophilic leukocytosis.Clinical correlation necessary.Terry Vasquez M.D. 03/02/24 AMENDED REPORT 03/02/24 2227 PATH REV previously reported as: July Performed By: #### L 500.2500, L100.0100 ####[facility] [address] [place], [address] Absolute Lymph 0.93 X10 3/uL Normal 0.83-4.51 [facility] Comment on above: Performed By: #### L 500.2500, L100.0100 ####[facility] [address] [place], [address] Absolute Neut 9.5 X10 3/uL High 2.0-7.7 [facility] Comment on above: Performed By: #### L 500.2500, L100.0100 ####[facility] [address] [place], [address] Basophils/100 WBC (Bld) 0.3 % Normal 0-1 [facility] Comment on above: Performed By: #### L 500.2500, L100.0100 ####[facility] [address] [place], [address] Eosinophils/100 WBC (Bld) 0.3 % Normal 0-5 [facility] Comment on above: Performed By: #### L 500.2500, L100.0100 ####[facility] [address] [place], [address] Erythrocyte distribution width (RBC) [Ratio] 15.4 % High 11.6-14.6 [facility] Comment on above: Performed By: #### L 500.2500, L100.0100 ####[facility] [address] [place], [address] Hematocrit (Bld) [Volume fraction] 48.7 % Normal 40-54 [facility] Comment on above: Performed By: #### L 500.2500, L100.0100 ####[facility] [address] [place], [address] Hemoglobin (Bld) [Mass/Vol] 14.9 g/dL Normal 13.0-16.5 [facility] Comment on above: Performed By: #### L 500.2500, L100.0100 ####[facility] [address] [place], [address] IG% 0.500 Normal 0.0-0.9 [facility] Comment on above: Result Comment: IG% - Immature Granulocytes (promyelocytes, myelocytes andmetamyelocytes) > 1% indicates that a LEFT SHIFT is Present. Performed By: #### L 500.2500, L100.0100 ####[facility] [address] [place], [address] Lymphocytes/100 WBC (Bld) 7.7 % Low 19-41 [facility] Comment on above: Performed By: #### L 500.2500, L100.0100 ####[facility] [address] [place], [address] MCH (RBC) [Entitic mass] 26.0 pg Low 27.0-32.0 [facility] Comment on above: Performed By: #### L 500.2500, L100.0100 ####[facility] [address] [place], [address] MCHC (RBC) [Mass/Vol] 30.6 g/dL Low 32-36 [facility] Comment on above: Performed By: #### L 500.2500, L100.0100 ####[facility] [address] [place], [address] MCV (RBC) [Entitic vol] 85.1 fL Normal 80-94 [facility] Comment on above: Performed By: #### L 500.2500, L100.0100 ####[facility] [address] [place], [address] Monocytes/100 WBC (Bld) 12.5 % High 0-10 [facility] Comment on above: Performed By: #### L 500.2500, L100.0100 ####[facility] [address] [place], [address] Neutrophils/100 WBC (Bld) 78.7 % High 47-70 [facility] Comment on above: Performed By: #### L 500.2500, L100.0100 ####[facility] [address] [place], [address] Nucleated RBC (Bld) [#/Vol] 0 10*3/uL Normal 0-5 [facility] Comment on above: Performed By: #### L 500.2500, L100.0100 ####[facility] [address] [place], [address] Platelet mean volume (Bld) [Entitic vol] 11.1 fL Normal 6.2-12.0 [facility] [facility] Comment on above: Performed By: #### L 500.2500, L100.0100 ####[facility] [address] [place], [address] Platelets (Bld) [#/Vol] 174 10*3/uL Normal 150-450 [facility] Comment on above: Performed By: #### L 500.2500, L100.0100 ####[facility] [address] [place], [address] RBC (Bld) [#/Vol] 5.72 10*6/uL Normal 4.6-6.2 [facility] Comment on above: Performed By: #### L 500.2500, L100.0100 ####[facility] [address] [place], [address] RDW SD 47.7 fl High 35.1-43.9 [facility] Comment on above: Performed By: #### L 500.2500, L100.0100 ####[facility] [address] [place], [address] WBC (Bld) [#/Vol] 12.0 10*3/uL High 4.4-11.0 [facility] Comment on above: Performed By: #### L 500.2500, L100.0100 ####[facility] [address] [place], [address] Comprehensive Metabolic Prof ilon 03-02-2024 Albumin [Mass/Vol] 3.1 g/dL Low 3.2-5.0 [facility] Comment on above: Performed By: #### L 500.4050 ####[facility] [address] [place], [address] Albumin/Globulin [Mass ratio] 0.8 {ratio} Low 0.9-2.4 [facility] Comment on above: Performed By: #### L 500.4050 ####[facility] [address] [place], [address] ALK P 79 U/L Normal 45-117 [facility] Comment on above: Performed By: #### L 500.4050 ####[facility] [address] [place], [address] ALT [Catalytic activity/Vol] 20 U/L Normal 16-61 [facility] Comment on above: Performed By: #### L 500.4050 ####[facility] [address] [place], [address] AST [Catalytic activity/Vol] 23 U/L Normal 15-37 [facility] Comment on above: Performed By: #### L 500.4050 ####[facility] [address] [place], [address] Bilirubin [Mass/Vol] 1.30 mg/dL High 0.20-1.00 [facility] Comment on above: Result Comment: For patients on eltrombopag therapy, use of Dimension [place] TBIL is not recommended. Performed By: #### L 500.4050 ####[facility] [address] [place], [address] BUN/CRE 26.8 RATIO High 10-20 [facility] Comment on above: Performed By: #### L 500.4050 ####[facility] [address] [place], [address] CA,Total 9.0 mg/dL Normal 8.5-10.1 [facility] Comment on above: Performed By: #### L 500.4050 ####[facility] [address] [place], [address] Chloride [Moles/Vol] 102 mmol/L Normal 98-107 [facility] Comment on above: Performed By: #### L 500.4050 ####[facility] [address] [place], [address] CO2 [Moles/Vol] 28.0 mmol/L Normal 21.0-32.0 [facility] Comment on above: Performed By: #### L 500.4050 ####[facility] [address] [place], [address] Creatinine [Mass/Vol] 2.54 mg/dL High 0.70-1.30 [facility] Comment on above: Result Comment: The validity of the calculated GFR GFRAA in patients over70 years has not been determined. Clinical correlation isessential. Performed By: #### L 500.4050 ####[facility] [address] [place], [address] ECRCL 44.05 ml/min Normal [facility] Comment on above: Performed By: #### L 500.4050 ####[facility] [address] [place], [address] EST GFR - AA 33 mL/min Low >60 [facility] Comment on above: Result Comment: Afri can British GFR Calc Performed By: #### L 500.4050 ####[facility] [address] [place], [address] GAP 8 Normal 5-15 [facility] Comment on above: Performed By: #### L 500.4050 ####[facility] [address] [place], [address] GFR/1.73 sq M.predicted among non-blacks MDRD (S/P/Bld) [Vol rate/Area] 27 mL/min/{1.73_m2} Low >60 [facility] Comment on above: Result Comment: Non- GFR Calc Performed By: #### L 500.4050 ####[facility] [address] [place], [address] Globulin (S) [Mass/Vol] 3.8 g/dL Normal 2.2-4.2 [facility] Comment on above: Performed By: #### L 500.4050 ####[facility] [address] [place], [address] Glucose [Mass/Vol] 123 mg/dL High 74-106 [facility] Comment on above: Result Comment: Fast ing Glucose result from 100 to 125 mg/dLsuggests IMPAIRED HOMEOSTASIS per A.D.A. criteria. Performed By: #### L 500.4050 ####[facility] [address] [place], [address] Potassium [Moles/Vol] 3.0 mmol/L Low 3.5-5.1 [facility] Comment on above: Performed By: #### L 500.4050 ####[facility] [address] [place], [place], [address] Sodium [Moles/Vol] 138 mmol/L Normal 136-145 [facility] Comment on above: Performed By: #### L 500.4050 ####[facility] [address] [place], [place], [address] T PROT 6.9 g/dL Normal 6.4-8.2 [facility] Comment on above: Performed By: #### L 500.4050 ####[facility] [address] [place], [place], [address] Urea nitrogen [Mass/Vol] 68 mg/dL High 7-18 [facility] Comment on above: Performed By: #### L 500.4050 ####[facility] [address] [place], [place], [id number] Laboratory - Chemistry and C hemistry - challengeOrdered By: Herman Hunt on 03-02-2024 AST [Catalytic activity/Vol] 23 U/L 15-37 [facility] Serum globulin measurementOr dered By: Herman Hunt on 03-02-2024 Globulin (S) [Mass/Vol] 3.8 g/dL 2.2-4.2 [facility] Serum or plasma alanine umana otransferase (ALT) measurementOrdered By: Herman Hunt on 03-02-2024 ALT [Catalytic activity/Vol] 20 U/L 16-61 [facility] Serum or plasma albumin nikkie urement (mass/volume)Ordered By: Herman Hunt on 03-02-2024 Albumin [Mass/Vol] 3.1 g/dL Low 3.2-5.0 [facility] Serum or plasma alkaline iglesia sphatase measurementOrdered By: Herman Hunt on 03-02-2024 ALP [Catalytic activity/Vol] 79 U/L 45-117 [facility] Total proteinOrdered By: James Hunt on 03-02-2024 Protein [Mass/Vol] 6.9 g/dL 6.4-8.2 [facility] Basic Metabolic Profile (BMP )on 03-01-2024 BUN/CRE 23.8 RATIO High 10-20 [facility] Comment on above: Performed By: #### L 500.2500, L100.0100 ####[facility] [address] [place], [address] CA,Total 9.5 mg/dL Normal 8.5-10.1 [facility] Comment on above: Performed By: #### L 500.2500, L100.0100 ####[facility] [address] [place], [address] Chloride [Moles/Vol] 98 mmol/L Normal 98-107 [facility] Comment on above: Performed By: #### L 500.2500, L100.0100 ####[facility] [address] [place], [address] CO2 [Moles/Vol] 28.0 mmol/L Normal 21.0-32.0 [facility] Comment on above: Performed By: #### L 500.2500, L100.0100 ####[facility] [address] [place], [address] Creatinine [Mass/Vol] 2.65 mg/dL High 0.70-1.30 [facility] Comment on above: Result Comment: The validity of the calculated GFR GFRAA in patients over70 years has not been determined. Clinical correlation isessential. Performed By: #### L 500.2500, L100.0100 ####[facility] [address] [place], [address] ECRCL 42.67 ml/min Normal [facility] Comment on above: Performed By: #### L 500.2500, L100.0100 ####[facility] [address] [place], [address] EST GFR - AA 31 mL/min Low >60 [facility] Comment on above: Result Comment: Afri can British GFR Calc Performed By: #### L 500.2500, L100.0100 ####[facility] [address] [place], [address] GAP 10 Normal 5-15 [facility] Comment on above: Performed By: #### L 500.2500, L100.0100 ####[facility] [address] [place], [address] GFR/1.73 sq M.predicted among non-blacks MDRD (S/P/Bld) [Vol rate/Area] 26 mL/min/{1.73_m2} Low >60 [facility] Comment on above: Result Comment: Non- GFR Calc Performed By: #### L 500.2500, L100.0100 ####[facility] [address] [place], [address] Glucose [Mass/Vol] 126 mg/dL High 74-106 [facility] Comment on above: Result Comment: Fast ing Glucose result greater than or equal to 126 mg/dLsuggests DIABETES MELLITUS per A.D.A. criteria. Performed By: #### L 500.2500, L100.0100 ####[facility] [address] [place], [address] Potassium [Moles/Vol] 3.2 mmol/L Low 3.5-5.1 [facility] Comment on above: Performed By: #### L 500.2500, L100.0100 ####[facility] [address] [place], [address] Sodium [Moles/Vol] 136 mmol/L Normal 136-145 [facility] Comment on above: Performed By: #### L 500.2500, L100.0100 ####[facility] [address] [place], [address] Urea nitrogen [Mass/Vol] 63 mg/dL High 7-18 [facility] Comment on above: Performed By: #### L 500.2500, L100.0100 ####[facility] [address] [place], [address] Bedside Glucoseon 03-01-2024 FINGERSTICK GLU 233 mg/dL High 74-106 [facility] Comment on above: Result Comment: RADHA GEMENT OF PATIENT CARE PER NURSING PROTOCOL Performed By: #### L 501.080 ####[facility] [address] [place], [address] FINGERSTICK GLU 224 mg/dL High 74-106 [facility] Comment on above: Result Comment: RADHA GEMENT OF PATIENT CARE PER NURSING PROTOCOL Performed By: #### L 501.080 ####[facility] [address] [place], [address] FINGERSTICK GLU 150 mg/dL High -106 [facility] Comment on above: Result Comment: RADHA GEMENT OF PATIENT CARE PER NURSING PROTOCOL Performed By: #### L 501.080 ####[facility] [address] [place], [address] FINGERSTICK GLU 125 mg/dL High -106 [facility] Comment on above: Result Comment: RADHA GEMENT OF PATIENT CARE PER NURSING PROTOCOL Performed By: #### L 501.080 ####[facility] [address] [place], [address] Laboratory - Hematology and Cell countsOrdered By: Dayana Smith on 03-01-2024 Anisocytosis Ql (Bld) 1+ [facility] Manual differential comment Nadeem (Bld) [Interp]Ordered By: Dayana Smith on 03-01-2024 Differential Comment SCANNED [facility] Pathologist review Nadeem (Unsp spec) [Interp]Ordered By: Dayana Smith on 03-01-2024 Differential Pathologist's Review Reviewed [facility] Comment on above: Previous reported re sult: July julio cesar Edited by: EPI on 03/02/24:1357Neutrophilic leukocytosis.Clinical correlation necessary.Terry Vasquez M.D. 03/02/24 AMENDED REPORT 03/02/24 0097 PATH REV previously reported as: July foll Platelets LM Ql (Bld)Ordered By: Dayana Smith on 03-01-2024 Platelet Estimate ADEQUATE ADEQ [facility] Basic Metabolic Profile (BMP )on 02-29-2024 BUN/CRE 28.0 RATIO High 10-20 [facility] Comment on above: Performed By: #### L 500.2500, L100.0100 ####[facility] [address] [place], [address] CA,Total 9.4 mg/dL Normal 8.5-10.1 [facility] Comment on above: Performed By: #### L 500.2500, L100.0100 ####[facility] [address] [place], [address] Chloride [Moles/Vol] 96 mmol/L Low 98-107 [facility] Comment on above: Performed By: #### L 500.2500, L100.0100 ####[facility] [address] [place], [address] CO2 [Moles/Vol] 32.0 mmol/L Normal 21.0-32.0 [facility] Comment on above: Performed By: #### L 500.2500, L100.0100 ####[facility] [address] [place], [address] Creatinine [Mass/Vol] 1.50 mg/dL High 0.70-1.30 [facility] Comment on above: Result Comment: The validity of the calculated GFR GFRAA in patients over70 years has not been determined. Clinical correlation isessential. Performed By: #### L 500.2500, L100.0100 ####[facility] [address] [place], [address] ECRCL 75.38 ml/min Normal [facility] Comment on above: Performed By: #### L 500.2500, L100.0100 ####[facility] [address] [place], [address] EST GFR - AA 61 mL/min Normal >60 [facility] Comment on above: Result Comment: Afri can British GFR Calc Performed By: #### L 500.2500, L100.0100 ####[facility] [address] [place], [address] GAP 7 Normal 5-15 [facility] Comment on above: Performed By: #### L 500.2500, L100.0100 ####[facility] [address] [place], [address] GFR/1.73 sq M.predicted among non-blacks MDRD (S/P/Bld) [Vol rate/Area] 50 mL/min/{1.73_m2} Low >60 [facility] Comment on above: Result Comment: Non- GFR Calc Performed By: #### L 500.2500, L100.0100 ####[facility] [address] [place], [address] Glucose [Mass/Vol] 167 mg/dL High 74-106 [facility] Comment on above: Result Comment: Fast ing Glucose result greater than or equal to 126 mg/dLsuggests DIABETES MELLITUS per A.D.A. criteria. Performed By: #### L 500.2500, L100.0100 ####[facility] [address] [place], [address] Potassium [Moles/Vol] 3.4 mmol/L Low 3.5-5.1 [facility] Comment on above: Performed By: #### L 500.2500, L100.0100 ####[facility] [address] [place], [address] Sodium [Moles/Vol] 136 mmol/L Normal 136-145 [facility] Comment on above: Performed By: #### L 500.2500, L100.0100 ####[facility] [address] [place], [address] Urea nitrogen [Mass/Vol] 42 mg/dL High -18 [facility] Comment on above: Performed By: #### L 500.2500, L100.0100 ####[facility] [address] [place], [address] Bedside Glucoseon 02-29-2024 FINGERSTICK GLU 186 mg/dL High 74-106 [facility] Comment on above: Result Comment: RADHA GEMENT OF PATIENT CARE PER NURSING PROTOCOL Performed By: #### L 501.080 ####[facility] [address] [place], [address] FINGERSTICK GLU 233 mg/dL High [address] [place] [address] Comment on above: Result Comment: RADHA GEMENT OF PATIENT CARE PER NURSING PROTOCOL Performed By: #### L 501.080 ####[facility] [address] [place], [address] FINGERSTICK GLU 266 mg/dL High [address] [place] [address] Comment on above: Result Comment: Dext niranjan 50 GivenInsulin GivenMANAGEMENT OF PATIENT CARE PER NURSING PROTOCOL Performed By: #### L 501.080 ####[facility] [address] [place], [address] FINGERSTICK GLU 160 mg/dL High 74-106 [facility] Comment on above: Result Comment: RADHA GEMENT OF PATIENT CARE PER NURSING PROTOCOL Performed By: #### L 501.080 ####[facility] [address] [place], [address] FINGERSTICK GLU 146 mg/dL High [address] [place] [address] Comment on above: Result Comment: RADHA GEMENT OF PATIENT CARE PER NURSING PROTOCOL Performed By: #### L 501.080 ####[facility] [address] [place], [address] CBC W/Diff, Automatedon - Absolute Lymph 1.33 X10 3/uL Normal 0.83-4.51 [facility] Comment on above: Performed By: #### L 500.2500, L100.0100 ####[facility] [address] [place], [address] Absolute Neut 7.7 X10 3/uL Normal 2.0-7.7 [facility] Comment on above: Performed By: #### L 500.2500, L100.0100 ####[facility] [address] [place], [address] Basophils/100 WBC (Bld) 0.6 % Normal 0-1 [facility] Comment on above: Performed By: #### L 500.2500, L100.0100 ####[facility] [address] [place], [address] Eosinophils/100 WBC (Bld) 0.5 % Normal 0-5 [facility] Comment on above: Performed By: #### L 500.2500, L100.0100 ####[facility] [address] [place], [address] Erythrocyte distribution width (RBC) [Ratio] 15.2 % High 11.6-14.6 [facility] Comment on above: Performed By: #### L 500.2500, L100.0100 ####[facility] [address] [place], [address] Hematocrit (Bld) [Volume fraction] 52.8 % Normal 40-54 [facility] Comment on above: Performed By: #### L 500.2500, L100.0100 ####[facility] [address] [place], [address] Hemoglobin (Bld) [Mass/Vol] 16.3 g/dL Normal 13.0-16.5 [facility] Comment on above: Performed By: #### L 500.2500, L100.0100 ####[facility] [address] [place], [address] IG% 0.400 Normal 0.0-0.9 [facility] Comment on above: Result Comment: IG% - Immature Granulocytes (promyelocytes, myelocytes andmetamyelocytes) > 1% indicates that a LEFT SHIFT is Present. Performed By: #### L 500.2500, L100.0100 ####[facility] [address] [place], [address] Lymphocytes/100 WBC (Bld) 12.8 % Low 19-41 [facility] Comment on above: Performed By: #### L 500.2500, L100.0100 ####[facility] [address] [place], [address] MCH (RBC) [Entitic mass] 26.0 pg Low 27.0-32.0 [facility] Comment on above: Performed By: #### L 500.2500, L100.0100 ####[facility] [address] [place], [address] MCHC (RBC) [Mass/Vol] 30.9 g/dL Low 32-36 [facility] Comment on above: Performed By: #### L 500.2500, L100.0100 ####[facility] [address] [place], [address] MCV (RBC) [Entitic vol] 84.3 fL Normal 80-94 [facility] Comment on above: Performed By: #### L 500.2500, L100.0100 ####[facility] [address] [place], [address] Monocytes/100 WBC (Bld) 11.4 % High 0-10 [facility] Comment on above: Performed By: #### L 500.2500, L100.0100 ####[facility] [address] [place], [address] Neutrophils/100 WBC (Bld) 74.3 % High 47-70 [facility] Comment on above: Performed By: #### L 500.2500, L100.0100 ####[facility] [address] [place], [address] Nucleated RBC (Bld) [#/Vol] 0 10*3/uL Normal 0-5 [facility] Comment on above: Performed By: #### L 500.2500, L100.0100 ####[facility] [address] [place], [address] Platelet mean volume (Bld) [Entitic vol] 11.0 fL Normal 6.2-12.0 [facility] Comment on above: Performed By: #### L 500.2500, L100.0100 ####[facility] [address] [place], [address] Platelets (Bld) [#/Vol] 172 10*3/uL Normal 150-450 [facility] Comment on above: Performed By: #### L 500.2500, L100.0100 ####[facility] [address] [place], [address] RBC (Bld) [#/Vol] 6.26 10*6/uL High 4.6-6.2 [facility] Comment on above: Performed By: #### L 500.2500, L100.0100 ####[facility] [address] [place], [address] RDW SD 46.5 fl High 35.1-43.9 [facility] Comment on above: Performed By: #### L 500.2500, L100.0100 ####[facility] [address] [place], [address] WBC (Bld) [#/Vol] 10.4 10*3/uL Normal 4.4-11.0 [facility] Comment on above: Performed By: #### L 500.2500, L100.0100 ####[facility] [address] [place], [address] Basic Metabolic Profile (BMP )on 02-28-2024 BUN/CRE 31.1 RATIO High 10-20 [facility] Comment on above: Performed By: #### L 500.2500, L100.0100 ####[facility] [address] [place], [address] CA,Total 9.0 mg/dL Normal 8.5-10.1 [facility] Comment on above: Performed By: #### L 500.2500, L100.0100 ####[facility] [address] [place], [address] Chloride [Moles/Vol] 96 mmol/L Low 98-107 [facility] Comment on above: Performed By: #### L 500.2500, L100.0100 ####[facility] [address] [place], [address] CO2 [Moles/Vol] 30.0 mmol/L Normal 21.0-32.0 [facility] Comment on above: Performed By: #### L 500.2500, L100.0100 ####[facility] [address] [place], [address] Creatinine [Mass/Vol] 1.22 mg/dL Normal 0.70-1.30 [facility] Comment on above: Result Comment: The validity of the calculated GFR GFRAA in patients over70 years has not been determined. Clinical correlation isessential. Performed By: #### L 500.2500, L100.0100 ####[facility] [address] [place], [address] ECRCL 94.93 ml/min Normal [facility] Comment on above: Performed By: #### L 500.2500, L100.0100 ####[facility] [address] [place], [address] EST GFR - AA 77 mL/min Normal >60 [facility] Comment on above: Result Comment: Afri can British GFR Calc Performed By: #### L 500.2500, L100.0100 ####[facility] [address] [place], [address] GAP 9 Normal 5-15 [facility] Comment on above: Performed By: #### L 500.2500, L100.0100 ####[facility] [address] [place], [address] GFR/1.73 sq M.predicted among non-blacks MDRD (S/P/Bld) [Vol rate/Area] 64 mL/min/{1.73_m2} Normal >60 [facility] Comment on above: Result Comment: Non- GFR Calc Performed By: #### L 500.2500, L100.0100 ####[facility] [address] [place], [address] Glucose [Mass/Vol] 161 mg/dL High 74-106 [facility] Comment on above: Result Comment: Fast ing Glucose result greater than or equal to 126 mg/dLsuggests DIABETES MELLITUS per A.D.A. criteria. Performed By: #### L 500.2500, L100.0100 ####[facility] [address] [place], [address] Potassium [Moles/Vol] 3.2 mmol/L Low 3.5-5.1 [facility] Comment on above: Performed By: #### L 500.2500, L100.0100 ####[facility] [address] [place], [address] Sodium [Moles/Vol] 135 mmol/L Low 136-145 [facility] Comment on above: Performed By: #### L 500.2500, L100.0100 ####[facility] [address] [place], [address] Urea nitrogen [Mass/Vol] 38 mg/dL High 7-18 [facility] Comment on above: Performed By: #### L 500.2500, L100.0100 ####[facility] [address] [place], [address] Bedside Glucoseon 02-28-2024 FINGERSTICK GLU 161 mg/dL High 74-106 [facility] Comment on above: Result Comment: RADHA GEMENT OF PATIENT CARE PER NURSING PROTOCOL Performed By: #### L 501.080 ####[facility] [address] [place], [address] FINGERSTICK GLU 175 mg/dL High 74-106 [facility] Comment on above: Result Comment: Dr Darrius hastings FollowedInsulin GivenMANAGEMENT OF PATIENT CARE PER NURSING PROTOCOL Performed By: #### L 501.080 ####[facility] [address] [place], [address] FINGERSTICK GLU 221 mg/dL High 74-106 [facility] Comment on above: Result Comment: Dr Darrius hastings FollowedInsulin GivenMANAGEMENT OF PATIENT CARE PER NURSING PROTOCOL Performed By: #### L 501.080 ####[facility] [address] [place], [address] FINGERSTICK GLU 196 mg/dL High 74-106 [facility] Comment on above: Result Comment: RADHA GEMENT OF PATIENT CARE PER NURSING PROTOCOL Performed By: #### L 501.080 ####[facility] [address] [place], [address] FINGERSTICK GLU 160 mg/dL High 74-106 [facility] Comment on above: Result Comment: RADHA GEMENT OF PATIENT CARE PER NURSING PROTOCOL Performed By: #### L 501.080 ####[facility] [address] [place], [address] CBC W/Diff, Automatedon 12- Absolute Lymph 1.08 X10 3/uL Normal 0.83-4.51 [facility] Comment on above: Performed By: #### L 500.2500, L100.0100 ####[facility] [address] [place], [address] Absolute Neut 9.2 X10 3/uL High 2.0-7.7 [facility] Comment on above: Performed By: #### L 500.2500, L100.0100 ####[facility] [address] [place], [address] Basophils/100 WBC (Bld) 0.3 % Normal 0-1 [facility] Comment on above: Performed By: #### L 500.2500, L100.0100 ####[facility] [address] [place], [address] Eosinophils/100 WBC (Bld) 0.3 % Normal 0-5 [facility] Comment on above: Performed By: #### L 500.2500, L100.0100 ####[facility] [address] [place], [address] Erythrocyte distribution width (RBC) [Ratio] 15.2 % High 11.6-14.6 [facility] Comment on above: Performed By: #### L 500.2500, L100.0100 ####[facility] [address] [place], [address] Hematocrit (Bld) [Volume fraction] 50.4 % Normal 40-54 [facility] Comment on above: Performed By: #### L 500.2500, L100.0100 ####[facility] [address] [place], [address] Hemoglobin (Bld) [Mass/Vol] 15.9 g/dL Normal 13.0-16.5 [facility] Comment on above: Performed By: #### L 500.2500, L100.0100 ####[facility] [address] [place], [address] IG% 0.400 Normal 0.0-0.9 [facility] Comment on above: Result Comment: IG% - Immature Granulocytes (promyelocytes, myelocytes andmetamyelocytes) > 1% indicates that a LEFT SHIFT is Present. Performed By: #### L 500.2500, L100.0100 ####[facility] [address] [place], [address] Lymphocytes/100 WBC (Bld) 9.5 % Low 19-41 [facility] Comment on above: Performed By: #### L 500.2500, L100.0100 ####[facility] [address] [place], [address] MCH (RBC) [Entitic mass] 26.3 pg Low 27.0-32.0 [facility] Comment on above: Performed By: #### L 500.2500, L100.0100 ####[facility] [address] [place], [address] MCHC (RBC) [Mass/Vol] 31.5 g/dL Low 32-36 [facility] Comment on above: Performed By: #### L 500.2500, L100.0100 ####[facility] [address] [place], [address] MCV (RBC) [Entitic vol] 83.4 fL Normal 80-94 [facility] Comment on above: Performed By: #### L 500.2500, L100.0100 ####[facility] [address] [place], [address] Monocytes/100 WBC (Bld) 9.2 % Normal 0-10 [facility] Comment on above: Performed By: #### L 500.2500, L100.0100 ####[facility] [address] [place], [address] Neutrophils/100 WBC (Bld) 80.3 % High 47-70 [facility] Comment on above: Performed By: #### L 500.2500, L100.0100 ####[facility] [address] [place], [address] Nucleated RBC (Bld) [#/Vol] 0 10*3/uL Normal 0-5 [facility] Comment on above: Performed By: #### L 500.2500, L100.0100 ####[facility] [address] [place], [address] Platelet mean volume (Bld) [Entitic vol] 10.2 fL Normal 6.2-12.0 [facility] Comment on above: Performed By: #### L 500.2500, L100.0100 ####[facility] [address] [place], [address] Platelets (Bld) [#/Vol] 155 10*3/uL Normal 150-450 [facility] Comment on above: Performed By: #### L 500.2500, L100.0100 ####[facility] [address] [place], [address] RBC (Bld) [#/Vol] 6.04 10*6/uL Normal 4.6-6.2 [facility] Comment on above: Performed By: #### L 500.2500, L100.0100 ####[facility] [address] [place], [address] RDW SD 45.6 fl High 35.1-43.9 [facility] Comment on above: Performed By: #### L 500.2500, L100.0100 ####[facility] [address] [place], [address] WBC (Bld) [#/Vol] 11.4 10*3/uL High 4.4-11.0 [facility] Comment on above: Performed By: #### L 500.2500, L100.0100 ####[facility] [address] [place], [address] Bedside Glucoseon 02-27-2024 FINGERSTICK GLU 184 mg/dL High [address] [place] [address] Comment on above: Result Comment: RADHA GEMENT OF PATIENT CARE PER NURSING PROTOCOL Performed By: #### L 501.080 ####[facility] [address] [place], [address] FINGERSTICK GLU 204 mg/dL High [address] [place] [address] Comment on above: Result Comment: RADHA GEMENT OF PATIENT CARE PER NURSING PROTOCOL Performed By: #### L 501.080 ####[facility] [address] [place], [address] FINGERSTICK GLU 173 mg/dL High [address] [place] [address] Comment on above: Result Comment: Dr Darrius hastings FollowedInsulin GivenMANAGEMENT OF PATIENT CARE PER NURSING PROTOCOL Performed By: #### L 501.080 ####[facility] [address] [place], [address] FINGERSTICK GLU 166 mg/dL High [address] [place] [address] Comment on above: Result Comment: RADHA GEMENT OF PATIENT CARE PER NURSING PROTOCOL Performed By: #### L 501.080 ####[facility] [address] [place], [address] CBC W/Diff, Automatedon 02-11 Absolute Neut Normal 2.0-7.7 [facility] Comment on above: Result Comment: SOUMYAL ICATE, SEE 1216:H47 Performed By: #### L 500.4050, L100.0100 ####[facility] [address] [place], [address] HCT Normal 40-54 [facility] Comment on above: Result Comment: DUPL ICATE, SEE 1216:H47 Performed By: #### L 500.4050, L100.0100 ####[facility] [address] [place], [address] HGB Normal 13.0-16.5 [facility] Comment on above: Result Comment: PAULA ICATE, SEE 1216:H47 Performed By: #### L 500.4050, L100.0100 ####[facility] [address] [place], [address] MCH Normal 27.0-32.0 [facility] Comment on above: Result Comment: SOUMYAL ICATE, SEE 1216:H47 Performed By: #### L 500.4050, L100.0100 ####[facility] [address] [place], [address] MCHC Normal 32-36 [facility] Comment on above: Result Comment: PAULA ICATE, SEE 1216:H47 Performed By: #### L 500.4050, L100.0100 ####[facility] [address] [place], [address] MCV Normal 80-94 [facility] Comment on above: Result Comment: SOUMYAL ICATE, SEE 1216:H47 Performed By: #### L 500.4050, L100.0100 ####[facility] [address] [place], [address] NEUT% Normal 47-70 [facility] Comment on above: Result Comment: SOUMYAL ICATE, SEE 1216:H47 Performed By: #### L 500.4050, L100.0100 ####[facility] [address] [place], [address] PLT Normal 150-450 [facility] Comment on above: Result Comment: SOUMYAL ICATE, SEE 1216:H47 Performed By: #### L 500.4050, L100.0100 ####[facility] [address] [place], [address] RBC Normal 4.6-6.2 [facility] Comment on above: Result Comment: DUPL ICATE, SEE 1216:H47 Performed By: #### L 500.4050, L100.0100 ####[facility] [address] [place], [address] RDW CV Normal 11.6-14.6 [facility] Comment on above: Result Comment: DUPL ICATE, SEE 1216:H47 Performed By: #### L 500.4050, L100.0100 ####[facility] [address] [place], [address] RDW SD Normal 35.1-43.9 [facility] Comment on above: Result Comment: DUPL ICATE, SEE 1216:H47 Performed By: #### L 500.4050, L100.0100 ####[facility] [address] [place], [address] WBC Normal 4.4-11.0 [facility] Comment on above: Result Comment: DUPL ICATE, SEE 1216:H47 Performed By: #### L 500.4050, L100.0100 ####[facility] [address] [place], [address] Absolute Lymph 1.09 X10 3/uL Normal 0.83-4.51 [facility] Comment on above: Performed By: #### L 100.0100 ####[facility] [address] [place], [address] Absolute Neut 8.1 X10 3/uL High 2.0-7.7 [facility] Comment on above: Performed By: #### L 100.0100 ####[facility] [address] [place], [address] Basophils/100 WBC (Bld) 0.4 % Normal 0-1 [facility] Comment on above: Performed By: #### L 100.0100 ####[facility] [address] [place], [address] Eosinophils/100 WBC (Bld) 0.3 % Normal 0-5 [facility] Comment on above: Performed By: #### L 100.0100 ####[facility] [address] [place], [address] Erythrocyte distribution width (RBC) [Ratio] 15.0 % High 11.6-14.6 [facility] Comment on above: Performed By: #### L 100.0100 ####[facility] [address] [place], [address] Hematocrit (Bld) [Volume fraction] 49.7 % Normal 40-54 [facility] Comment on above: Performed By: #### L 100.0100 ####[facility] [address] [place], [address] Hemoglobin (Bld) [Mass/Vol] 15.5 g/dL Normal 13.0-16.5 [facility] Comment on above: Performed By: #### L 100.0100 ####[facility] [address] [place], [address] IG% 0.400 Normal 0.0-0.9 [facility] Comment on above: Result Comment: IG% - Immature Granulocytes (promyelocytes, myelocytes andmetamyelocytes) > 1% indicates that a LEFT SHIFT is Present. Performed By: #### L 100.0100 ####[facility] [address] [place], [address] Lymphocytes/100 WBC (Bld) 10.7 % Low 19-41 [facility] Comment on above: Performed By: #### L 100.0100 ####[facility] [address] [place], [address] MCH (RBC) [Entitic mass] 26.1 pg Low 27.0-32.0 [facility] Comment on above: Performed By: #### L 100.0100 ####[facility] [address] [place], [address] MCHC (RBC) [Mass/Vol] 31.2 g/dL Low 32-36 [facility] Comment on above: Performed By: #### L 100.0100 ####[facility] [address] [place], [address] MCV (RBC) [Entitic vol] 83.8 fL Normal 80-94 [facility] Comment on above: Performed By: #### L 100.0100 ####[facility] [address] [place], [address] Monocytes/100 WBC (Bld) 8.9 % Normal 0-10 [facility] Comment on above: Performed By: #### L 100.0100 ####[facility] [address] [place], [address] Neutrophils/100 WBC (Bld) 79.3 % High 47-70 [facility] Comment on above: Performed By: #### L 100.0100 ####[facility] [address] [place], [address] Nucleated RBC (Bld) [#/Vol] 0 10*3/uL Normal 0-5 [facility] Comment on above: Performed By: #### L 100.0100 ####[facility] [address] [place], [address] Platelet mean volume (Bld) [Entitic vol] 10.5 fL Normal 6.2-12.0 [facility] Comment on above: Performed By: #### L 100.0100 ####[facility] [address] [place], [address] Platelets (Bld) [#/Vol] 169 10*3/uL Normal 150-450 [facility] Comment on above: Performed By: #### L 100.0100 ####[facility] [address] [place], [address] RBC (Bld) [#/Vol] 5.93 10*6/uL Normal 4.6-6.2 [facility] Comment on above: Performed By: #### L 100.0100 ####[facility] [address] [place], [address] RDW SD 45.5 fl High 35.1-43.9 [facility] Comment on above: Performed By: #### L 100.0100 ####[facility] [address] [place], [address] WBC (Bld) [#/Vol] 10.2 10*3/uL Normal 4.4-11.0 [facility] Comment on above: Performed By: #### L 100.0100 ####[facility] [address] [place], [address] Chest 1 View (Portable)on Chest 1 View (Portable) Normal [facility] Comprehensive Metabolic Prof ilon 02-27-2024 Albumin [Mass/Vol] 3.1 g/dL Low 3.2-5.0 [facility] Comment on above: Performed By: #### L 500.4050, L100.0100 ####[facility] [address] [place], [address] Albumin/Globulin [Mass ratio] 0.8 {ratio} Low 0.9-2.4 [facility] Comment on above: Performed By: #### L 500.4050, L100.0100 ####[facility] [address] [place], [address] ALK P 80 U/L Normal 45-117 [facility] Comment on above: Performed By: #### L 500.4050, L100.0100 ####[facility] [address] [place], [address] ALT [Catalytic activity/Vol] 23 U/L Normal 16-61 [facility] Comment on above: Performed By: #### L 500.4050, L100.0100 ####[facility] [address] [place], [address] AST [Catalytic activity/Vol] 16 U/L Normal 15-37 [facility] Comment on above: Performed By: #### L 500.4050, L100.0100 ####[facility] [address] [place], [address] Bilirubin [Mass/Vol] 1.30 mg/dL High 0.20-1.00 [facility] Comment on above: Result Comment: For patients on eltrombopag therapy, use of Dimension [place] TBIL is not recommended. Performed By: #### L 500.4050, L100.0100 ####[facility] [address] [place], [address] BUN/CRE 29.3 RATIO High 10-20 [facility] Comment on above: Performed By: #### L 500.4050, L100.0100 ####[facility] [address] [place], [address] CA,Total 9.0 mg/dL Normal 8.5-10.1 [facility] Comment on above: Performed By: #### L 500.4050, L100.0100 ####[facility] [address] [place], [address] Chloride [Moles/Vol] 92 mmol/L Low 98-107 [facility] Comment on above: Performed By: #### L 500.4050, L100.0100 ####[facility] [address] [place], [address] CO2 [Moles/Vol] 32.0 mmol/L Normal 21.0-32.0 [facility] Comment on above: Performed By: #### L 500.4050, L100.0100 ####[facility] [address] [place], [address] Creatinine [Mass/Vol] 1.23 mg/dL Normal 0.70-1.30 [facility] Comment on above: Result Comment: The validity of the calculated GFR GFRAA in patients over70 years has not been determined. Clinical correlation isessential. Performed By: #### L 500.4050, L100.0100 ####[facility] [address] [place], [address] ECRCL 94.16 ml/min Normal [facility] Comment on above: Performed By: #### L 500.4050, L100.0100 ####[facility] [address] [place], [address] EST GFR - AA 76 mL/min Normal >60 [facility] Comment on above: Result Comment: Afri can British GFR Calc Performed By: #### L 500.4050, L100.0100 ####[facility] [address] [place], [address] GAP 8 Normal 5-15 [facility] Comment on above: Performed By: #### L 500.4050, L100.0100 ####[facility] [address] [place], [address] GFR/1.73 sq M.predicted among non-blacks MDRD (S/P/Bld) [Vol rate/Area] 63 mL/min/{1.73_m2} Normal >60 [facility] Comment on above: Result Comment: Non- GFR Calc Performed By: #### L 500.4050, L100.0100 ####[facility] [address] [place], [address] Globulin (S) [Mass/Vol] 3.7 g/dL Normal 2.2-4.2 [facility] Comment on above: Performed By: #### L 500.4050, L100.0100 ####[facility] [address] [place], [address] Glucose [Mass/Vol] 174 mg/dL High 74-106 [facility] Comment on above: Result Comment: Fast ing Glucose result greater than or equal to 126 mg/dLsuggests DIABETES MELLITUS per A.D.A. criteria. Performed By: #### L 500.4050, L100.0100 ####[facility] [address] [place], [address] Potassium [Moles/Vol] 3.1 mmol/L Low 3.5-5.1 [facility] Comment on above: Performed By: #### L 500.4050, L100.0100 ####[facility] [address] [place], [address] Sodium [Moles/Vol] 132 mmol/L Low 136-145 [facility] Comment on above: Performed By: #### L 500.4050, L100.0100 ####[facility] [address] [place], [address] T PROT 6.8 g/dL Normal 6.4-8.2 [facility] Comment on above: Performed By: #### L 500.4050, L100.0100 ####[facility] [address] [place], [address] Urea nitrogen [Mass/Vol] 36 mg/dL High 7-18 [facility] Comment on above: Performed By: #### L 500.4050, L100.0100 ####[facility] [address] [place], [address] Partial Thromboplast Timeon 02-27-2024 aPTT Coag (Bld) [Time] 155.3 s Invalid Interpretation Code 24.1-36.2 [facility] Comment on above: Result Comment: CRIT ICAL VALUE CALLED TO SW IN ICU12/16/24 0546 [facility]RESULTS READ BACK BY SAME. Performed By: #### L 300.431 ####[facility] [address] [place], [place], [id number] Vancomycin trough [Mass/Vol] Ordered By: Phi Rhoades on 02-27-2024 Vancomycin Level Trough 21.2 ug/mL High 5.0-15.0 [facility] Comment on above: VANCOMYCIN STANDARED DRUG THERAPY TROUGH LEVEL: 5.0 - 15.0 mg/L VANCOMYCIN HIGH INTENSITY THERAPY TROUGH LEVEL: 15.0 - 20.0 mg/L High Intensity therapy recommended for serious lifethreatening infections include:- Wyvjczjfdt-Eaprfqioqgxy-Cektrlrnw (Ventilator/Healtcare Associated)-Sepsis PLEASE CONTACT PHARMACY SERVICES (#[id number]) FOR INTERPRETATIONOF RESULTS. Vancomycin, Trough Levelon 1 04-29-2023 VANCO, TROUGH 21.2 ug/mL High 5.0-15.0 [facility] Comment on above: Order Comment: Comme nts: Trough to be drawn 30 mins prior to scheduled [id number] Result Comment: VANC OMYCIN STANDARED DRUG THERAPY TROUGH LEVEL: 5.0 - 15.0 mg/LVANCOMYCIN HIGH INTENSITY THERAPY TROUGH LEVEL: 15.0 - 20.0 mg/LHigh Intensity therapy recommended for serious lifethreatening infections include:- Bjkpfmeibi-Dsbviaimddgc-Rpkukpeyq (Ventilator/Healtcare Associated)-SepsisPLEASE CONTACT PHARMACY SERVICES (#9798) FOR INTERPRETATIONOF RESULTS. Performed By: #### L 501.8886 ####[facility] [address] [place], [place], [address] aPTT Coag (PPP) [Time]Ordere d By: Dayana Smith on 02-27-2024 aPTT Coag (Bld) [Time] 155.3 s High 24.1-36.2 [facility] Comment on above: CRITICAL VALUE PAN D TO SW IN ICU02/27/24 0546 [facility]RESULTS READ BACK BY SAME. Basic Metabolic Profile (BMP )on 02-26-2024 BUN/CRE 25.2 RATIO High 10-20 [facility] Comment on above: Performed By: #### L 100.0100, L500.2500, L500.4050 ####[facility] [address] [place], [address] CA,Total 9.1 mg/dL Normal 8.5-10.1 [facility] Comment on above: Performed By: #### L 100.0100, L500.2500, L500.4050 ####[facility] [address] [place], [address] Chloride [Moles/Vol] 92 mmol/L Low 98-107 [facility] Comment on above: Performed By: #### L 100.0100, L500.2500, L500.4050 ####[facility] [address] [place], [address] CO2 [Moles/Vol] 33.0 mmol/L High 21.0-32.0 [facility] Comment on above: Performed By: #### L 100.0100, L500.2500, L500.4050 ####[facility] [address] [place], [address] Creatinine [Mass/Vol] 1.31 mg/dL High 0.70-1.30 [facility] Comment on above: Result Comment: The validity of the calculated GFR GFRAA in patients over70 years has not been determined. Clinical correlation isessential. Performed By: #### L 100.0100, L500.2500, L500.4050 ####[facility] [address] [place], [address] ECRCL 88.89 ml/min Normal [facility] Comment on above: Performed By: #### L 100.0100, L500.2500, L500.4050 ####[facility] [address] [place], [address] EST GFR - AA 71 mL/min Normal >60 [facility] Comment on above: Result Comment: Afri can [place] GFR Calc Performed By: #### L 100.0100, L500.2500, L500.4050 ####[facility] [address] [place], [address] GAP 6 Normal 5-15 [facility] Comment on above: Performed By: #### L 100.0100, L500.2500, L500.4050 ####[facility] [address] [place], [address] GFR/1.73 sq M.predicted among non-blacks MDRD (S/P/Bld) [Vol rate/Area] 59 mL/min/{1.73_m2} Low >60 [facility] Comment on above: Result Comment: Non- GFR Calc Performed By: #### L 100.0100, L500.2500, L500.4050 ####[facility] [address] [place], [address] Glucose [Mass/Vol] 177 mg/dL High 74-106 [facility] Comment on above: Result Comment: Fast ing Glucose result greater than or equal to 126 mg/dLsuggests DIABETES MELLITUS per A.D.A. criteria. Performed By: #### L 100.0100, L500.2500, L500.4050 ####[facility] [address] [place], [address] Potassium [Moles/Vol] 4.7 mmol/L Normal 3.5-5.1 [facility] Comment on above: Performed By: #### L 100.0100, L500.2500, L500.4050 ####[facility] [address] [place], [address] Sodium [Moles/Vol] 131 mmol/L Low 136-145 [facility] Comment on above: Performed By: #### L 100.0100, L500.2500, L500.4050 ####[facility] [address] [place], [address] Urea nitrogen [Mass/Vol] 33 mg/dL High 7-18 [facility] Comment on above: Performed By: #### L 100.0100, L500.2500, L500.4050 ####[facility] [address] [place], [address] Bedside Glucoseon 02-26-2024 FINGERSTICK GLU 171 mg/dL High 74-106 [facility] Comment on above: Result Comment: RADHA GEMENT OF PATIENT CARE PER NURSING PROTOCOL Performed By: #### L 501.080 ####[facility] [address] [place], [address] FINGERSTICK GLU 205 mg/dL High 74-106 [facility] Comment on above: Result Comment: RADHA GEMENT OF PATIENT CARE PER NURSING PROTOCOL Performed By: #### L 501.080 ####[facility] [address] [place], [address] FINGERSTICK GLU 201 mg/dL High 74-106 [facility] Comment on above: Result Comment: RADHA GEMENT OF PATIENT CARE PER NURSING PROTOCOL Performed By: #### L 501.080 ####[facility] [address] [place], [address] FINGERSTICK GLU 184 mg/dL High 74-106 [facility] Comment on above: Result Comment: RADHA GEMENT OF PATIENT CARE PER NURSING PROTOCOL Performed By: #### L 501.080 ####[facility] [address] [place], [address] CBC W/Diff, Automatedon 02-11 Absolute Neut Normal 2.0-7.7 [facility] Comment on above: Result Comment: PAULA RICHARDSON, SEE 1215:H19 Performed By: #### L 100.0100, L500.2500, L500.4050 ####[facility] [address] [place], [address] HCT Normal 40-54 [facility] Comment on above: Result Comment: PAULA RICHARDSON, SEE 1215:H19 Performed By: #### L 100.0100, L500.2500, L500.4050 ####[facility] [address] [place], [address] HGB Normal 13.0-16.5 [facility] Comment on above: Result Comment: PAULA RICHARDSON, SEE 1215:H19 Performed By: #### L 100.0100, L500.2500, L500.4050 ####[facility] [address] [place], [address] MCH Normal 27.0-32.0 [facility] Comment on above: Result Comment: PAULA DILLONTE, SEE 1215:H19 Performed By: #### L 100.0100, L500.2500, L500.4050 ####[facility] [address] [place], [address] MCHC Normal 32-36 [facility] Comment on above: Result Comment: PAULA RICHARDSON, SEE 1215:H19 Performed By: #### L 100.0100, L500.2500, L500.4050 ####[facility] [address] [place], [address] MCV Normal 80-94 [facility] Comment on above: Result Comment: PAULA RICHARDSON, SEE 1215:H19 Performed By: #### L 100.0100, L500.2500, L500.4050 ####[facility] [address] [place], [address] NEUT% Normal 47-70 [facility] Comment on above: Result Comment: PAULA RICHARDSON, SEE 1215:H19 Performed By: #### L 100.0100, L500.2500, L500.4050 ####[facility] [address] [place], [address] PLT Normal 150-450 [facility] Comment on above: Result Comment: DUPL ICATE, SEE 1215:H19 Performed By: #### L 100.0100, L500.2500, L500.4050 ####[facility] [address] [place], [address] RBC Normal 4.6-6.2 [facility] Comment on above: Result Comment: PAULA RICHARDSON, SEE 1215:H19 Performed By: #### L 100.0100, L500.2500, L500.4050 ####[facility] [address] [place], [address] RDW CV Normal 11.6-14.6 [facility] Comment on above: Result Comment: PAULA RICHARDSON, SEE 1215:H19 Performed By: #### L 100.0100, L500.2500, L500.4050 ####[facility] [address] [place], [address] RDW SD Normal 35.1-43.9 [facility] Comment on above: Result Comment: PAULA RICHARDSON, SEE 1215:H19 Performed By: #### L 100.0100, L500.2500, L500.4050 ####[facility] [address] [place], [address] WBC Normal 4.4-11.0 [facility] Comment on above: Result Comment: PAULA RICHARDSON, SEE 1215:H19 Performed By: #### L 100.0100, L500.2500, L500.4050 ####[facility] [address] [place], [address] Absolute Lymph 0.70 X10 3/uL Low 0.83-4.51 [facility] Comment on above: Performed By: #### L 100.0100 ####[facility] [address] [place], [address] Absolute Neut 6.9 X10 3/uL Normal 2.0-7.7 [facility] Comment on above: Performed By: #### L 100.0100 ####[facility] [address] [place], [address] Basophils/100 WBC (Bld) 0.1 % Normal 0-1 [facility] Comment on above: Performed By: #### L 100.0100 ####[facility] [address] [place], [address] Eosinophils/100 WBC (Bld) 0.0 % Normal 0-5 [facility] Comment on above: Performed By: #### L 100.0100 ####[facility] [address] [place], [address] Erythrocyte distribution width (RBC) [Ratio] 15.1 % High 11.6-14.6 [facility] Comment on above: Performed By: #### L 100.0100 ####[facility] [address] [place], [address] Hematocrit (Bld) [Volume fraction] 49.9 % Normal 40-54 [facility] Comment on above: Performed By: #### L 100.0100 ####[facility] [address] [place], [address] Hemoglobin (Bld) [Mass/Vol] 15.5 g/dL Normal 13.0-16.5 [facility] Comment on above: Performed By: #### L 100.0100 ####[facility] [address] [place], [address] IG% 0.400 Normal 0.0-0.9 [facility] Comment on above: Result Comment: IG% - Immature Granulocytes (promyelocytes, myelocytes andmetamyelocytes) > 1% indicates that a LEFT SHIFT is Present. Performed By: #### L 100.0100 ####[facility] [address] [place], [address] Lymphocytes/100 WBC (Bld) 8.2 % Low 19-41 [facility] Comment on above: Performed By: #### L 100.0100 ####[facility] [address] [place], [address] MCH (RBC) [Entitic mass] 26.0 pg Low 27.0-32.0 [facility] Comment on above: Performed By: #### L 100.0100 ####[facility] [address] [place], [address] MCHC (RBC) [Mass/Vol] 31.1 g/dL Low 32-36 [facility] Comment on above: Performed By: #### L 100.0100 ####[facility] [address] [place], [address] MCV (RBC) [Entitic vol] 83.7 fL Normal 80-94 [facility] Comment on above: Performed By: #### L 100.0100 ####[facility] [address] [place], [address] Monocytes/100 WBC (Bld) 10.7 % High 0-10 [facility] Comment on above: Performed By: #### L 100.0100 ####[facility] [address] [place], [address] Neutrophils/100 WBC (Bld) 80.6 % High 47-70 [facility] Comment on above: Performed By: #### L 100.0100 ####[facility] [address] [place], [address] Nucleated RBC (Bld) [#/Vol] 0 10*3/uL Normal 0-5 [facility] Comment on above: Performed By: #### L 100.0100 ####[facility] [address] [place], [address] Platelet mean volume (Bld) [Entitic vol] 9.8 fL Normal 6.2-12.0 [facility] Comment on above: Performed By: #### L 100.0100 ####[facility] [address] [place], [address] Platelets (Bld) [#/Vol] 181 10*3/uL Normal 150-450 [facility] Comment on above: Performed By: #### L 100.0100 ####[facility] [address] [place], [address] RBC (Bld) [#/Vol] 5.96 10*6/uL Normal 4.6-6.2 [facility] Comment on above: Performed By: #### L 100.0100 ####[facility] [address] [place], [address] RDW SD 45.6 fl High 35.1-43.9 [facility] Comment on above: Performed By: #### L 100.0100 ####[facility] [address] [place], [address] WBC (Bld) [#/Vol] 8.5 10*3/uL Normal 4.4-11.0 [facility] Comment on above: Performed By: #### L 100.0100 ####[facility] [address] [place], [address] Chest 1 View (Portable)on Chest 1 View (Portable) Normal [facility] Comprehensive Metabolic Prof ilon 02-26-2024 Albumin [Mass/Vol] 3.0 g/dL Low 3.2-5.0 [facility] Comment on above: Performed By: #### L 100.0100, L500.2500, L500.4050 ####[facility] [address] [place], [address] Albumin/Globulin [Mass ratio] 0.8 {ratio} Low 0.9-2.4 [facility] Comment on above: Performed By: #### L 100.0100, L500.2500, L500.4050 ####[facility] [address] [place], [address] ALK P 85 U/L Normal 45-117 [facility] Comment on above: Performed By: #### L 100.0100, L500.2500, L500.4050 ####[facility] [address] [place], [address] ALT [Catalytic activity/Vol] 22 U/L Normal 16-61 [facility] Comment on above: Performed By: #### L 100.0100, L500.2500, L500.4050 ####[facility] [address] [place], [address] AST [Catalytic activity/Vol] 19 U/L Normal 15-37 [facility] Comment on above: Performed By: #### L 100.0100, L500.2500, L500.4050 ####[facility] [address] [place], [address] Bilirubin [Mass/Vol] 1.30 mg/dL High 0.20-1.00 [facility] Comment on above: Result Comment: For patients on eltrombopag therapy, use of Dimension [place] TBIL is not recommended. Performed By: #### L 100.0100, L500.2500, L500.4050 ####[facility] [address] [place], [address] Globulin (S) [Mass/Vol] 3.7 g/dL Normal 2.2-4.2 [facility] Comment on above: Performed By: #### L 100.0100, L500.2500, L500.4050 ####[facility] [address] [place], [address] T PROT 6.7 g/dL Normal 6.4-8.2 [facility] Comment on above: Performed By: #### L 100.0100, L500.2500, L500.4050 ####[facility] [address] [place], [address] Culture, Blood (WB)on 2023 CUB Blood cultures x2, from two different sites No growth in 5 days. Normal [facility] Comment on above: Performed By: #### M 200.1000 ####[facility] [address] [place], [address] CUB No growth in 5 days. Normal [facility] Comment on above: Performed By: #### M 200.1000 ####[facility] [address] [place], [address] Partial Thromboplast Timeon 02-26-2024 aPTT Coag (Bld) [Time] 67.7 s High 24.1-36.2 [facility] Comment on above: Performed By: #### L 300.4310 ####[facility] [address] [place], [address] Vancomycin [Mass/Vol]Ordered By: Phi Rhoades on 02-26-2024 Random Vancomycin Level 15.3 ug/mL High 0.0-15.0 [facility] Comment on above: VANCOMYCIN STANDARD DRUG THERAPY: CRITICAL VALUE IS > 15.0 mg/L VANCOMYCIN HIGH INTENSITY THERAPY: CRITICAL VALUE IS > 20.0 mg/L PLEASE CONTACT PHARMACY SERVICES (#6326) FOR INTERPRETATIONOF RESULTS. THIS RESULT DOES NOT REPRESENT A PEAK OR TROUGHLEVEL FOR THIS DRUG. Vancomycin, Random Levelon 1 04-28-2023 VANCO, RANDOM 15.3 ug/mL High 0.0-15.0 [facility] Comment on above: Result Comment: VANC OMYCIN STANDARD DRUG THERAPY: CRITICAL VALUE IS > 15.0 mg/LVANCOMYCIN HIGH INTENSITY THERAPY: CRITICAL VALUE IS > 20.0 mg/LPLEASE CONTACT PHARMACY SERVICES (#0649) FOR INTERPRETATIONOF RESULTS. THIS RESULT DOES NOT REPRESENT A PEAK OR TROUGHLEVEL FOR THIS DRUG. Performed By: #### L 902.7531 ####[facility] [address] [place], [address] Basic Metabolic Profile (BMP )on 02-25-2024 BUN/CRE 26.3 RATIO High 10-20 [facility] Comment on above: Performed By: #### L 501.5200, L500.2500 ####[facility] [address] [place], [address] CA,Total 8.8 mg/dL Normal 8.5-10.1 [facility] Comment on above: Performed By: #### L 501.5200, L500.2500 ####[facility] [address] [place], [address] Chloride [Moles/Vol] 92 mmol/L Low 98-107 [facility] Comment on above: Performed By: #### L 501.5200, L500.2500 ####[facility] [address] [place], [address] CO2 [Moles/Vol] 36.0 mmol/L High 21.0-32.0 [facility] Comment on above: Performed By: #### L 501.5200, L500.2500 ####[facility] [address] [place], [address] Creatinine [Mass/Vol] 1.37 mg/dL High 0.70-1.30 [facility] Comment on above: Result Comment: The validity of the calculated GFR GFRAA in patients over70 years has not been determined. Clinical correlation isessential. Performed By: #### L 501.5200, L500.2500 ####[facility] [address] [place], [address] ECRCL 86.88 ml/min Normal [facility] Comment on above: Performed By: #### L 501.5200, L500.2500 ####[facility] [address] [place], [address] EST GFR - AA 67 mL/min Normal >60 [facility] Comment on above: Result Comment: Afri can British GFR Calc Performed By: #### L 501.5200, L500.2500 ####[facility] [address] [place], [address] GAP 5 Normal 5-15 [facility] Comment on above: Performed By: #### L 501.5200, L500.2500 ####[facility] [address] [place], [address] GFR/1.73 sq M.predicted among non-blacks MDRD (S/P/Bld) [Vol rate/Area] 56 mL/min/{1.73_m2} Low >60 [facility] Comment on above: Result Comment: Non- GFR Calc Performed By: #### L 501.5200, L500.2500 ####[facility] [address] [place], [address] Glucose [Mass/Vol] 218 mg/dL High 74-106 [facility] Comment on above: Result Comment: Gluc ose result greater than or equal to 200 mg/dLsuggests DIABETES MELLITUS per A.D.A. criteria. Performed By: #### L 501.5200, L500.2500 ####[facility] [address] [place], [address] Potassium [Moles/Vol] 3.5 mmol/L Normal 3.5-5.1 [facility] Comment on above: Performed By: #### L 501.5200, L500.2500 ####[facility] [address] [place], [address] Sodium [Moles/Vol] 133 mmol/L Low 136-145 [facility] Comment on above: Performed By: #### L 501.5200, L500.2500 ####[facility] [address] [place], [address] Urea nitrogen [Mass/Vol] 36 mg/dL High 7-18 [facility] Comment on above: Performed By: #### L 501.5200, L500.2500 ####[facility] [address] [place], [address] BUN/CRE 25.4 RATIO High 10-20 [facility] Comment on above: Performed By: #### L 100.0100, L500.2500 ####[facility] [address] [place], [address] CA,Total 8.9 mg/dL Normal 8.5-10.1 [facility] Comment on above: Performed By: #### L 100.0100, L500.2500 ####[facility] [address] [place], [address] Chloride [Moles/Vol] 91 mmol/L Low 98-107 [facility] Comment on above: Performed By: #### L 100.0100, L500.2500 ####[facility] [address] [place], [address] CO2 [Moles/Vol] 34.0 mmol/L High 21.0-32.0 [facility] Comment on above: Performed By: #### L 100.0100, L500.2500 ####[facility] [address] [place], [address] Creatinine [Mass/Vol] 1.26 mg/dL Normal 0.70-1.30 [facility] Comment on above: Result Comment: The validity of the calculated GFR GFRAA in patients over70 years has not been determined. Clinical correlation isessential. Performed By: #### L 100.0100, L500.2500 ####[facility] [address] [place], [address] ECRCL 97.08 ml/min Normal [facility] Comment on above: Performed By: #### L 100.0100, L500.2500 ####[facility] [address] [place], [address] EST GFR - AA 74 mL/min Normal >60 [facility] Comment on above: Result Comment: Afri can [place] GFR Calc Performed By: #### L 100.0100, L500.2500 ####[facility] [address] [place], [address] GAP 9 Normal 5-15 [facility] Comment on above: Performed By: #### L 100.0100, L500.2500 ####[facility] [address] [place], [address] GFR/1.73 sq M.predicted among non-blacks MDRD (S/P/Bld) [Vol rate/Area] 61 mL/min/{1.73_m2} Normal >60 [facility] Comment on above: Result Comment: Non- GFR Calc Performed By: #### L 100.0100, L500.2500 ####[facility] [address] [place], [address] Glucose [Mass/Vol] 171 mg/dL High 74-106 [facility] Comment on above: Result Comment: Fast ing Glucose result greater than or equal to 126 mg/dLsuggests DIABETES MELLITUS per A.D.A. criteria. Performed By: #### L 100.0100, L500.2500 ####[facility] [address] [place], [address] Potassium [Moles/Vol] 3.5 mmol/L Normal 3.5-5.1 [facility] Comment on above: Performed By: #### L 100.0100, L500.2500 ####[facility] [address] [place], [address] Sodium [Moles/Vol] 134 mmol/L Low 136-145 [facility] Comment on above: Performed By: #### L 100.0100, L500.2500 ####[facility] [address] [place], [address] Urea nitrogen [Mass/Vol] 32 mg/dL High 7-18 [facility] Comment on above: Performed By: #### L 100.0100, L500.2500 ####[facility] [address] [place], [address] Bedside Glucoseon 02-25-2024 FINGERSTICK GLU 201 mg/dL High 74-106 [facility] Comment on above: Result Comment: RADHA GEMENT OF PATIENT CARE PER NURSING PROTOCOL Performed By: #### L 501.080 ####[facility] [address] [place], [address] FINGERSTICK GLU 208 mg/dL High 74-106 [facility] Comment on above: Result Comment: RADHA GEMENT OF PATIENT CARE PER NURSING PROTOCOL Performed By: #### L 501.080 ####[facility] [address] [place], [address] FINGERSTICK GLU 201 mg/dL High 74-106 [facility] Comment on above: Result Comment: RADHA GEMENT OF PATIENT CARE PER NURSING PROTOCOL Performed By: #### L 501.080 ####[facility] [address] [place], [address] FINGERSTICK GLU 155 mg/dL High 74-106 [facility] Comment on above: Result Comment: RADHA GEMENT OF PATIENT CARE PER NURSING PROTOCOL Performed By: #### L 501.080 ####[facility] [address] [place], [address] FINGERSTICK GLU 162 mg/dL High 74-106 [facility] Comment on above: Result Comment: RADHA GEMENT OF PATIENT CARE PER NURSING PROTOCOL Performed By: #### L 501.080 ####[facility] [address] [place], [address] CBC W/Diff, Automatedon 12- Absolute Lymph 0.83 X10 3/uL Normal 0.83-4.51 [facility] Comment on above: Performed By: #### L 100.0100, L500.2500 ####[facility] [address] [place], [address] Absolute Neut 8.4 X10 3/uL High 2.0-7.7 [facility] Comment on above: Performed By: #### L 100.0100, L500.2500 ####[facility] [address] [place], [address] Basophils/100 WBC (Bld) 0.2 % Normal 0-1 [facility] Comment on above: Performed By: #### L 100.0100, L500.2500 ####[facility] [address] [place], [address] Eosinophils/100 WBC (Bld) 0.0 % Normal 0-5 [facility] Comment on above: Performed By: #### L 100.0100, L500.2500 ####[facility] [address] [place], [address] Erythrocyte distribution width (RBC) [Ratio] 15.2 % High 11.6-14.6 [facility] Comment on above: Performed By: #### L 100.0100, L500.2500 ####[facility] [address] [place], [address] Hematocrit (Bld) [Volume fraction] 48.8 % Normal 40-54 [facility] Comment on above: Performed By: #### L 100.0100, L500.2500 ####[facility] [address] [place], [address] Hemoglobin (Bld) [Mass/Vol] 15.3 g/dL Normal 13.0-16.5 [facility] Comment on above: Performed By: #### L 100.0100, L500.2500 ####[facility] [address] [place], [address] IG% 0.500 Normal 0.0-0.9 [facility] Comment on above: Result Comment: IG% - Immature Granulocytes (promyelocytes, myelocytes andmetamyelocytes) > 1% indicates that a LEFT SHIFT is Present. Performed By: #### L 100.0100, L500.2500 ####[facility] [address] [place], [address] Lymphocytes/100 WBC (Bld) 8.2 % Low 19-41 [facility] Comment on above: Performed By: #### L 100.0100, L500.2500 ####[facility] [address] [place], [address] MCH (RBC) [Entitic mass] 26.3 pg Low 27.0-32.0 [facility] Comment on above: Performed By: #### L 100.0100, L500.2500 ####[facility] [address] [place], [address] MCHC (RBC) [Mass/Vol] 31.4 g/dL Low 32-36 [facility] Comment on above: Performed By: #### L 100.0100, L500.2500 ####[facility] [address] [place], [address] MCV (RBC) [Entitic vol] 83.8 fL Normal 80-94 [facility] Comment on above: Performed By: #### L 100.0100, L500.2500 ####[facility] [address] [place], [address] Monocytes/100 WBC (Bld) 8.6 % Normal 0-10 [facility] Comment on above: Performed By: #### L 100.0100, L500.2500 ####[facility] [address] [place], [address] Neutrophils/100 WBC (Bld) 82.5 % High 47-70 [facility] Comment on above: Performed By: #### L 100.0100, L500.2500 ####[facility] [address] [place], [address] Nucleated RBC (Bld) [#/Vol] 0 10*3/uL Normal 0-5 [facility] Comment on above: Performed By: #### L 100.0100, L500.2500 ####[facility] [address] [place], [address] Platelet mean volume (Bld) [Entitic vol] 9.9 fL Normal 6.2-12.0 [facility] Comment on above: Performed By: #### L 100.0100, L500.2500 ####[facility] [address] [place], [address] Platelets (Bld) [#/Vol] 194 10*3/uL Normal 150-450 [facility] Comment on above: Performed By: #### L 100.0100, L500.2500 ####[facility] [address] [place], [address] RBC (Bld) [#/Vol] 5.82 10*6/uL Normal 4.6-6.2 [facility] Comment on above: Performed By: #### L 100.0100, L500.2500 ####[facility] [address] [place], [address] RDW SD 45.8 fl High 35.1-43.9 [facility] Comment on above: Performed By: #### L 100.0100, L500.2500 ####[facility] [address] [place], [address] WBC (Bld) [#/Vol] 10.2 10*3/uL Normal 4.4-11.0 [facility] Comment on above: Performed By: #### L 100.0100, L500.2500 ####[facility] [address] [place], [address] Magnesiumon 02-25-2024 Magnesium [Mass/Vol] 1.8 mg/dL Normal 1.6-2.6 [facility] Comment on above: Performed By: #### L 501.5200, L500.2500 ####[facility] [address] [place], [address] Partial Thromboplast Timeon 02-25-2024 aPTT Coag (Bld) [Time] 66.6 s High 24.1-36.2 [facility] Comment on above: Performed By: #### L 300.4310 ####[facility] [address] [place], [address] Vancomycin, Trough Levelon 1 04-27-2023 VANCO, TROUGH 22.8 ug/mL High 5.0-15.0 [facility] Comment on above: Order Comment: Comme nts: Trough to be drawn 30 mins prior to scheduled [id number] Result Comment: VANC OMYCIN STANDARED DRUG THERAPY TROUGH LEVEL: 5.0 - 15.0 mg/LVANCOMYCIN HIGH INTENSITY THERAPY TROUGH LEVEL: 15.0 - 20.0 mg/LHigh Intensity therapy recommended for serious lifethreatening infections include:- Usxfnfupqt-Cxhwzolqnyea-Gmspungax (Ventilator/Healtcare Associated)-SepsisPLEASE CONTACT PHARMACY SERVICES (#8233) FOR INTERPRETATIONOF RESULTS. Performed By: #### L 501.8820 ####[facility] [address] [place], [address] Base excess Calc (BldV) [Mol es/Vol]Ordered By: Dayana Smith on 02-24-2024 Blood Gas Base Excess 10 mmol/L High -2-2 [facility] Basic Metabolic Profile (BMP )on 02-24-2024 BUN/CRE 26.5 RATIO High 10-20 [facility] Comment on above: Performed By: #### L 100.0100, L501.5200, L500.2500 ####[facility] [address] [place], [address] CA,Total 8.8 mg/dL Normal 8.5-10.1 [facility] Comment on above: Performed By: #### L 100.0100, L501.5200, L500.2500 ####[facility] [address] [place], [address] Chloride [Moles/Vol] 94 mmol/L Low 98-107 [facility] Comment on above: Performed By: #### L 100.0100, L501.5200, L500.2500 ####[facility] [address] [place], [address] CO2 [Moles/Vol] 35.0 mmol/L High 21.0-32.0 [facility] Comment on above: Performed By: #### L 100.0100, L501.5200, L500.2500 ####[facility] [address] [place], [address] Creatinine [Mass/Vol] 1.17 mg/dL Normal 0.70-1.30 [facility] Comment on above: Result Comment: The validity of the calculated GFR GFRAA in patients over70 years has not been determined. Clinical correlation isessential. Performed By: #### L 100.0100, L501.5200, L500.2500 ####[facility] [address] [place], [address] ECRCL 104.55 ml/min Normal [facility] Comment on above: Performed By: #### L 100.0100, L501.5200, L500.2500 ####[facility] [address] [place], [address] EST GFR - AA 81 mL/min Normal >60 [facility] Comment on above: Result Comment: Afri can British GFR Calc Performed By: #### L 100.0100, L501.5200, L500.2500 ####[facility] [address] [place], [address] GAP 6 Normal 5-15 [facility] Comment on above: Performed By: #### L 100.0100, L501.5200, L500.2500 ####[facility] [address] [place], [address] GFR/1.73 sq M.predicted among non-blacks MDRD (S/P/Bld) [Vol rate/Area] 67 mL/min/{1.73_m2} Normal >60 [facility] Comment on above: Result Comment: Non- GFR Calc Performed By: #### L 100.0100, L501.5200, L500.2500 ####[facility] [address] [place], [address] Glucose [Mass/Vol] 160 mg/dL High 74-106 [facility] Comment on above: Result Comment: Fast ing Glucose result greater than or equal to 126 mg/dLsuggests DIABETES MELLITUS per A.D.A. criteria. Performed By: #### L 100.0100, L501.5200, L500.2500 ####[facility] [address] [place], [address] Potassium [Moles/Vol] 3.5 mmol/L Normal 3.5-5.1 [facility] Comment on above: Performed By: #### L 100.0100, L501.5200, L500.2500 ####[facility] [address] [place], [address] Sodium [Moles/Vol] 135 mmol/L Low 136-145 [facility] Comment on above: Performed By: #### L 100.0100, L501.5200, L500.2500 ####[facility] [address] [place], [address] Urea nitrogen [Mass/Vol] 31 mg/dL High 7-18 [facility] Comment on above: Performed By: #### L 100.0100, L501.5200, L500.2500 ####[facility] [address] [place], [address] Bedside Glucoseon 02-24-2024 FINGERSTICK GLU 194 mg/dL High 74-106 [facility] Comment on above: Result Comment: Dr Darrius hastings FollowedInsulin GivenMANAGEMENT OF PATIENT CARE PER NURSING PROTOCOL Performed By: #### L 501.080 ####[facility] [address] [place], [address] FINGERSTICK GLU 155 mg/dL High 74-106 [facility] Comment on above: Result Comment: Insu tong GivenMANAGEMENT OF PATIENT CARE PER NURSING PROTOCOL Performed By: #### L 501.080 ####[facility] [address] [place], [address] FINGERSTICK GLU 165 mg/dL High -106 [facility] Comment on above: Result Comment: RADHA GEMENT OF PATIENT CARE PER NURSING PROTOCOL Performed By: #### L 501.080 ####[facility] [address] [place], [address] FINGERSTICK GLU 166 mg/dL High [facility]106 [facility] Comment on above: Result Comment: RADHA GEMENT OF PATIENT CARE PER NURSING PROTOCOL Performed By: #### L 501.080 ####[facility] [address] [place], [address] [facility] Base excess Calc (Bld) [Moles/Vol] 10 mmol/L High -2 to +2 [facility] Comment on above: Performed By: #### L 9000.0800 ####[facility] [address] [place], [address] Blood Gas Type ART Normal [facility] Comment on above: Performed By: #### L 9000.0800 ####[facility] [address] [place], [address] CO2 [Moles/Vol] 35 mmol/L Normal [facility] Comment on above: Performed By: #### L 9000.0800 ####[facility] [address] [place], [address] FI02 45.0 Normal [facility] Comment on above: Performed By: #### L 9000.0800 ####[facility] [address] [place], [address] HCO3 (Bld) [Moles/Vol] 33.9 mmol/L High 22-26 [facility] Comment on above: Performed By: #### L 9000.0800 ####[facility] [address] [place], [address] Mode Not entered [facility] Comment on above: Performed By: #### L 9000.0800 ####[facility] [address] [place], [address] O2 Delivery Dev Not entered [facility] Comment on above: Performed By: #### L 9000.0800 ####[facility] [address] [place], [address] pCO2 48.7 mmHg High 35-45 [facility] Comment on above: Performed By: #### L 9000.0800 ####[facility] [address] [place], [address] PEEP 18 Normal [facility] Comment on above: Performed By: #### L 9000.0800 ####[facility] [address] [place], [address] pH (Bld) 7.45 [pH] Normal 7.35-7.45 [facility] Comment on above: Performed By: #### L 9000.0800 ####[facility] [address] [place], [address] PO2 65 mmHG Low 75-100 [facility] Comment on above: Performed By: #### L 9000.0800 ####[facility] [address] [place], [address] RR 16 Normal [facility] Comment on above: Performed By: #### L 9000.0800 ####[facility] [address] [place], [address] SITE L Radial Normal [facility] Comment on above: Performed By: #### L 9000.0800 ####[facility] [address] [place], [address] SO2 93 Low 95-99 [facility] Comment on above: Performed By: #### L 9000.0800 ####[facility] [address] [place], [address] Vt 500.0 mL Normal [facility] Comment on above: Performed By: #### L 9000.0800 ####[facility] [address] [place], [address] Blood bicarbonate measuremen tOrdered By: Dayana Smith on 02-24-2024 Blood Gas Bicarbonate Actual 33.9 mmol/L High 22-26 [facility] CBC W/Diff, Automatedon 02-11 Absolute Lymph 0.93 X10 3/uL Normal 0.83-4.51 [facility] Comment on above: Performed By: #### L 100.0100, L501.5200, L500.2500 ####[facility] [address] [place], [address] Absolute Neut 8.4 X10 3/uL High 2.0-7.7 [facility] Comment on above: Performed By: #### L 100.0100, L501.5200, L500.2500 ####[facility] [address] [place], [address] Basophils/100 WBC (Bld) 0.4 % Normal 0-1 [facility] Comment on above: Performed By: #### L 100.0100, L501.5200, L500.2500 ####[facility] [address] [place], [address] Eosinophils/100 WBC (Bld) 0.3 % Normal 0-5 [facility] Comment on above: Performed By: #### L 100.0100, L501.5200, L500.2500 ####[facility] [address] [place], [address] Erythrocyte distribution width (RBC) [Ratio] 15.1 % High 11.6-14.6 [facility] Comment on above: Performed By: #### L 100.0100, L501.5200, L500.2500 ####[facility] [address] [place], [address] Hematocrit (Bld) [Volume fraction] 47.8 % Normal 40-54 [facility] Comment on above: Performed By: #### L 100.0100, L501.5200, L500.2500 ####[facility] [address] [place], [address] Hemoglobin (Bld) [Mass/Vol] 14.8 g/dL Normal 13.0-16.5 [facility] Comment on above: Performed By: #### L 100.0100, L501.5200, L500.2500 ####[facility] [address] [place], [address] IG% 0.800 Normal 0.0-0.9 [facility] Comment on above: Result Comment: IG% - Immature Granulocytes (promyelocytes, myelocytes andmetamyelocytes) > 1% indicates that a LEFT SHIFT is Present. Performed By: #### L 100.0100, L501.5200, L500.2500 ####[facility] [address] [place], [address] Lymphocytes/100 WBC (Bld) 9.0 % Low 19-41 [facility] Comment on above: Performed By: #### L 100.0100, L501.5200, L500.2500 ####[facility] [address] [place], [address] MCH (RBC) [Entitic mass] 26.1 pg Low 27.0-32.0 [facility] Comment on above: Performed By: #### L 100.0100, L501.5200, L500.2500 ####[facility] [address] [place], [address] MCHC (RBC) [Mass/Vol] 31.0 g/dL Low 32-36 [facility] Comment on above: Performed By: #### L 100.0100, L501.5200, L500.2500 ####[facility] [address] [place], [address] MCV (RBC) [Entitic vol] 84.5 fL Normal 80-94 [facility] Comment on above: Performed By: #### L 100.0100, L501.5200, L500.2500 ####[facility] [address] [place], [address] Monocytes/100 WBC (Bld) 8.4 % Normal 0-10 [facility] Comment on above: Performed By: #### L 100.0100, L501.5200, L500.2500 ####[facility] [address] [place], [address] Neutrophils/100 WBC (Bld) 81.1 % High 47-70 [facility] Comment on above: Performed By: #### L 100.0100, L501.5200, L500.2500 ####[facility] [address] [place], [address] Nucleated RBC (Bld) [#/Vol] 0 10*3/uL Normal 0-5 [facility] Comment on above: Performed By: #### L 100.0100, L501.5200, L500.2500 ####[facility] [address] [place], [address] Platelet mean volume (Bld) [Entitic vol] 10.0 fL Normal 6.2-12.0 [facility] Comment on above: Performed By: #### L 100.0100, L501.5200, L500.2500 ####[facility] [address] [place], [address] Platelets (Bld) [#/Vol] 188 10*3/uL Normal 150-450 [facility] Comment on above: Performed By: #### L 100.0100, L501.5200, L500.2500 ####[facility] [address] [place], [address] RBC (Bld) [#/Vol] 5.66 10*6/uL Normal 4.6-6.2 [facility] Comment on above: Performed By: #### L 100.0100, L501.5200, L500.2500 ####[facility] [address] [place], [address] RDW SD 46.4 fl High 35.1-43.9 [facility] Comment on above: Performed By: #### L 100.0100, L501.5200, L500.2500 ####[facility] [address] [place], [address] WBC (Bld) [#/Vol] 10.3 10*3/uL Normal 4.4-11.0 [facility] Comment on above: Performed By: #### L 100.0100, L501.5200, L500.2500 ####[facility] [address] [place], [address] Determination of fraction of inspired oxygenOrdered By: Dayana Smith on 02-24-2024 Blood Gas Oxygen Percent 45.0 [facility] Magnesiumon 02-24-2024 Magnesium [Mass/Vol] 2.1 mg/dL Normal 1.6-2.6 [facility] Comment on above: Performed By: #### L 100.0100, L501.5200, L500.2500 ####[facility] [address] [facility] [id number] No Panel InformationOrdered By: Dayana Smith on 02-24-2024 Bedside Blood Gas PEEP 18 [facility] Blood Gas Respiration Rate 16 [facility] Blood Gas Sample Site L Radial [facility] Blood Gas Specimen Type ART [facility] Blood Gas Tidal Volume 500.[address] [facility] Blood Gas Vent Mode Not entered [facility] Oxygen Delivery Device Not entered [facility] Oxygen saturation measuremen tOrdered By: Dayana Smith on 02-24-2024 Blood Gas Oxygen Saturation 93 % Low 95-99 [facility] Partial Thromboplast Timeon 02-24-2024 aPTT Coag (Bld) [Time] 62.2 s High 24.1-36.2 [facility] Comment on above: Performed By: #### L 300.4310 ####[facility] [address] [place], [place], [id number] aPTT Coag (Bld) [Time] 68.8 s High 24.1-36.2 [facility] Comment on above: Performed By: #### L 300.4310 ####[facility] [address] [place], [place], [id number] Partial pressure of carbon d ioxide measurementOrdered By: Dayana Smith on 02-24-2024 Arterial Blood Partial Pressure CO2 48.7 mmHg High 35-45 [facility] Partial pressure of oxygen m easurementOrdered By: Dayana Smith on 02-24-2024 Arterial Blood Partial Pressure O2 65 mmHG Low 75-100 [facility] Phosphoruson 02-24-2024 Phosphate [Mass/Vol] 3.9 mg/dL Normal 2.5-4.9 [facility] Comment on above: Performed By: #### L 501.2300 ####[facility] [address] [place], [address] Phosphorus measurementOrdere d By: Alejandra Morin on 02-24-2024 Phosphorus Level 3.9 mg/dL 2.5-4.9 [facility] Total carbon dioxide measure mentOrdered By: Dayana Smith on 02-24-2024 Blood Gas Total CO2 35 mmol/L [facility] pH (Unsp spec)Ordered By: Na na Sarah on 02-24-2024 Blood Gas pH 7.45 7.35-7.45 [facility] Basic Metabolic Profile (BMP )on 02-23-2024 BUN/CRE 25.6 RATIO High 10-20 [facility] Comment on above: Performed By: #### L 500.2500 ####[facility] [address] [place], [address] CA,Total 8.7 mg/dL Normal 8.5-10.1 [facility] Comment on above: Performed By: #### L 500.2500 ####[facility] [address] [place], [address] Chloride [Moles/Vol] 96 mmol/L Low 98-107 [facility] Comment on above: Performed By: #### L 500.2500 ####[facility] [address] [place], [address] CO2 [Moles/Vol] 35.0 mmol/L High 21.0-32.0 [facility] Comment on above: Performed By: #### L 500.2500 ####[facility] [address] [place], [address] Creatinine [Mass/Vol] 1.25 mg/dL Normal 0.70-1.30 [facility] Comment on above: Result Comment: The validity of the calculated GFR GFRAA in patients over70 years has not been determined. Clinical correlation isessential. Performed By: #### L 500.2500 ####[facility] [address] [place], [address] ECRCL 97.82 ml/min Normal [facility] Comment on above: Performed By: #### L 500.2500 ####[facility] [address] [place], [address] EST GFR - AA 75 mL/min Normal >60 [facility] Comment on above: Result Comment: Afri can British GFR Calc Performed By: #### L 500.2500 ####[facility] [address] [place], [address] GAP 4 Low 5-15 [facility] Comment on above: Performed By: #### L 500.2500 ####[facility] [address] [place], [address] GFR/1.73 sq M.predicted among non-blacks MDRD (S/P/Bld) [Vol rate/Area] 62 mL/min/{1.73_m2} Normal >60 [facility] Comment on above: Result Comment: Non- GFR Calc Performed By: #### L 500.2500 ####[facility] [address] [place], [address] Glucose [Mass/Vol] 179 mg/dL High 74-106 [facility] Comment on above: Result Comment: Fast ing Glucose result greater than or equal to 126 mg/dLsuggests DIABETES MELLITUS per A.D.A. criteria. Performed By: #### L 500.2500 ####[facility] [address] [place], [address] Potassium [Moles/Vol] 3.9 mmol/L Normal 3.5-5.1 [facility] Comment on above: Performed By: #### L 500.2500 ####[facility] [address] [place], [address] Sodium [Moles/Vol] 135 mmol/L Low 136-145 [facility] Comment on above: Performed By: #### L 500.2500 ####[facility] [address] [place], [address] Urea nitrogen [Mass/Vol] 32 mg/dL High 7-18 [facility] Comment on above: Performed By: #### L 500.2500 ####[facility] [address] [place], [address] BUN/CRE 24.2 RATIO High 10-20 [facility] Comment on above: Performed By: #### L 500.2500 ####[facility] [address] [place], [address] CA,Total 8.6 mg/dL Normal 8.5-10.1 [facility] Comment on above: Performed By: #### L 500.2500 ####[facility] [address] [place], [address] Chloride [Moles/Vol] 96 mmol/L Low 98-107 [facility] Comment on above: Performed By: #### L 500.2500 ####[facility] [address] [place], [address] CO2 [Moles/Vol] 35.0 mmol/L High 21.0-32.0 [facility] Comment on above: Performed By: #### L 500.2500 ####[facility] [address] [place], [address] Creatinine [Mass/Vol] 1.28 mg/dL Normal 0.70-1.30 [facility] Comment on above: Result Comment: The validity of the calculated GFR GFRAA in patients over70 years has not been determined. Clinical correlation isessential. Performed By: #### L 500.2500 ####[facility] [address] [place], [address] ECRCL 95.53 ml/min Normal [facility] Comment on above: Performed By: #### L 500.2500 ####[facility] [address] [place], [address] EST GFR - AA 73 mL/min Normal >60 [facility] Comment on above: Result Comment: Afri can British GFR Calc Performed By: #### L 500.2500 ####[facility] [address] [place], [address] GAP 5 Normal 5-15 [facility] Comment on above: Performed By: #### L 500.2500 ####[facility] [address] [place], [address] GFR/1.73 sq M.predicted among non-blacks MDRD (S/P/Bld) [Vol rate/Area] 60 mL/min/{1.73_m2} Normal >60 [facility] Comment on above: Result Comment: Non- GFR Calc Performed By: #### L 500.2500 ####[facility] [address] [place], [address] Glucose [Mass/Vol] 206 mg/dL High 74-106 [facility] Comment on above: Result Comment: Gluc ose result greater than or equal to 200 mg/dLsuggests DIABETES MELLITUS per A.D.A. criteria. Performed By: #### L 500.2500 ####[facility] [address] [place], [address] Potassium [Moles/Vol] 3.8 mmol/L Normal 3.5-5.1 [facility] Comment on above: Performed By: #### L 500.2500 ####[facility] [address] [place], [address] Sodium [Moles/Vol] 137 mmol/L Normal 136-145 [facility] Comment on above: Performed By: #### L 500.2500 ####[facility] [address] [place], [address] Urea nitrogen [Mass/Vol] 31 mg/dL High 7-18 [facility] Comment on above: Performed By: #### L 500.2500 ####[facility] [address] [place], [address] BUN/CRE 21.5 RATIO High 10-20 [facility] Comment on above: Performed By: #### L 500.2500 ####[facility] [address] [place], [address] CA,Total 8.4 mg/dL Low 8.5-10.1 [facility] Comment on above: Performed By: #### L 500.2500 ####[facility] [address] [place], [address] Chloride [Moles/Vol] 97 mmol/L Low 98-107 [facility] Comment on above: Performed By: #### L 500.2500 ####[facility] [address] [place], [address] CO2 [Moles/Vol] 32.0 mmol/L Normal 21.0-32.0 [facility] Comment on above: Performed By: #### L 500.2500 ####[facility] [address] [place], [address] Creatinine [Mass/Vol] 1.35 mg/dL High 0.70-1.30 [facility] Comment on above: Result Comment: The validity of the calculated GFR GFRAA in patients over70 years has not been determined. Clinical correlation isessential. Performed By: #### L 500.2500 ####[facility] [address] [place], [address] ECRCL 90.57 ml/min Normal [facility] Comment on above: Performed By: #### L 500.2500 ####[facility] [address] [place], [address] EST GFR - AA 68 mL/min Normal >60 [facility] Comment on above: Result Comment: Afri can British GFR Calc Performed By: #### L 500.2500 ####[facility] [address] [place], [address] GAP 7 Normal 5-15 [facility] Comment on above: Performed By: #### L 500.2500 ####[facility] [address] [place], [address] GFR/1.73 sq M.predicted among non-blacks MDRD (S/P/Bld) [Vol rate/Area] 57 mL/min/{1.73_m2} Low >60 [facility] Comment on above: Result Comment: Non- GFR Calc Performed By: #### L 500.2500 ####[facility] [address] [place], [address] Glucose [Mass/Vol] 196 mg/dL High 74-106 [facility] Comment on above: Result Comment: Fast ing Glucose result greater than or equal to 126 mg/dLsuggests DIABETES MELLITUS per A.D.A. criteria. Performed By: #### L 500.2500 ####[facility] [address] [place], [address] Potassium [Moles/Vol] 4.0 mmol/L Normal 3.5-5.1 [facility] Comment on above: Performed By: #### L 500.2500 ####[facility] [address] [place], [address] Sodium [Moles/Vol] 136 mmol/L Normal 136-145 [facility] Comment on above: Performed By: #### L 500.2500 ####[facility] [address] [place], [address] Urea nitrogen [Mass/Vol] 29 mg/dL High 7-18 [facility] Comment on above: Performed By: #### L 500.2500 ####[facility] [address] [place], [address] BUN/CRE 19.6 RATIO Normal 10-20 [facility] Comment on above: Performed By: #### L 500.2500 ####[facility] [address] [place], [address] CA,Total 8.7 mg/dL Normal 8.5-10.1 [facility] Comment on above: Performed By: #### L 500.2500 ####[facility] [address] [place], [address] Chloride [Moles/Vol] 98 mmol/L Normal 98-107 [facility] Comment on above: Performed By: #### L 500.2500 ####[facility] [address] [place], [address] CO2 [Moles/Vol] 32.0 mmol/L Normal 21.0-32.0 [facility] Comment on above: Performed By: #### L 500.2500 ####[facility] [address] [place], [address] Creatinine [Mass/Vol] 1.53 mg/dL High 0.70-1.30 [facility] Comment on above: Result Comment: The validity of the calculated GFR GFRAA in patients over70 years has not been determined. Clinical correlation isessential. Performed By: #### L 500.2500 ####[facility] [address] [place], [address] ECRCL 80.94 ml/min Normal [facility] Comment on above: Performed By: #### L 500.2500 ####[facility] [address] [place], [address] EST GFR - AA 59 mL/min Low >60 [facility] Comment on above: Result Comment: Afri can British GFR Calc Performed By: #### L 500.2500 ####[facility] [address] [place], [address] GAP 8 Normal 5-15 [facility] Comment on above: Performed By: #### L 500.2500 ####[facility] [address] [place], [address] GFR/1.73 sq M.predicted among non-blacks MDRD (S/P/Bld) [Vol rate/Area] 49 mL/min/{1.73_m2} Low >60 [facility] Comment on above: Result Comment: Non- GFR Calc Performed By: #### L 500.2500 ####[facility] [address] [place], [place], [address] Glucose [Mass/Vol] 184 mg/dL High 74-106 [facility] Comment on above: Result Comment: Fast ing Glucose result greater than or equal to 126 mg/dLsuggests DIABETES MELLITUS per A.D.A. criteria. Performed By: #### L 500.2500 ####[facility] [address] [place], [address] Potassium [Moles/Vol] 4.3 mmol/L Normal 3.5-5.1 [facility] Comment on above: Performed By: #### L 500.2500 ####[facility] [address] [place], [address] Sodium [Moles/Vol] 137 mmol/L Normal 136-145 [facility] Comment on above: Performed By: #### L 500.2500 ####[facility] [address] [place], [address] Urea nitrogen [Mass/Vol] 30 mg/dL High 7-18 [facility] Comment on above: Performed By: #### L 500.2500 ####[facility] [address] [place], [address] Bedside Glucoseon 02-23-2024 FINGERSTICK GLU 195 mg/dL High 74-106 [facility] Comment on above: Result Comment: RADHA GEMENT OF PATIENT CARE PER NURSING PROTOCOL Performed By: #### L 501.080 ####[facility] [address] [place], [address] FINGERSTICK GLU 186 mg/dL High 74-106 [facility] Comment on above: Result Comment: RADHA GEMENT OF PATIENT CARE PER NURSING PROTOCOL Performed By: #### L 501.080 ####[facility] [address] [place], [address] FINGERSTICK GLU 144 mg/dL High 74-106 [facility] Comment on above: Result Comment: RADHA GEMENT OF PATIENT CARE PER NURSING PROTOCOL Performed By: #### L 501.080 ####[facility] [address] [place], [address] FINGERSTICK GLU 176 mg/dL High 74-106 [facility] Comment on above: Result Comment: RADHA GEMENT OF PATIENT CARE PER NURSING PROTOCOL Performed By: #### L 501.080 ####[facility] [address] [place], [address] CBC-Complete Blood Cnt No ff 02-23-2024 Erythrocyte distribution width (RBC) [Ratio] 14.8 % High 11.6-14.6 [facility] Comment on above: Performed By: #### L 501.5200, L500.4050, L100.0500 ####[facility] [address] [place], [address] Hematocrit (Bld) [Volume fraction] 47.7 % Normal 40-54 [facility] Comment on above: Performed By: #### L 501.5200, L500.4050, L100.0500 ####[facility] [address] [place], [address] Hemoglobin (Bld) [Mass/Vol] 14.7 g/dL Normal 13.0-16.5 [facility] Comment on above: Performed By: #### L 501.5200, L500.4050, L100.0500 ####[facility] [address] [place], [address] MCH (RBC) [Entitic mass] 26.3 pg Low 27.0-32.0 [facility] Comment on above: Performed By: #### L 501.5200, L500.4050, L100.0500 ####[facility] [address] [place], [address] MCHC (RBC) [Mass/Vol] 30.8 g/dL Low 32-36 [facility] Comment on above: Performed By: #### L 501.5200, L500.4050, L100.0500 ####[facility] [address] [place], [address] MCV (RBC) [Entitic vol] 85.3 fL Normal 80-94 [facility] Comment on above: Performed By: #### L 501.5200, L500.4050, L100.0500 ####[facility] [address] [place], [address] Platelet mean volume (Bld) [Entitic vol] 10.0 fL Normal 6.2-12.0 [facility] Comment on above: Performed By: #### L 501.5200, L500.4050, L100.0500 ####[facility] [address] [place], [address] Platelets (Bld) [#/Vol] 195 10*3/uL Normal 150-450 [facility] Comment on above: Performed By: #### L 501.5200, L500.4050, L100.0500 ####[facility] [address] [place], [address] RBC (Bld) [#/Vol] 5.59 10*6/uL Normal 4.6-6.2 [facility] Comment on above: Performed By: #### L 501.5200, L500.4050, L100.0500 ####[facility] [address] [place], [address] RDW SD 46.3 fl High 35.1-43.9 [facility] Comment on above: Performed By: #### L 501.5200, L500.4050, L100.0500 ####[facility] [address] [place], [address] WBC (Bld) [#/Vol] 9.8 10*3/uL Normal 4.4-11.0 [facility] Comment on above: Performed By: #### L 501.5200, L500.4050, L100.0500 ####[facility] [address] [place], [address] Comprehensive Metabolic [facility] 02-23-2024 Albumin [Mass/Vol] 2.8 g/dL Low 3.2-5.0 [facility] Comment on above: Performed By: #### L 501.5200, L500.4050, L100.0500 ####[facility] [address] [place], [address] Albumin/Globulin [Mass ratio] 0.8 {ratio} Low 0.9-2.4 [facility] Comment on above: Performed By: #### L 501.5200, L500.4050, L100.0500 ####[facility] [address] [place], [address] ALK P 93 U/L Normal 45-117 [facility] Comment on above: Performed By: #### L 501.5200, L500.4050, L100.0500 ####[facility] [address] [place], [address] ALT [Catalytic activity/Vol] 18 U/L Normal 16-61 [facility] Comment on above: Performed By: #### L 501.5200, L500.4050, L100.0500 ####[facility] [address] [place], [address] AST [Catalytic activity/Vol] 22 U/L Normal 15-37 [facility] Comment on above: Performed By: #### L 501.5200, L500.4050, L100.0500 ####[facility] [address] [place], [address] Bilirubin [Mass/Vol] 0.70 mg/dL Normal 0.20-1.00 [facility] Comment on above: Result Comment: For patients on eltrombopag therapy, use of Dimension [place] TBIL is not recommended. Performed By: #### L 501.5200, L500.4050, L100.0500 ####[facility] [address] [place], [address] BUN/CRE 19.6 RATIO Normal 10-20 [facility] Comment on above: Performed By: #### L 501.5200, L500.4050, L100.0500 ####[facility] [address] [place], [address] CA,Total 8.6 mg/dL Normal 8.5-10.1 [facility] Comment on above: Performed By: #### L 501.5200, L500.4050, L100.0500 ####[facility] [address] [place], [address] Chloride [Moles/Vol] 97 mmol/L Low 98-107 [facility] Comment on above: Performed By: #### L 501.5200, L500.4050, L100.0500 ####[facility] [address] [place], [address] CO2 [Moles/Vol] 32.0 mmol/L Normal 21.0-32.0 [facility] Comment on above: Performed By: #### L 501.5200, L500.4050, L100.0500 ####[facility] [address] [place], [address] Creatinine [Mass/Vol] 1.43 mg/dL High 0.70-1.30 [facility] Comment on above: Result Comment: The validity of the calculated GFR GFRAA in patients over70 years has not been determined. Clinical correlation isessential. Performed By: #### L 501.5200, L500.4050, L100.0500 ####[facility] [address] [place], [address] ECRCL 85.51 ml/min Normal [facility] Comment on above: Performed By: #### L 501.5200, L500.4050, L100.0500 ####[facility] [address] [place], [address] EST GFR - AA 64 mL/min Normal >60 [facility] Comment on above: Result Comment: Afri can British GFR Calc Performed By: #### L 501.5200, L500.4050, L100.0500 ####[facility] [address] [place], [address] GAP 8 Normal 5-15 [facility] Comment on above: Performed By: #### L 501.5200, L500.4050, L100.0500 ####[facility] [address] [place], [address] GFR/1.73 sq M.predicted among non-blacks MDRD (S/P/Bld) [Vol rate/Area] 53 mL/min/{1.73_m2} Low >60 [facility] Comment on above: Result Comment: Non- GFR Calc Performed By: #### L 501.5200, L500.4050, L100.0500 ####[facility] [address] [place], [address] Globulin (S) [Mass/Vol] 3.4 g/dL Normal 2.2-4.2 [facility] Comment on above: Performed By: #### L 501.5200, L500.4050, L100.0500 ####[facility] [address] [place], [address] Glucose [Mass/Vol] 190 mg/dL High 74-106 [facility] Comment on above: Result Comment: Fast ing Glucose result greater than or equal to 126 mg/dLsuggests DIABETES MELLITUS per A.D.A. criteria. Performed By: #### L 501.5200, L500.4050, L100.0500 ####[facility] [address] [place], [address] Potassium [Moles/Vol] 3.7 mmol/L Normal 3.5-5.1 [facility] Comment on above: Performed By: #### L 501.5200, L500.4050, L100.0500 ####[facility] [address] [place], [address] Sodium [Moles/Vol] 136 mmol/L Normal 136-145 [facility] Comment on above: Performed By: #### L 501.5200, L500.4050, L100.0500 ####[facility] [address] [place], [address] T PROT 6.2 g/dL Low 6.4-8.2 [facility] Comment on above: Performed By: #### L 501.5200, L500.4050, L100.0500 ####[facility] [address] [place], [address] Urea nitrogen [Mass/Vol] 28 mg/dL High 7-18 [facility] Comment on above: Performed By: #### L 501.5200, L500.4050, L100.0500 ####[facility] [address] [place], [address] Magnesiumon 02-23-2024 Magnesium [Mass/Vol] 2.0 mg/dL Normal 1.6-2.6 [facility] Comment on above: Performed By: #### L 501.5200, L500.4050, L100.0500 ####[facility] [address] [place], [address] Partial Thromboplast Timeon 02-23-2024 aPTT Coag (Bld) [Time] 65.2 s High 24.1-36.2 [facility] Comment on above: Performed By: #### L 300.4310 ####[facility] [address] [place], [address] aPTT Coag (Bld) [Time] 81.1 s High 24.1-36.2 [facility] Comment on above: Performed By: #### L 300.4310 ####[facility] [address] [place], [address] aPTT Coag (Bld) [Time] 84.6 s High 24.1-36.2 [facility] Comment on above: Performed By: #### L 300.4310 ####[facility] [address] [place], [address] Phosphoruson 02-23-2024 Phosphate [Mass/Vol] 4.9 mg/dL Normal 2.5-4.9 [facility] Comment on above: Performed By: #### L 501.2300 ####[facility] [address] [place], [address] Vancomycin, Trough Levelon 1 04-25-2023 VANCO, TROUGH 19.1 ug/mL High 5.0-15.0 [facility] Comment on above: Order Comment: Comme nts: Trough to be drawn 30 mins prior to scheduled [id number] Result Comment: VANC OMYCIN STANDARED DRUG THERAPY TROUGH LEVEL: 5.0 - 15.0 mg/LVANCOMYCIN HIGH INTENSITY THERAPY TROUGH LEVEL: 15.0 - 20.0 mg/LHigh Intensity therapy recommended for serious lifethreatening infections include:- Tcsestteca-Ixckvixplpcj-Bzjmkntnm (Ventilator/Healtcare Associated)-SepsisPLEASE CONTACT PHARMACY SERVICES (#6738) FOR INTERPRETATIONOF RESULTS. Performed By: #### L 501.8820 ####[facility] [address] [place], [address] Abdomen Single View (Portabl e)on 02-22-2024 Abdomen Single View (Portable) Normal [facility] Alkaline Phosphataseon 02-21 ALK P 105 U/L Normal 45-117 [facility] Comment on above: Performed By: #### L 501.4305 ####[facility] [address] [place], [address] Arterial patency Wrist arter y --pre arterial punctureOrdered By: Alejandra Morin on 02-22-2024 Jocelyn Test N/A [facility] Basic Metabolic Profile (BMP )on 02-22-2024 BUN/CRE 17.6 RATIO Normal 10-20 [facility] Comment on above: Performed By: #### L 500.2500 ####[facility] [address] [place], [address] CA,Total 8.6 mg/dL Normal 8.5-10.1 [facility] Comment on above: Performed By: #### L 500.2500 ####[facility] [address] [place], [address] Chloride [Moles/Vol] 98 mmol/L Normal 98-107 [facility] Comment on above: Performed By: #### L 500.2500 ####[facility] [address] [place], [address] CO2 [Moles/Vol] 31.0 mmol/L Normal 21.0-32.0 [facility] Comment on above: Performed By: #### L 500.2500 ####[facility] [address] [place], [address] Creatinine [Mass/Vol] 1.53 mg/dL High 0.70-1.30 [facility] Comment on above: Result Comment: The validity of the calculated GFR GFRAA in patients over70 years has not been determined. Clinical correlation isessential. Performed By: #### L 500.2500 ####[facility] [address] [place], [address] ECRCL 80.94 ml/min Normal [facility] Comment on above: Performed By: #### L 500.2500 ####[facility] [address] [place], [address] EST GFR - AA 59 mL/min Low >60 [facility] Comment on above: Result Comment: Afri can British GFR Calc Performed By: #### L 500.2500 ####[facility] [address] [place], [address] GAP 7 Normal 5-15 [facility] Comment on above: Performed By: #### L 500.2500 ####[facility] [address] [place], [address] GFR/1.73 sq M.predicted among non-blacks MDRD (S/P/Bld) [Vol rate/Area] 49 mL/min/{1.73_m2} Low >60 [facility] Comment on above: Result Comment: Non- GFR Calc Performed By: #### L 500.2500 ####[facility] [address] [place], [address] Glucose [Mass/Vol] 187 mg/dL High 74-106 [facility] Comment on above: Result Comment: Fast ing Glucose result greater than or equal to 126 mg/dLsuggests DIABETES MELLITUS per A.D.A. criteria. Performed By: #### L 500.2500 ####[facility] [address] [place] [facility] [place], [address] Potassium [Moles/Vol] 3.9 mmol/L Normal 3.5-5.1 [facility] Comment on above: Performed By: #### L 500.2500 ####[facility] [address] [place], [address] Sodium [Moles/Vol] 136 mmol/L Normal 136-145 [facility] Comment on above: Performed By: #### L 500.2500 ####[facility] [address] [place], [address] Urea nitrogen [Mass/Vol] 27 mg/dL High 7-18 [facility] Comment on above: Performed By: #### L 500.2500 ####[facility] [address] [place], [address] BUN/CRE 17.4 RATIO Normal 10-20 [facility] Comment on above: Performed By: #### L 500.2500 ####[facility] [address] [place], [address] CA,Total 8.6 mg/dL Normal 8.5-10.1 [facility] Comment on above: Performed By: #### L 500.2500 ####[facility] [address] [place], [address] Chloride [Moles/Vol] 100 mmol/L Normal 98-107 [facility] Comment on above: Performed By: #### L 500.2500 ####[facility] [address] [place], [address] CO2 [Moles/Vol] 31.0 mmol/L Normal 21.0-32.0 [facility] Comment on above: Performed By: #### L 500.2500 ####[facility] [address] [place], [address] Creatinine [Mass/Vol] 1.61 mg/dL High 0.70-1.30 [facility] Comment on above: Result Comment: The validity of the calculated GFR GFRAA in patients over70 years has not been determined. Clinical correlation isessential. Performed By: #### L 500.2500 ####[facility] [address] [place], [address] ECRCL 76.92 ml/min Normal [facility] Comment on above: Performed By: #### L 500.2500 ####[facility] [address] [place], [address] EST GFR - AA 56 mL/min Low >60 [facility] Comment on above: Result Comment: Afri can British GFR Calc Performed By: #### L 500.2500 ####[facility] [address] [place], [address] GAP 6 Normal 5-15 [facility] Comment on above: Performed By: #### L 500.2500 ####[facility] [address] [place], [address] GFR/1.73 sq M.predicted among non-blacks MDRD (S/P/Bld) [Vol rate/Area] 46 mL/min/{1.73_m2} Low >60 [facility] Comment on above: Result Comment: Non- GFR Calc Performed By: #### L 500.2500 ####[facility] [address] [place], [address] Glucose [Mass/Vol] 205 mg/dL High 74-106 [facility] Comment on above: Result Comment: Gluc ose result greater than or equal to 200 mg/dLsuggests DIABETES MELLITUS per A.D.A. criteria. Performed By: #### L 500.2500 ####[facility] [address] [place], [address] Potassium [Moles/Vol] 4.5 mmol/L Normal 3.5-5.1 [facility] Comment on above: Performed By: #### L 500.2500 ####[facility] [address] [place], [address] Sodium [Moles/Vol] 138 mmol/L Normal 136-145 [facility] Comment on above: Performed By: #### L 500.2500 ####[facility] [address] [place], [address] Urea nitrogen [Mass/Vol] 28 mg/dL High 7-18 [facility] Comment on above: Performed By: #### L 500.2500 ####[facility] [address] [place], [address] Bedside [facility] [place] [facility] FINGERSTICK GLU 213 mg/dL High 74-106 [facility] Comment on above: Result Comment: RADHA GEMENT OF PATIENT CARE PER NURSING PROTOCOL Performed By: #### L 501.080 ####[facility] [address] [place], [address] FINGERSTICK GLU 184 mg/dL High 74-106 [facility] Comment on above: Result Comment: RADHA GEMENT OF PATIENT CARE PER NURSING PROTOCOL Performed By: #### L 501.080 ####[facility] [address] [place], [address] FINGERSTICK GLU 139 mg/dL High 74-106 [facility] Comment on above: Result Comment: RADHA GEMENT OF PATIENT CARE PER NURSING PROTOCOL Performed By: #### L 501.080 ####[facility] [address] [place], [address] FINGERSTICK GLU 140 mg/dL High 74-106 [facility] Comment on above: Result Comment: RADHA GEMENT OF PATIENT CARE PER NURSING PROTOCOL Performed By: #### L 501.080 ####[facility] [address] [place], [address] Blood Gases by [facility] 024 JOCELYN TEST N/A Normal [facility] Comment on above: Performed By: #### L 9000.0800 ####[facility] [address] [place], [address] Base excess Calc (Bld) [Moles/Vol] 2 mmol/L Normal -2 to +2 [facility] Comment on above: Performed By: #### L 9000.0800 ####[facility] [address] [place], [address] Blood Gas Type ART Normal [facility] Comment on above: Performed By: #### L 9000.0800 ####[facility] [address] [place], [address] CO2 [Moles/Vol] 28 mmol/L Normal [facility] Comment on above: Performed By: #### L 9000.0800 ####[facility] [address] [place], [address] FI02 90.0 Normal [facility] Comment on above: Performed By: #### L 9000.0800 ####[facility] [address] [place], [address] HCO3 (Bld) [Moles/Vol] 27.0 mmol/L High 22-26 [facility] Comment on above: Performed By: #### L 9000.0800 ####[facility] [address] [place], [address] Mode AC Normal [facility] Comment on above: Performed By: #### L 9000.0800 ####[facility] [address] [place], [address] O2 Delivery Dev Adult Vent Normal [facility] Comment on above: Performed By: #### L 9000.0800 ####[facility] [address] [place], [address] pCO2 47.9 mmHg High 35-45 [facility] Comment on above: Performed By: #### L 9000.0800 ####[facility] [address] [place], [address] PEEP 10 Normal [facility] Comment on above: Performed By: #### L 9000.0800 ####[facility] [address] [place], [address] pH (Bld) 7.36 [pH] Normal 7.35-7.45 [facility] Comment on above: Performed By: #### L 9000.0800 ####[facility] [address] [place], [address] PO2 60 mmHG Low 75-100 [facility] Comment on above: Performed By: #### L 9000.0800 ####[facility] [address] [place], [address] RR 60 Normal [facility] Comment on above: Performed By: #### L 9000.0800 ####[facility] [address] [place], [address] SITE L Radial Normal [facility] Comment on above: Performed By: #### L 9000.0800 ####[facility] [address] [place], [address] SO2 89 Low 95-99 [facility] Comment on above: Performed By: #### L 9000.0800 ####[facility] [address] [place], [address] Vt 500.0 mL Normal [facility] Comment on above: Performed By: #### L 9000.0800 ####[facility] [address] [place], [address] C-reactive protein measureme nt by high sensitivity methodOrdered By: Alejandra Morin on 02-22-2024 C-Reactive Protein Extended Range 26.00 mg/L High 0.0-3.0 [facility] Comment on above: C-Reactive Protein ( CRP) provides useful information for thediagnosis, therapy and monitoring of inflammatory processesand associated diseases. For the evaluation of Relative Riskfor Cardiovascular Disease, a High Sensitivity CRP (HSCRP)should be ordered. CBC W/Diff, Automatedon 12- Absolute Lymph 0.73 X10 3/uL Low 0.83-4.51 [facility] Comment on above: Performed By: #### L 501.5200, L100.0100, L500.4050, L501.9520, L501.2300 ####[facility] [address] [place], [address] Absolute Neut 8.3 X10 3/uL High 2.0-7.7 [facility] Comment on above: Performed By: #### L 501.5200, L100.0100, L500.4050, L501.9520, L501.2300 ####[facility] [address] [place], [address] Basophils/100 WBC (Bld) 0.3 % Normal 0-1 [facility] Comment on above: Performed By: #### L 501.5200, L100.0100, L500.4050, L501.9520, L501.2300 ####[facility] [address] [place], [address] Eosinophils/100 WBC (Bld) 0.5 % Normal 0-5 [facility] Comment on above: Performed By: #### L 501.5200, L100.0100, L500.4050, L501.9520, L501.2300 ####[facility] [address] [place], [address] Erythrocyte distribution width (RBC) [Ratio] 15.5 % High 11.6-14.6 [facility] Comment on above: Performed By: #### L 501.5200, L100.0100, L500.4050, L501.9520, L501.2300 ####[facility] [address] [place], [address] Hematocrit (Bld) [Volume fraction] 47.2 % Normal 40-54 [facility] Comment on above: Performed By: #### L 501.5200, L100.0100, L500.4050, L501.9520, L501.2300 ####[facility] [address] [place], [address] Hemoglobin (Bld) [Mass/Vol] 14.2 g/dL Normal 13.0-16.5 [facility] Comment on above: Performed By: #### L 501.5200, L100.0100, L500.4050, L501.9520, L501.2300 ####[facility] [address] [place], [address] IG% 0.500 Normal 0.0-0.9 [facility] Comment on above: Result Comment: IG% - Immature Granulocytes (promyelocytes, myelocytes andmetamyelocytes) > 1% indicates that a LEFT SHIFT is Present. Performed By: #### L 501.5200, L100.0100, L500.4050, L501.9520, L501.2300 ####[facility] [address] [place], [address] Lymphocytes/100 WBC (Bld) 7.3 % Low 19-41 [facility] Comment on above: Performed By: #### L 501.5200, L100.0100, L500.4050, L501.9520, L501.2300 ####[facility] [address] [place], [address] MCH (RBC) [Entitic mass] 26.7 pg Low 27.0-32.0 [facility] Comment on above: Performed By: #### L 501.5200, L100.0100, L500.4050, L501.9520, L501.2300 ####[facility] [address] [place], [address] MCHC (RBC) [Mass/Vol] 30.1 g/dL Low 32-36 [facility] Comment on above: Performed By: #### L 501.5200, L100.0100, L500.4050, L501.9520, L501.2300 ####[facility] [address] [place], [address] MCV (RBC) [Entitic vol] 88.9 fL Normal 80-94 [facility] Comment on above: Performed By: #### L 501.5200, L100.0100, L500.4050, L501.9520, L501.2300 ####[facility] [address] [place], [address] Monocytes/100 WBC (Bld) 8.4 % Normal 0-10 [facility] Comment on above: Performed By: #### L 501.5200, L100.0100, L500.4050, L501.9520, L501.2300 ####[facility] [address] [place], [address] Neutrophils/100 WBC (Bld) 83.0 % High 47-70 [facility] Comment on above: Performed By: #### L 501.5200, L100.0100, L500.4050, L501.9520, L501.2300 ####[facility] [address] [place], [address] Nucleated RBC (Bld) [#/Vol] 0 10*3/uL Normal 0-5 [facility] Comment on above: Performed By: #### L 501.5200, L100.0100, L500.4050, L501.9520, L501.2300 ####[facility] [address] [place], [address] Platelet mean volume (Bld) [Entitic vol] 9.8 fL Normal 6.2-12.0 [facility] Comment on above: Performed By: #### L 501.5200, L100.0100, L500.4050, L501.9520, L501.2300 ####[facility] [address] [place], [address] Platelets (Bld) [#/Vol] 179 10*3/uL Normal 150-450 [facility] Comment on above: Performed By: #### L 501.5200, L100.0100, L500.4050, L501.9520, L501.2300 ####[facility] [address] [place], [address] RBC (Bld) [#/Vol] 5.31 10*6/uL Normal 4.6-6.2 [facility] Comment on above: Performed By: #### L 501.5200, L100.0100, L500.4050, L501.9520, L501.2300 ####[facility] [address] [place], [address] RDW SD 50.3 fl High 35.1-43.9 [facility] Comment on above: Performed By: #### L 501.5200, L100.0100, L500.4050, L501.9520, L501.2300 ####[facility] [address] [place], [address] WBC (Bld) [#/Vol] 10.0 10*3/uL Normal 4.4-11.0 [facility] Comment on above: Performed By: #### L 501.5200, L100.0100, L500.4050, L501.9520, L501.2300 ####[facility] [address] [place], [address] COVID 19 AG RAPID (ELAINE ELIZABETHC T)on 02-22-2024 SARS-CoV-2 (COVID-19) RNA ODALIS+probe Ql (Unsp spec) Normal [facility] Comment on above: Performed By: #### M 100.505 ####[facility] [address] [place], [address] CRPon 02-22-2024 C-REACTIVE PROT 26.00 mg/L High 0.0-3.0 [facility] Comment on above: Order Comment: LABEL S FOR 0402 AND 0555 TIMED SPECIMENS BOTH HAD CMP BUTONLY ONE SAMPLE SENT, DUPLICATE CMP DELETED Result Comment: C-Re active Protein (CRP) provides useful information for thediagnosis, therapy and monitoring of inflammatory processesand associated diseases. For the evaluation of Relative Riskfor Cardiovascular Disease, a High Sensitivity CRP (HSCRP)should be ordered. Performed By: #### L 501.6710 ####[facility] [address] [place], [address] Chest 1 View (Portable)on Chest 1 View (Portable) Normal [facility] Chest 1 View (Portable) Normal [facility] Comprehensive Metabolic Prof ilon 02-22-2024 Albumin [Mass/Vol] 2.9 g/dL Low 3.2-5.0 [facility] Comment on above: Performed By: #### L 501.5200, L100.0100, L500.4050, L501.9520, L501.2300 ####[facility] [address] [place], [address] Albumin/Globulin [Mass ratio] 0.9 {ratio} Normal 0.9-2.4 [facility] Comment on above: Performed By: #### L 501.5200, L100.0100, L500.4050, L501.9520, L501.2300 ####[facility] [address] [place], [address] ALK P 104 U/L Normal 45-117 [facility] Comment on above: Performed By: #### L 501.5200, L100.0100, L500.4050, L501.9520, L501.2300 ####[facility] [address] [place], [address] ALT [Catalytic activity/Vol] 19 U/L Normal 16-61 [facility] Comment on above: Performed By: #### L 501.5200, L100.0100, L500.4050, L501.9520, L501.2300 ####[facility] [address] [place], [address] AST [Catalytic activity/Vol] 17 U/L Normal 15-37 [facility] Comment on above: Performed By: #### L 501.5200, L100.0100, L500.4050, L501.9520, L501.2300 ####[facility] [address] [place], [address] Bilirubin [Mass/Vol] 1.00 mg/dL Normal 0.20-1.00 [facility] Comment on above: Result Comment: For patients on eltrombopag therapy, use of Dimension [place] TBIL is not recommended. Performed By: #### L 501.5200, L100.0100, L500.4050, L501.9520, L501.2300 ####[facility] [address] [place], [address] BUN/CRE 15.4 RATIO Normal 10-20 [facility] Comment on above: Performed By: #### L 501.5200, L100.0100, L500.4050, L501.9520, L501.2300 ####[facility] [address] [place], [address] CA,Total 8.5 mg/dL Normal 8.5-10.1 [facility] Comment on above: Performed By: #### L 501.5200, L100.0100, L500.4050, L501.9520, L501.2300 ####[facility] [address] [place], [address] Chloride [Moles/Vol] 101 mmol/L Normal 98-107 [facility] Comment on above: Performed By: #### L 501.5200, L100.0100, L500.4050, L501.9520, L501.2300 ####[facility] [address] [place], [address] CO2 [Moles/Vol] 29.0 mmol/L Normal 21.0-32.0 [facility] Comment on above: Performed By: #### L 501.5200, L100.0100, L500.4050, L501.9520, L501.2300 ####[facility] [address] [place], [address] Creatinine [Mass/Vol] 1.56 mg/dL High 0.70-1.30 [facility] Comment on above: Result Comment: The validity of the calculated GFR GFRAA in patients over70 years has not been determined. Clinical correlation isessential. Performed By: #### L 501.5200, L100.0100, L500.4050, L501.9520, L501.2300 ####[facility] [address] [place], [address] ECRCL 79.38 ml/min Normal [facility] Comment on above: Performed By: #### L 501.5200, L100.0100, L500.4050, L501.9520, L501.2300 ####[facility] [address] [place], [address] EST GFR - AA 58 mL/min Low >60 [facility] Comment on above: Result Comment: Afri can British GFR Calc Performed By: #### L 501.5200, L100.0100, L500.4050, L501.9520, L501.2300 ####[facility] [address] [place], [address] GAP 7 Normal 5-15 [facility] Comment on above: Performed By: #### L 501.5200, L100.0100, L500.4050, L501.9520, L501.2300 ####[facility] [address] [place], [address] GFR/1.73 sq M.predicted among non-blacks MDRD (S/P/Bld) [Vol rate/Area] 48 mL/min/{1.73_m2} Low >60 [facility] Comment on above: Result Comment: Non- GFR Calc Performed By: #### L 501.5200, L100.0100, L500.4050, L501.9520, L501.2300 ####[facility] [address] [place], [address] Globulin (S) [Mass/Vol] 3.2 g/dL Normal 2.2-4.2 [facility] Comment on above: Performed By: #### L 501.5200, L100.0100, L500.4050, L501.9520, L501.2300 ####[facility] [address] [place], [address] Glucose [Mass/Vol] 188 mg/dL High 74-106 [facility] Comment on above: Result Comment: Fast ing Glucose result greater than or equal to 126 mg/dLsuggests DIABETES MELLITUS per A.D.A. criteria. Performed By: #### L 501.5200, L100.0100, L500.4050, L501.9520, L501.2300 ####[facility] [address] [place], [address] Potassium [Moles/Vol] 4.2 mmol/L Normal 3.5-5.1 [facility] Comment on above: Performed By: #### L 501.5200, L100.0100, L500.4050, L501.9520, L501.2300 ####[facility] [address] [place], [address] Sodium [Moles/Vol] 136 mmol/L Normal 136-145 [facility] Comment on above: Performed By: #### L 501.5200, L100.0100, L500.4050, L501.9520, L501.2300 ####[facility] [address] [place], [address] T PROT 6.1 g/dL Low 6.4-8.2 [facility] Comment on above: Performed By: #### L 501.5200, L100.0100, L500.4050, L501.9520, L501.2300 ####[facility] [address] [place], [address] Urea nitrogen [Mass/Vol] 24 mg/dL High 7-18 [facility] Comment on above: Performed By: #### L 501.5200, L100.0100, L500.4050, L501.9520, L501.2300 ####[facility] [address] [place], [address] Consultation - Intensiviston 02-22-2024 Consultation - Dye Colorist Dyer Normal [facility] Erythrocyte Sed Rateon 02-21 SED RATE 25 mm/hr High 0-20 [facility] Comment on above: Performed By: #### L 101.9900 ####[facility] [address] [place], [address] Erythrocyte sedimentation ra teOrdered By: Alejandra Morin on 02-22-2024 ESR (Bld) [Velocity] 25 mm/h High 0-20 [facility] International normalized rat io (INR) calculationOrdered By: Phi Rhoades on 02-22-2024 INR Coag (Bld) [Relative time] 1.2 {INR} [facility] L. pneumophila Ag Ql (U)Orde red By: Alejandra Morin on 02-22-2024 Legionella Antigen [facility] Lactic Acidon 02-22-2024 Lactate [Moles/Vol] 2.3 mmol/L Invalid Interpretation Code 0.4-1.9 [facility] Comment on above: Order Comment: Y Result Comment: Crit ical Result(s) Called at: 03:33:02 02/22/2024 by:Mercy snow. Results read back by same. Performed By: #### L 503.6005 ####[facility] [address] [place], [place], [address] Lactic acid measurementOrder ed By: Lidia Aguirre on 02-22-2024 Lactate [Moles/Vol] 2.3 mmol/L High 0.4-2.0 [facility] Comment on above: Critical Result(s) C alled at: 03:33:02 02/22/2024 by: Mercy snow. Results read back by same. Legionella Antigen Urineon 1 04-24-2023 LEGU Normal [facility] Comment on above: Performed By: #### M 300.4500, M300.4600 ####[facility] [address] [place], [address] M100.019on 02-22-2024 M100.019 Copy of report sent to Infection Control Printer [id number] 02/22/24 0933 LOPEZ. SARS-CoV-2 (COVID 19) Positive A SARS-CoV-2 (COVID 19 PCR) Normal [facility] Comment on above: Performed By: #### M 100.019 ####[facility] [address] [place], [address] Magnesiumon 02-22-2024 Magnesium [Mass/Vol] 1.4 mg/dL Low 1.6-2.6 [facility] Comment on above: Performed By: #### L 501.5209 ####[facility] [address] [place], [address] Magnesium [Mass/Vol] 1.7 mg/dL Normal 1.6-2.6 [facility] Comment on above: Performed By: #### L 501.5200, L100.0100, L500.4050, L501.9520, L501.2300 ####[facility] [address] [place], [address] Partial Thromboplast Timeon 02-22-2024 aPTT Coag (Bld) [Time] 76.5 s High 24.1-36.2 [facility] Comment on above: Performed By: #### L 300.4310 ####[facility] [address] [place], [address] aPTT Coag (Bld) [Time] 56.9 s High 24.1-36.2 [facility] Comment on above: Performed By: #### L 300.4310 ####[facility] [address] [place], [address] aPTT Coag (Bld) [Time] 22.6 s Low 24.1-36.2 [facility] Comment on above: Performed By: #### L 300.4310, L300.3900 ####[facility] [address] [place], [address] Phosphoruson 02-22-2024 Phosphate [Mass/Vol] 3.5 mg/dL Normal 2.5-4.9 [facility] Comment on above: Performed By: #### L 501.5200, L100.0100, L500.4050, L501.9520, L501.2300 ####[facility] [address] [place], [address] Procalcitoninon 02-22-2024 Procalcitonin 1.29 ng/mL High 0.00-0.09 [facility] Comment on above: Result Comment: A pr ocalcitonin (PCT) level above 2.0 ng/mL on the first day of ICU admission is associated with a high risk for progression to severe sepsis and/or septic shock. A PCT level below 0.5 ng/mL on the first day of ICU admission is associated with a low risk for progression to severe and/or septic shock. Note: Concentrations <0.5 ng/mL do not exclude an infection on account of localized infections (without systemic signs) which can be associated with such low concentrations, or a systemic infection in its initial stages (<6 hours). Furthermore, increased procalcitonin can occur without infection. PCT concentrations between 0.5 and 2.0 ng/mL should be interpreted taking into account the patient's history. It is recommended to retest PCT within 6-24 hours if any concentrations <2 ng/mL are obtained. Performed By: #### L 509.7000 ####[facility] [address] [place], [address] Procalcitonin [Mass/Vol]Orde red By: Alejandra Morin on 02-22-2024 Procalcitonin 1.29 ng/mL High 0.00-0.09 [facility] Comment on above: A procalcitonin (PCT ) level above 2.0 ng/mL on the first day of ICU admission is associated with a high risk for progression to severe sepsis and/or septic shock. A PCT level below 0.5 ng/mL on the first day of ICU admission is associated with a low risk for progression to severe and/or septic shock. Note: Concentrations <0.5 ng/mL do not exclude an infection on account of localized infections (without systemic signs) which can be associated with such low concentrations, or a systemic infection in its initial stages (<6 hours). Furthermore, increased procalcitonin can occur without infection. PCT concentrations between 0.5 and 2.0 ng/mL should be interpreted taking into account the patient's history. It is recommended to retest PCT within 6-24 hours if any concentrations <2 ng/mL are obtained. Prothrombin Time w/INRon INR Coag (PPP) [Relative time] 1.2 {INR} Normal [facility] Comment on above: Performed By: #### L 300.4310, L300.3900 ####[facility] [address] [place], [address] PT Coag (PPP) [Time] 15.6 s High 11.7-14.9 [facility] Comment on above: Performed By: #### L 300.4310, L300.3900 ####[facility] [address] [place], [address] Prothrombin timeOrdered By: Phi Rhoades on 02-22-2024 PT Coag (PPP) [Time] 15.6 s High 11.7-14.9 [facility] RESPIRATORY PANEL MOLECULARo n 02-22-2024 RP PANEL Normal [facility] Comment on above: Performed By: #### M 100.638 ####[facility] [address] [place], [address] Respiratory Cultureon 2023 RESPC Mixed normal respiratory lisa. No Streptococcus pneumoniae, beta-hemolytic Streptococcus or Staphylococcus aureus isolated. Normal [facility] Comment on above: Performed By: #### M 100.2400, M100.2000 ####[facility] [address] [place], [address] Respiratory pathogens DNA an d RNA panel ODALIS+probe (Resp)Ordered By: Alejandra Morin on 02-22-2024 Respiratory Panel (PCR) [facility] SARS-CoV-2 (COVID-19) Ag IA. rapid Ql (Resp)Ordered By: Alejandra Morin on 02-22-2024 SARS-CoV-2 Antigen (Rapid) [facility] Zygm-txh-9Ctkrkgs By: Phi Rhoades on 02-22-2024 SARS-CoV-2 (COVID-19) RNA ODALIS+probe Ql (Unsp spec) SARS-CoV-2 (COVID 19 PCR) Abnormal [facility] Strep pneumoniae Antig(UR,CS F)on 02-22-2024 STPAG Normal [facility] Comment on above: Performed By: #### M 300.4500, M300.4600 ####[facility] [address] [place], [address] Streptococcus pneumoniae ant igen assayOrdered By: Alejandra Morin on 02-22-2024 Streptococcus pneumoniae Antigen (M [facility] TSH QnOrdered By: Alejandra Yanez on 02-22-2024 Thyroid Stimulating Hormone (TSH) 1.800 uIU/mL 0.358-3.740 [facility] Thyroid Stim Hormone (TSH)on 02-22-2024 TSH 1.800 uIU/mL Normal 0.358-3.740 [facility] Comment on above: Performed By: #### L 501.5200, L100.0100, L500.4050, L501.9520, L501.2300 ####[facility] [address] [place], [address] BNP (brain natriuretic pepti de measurement)Ordered By: Alejandra Morin on 02-21-2024 Natriuretic peptide B (Bld) [Mass/Vol] 408.3 pg/mL High 0-100 [facility] BNP,B-Type NATRIURETIC PEPTI Korin 02-21-2024 Natriuretic peptide B (Bld) [Mass/Vol] 408.3 pg/mL High 0-100 [facility] Comment on above: Performed By: #### L 503.6620 ####[facility] [address] [place], [address] Basic Metabolic Profile (BMP )on 02-21-2024 BUN/CRE 13.7 RATIO Normal 10-20 [facility] Comment on above: Performed By: #### L 500.2500 ####[facility] [address] [place], [address] CA,Total 8.8 mg/dL Normal 8.5-10.1 [facility] Comment on above: Performed By: #### L 500.2500 ####[facility] [address] [place], [address] Chloride [Moles/Vol] 98 mmol/L Normal 98-107 [facility] Comment on above: Performed By: #### L 500.2500 ####[facility] [address] [place], [address] CO2 [Moles/Vol] 34.0 mmol/L High 21.0-32.0 [facility] Comment on above: Performed By: #### L 500.2500 ####[facility] [address] [place], [address] Creatinine [Mass/Vol] 1.46 mg/dL High 0.70-1.30 [facility] Comment on above: Result Comment: The validity of the calculated GFR GFRAA in patients over70 years has not been determined. Clinical correlation isessential. Performed By: #### L 500.2500 ####[facility] [address] [place], [address] ECRCL 84.42 ml/min Normal [facility] Comment on above: Performed By: #### L 500.2500 ####[facility] [address] [place], [address] EST GFR - AA 63 mL/min Normal >60 [facility] Comment on above: Result Comment: Afri can [place] GFR Calc Performed By: #### L 500.2500 ####[facility] [address] [place], [address] GAP 3 Low 5-15 [facility] Comment on above: Performed By: #### L 500.2500 ####[facility] [address] [place], [address] GFR/1.73 sq M.predicted among non-blacks MDRD (S/P/Bld) [Vol rate/Area] 52 mL/min/{1.73_m2} Low >60 [facility] Comment on above: Result Comment: Non- GFR Calc Performed By: #### L 500.2500 ####[facility] [address] [place], [address] Glucose [Mass/Vol] 144 mg/dL High 74-106 [facility] Comment on above: Result Comment: Fast ing Glucose result greater than or equal to 126 mg/dLsuggests DIABETES MELLITUS per A.D.A. criteria. Performed By: #### L 500.2500 ####[facility] [address] [place], [address] Potassium [Moles/Vol] 6.1 mmol/L Invalid Interpretation Code 3.5-5.1 [facility] Comment on above: Result Comment: Crit ical Result(s) Called at: 20:43:07 02/21/2024 by: NEISHA TO AICHA ASHBY. Results read back by same. Performed By: #### L 500.2500 ####[facility] [address] [place], [address] Sodium [Moles/Vol] 135 mmol/L Low 136-145 [facility] Comment on above: Performed By: #### L 500.2500 ####[facility] [address] [place], [address] Urea nitrogen [Mass/Vol] 20 mg/dL High 7-18 [facility] Comment on above: Performed By: #### L 500.2500 ####[facility] [address] [place], [address] BUN Normal 7-18 [facility] Comment on above: Result Comment: This specimen has been REJECTED due to Laboratory criteria:Hemolyzed.EDDIE has been notified of need of recollection.02/21/24 1825 Kely Carmona Performed By: #### L 500.2500 ####[facility] [address] [place], [address] BUN/CRE Normal 10-20 [facility] Comment on above: Result Comment: This specimen has been REJECTED due to Laboratory criteria:Hemolyzed.EDDIE has been notified of need of recollection.02/21/241824 Kely Lollo Performed By: #### L 500.2500 ####[facility] [address] [place], [address] CA,Total Normal 8.5-10.1 [facility] Comment on above: Result Comment: This specimen has been REJECTED due to Laboratory criteria:Hemolyzed.EDDIE has been notified of need of recollection.02/21/241824 Kely Lollo Performed By: #### L 500.2500 ####[facility] [address] [facility] [address] CL Normal 98-107 [facility] Comment on above: Result Comment: This specimen has been REJECTED due to Laboratory criteria:Hemolyzed.EDDIE has been notified of need of recollection.02/21/241824 Kely Lollo Performed By: #### L 500.2500 ####[facility] [address] [facility] [address] CO2 Normal 21.0-32.0 [facility] Comment on above: Result Comment: This specimen has been REJECTED due to Laboratory criteria:Hemolyzed.EDDIE has been notified of need of recollection.02/21/241824 Kely Lollo Performed By: #### L 500.2500 ####[facility] [address] [facility] [address] CREAT,SERUM Normal 0.70-1.30 [facility] Comment on above: Result Comment: This specimen has been REJECTED due to Laboratory criteria:Hemolyzed.EDDIE has been notified of need of recollection.02/21/241824 Kely Lollo Performed By: #### L 500.2500 ####[facility] [address] [place], [address] EST GFR Normal >60 [facility] Comment on above: Result Comment: This specimen has been REJECTED due to Laboratory criteria:Hemolyzed.EDDIE has been notified of need of recollection.02/21/241824 Kely Lollo Performed By: #### L 500.2500 ####[facility] [address] [place], [address] EST GFR - AA Normal >60 [facility] Comment on above: Result Comment: This specimen has been REJECTED due to Laboratory criteria:Hemolyzed.EDDIE has been notified of need of recollection.02/21/241824 Kely Lollo Performed By: #### L 500.2500 ####[facility] [address] [facility] [address] GAP Normal 5-15 [facility] Comment on above: Result Comment: This specimen has been REJECTED due to Laboratory criteria:Hemolyzed.EDDIE has been notified of need of recollection.02/21/241824 Kely Lollo Performed By: #### L 500.2500 ####[facility] [address] [facility] [address] GLU Normal 74-106 [facility] Comment on above: Result Comment: This specimen has been REJECTED due to Laboratory criteria:Hemolyzed.EDDIE has been notified of need of recollection.02/21/241824 Kely Lollo Performed By: #### L 500.2500 ####[facility] [address] [facility] [address] Potassium Normal 3.5-5.1 [facility] Comment on above: Result Comment: This specimen has been REJECTED due to Laboratory criteria:Hemolyzed.EDDIE has been notified of need of recollection.02/21/241824 Kely Lollo Performed By: #### L 500.2500 ####[facility] [address] [facility] [address] Basic Metabolic Profile (BMP) Normal 136-145 [facility] Comment on above: Result Comment: This specimen has been REJECTED due to Laboratory criteria:Hemolyzed.EDDIE has been notified of need of recollection.02/21/24 1825 Kely Carmona Performed By: #### L 500.2500 ####[facility] [address] [place], [address] BUN/CRE 13.8 RATIO Normal 10-20 [facility] Comment on above: Performed By: #### L 500.2500, L100.0100 ####[facility] [address] [place], [address] CA,Total 8.9 mg/dL Normal 8.5-10.1 [facility] Comment on above: Performed By: #### L 500.2500, L100.0100 ####[facility] [address] [place], [address] Chloride [Moles/Vol] 101 mmol/L Normal 98-107 [facility] Comment on above: Performed By: #### L 500.2500, L100.0100 ####[facility] [address] [place], [address] CO2 [Moles/Vol] 24.0 mmol/L Normal 21.0-32.0 [facility] Comment on above: Performed By: #### L 500.2500, L100.0100 ####[facility] [address] [place], [address] Creatinine [Mass/Vol] 1.38 mg/dL High 0.70-1.30 [facility] Comment on above: Result Comment: The validity of the calculated GFR GFRAA in patients over70 years has not been determined. Clinical correlation isessential. Performed By: #### L 500.2500, L100.0100 ####[facility] [address] [place], [address] ECRCL 89.32 ml/min Normal [facility] Comment on above: Performed By: #### L 500.2500, L100.0100 ####[facility] [address] [place], [address] EST GFR - AA 67 mL/min Normal >60 [facility] Comment on above: Result Comment: Afri can British GFR Calc Performed By: #### L 500.2500, L100.0100 ####[facility] [address] [place], [address] GAP 9 Normal 5-15 [facility] Comment on above: Performed By: #### L 500.2500, L100.0100 ####[facility] [address] [place], [address] GFR/1.73 sq M.predicted among non-blacks MDRD (S/P/Bld) [Vol rate/Area] 55 mL/min/{1.73_m2} Low >60 [facility] Comment on above: Result Comment: Non- GFR Calc Performed By: #### L 500.2500, L100.0100 ####[facility] [address] [place], [address] Glucose [Mass/Vol] 168 mg/dL High 74-106 [facility] Comment on above: Result Comment: Fast ing Glucose result greater than or equal to 126 mg/dLsuggests DIABETES MELLITUS per A.D.A. criteria. Performed By: #### L 500.2500, L100.0100 ####[facility] [address] [place], [address] Potassium [Moles/Vol] 4.4 mmol/L Normal 3.5-5.1 [facility] Comment on above: Performed By: #### L 500.2500, L100.0100 ####[facility] [address] [place], [address] Sodium [Moles/Vol] 134 mmol/L Low 136-145 [facility] Comment on above: Performed By: #### L 500.2500, L100.0100 ####[facility] [address] [place], [address] Urea nitrogen [Mass/Vol] 19 mg/dL High 7-18 [facility] Comment on above: Performed By: #### L 500.2500, L100.0100 ####[facility] [address] [place], [address] Bedside Glucoseon 02-21-2024 FINGERSTICK GLU 137 mg/dL High 74-106 [facility] Comment on above: Result Comment: RADHA GEMENT OF PATIENT CARE PER NURSING PROTOCOL Performed By: #### L 501.080 ####[facility] [address] [place], [address] FINGERSTICK GLU 179 mg/dL High 74-106 [facility] Comment on above: Result Comment: RADHA GEMENT OF PATIENT CARE PER NURSING PROTOCOL Performed By: #### L 501.080 ####[facility] [address] [place], [address] [facility] JOCELYN TEST N/A Normal [facility] Comment on above: Performed By: #### L 9000.0800 ####[facility] [address] [place], [address] Base excess Calc (Bld) [Moles/Vol] 3 mmol/L High -2 to +2 [facility] Comment on above: Performed By: #### L 9000.0800 ####[facility] [address] [place], [address] Blood Gas Type ART Normal [facility] Comment on above: Performed By: #### L 9000.0800 ####[facility] [address] [place], [address] CO2 [Moles/Vol] 32 mmol/L Normal [facility] Comment on above: Performed By: #### L 9000.0800 ####[facility] [address] [place], [address] FI02 60.0 Normal [facility] Comment on above: Performed By: #### L 9000.0800 ####[facility] [address] [place], [address] HCO3 (Bld) [Moles/Vol] 30.2 mmol/L High 22-26 [facility] Comment on above: Performed By: #### L 9000.0800 ####[facility] [address] [place], [address] Mode AC Normal [facility] Comment on above: Performed By: #### L 9000.0800 ####[facility] [address] [place], [address] O2 Delivery Dev Adult Vent Normal [facility] Comment on above: Performed By: #### L 9000.0800 ####[facility] [address] [place], [address] pCO2 64.9 mmHg High 35-45 [facility] Comment on above: Performed By: #### L 9000.0800 ####[facility] [address] [place], [address] PEEP 8 Normal [facility] Comment on above: Performed By: #### L 9000.0800 ####[facility] [address] [place], [address] pH (Bld) 7.28 [pH] Low 7.35-7.45 [facility] Comment on above: Performed By: #### L 9000.0800 ####[facility] [address] [place], [address] PO2 75 mmHG Normal 75-100 [facility] Comment on above: Performed By: #### L 9000.0800 ####[facility] [address] [place], [address] RR 16 Normal [facility] Comment on above: Performed By: #### L 9000.0800 ####[facility] [address] [place], [address] SITE L Radial Normal [facility] Comment on above: Performed By: #### L 9000.0800 ####[facility] [address] [place], [address] SO2 92 Low 95-99 [facility] Comment on above: Performed By: #### L 9000.0800 ####[facility] [address] [place], [address] Vt 500.0 mL [facility] Comment on above: Performed By: #### L 9000.0800 ####[facility] [address] [place], [address] JOCELYN TEST N/A [facility] Comment on above: Performed By: #### L 9000.0800 ####[facility] [address] [place], [address] Base excess Calc (Bld) [Moles/Vol] 5 mmol/L High -2 to +2 [facility] Comment on above: Performed By: #### L 9000.0800 ####[facility] [address] [place], [address] Blood Gas Type ART Normal [facility] Comment on above: Performed By: #### L 9000.0800 ####[facility] [address] [place], [address] CO2 [Moles/Vol] 37 mmol/L Normal [facility] Comment on above: Performed By: #### L 9000.0800 ####[facility] [address] [place], [address] FI02 50.0 Normal [facility] Comment on above: Performed By: #### L 9000.0800 ####[facility] [address] [place], [address] HCO3 (Bld) [Moles/Vol] 34.1 mmol/L High 22-26 [facility] Comment on above: Performed By: #### L 9000.0800 ####[facility] [address] [place], [address] Mode NIV Normal [facility] Comment on above: Performed By: #### L 9000.0800 ####[facility] [address] [place], [address] O2 Delivery Dev BiPAP Normal [facility] Comment on above: Performed By: #### L 9000.0800 ####[facility] [address] [place], [address] pCO2 96.9 mmHg Invalid Interpretation Code 35-45 [facility] Comment on above: Performed By: #### L 9000.0800 ####[facility] [address] [place], [address] pH (Bld) 7.15 [pH] Invalid Interpretation Code 7.35-7.45 [facility] Comment on above: Performed By: #### L 9000.0800 ####[facility] [address] [place], [address] PO2 173 mmHG High 75-100 [facility] Comment on above: Performed By: #### L 9000.0800 ####[facility] [address] [place], [address] Read Back By Yes [facility] Comment on above: Performed By: #### L 9000.0800 ####[facility] [address] [place], [address] Results To Mikel Normal [facility] Comment on above: Performed By: #### L 8999.0800 ####[facility] [address] [place], [address] RR 16 Normal [facility] Comment on above: Performed By: #### L 8999.08 ####[facility] [address] [place], [address] SITE R Radial Normal [facility] Comment on above: Performed By: #### L 8999.0800 ####[facility] [address] [place], [address] SO2 99 Normal 95-99 [facility] Comment on above: Performed By: #### L 8999.0800 ####[facility] [address] [place], [address] Time Given 16:30:44 Normal [facility] Comment on above: Performed By: #### L 8999.0800 ####[facility] [address] [place], [address] JOCLEYN TEST N/A Normal [facility] Comment on above: Performed By: #### L 8999.0800 ####[facility] [address] [place], [address] Base excess Calc (Bld) [Moles/Vol] 7 mmol/L High -2 to +2 [facility] Comment on above: Performed By: #### L 8999.0800 ####[facility] [address] [place], [address] Blood Gas Type ART Normal [facility] Comment on above: Performed By: #### L 8999.08 ####[facility] [address] [place], [address] CO2 [Moles/Vol] 38 mmol/L Normal [facility] Comment on above: Performed By: #### L 8999.0800 ####[facility] [address] [place], [address] FI02 6.0 Normal [facility] Comment on above: Performed By: #### L 0.0800 ####[facility] [address] [place], [address] HCO3 (Bld) [Moles/Vol] 35.3 mmol/L High 22-26 [facility] Comment on above: Performed By: #### L 0.0800 ####[facility] [address] [place], [address] Mode Not entered Normal [facility] Comment on above: Performed By: #### L 0.0800 ####[facility] [address] [place], [address] O2 Delivery Dev Cannula Normal [facility] Comment on above: Performed By: #### L 8999.0800 ####[facility] [address] [place], [address] pCO2 99.5 mmHg Invalid Interpretation Code 35-45 [facility] Comment on above: Performed By: #### L 8999.0800 ####[facility] [address] [place], [address] pH (Bld) 7.16 [pH] Invalid Interpretation Code 7.35-7.45 [facility] Comment on above: Performed By: #### L 0.0800 ####[facility] [address] [place], [address] PO2 52 mmHG Low 75-100 [facility] Comment on above: Performed By: #### L 8999.0800 ####[facility] [address] [place], [address] Read Back By Yes Normal [facility] Comment on above: Performed By: #### L 0.0800 ####[facility] [address] [place], [address] Morin [facility] Comment on above: Performed By: #### L 9000.0800 ####[facility] [address] [place], [address] SITE R Radial [facility] Comment on above: Performed By: #### L 9000.0800 ####[facility] [address] [place], [address] SO2 73 Low 95-99 [facility] Comment on above: Performed By: #### L 9000.0800 ####[facility] [address] [place], [address] Time Given 15:36:02 [facility] Comment on above: Performed By: #### L 9000.0800 ####[facility] [address] [place], [address] CBC W/Diff, Automatedon 12-1 0-2024 Hematocrit (Bld) [Volume fraction] 57.1 % High 40-54 [facility] Comment on above: Performed By: #### L 500.2500, L100.0100 ####[facility] [address] [place], [address] Absolute Lymph 0.71 X10 3/uL Low 0.83-4.51 [facility] Comment on above: Performed By: #### L 500.2500, L100.0100 ####[facility] [address] [place], [address] Absolute Neut 9.0 X10 3/uL High 2.0-7.7 [facility] Comment on above: Performed By: #### L 500.2500, L100.0100 ####[facility] [address] [place], [address] Basophils/100 WBC (Bld) 0.6 % Normal 0-1 [facility] Comment on above: Performed By: #### L 500.2500, L100.0100 ####[facility] [address] [place], [address] Eosinophils/100 WBC (Bld) 0.2 % Normal 0-5 [facility] Comment on above: Performed By: #### L 500.2500, L100.0100 ####[facility] [address] [place], [address] Erythrocyte distribution width (RBC) [Ratio] 15.7 % High 11.6-14.6 [facility] Comment on above: Performed By: #### L 500.2500, L100.0100 ####[facility] [address] [place], [address] Hemoglobin (Bld) [Mass/Vol] 15.5 g/dL Normal 13.0-16.5 [facility] Comment on above: Performed By: #### L 500.2500, L100.0100 ####[facility] [address] [place], [address] IG% 0.500 Normal 0.0-0.9 [facility] Comment on above: Result Comment: IG% - Immature Granulocytes (promyelocytes, myelocytes andmetamyelocytes) > 1% indicates that a LEFT SHIFT is Present. Performed By: #### L 500.2500, L100.0100 ####[facility] [address] [place], [address] Lymphocytes/100 WBC (Bld) 6.7 % Low 19-41 [facility] Comment on above: Performed By: #### L 500.2500, L100.0100 ####[facility] [address] [place], [address] MCH (RBC) [Entitic mass] 26.2 pg Low 27.0-32.0 [facility] Comment on above: Performed By: #### L 500.2500, L100.0100 ####[facility] [address] [place], [address] MCHC (RBC) [Mass/Vol] 27.1 g/dL Low 32-36 [facility] Comment on above: Performed By: #### L 500.2500, L100.0100 ####[facility] [address] [place], [address] MCV (RBC) [Entitic vol] 96.5 fL High 80-94 [facility] Comment on above: Performed By: #### L 500.2500, L100.0100 ####[facility] [address] [place], [address] Monocytes/100 WBC (Bld) 6.8 % Normal 0-10 [facility] Comment on above: Performed By: #### L 500.2500, L100.0100 ####[facility] [address] [place], [address] Neutrophils/100 WBC (Bld) 85.2 % High 47-70 [facility] Comment on above: Performed By: #### L 500.2500, L100.0100 ####[facility] [address] [place], [address] Nucleated RBC (Bld) [#/Vol] 0 10*3/uL Normal 0-5 [facility] Comment on above: Performed By: #### L 500.2500, L100.0100 ####[facility] [address] [place], [address] Platelet mean volume (Bld) [Entitic vol] 9.6 fL Normal 6.2-12.0 [facility] Comment on above: Performed By: #### L 500.2500, L100.0100 ####[facility] [address] [place], [address] Platelets (Bld) [#/Vol] 196 10*3/uL Normal 150-450 [facility] Comment on above: Performed By: #### L 500.2500, L100.0100 ####[facility] [address] [place], [address] RBC (Bld) [#/Vol] 5.92 10*6/uL Normal 4.6-6.2 [facility] Comment on above: Performed By: #### L 500.2500, L100.0100 ####[facility] [address] [place], [address] RDW SD 55.2 fl High 35.1-43.9 [facility] Comment on above: Performed By: #### L 500.2500, L100.0100 ####[facility] [address] [place], [address] WBC (Bld) [#/Vol] 10.6 10*3/uL Normal 4.4-11.0 [facility] Comment on above: Performed By: #### L 500.2500, L100.0100 ####[facility] [address] [place], [address] CPK Total, Creatine Kinaseon 02-21-2024 CPK TOTAL 74 U/L Normal 39-308 [facility] Comment on above: Order Comment: Comme nts: DC when propofol is d/c'dDC when propofol is d/c'd Performed By: #### L 501.3620, L501.5000 ####[facility] [address] [place], [address] Chest 1 View (Portable)on Chest 1 View (Portable) Normal [facility] Echo Complete W/ Contraston 02-21-2024 Echo Complete W/ Contrast Normal [facility] Gram stainOrdered By: Miguel Morin on 02-21-2024 Microscopic observation Gram stain Nom (Unsp spec) [facility] Microorganism identified Cx Nom (Unsp spec)Ordered By: Alejandra Morin on 02-21-2024 Respiratory Culture or Staphylococcus aureus isolated. [facility] No Panel InformationOrdered By: Alejandra Morin on 02-21-2024 Bld Gas Crit Called To/Read Back By Yes [facility] Blood Gas Notified Time 16:30:44 [facility] Blood Gas Notified Whom Mikel [facility] Total creatine kinase measur ementOrdered By: Alejandra Morin on 02-21-2024 CK [Catalytic activity/Vol] 74 U/L 39-308 [facility] Triglycerideson 02-21-2024 Triglyceride [Mass/Vol] 116 mg/dL Normal [facility] Comment on above: Order Comment: Comme nts: DC when propofol is d/c'dDC when propofol is d/c'd Result Comment: The drugs N-Acetylcysteine and Metamizole may falselydepress this assay.Serum Triglycerides Reference Interval Normal <150 mg/dL Borderline high 150 - 199 mg/dL High 200 - 499 mg/dL Very High > or = 500 mg/dL Performed By: #### L 501.3620, L501.5000 ####[facility] [address] [place], [address] Triglycerides measurementOrd ered By: Alejandra Morin on 02-21-2024 Triglyceride [Mass/Vol] 116 mg/dL <199 [facility] Comment on above: The drugs N-Acetylcy steine and Metamizole may falsely depress this assay.Serum Triglycerides Reference Interval Normal <150 mg/dL Borderline high 150 - 199 mg/dL High 200 - 499 mg/dL Very High > or = 500 mg/dL Abdomen/Pel W ORAL Cont Only on 02-20-2024 Abdomen/Pel W ORAL Cont Only Normal [facility] Abdomen/Pelvis W IV Cont ONL Yon 02-20-2024 Abdomen/Pelvis W IV Cont ONLY Normal [facility] Bilirubin Test strip Ql (U)O rdered By: Andrew Cary on 02-20-2024 Bilirubin Ql (U) Negative Negative [facility] Blood cultureOrdered By: Rosa Cary on 02-20-2024 Bacteria identified Cx Nom (Bld) No growth in 5 days. [facility] Bacteria identified Cx Nom (Bld) No growth in 5 days. [facility] CBC W/Diff, Automatedon 12-0 9-2023 Absolute Lymph 0.85 X10 3/uL Normal 0.83-4.51 [facility] Comment on above: Performed By: #### L 100.0100, L500.4050 ####[facility] [address] [place], [address] Absolute Neut 6.4 X10 3/uL Normal 2.0-7.7 [facility] Comment on above: Performed By: #### L 100.0100, L500.4050 ####[facility] [address] [place], [address] Basophils/100 WBC (Bld) 0.4 % Normal 0-1 [facility] Comment on above: Performed By: #### L 100.0100, L500.4050 ####[facility] [address] [place], [address] Eosinophils/100 WBC (Bld) 1.0 % Normal 0-5 [facility] Comment on above: Performed By: #### L 100.0100, L500.4050 ####[facility] [address] [place], [address] Erythrocyte distribution width (RBC) [Ratio] 14.9 % High 11.6-14.6 [facility] Comment on above: Performed By: #### L 100.0100, L500.4050 ####[facility] [address] [place], [address] Hematocrit (Bld) [Volume fraction] 48.3 % Normal 40-54 [facility] Comment on above: Performed By: #### L 100.0100, L500.4050 ####[facility] [address] [place], [address] Hemoglobin (Bld) [Mass/Vol] 14.1 g/dL Normal 13.0-16.5 [facility] Comment on above: Performed By: #### L 100.0100, L500.4050 ####[facility] [address] [place], [address] IG% 0.200 Normal 0.0-0.9 [facility] Comment on above: Result Comment: IG% - Immature Granulocytes (promyelocytes, myelocytes andmetamyelocytes) > 1% indicates that a LEFT SHIFT is Present. Performed By: #### L 100.0100, L500.4050 ####[facility] [address] [place], [address] Lymphocytes/100 WBC (Bld) 10.6 % Low 19-41 [facility] Comment on above: Performed By: #### L 100.0100, L500.4050 ####[facility] [address] [place], [address] MCH (RBC) [Entitic mass] 26.4 pg Low 27.0-32.0 [facility] Comment on above: Performed By: #### L 100.0100, L500.4050 ####[facility] [address] [place], [address] MCHC (RBC) [Mass/Vol] 29.2 g/dL Low 32-36 [facility] Comment on above: Performed By: #### L 100.0100, L500.4050 ####[facility] [address] [place], [address] MCV (RBC) [Entitic vol] 90.4 fL Normal 80-94 [facility] Comment on above: Performed By: #### L 100.0100, L500.4050 ####[facility] [address] [place], [address] Monocytes/100 WBC (Bld) 8.3 % Normal 0-10 [facility] Comment on above: Performed By: #### L 100.0100, L500.4050 ####[facility] [address] [place], [address] Neutrophils/100 WBC (Bld) 79.5 % High 47-70 [facility] Comment on above: Performed By: #### L 100.0100, L500.4050 ####[facility] [address] [place], [address] Nucleated RBC (Bld) [#/Vol] 0 10*3/uL Normal 0-5 [facility] Comment on above: Performed By: #### L 100.0100, L500.4050 ####[facility] [address] [place], [address] Platelet mean volume (Bld) [Entitic vol] 9.9 fL Normal 6.2-12.0 [facility] Comment on above: Performed By: #### L 100.0100, L500.4050 ####[facility] [address] [place], [address] Platelets (Bld) [#/Vol] 186 10*3/uL Normal 150-450 [facility] Comment on above: Performed By: #### L 100.0100, L500.4050 ####[facility] [address] [place], [address] RBC (Bld) [#/Vol] 5.34 10*6/uL Normal 4.6-6.2 [facility] Comment on above: Performed By: #### L 100.0100, L500.4050 ####[facility] [address] [place], [address] RDW SD 49.1 fl High 35.1-43.9 [facility] Comment on above: Performed By: #### L 100.0100, L500.4050 ####[facility] [address] [place], [address] WBC (Bld) [#/Vol] 8.0 10*3/uL Normal 4.4-11.0 [facility] Comment on above: Performed By: #### L 100.0100, L500.4050 ####[facility] [address] [place], [address] Chest PA and Lateralon 02-19 Chest PA and Lateral Normal [facility] Comprehensive Metabolic Prof ilon 02-20-2024 Albumin [Mass/Vol] 3.5 g/dL Normal 3.2-5.0 [facility] Comment on above: Performed By: #### L 100.0100, L500.4050 ####[facility] [address] [place], [address] Albumin/Globulin [Mass ratio] 1.1 {ratio} Normal 0.9-2.4 [facility] Comment on above: Performed By: #### L 100.0100, L500.4050 ####[facility] [address] [place], [address] ALK P 129 U/L High 45-117 [facility] Comment on above: Performed By: #### L 100.0100, L500.4050 ####[facility] [address] [place], [address] ALT [Catalytic activity/Vol] 24 U/L Normal 16-61 [facility] Comment on above: Performed By: #### L 100.0100, L500.4050 ####[facility] [address] [place], [address] AST [Catalytic activity/Vol] 16 U/L Normal 15-37 [facility] Comment on above: Performed By: #### L 100.0100, L500.4050 ####[facility] [address] [place], [address] Bilirubin [Mass/Vol] 0.60 mg/dL Normal 0.20-1.00 [facility] Comment on above: Result Comment: For patients on eltrombopag therapy, use of Dimension [place] TBIL is not recommended. Performed By: #### L 100.0100, L500.4050 ####[facility] [address] [place], [address] BUN/CRE 16.2 RATIO Normal 10-20 [facility] Comment on above: Performed By: #### L 100.0100, L500.4050 ####[facility] [address] [place], [address] CA,Total 9.2 mg/dL Normal 8.5-10.1 [facility] Comment on above: Performed By: #### L 100.0100, L500.4050 ####[facility] [address] [place], [address] Chloride [Moles/Vol] 101 mmol/L Normal 98-107 [facility] Comment on above: Performed By: #### L 100.0100, L500.4050 ####[facility] [address] [place], [address] CO2 [Moles/Vol] 36.0 mmol/L High 21.0-32.0 [facility] Comment on above: Performed By: #### L 100.0100, L500.4050 ####[facility] [address] [place], [address] Creatinine [Mass/Vol] 1.11 mg/dL Normal 0.70-1.30 [facility] Comment on above: Result Comment: The validity of the calculated GFR GFRAA in patients over70 years has not been determined. Clinical correlation isessential. Performed By: #### L 100.0100, L500.4050 ####[facility] [address] [place], [address] ECRCL 109.84 ml/min Normal [facility] Comment on above: Performed By: #### L 100.0100, L500.4050 ####[facility] [address] [place], [address] EST GFR - AA 86 mL/min Normal >60 [facility] Comment on above: Result Comment: Afri can [place] GFR Calc Performed By: #### L 100.0100, L500.4050 ####[facility] [address] [place], [address] GAP 3 Low 5-15 [facility] Comment on above: Performed By: #### L 100.0100, L500.4050 ####[facility] [address] [place], [address] GFR/1.73 sq M.predicted among non-blacks MDRD (S/P/Bld) [Vol rate/Area] 71 mL/min/{1.73_m2} Normal >60 [facility] Comment on above: Result Comment: Non- GFR Calc Performed By: #### L 100.0100, L500.4050 ####[facility] [address] [place], [address] Globulin (S) [Mass/Vol] 3.3 g/dL Normal 2.2-4.2 [facility] Comment on above: Performed By: #### L 100.0100, L500.4050 ####[facility] [address] [place], [address] Glucose [Mass/Vol] 119 mg/dL High 74-106 [facility] Comment on above: Result Comment: Fast ing Glucose result from 100 to 125 mg/dLsuggests IMPAIRED HOMEOSTASIS per A.D.A. criteria. Performed By: #### L 100.0100, L500.4050 ####[facility] [address] [place], [address] Potassium [Moles/Vol] 4.5 mmol/L Normal 3.5-5.1 [facility] Comment on above: Performed By: #### L 100.0100, L500.4050 ####[facility] [address] [place], [address] Sodium [Moles/Vol] 140 mmol/L Normal 136-145 [facility] Comment on above: Performed By: #### L 100.0100, L500.4050 ####[facility] [address] [place], [address] T PROT 6.8 g/dL Normal 6.4-8.2 [facility] Comment on above: Performed By: #### L 100.0100, L500.4050 ####[facility] [address] [place], [address] Urea nitrogen [Mass/Vol] 18 mg/dL Normal 7-18 [facility] Comment on above: Performed By: #### L 100.0100, L500.4050 ####[facility] [address] [place], [address] Emergency Department Summary on 02-20-2024 Emergency Department Summary Normal [facility] Epithelial cells.squamous LM Ql (Urine sed)Ordered By: Andrew Cary on 02-20-2024 Epithelial cells.squamous LM.HPF (Urine sed) [#/Area] 0 /[HPF] 0-5 [facility] Glucose Ql (U)Ordered By: Ld Cary on 02-20-2024 Urine Glucose (UA) Normal mg/dl Normal [facility] Ketones Test strip Ql (U)Ord ered By: Andrew Cary on 02-20-2024 Ketones Ql (U) Negative Negative [facility] Lipase measurementOrdered By : Andrew Cary on 02-20-2024 Lipase [Catalytic activity/Vol] 24 U/L Normal 13-75 [facility] Comment on above: Please note:LIPASE r evised reference range effective 22. New Lipase methodology. Expected to produce lower values than the previous assay method. NEW Reference Range: 13 - 75 U/L Result Comment: Chicho ge note:LIPASE revised reference range effective 22.New Lipase methodology. Expected to produce lower valuesthan the previous assay method.NEW Reference Range: 13 - 75 U/L Performed By: #### L 501.2450 ####[facility] [address] [place], [place], [id number] Microscopic analysis of urin e for red blood cells (RBC)Ordered By: Andrwe Cary on 02-20-2024 Urine RBC 0-5 SEEN /hpf 0-5 [facility] Mucus LM Ql (Urine sed)Order ed By: Andrew Cary on 02-20-2024 Mucus Ql (Urine sed) 0 SEEN /hpf [facility] Nitrite Test strip Ql (U)Ord ered By: Andrew Cary on 02-20-2024 Nitrite Ql (U) Negative Negative [facility] Protein Test strip Ql (U)Ord ered By: Andrew Cary on 02-20-2024 Protein Ql (U) 100 mg/dl High Negative [facility] Urinalysis, Completeon 02-19 EPI,SQUAMOUS 0-5 SEEN Normal 0-5 [facility] Comment on above: Order Comment: CLARA CTOR TO SPECIFY Performed By: #### L 400.0001 ####[facility] [address] [place], [place], [id number] RBC 0-5 SEEN Normal 0-5 [facility] Comment on above: Order Comment: CLARA CTOR TO SPECIFY Performed By: #### L 400.0001 ####[facility] [address] [place], [address] BACTERIA 0 SEEN Normal None Seen [facility] Comment on above: Order Comment: CLARA CTOR TO SPECIFY Performed By: #### L 400.0001 ####[facility] [address] [place], [address] Mucus Ql (Urine sed) 0 SEEN Normal [facility] Comment on above: Order Comment: CLARA CTOR TO SPECIFY Performed By: #### L 400.0001 ####[facility] [address] [place], [place], [address] WBC 0 SEEN Normal 0-5 [facility] Comment on above: Order Comment: COLLE CTOR TO SPECIFY Performed By: #### L 400.0001 ####[facility] [address] [place], [address] Urine blood detectionOrdered By: Andrew Cary on 02-20-2024 Urine Occult Blood 10 /ul High Negative [facility] Urine clarityOrdered By: Rosa Cary on 02-20-2024 Clarity (U) Clear Clear [facility] Urine color determinationOrd ered By: Andrew Cary on 02-20-2024 Color (U) Yellow Yellow [facility] Urine leukocyte esterase det ection by dipstickOrdered By: Andrew Cary on 02-20-2024 Leukocyte esterase Test strip Ql (U) Negative Negative [facility] Urine pHOrdered By: Andrew johns on 02-20-2024 pH (U) 6.0 [pH] 5.0 - 8.0 [facility] Urine sediment bacteria coun t by microscopy (number/high power field)Ordered By: Andrew Cary on 02-20-2024 Bacteria LM.HPF (Urine sed) [#/Area] 0 /[HPF] None Seen [facility] Urine specific gravity measu rementOrdered By: Andrew Cary on 02-20-2024 Specific gravity (U) [Rel density] 1.010 1.002-1.030 [facility] Urobilinogen Ql (U)Ordered B y: Andrew Cary on 02-20-2024 Urine Urobilinogen Normal mg/dl Normal [facility] White blood cell countOrdere d By: Andrew Cary on 02-20-2024 Urine WBC 0 SEEN /hpf 0-5 [facility] CBC W/Diff, Automatedon 12-12 Absolute Lymph 0.81 X10 3/uL Low 0.83-4.51 [facility] Comment on above: Order Comment: Order Date: 12/26/23Order Info: 0184-1 - CBCD Performed By: #### L 501.5199, L100.0100 ####[facility] [address] [place], [address] Absolute Neut 5.5 X10 3/uL Normal 2.0-7.7 [facility] Comment on above: Order Comment: Order Date: 12/26/23Order Info: 0184-1 - CBCD Performed By: #### L 501.9520, L100.0100 ####[facility] [address] [place], [address] Basophils/100 WBC (Bld) 0.4 % Normal 0-1 [facility] Comment on above: Order Comment: Order Date: 12/26/23Order Info: 0184-1 - CBCD Performed By: #### L 501.9520, L100.0100 ####[facility] [address] [place], [address] Eosinophils/100 WBC (Bld) 1.6 % Normal 0-5 [facility] Comment on above: Order Comment: Order Date: 12/26/23Order Info: 0184- - CBCD Performed By: #### L 501.9520, L100.0100 ####[facility] [address] [place], [address] Erythrocyte distribution width (RBC) [Ratio] 14.3 % Normal 11.6-14.6 [facility] Comment on above: Order Comment: Order Date: 12/26/23Order Info: 0184-1 - CBCD Performed By: #### L 501.9520, L100.0100 ####[facility] [address] [place], [address] Hematocrit (Bld) [Volume fraction] 49.9 % Normal 40-54 [facility] Comment on above: Order Comment: Order Date: 12/26/23Order Info: 0184-1 - CBCD Performed By: #### L 501.9520, L100.0100 ####[facility] [address] [place], [address] Hemoglobin (Bld) [Mass/Vol] 14.9 g/dL Normal 13.0-16.5 [facility] Comment on above: Order Comment: Order Date: 12/26/23Order Info: 018- - CBCD Performed By: #### L 501.9520, L100.0100 ####[facility] [address] [place], [address] IG% 0.100 Normal 0.0-0.9 [facility] Comment on above: Order Comment: Order Date: 12/26/23Order Info: 183- - CBCD Result Comment: IG% - Immature Granulocytes (promyelocytes, myelocytes andmetamyelocytes) > 1% indicates that a LEFT SHIFT is Present. Performed By: #### L 501.9520, L100.0100 ####[facility] [address] [place], [address] Lymphocytes/100 WBC (Bld) 11.5 % Low 19-41 [facility] Comment on above: Order Comment: Order Date: 12/26/23Order Info: 018- - CBCD Performed By: #### L 501.9520, L100.0100 ####[facility] [address] [place], [address] MCH (RBC) [Entitic mass] 27.7 pg Normal 27.0-32.0 [facility] Comment on above: Order Comment: Order Date: 12/26/23Order Info: 018- - CBCD Performed By: #### L 501.9520, L100.0100 ####[facility] [address] [place], [address] MCHC (RBC) [Mass/Vol] 29.9 g/dL Low 32-36 [facility] Comment on above: Order Comment: Order Date: 12/26/23Order Info: 018- - CBCD Performed By: #### L 501.9520, L100.0100 ####[facility] [address] [place], [address] MCV (RBC) [Entitic vol] 92.8 fL Normal 80-94 [facility] Comment on above: Order Comment: Order Date: 12/26/23Order Info: 0184-1 - CBCD Performed By: #### L 501.9520, L100.0100 ####[facility] [address] [place], [address] Monocytes/100 WBC (Bld) 8.1 % Normal 0-10 [facility] Comment on above: Order Comment: Order Date: 12/26/23Order Info: 0184-1 - CBCD Performed By: #### L 501.9520, L100.0100 ####[facility] [address] [place], [address] Neutrophils/100 WBC (Bld) 78.3 % High 47-70 [facility] Comment on above: Order Comment: Order Date: 12/26/23Order Info: 0184- - CBCD Performed By: #### L 501.9520, L100.0100 ####[facility] [address] [place], [address] Nucleated RBC (Bld) [#/Vol] 0 10*3/uL Normal 0-5 [facility] Comment on above: Order Comment: Order Date: 12/26/23Order Info: 0184-1 - CBCD Performed By: #### L 501.9520, L100.0100 ####[facility] [address] [place], [address] Platelet mean volume (Bld) [Entitic vol] 10.4 fL Normal 6.2-12.0 [facility] Comment on above: Order Comment: Order Date: 12/26/23Order Info: 0184-1 - CBCD Performed By: #### L 501.9520, L100.0100 ####[facility] [address] [place], [address] Platelets (Bld) [#/Vol] 194 10*3/uL Normal 150-450 [facility] Comment on above: Order Comment: Order Date: 12/26/23Order Info: 018- - CBCD Performed By: #### L 501.9520, L100.0100 ####[facility] [address] [place], [address] RBC (Bld) [#/Vol] 5.38 10*6/uL Normal 4.6-6.2 [facility] Comment on above: Order Comment: Order Date: 12/26/23Order Info: 018- - CBCD Performed By: #### L 501.9520, L100.0100 ####[facility] [address] [place], [address] RDW SD 49.0 fl High 35.1-43.9 [facility] Comment on above: Order Comment: Order Date: 12/26/23Order Info: 018- - CBCD Performed By: #### L 501.9520, L100.0100 ####[facility] [address] [place], [address] WBC (Bld) [#/Vol] 7.0 10*3/uL Normal 4.4-11.0 [facility] Comment on above: Order Comment: Order Date: 12/26/23Order Info: 018- - CBCD Performed By: #### L 501.9520, L100.0100 ####[facility] [address] [place], [address] Thyroid Stim Hormone (TSH)on 12-28-2023 TSH 1.900 uIU/mL Normal 0.358-3.740 [facility] Comment on above: Order Comment: Order Date: 12/26/23Order Info: 3016-3 - TSH Performed By: #### L 501.9520, L100.0100 ####[facility] [address] [place], [address] Basophil percentageOrdered B y: Angely Weems on 12-20-2022 Bilirubin [Mass/Vol] 0.40 mg/dL 0.20-1.00 [facility] Comment on above: For patients on eltr ombopag therapy, use of Dimension [place] TBIL is not recommended. Chloride [Moles/Vol] 101 mmol/L 98-107 [facility] Cholesterol [Mass/Vol] 152 mg/dL <200 [facility] Comment on above: <200 mg/dL Desirable 200-240 mg/dL Borderline >240 mg/dL High Risk Glucose [Mass/Vol] 173 mg/dL 74-106 [facility] Comment on above: Fasting Glucose resu lt greater than or equal to 126 mg/dL suggests DIABETES MELLITUS per A.D.A. criteria. Potassium [Moles/Vol] 4.7 mmol/L 3.5-5.1 [facility] Protein [Mass/Vol] 7.3 g/dL 6.4-8.2 [facility] Sodium [Moles/Vol] 134 mmol/L 136-145 [facility] Triglyceride [Mass/Vol] 185 mg/dL <199 [facility] Comment on above: The drugs N-Acetylcy steine and Metamizole may falsely depress this assay.Serum Triglycerides Reference Interval Normal <150 mg/dL Borderline high 150 - 199 mg/dL High 200 - 499 mg/dL Very High > or = 500 mg/dL Direct bilirubinOrdered By: Angely Weems on 12-20-2022 Bilirubin.direct [Mass/Vol] 0.11 mg/dL 0.00-0.30 [facility] Laboratory - Chemistry and C hemistry - challengeOrdered By: Angely Weems on 12-20-2022 ALP [Catalytic activity/Vol] 135 U/L 45-117 [facility] ALT [Catalytic activity/Vol] 35 U/L 16-61 [facility] CO2 [Moles/Vol] 28.0 mmol/L 21.0-32.0 [facility] Globulin (S) [Mass/Vol] 3.8 g/dL 2.2-4.2 [facility] Urea nitrogen/Creatinine [Mass ratio] 19.4 mg/mg 10-20 [facility] No Panel InformationOrdered By: Angely Weems on 12-20-2022 Estimated GFR (MDRD) Amer 100 mL/min >60 [facility] Comment on above: GFR Calc Estimated GFR (MDRD) Non-Af Amer 82 mL/min >60 [facility] Comment on above: Non- GFR Calc Prostate Specific Antigen Screen 0.43 ng/mL 0.00-4.00 [facility] Comment on above: This test was perfor med using the TPSA assay method for [employer] chemistry system. Values obtained with differentassay methods cannot be used interchangably.When changing PSA assays in the course of monitoring apatient, additional sequential testing should be carriedout to confirm baseline values. Serum or plasma albumin nikkie urement (mass/volume)Ordered By: Angely Weems on 12-20-2022 Albumin [Mass/Vol] 3.5 g/dL 3.2-5.0 [facility] Serum or plasma calcium nikkie urement (mass/volume)Ordered By: Angely Weems on 12-20-2022 Calcium [Mass/Vol] 8.9 mg/dL 8.5-10.1 [facility] Serum or plasma cholesterol in HDL measurement (mass/volume)Ordered By: Angely Weems on 12-20-2022 Cholesterol in HDL [Mass/Vol] 38 mg/dL >40 [facility] Comment on above: The drugs N-Acetylcy steine and Metamizole may falsely depress this assay. Reference Range HDL <40 mg/dL Low HDL Cholesterol HDL >or= 60 mg/dL High HDL Cholesterol Serum or plasma cholesterol in VLDL measurement (mass/volume)Ordered By: Angely Weems on 12-20-2022 Cholesterol in VLDL [Mass/Vol] 37 mg/dL 5-40 [facility] Serum or plasma creatinine m easurement (mass/volume)Ordered By: Angely Weems on 12-20-2022 Creatinine [Mass/Vol] 0.98 mg/dL 0.70-1.30 [facility] Comment on above: The validity of the calculated GFR & GFRAA in patients over 70 years has not been determined. Clinical correlation is essential. Serum or plasma low density lipoprotein (LDL) cholesterol measurement (mass/volume)Ordered By: Angely Weems on 12-20-2022 Cholesterol in LDL [Mass/Vol] 77 mg/dL 0-130 [facility] Serum or plasma urea nitroge n measurement (mass/volume)Ordered By: Angely Weems on 12-20-2022 Urea nitrogen [Mass/Vol] 19 mg/dL 7-18 [facility] Thin prep Papanicolaou smear with manual screeningOrdered By: Angely Weems on 12-20-2022 Thin prep Papanicolaou smear with manual screening 19 U/L 15-37 [facility] Thin prep Papanicolaou smear with manual screening 5 5-15 [facility] Basophil percentageon 2021 Chloride [Moles/Vol] 105 mmol/L 98-107 [facility] Work Phone: Glucose [Mass/Vol] 144 mg/dL 74-106 [facility] Work Phone: Comment on above: Fasting Glucose resu lt greater than or equal to 126 mg/dL suggests DIABETES MELLITUS per A.D.A. criteria. Potassium [Moles/Vol] 4.3 mmol/L 3.5-5.1 [facility] Work Phone: Sodium [Moles/Vol] 138 mmol/L 136-145 [facility] Work Phone: Laboratory - Chemistry and C hemistry - challengeon 12-16-2021 CO2 [Moles/Vol] 28.0 mmol/L 21.0-32.0 [facility] Work Phone: Urea nitrogen/Creatinine [Mass ratio] 20.0 mg/mg 10- [facility] Work Phone: No Panel Informationon 12-16 Estimated GFR (MDRD) Amer 110 mL/min >60 [facility] Work Phone: Comment on above: GFR Calc Estimated GFR (MDRD) Non-Af Amer 91 mL/min >60 [facility] Work Phone: Comment on above: Non- GFR Calc Prostate Specific Antigen Screen 0.52 ng/mL 0.00-4.00 [facility] Work Phone: Comment on above: This test was perfor med using the TPSA assay method for [employer] chemistry system. Values obtained with differentassay methods cannot be used interchangably.When changing PSA assays in the course of monitoring apatient, additional sequential testing should be carriedout to confirm baseline values. Urine Microalbumin/Creatinine Ratio 73.6 mg/g CRE <30 [facility] Work Phone: Serum or plasma calcium nikkie urement (mass/volume)on 12-16-2021 Calcium [Mass/Vol] 9.3 mg/dL 8.5-10.1 [facility] Work Phone: Serum or plasma creatinine m easurement (mass/volume)on 12-16-2021 Creatinine [Mass/Vol] 0.90 mg/dL 0.70-1.30 Aw[facility] Work Phone: Comment on above: The validity of the calculated GFR & GFRAA in patients over 70 years has not been determined. Clinical correlation is essential. Serum or plasma urea nitroge n measurement (mass/volume)on 12-16-2021 Urea nitrogen [Mass/Vol] 18 mg/dL 7-18 [facility] Work Phone: Thin prep Papanicolaou smear with manual screeningon 12-16-2021 Thin prep Papanicolaou smear with manual screening 5 5-15 [facility] Work Phone: Thin prep Papanicolaou smear with manual screening 162.0 mg/L NO RANGE EST. [facility] Work Phone: Urine creatinine measurement (mass/volume)on 12-16-2021 Creatinine (U) [Mass/Vol] 220.00 mg/dL NO RANGE EST. [facility] Work Phone: Whole blood hemoglobin A1c/t otal hemoglobin ratio (mass fraction)on 12-16-2021 HbA1c (Bld) [Mass fraction] 6.8 % 3.8-5.6 [facility] Work Phone: Comment on above: Normal < 5.7 % Predi abetic 5.7 - 6.4 % Diabetic >or= 6.5 % Please note range changes. Vital Signs Date Time Vital Sign Value Performing Clinician Facility 07-26-2024 08:38-0400 Body height 182.[address] Angely Weems MD Work Phone: [facility] 07-26-2024 08:38-0400 Body mass index (BMI) [Ratio] 47.5 kg/m2 Dr. Angely Weems MD Work Phone: [phone] [place] [address] 07-26-2024 08:38-0400 Body weight 158.[address] Angely Weems MD Work Phone: [phone])[phone] [address] 07-26-2024 08:38-0400 Diastolic blood pressure 85 mm[Hg] Dr. Angely Weems MD Work Phone: [phone] [place] [address] 07-26-2024 08:38-0400 Heart rate 92 /min Dr. Angely Weems MD Work Phone: [phone])[phone] [address] 07-26-2024 08:38-0400 Respiratory rate 18 /min Dr. Angely Weems MD Work Phone: [phone] [address] 07-26-2024 08:38-0400 Systolic blood pressure 129 mm[Hg] Dr. Angely Weems MD Work Phone: [facility] 03-03-2024 15:27-0500 Diastolic blood pressure 72 mm[Hg] Dr. Angely Weems MD Work Phone: [facility] 03-03-2024 15:27-0500 Heart rate 100 /min Dr. Angely Weems MD Work Phone: [facility] 03-03-2024 15:27-0500 Respiratory rate 22 /min Dr. Angely Weems MD Work Phone: [phone] [place] [address] 03-03-2024 15:27-0500 SaO2% (BldA) [Mass fraction] 93 % Dr. Angely Weems MD Work Phone: [phone] [place] [address] 03-03-2024 15:27-0500 Systolic blood pressure 140 mm[Hg] Dr. Angely Weems MD Work Phone: [facility] 03-03-2024 11:00-0500 Body temperature 98.5 [degF] Dr. Angely Weems MD Work Phone: [facility] 03-03-2024 08:39-0500 Inhaled oxygen flow rate 2 L/min Dr. Angely Weems MD Work Phone: [facility] 03-02-2024 10:07-0500 Body height 182.[address] Angely Weems MD Work Phone: [facility] 03-02-2024 10:07-0500 Body weight 148.[address] Angely Weems MD Work Phone: [facility] 03-02-2024 06:00-0500 Body mass index (BMI) [Ratio] 44.4 kg/m2 Dr. Angely Weems MD Work Phone: [facility] 03-01-2024 06:01-0500 Inhaled oxygen concentration 50 % Dr. Angely Weems MD Work Phone: [facility] Encounters Encounter Date Encounter Type Care Provider Facility Start: 08-20-2024 ambulatory Karley Gillespie Facility:[facility] Start: 07-26-2024 End: 07-26-[address] Karley Gillespie MD -[facility] Work Phone: Start: 07-26-2024 End: 07-26-[address] Angely Weems MD Work Phone: [facility] Work Phone: Start: 06-21-2024 Non-patient / Non-visit Dr. Padilla FERNANDEZ -[facility] Start: 06-21-2024 End: 06-21-[address] Angely Weems MD Work Phone: [facility] Work Phone: Start: 06-21-2024 End: 06-21-[address] Isai Gonzalez MD -[facility] Work Phone: Start: 06-21-2024 End: 06-21-2024 ambulatory Isai Gonzalez Facility:[facility] Start: 04-02-2024 End: 04-02-[address] Angely Weems MD -[facility] Work Phone: Start: 04-02-2024 End: 04-02-2024 ambulatory Angely Weems Facility:[facility] Start: 03-23-2024 End: 03-23-[address] [facility] Start: 03-23-2024 End: 03-23-2024 ambulatory Angely Weems Facility:[facility] Start: 03-21-2024 ambulatory NONE PHYSICIAN Facility :[facility] Start: 03-09-2024 End: 03-09-[address] [facility] Start: 03-09-2024 End: 03-09-2024 ambulatory Angely Weems Facility:[facility] Start: 03-03-2024 Non-patient / Non-visit Dr. Dayana Smith MD -[facility] Work Phone: Start: 03-02-2024 Non-patient / Non-visit Dr. Dayana Smith MD -[facility] Work Phone: Start: 03-01-2024 Non-patient / Non-visit Dr. Dayana Smith MD -[facility] Work Phone: Start: 02-29-2024 Non-patient / Non-visit Dr. Dayana Smith MD -[facility] Work Phone: Start: 02-29-2024 Non-patient / Non-visit Dr. Phi lima DO -[facility] Start: 02-28-2024 Non-patient / Non-visit Dr. Dayana Smith MD -[facility] Work Phone: Start: 02-28-2024 Non-patient / Non-visit Dr. Phi Castellon own -[facility] Start: 02-27-2024 ambulatory Angely Weems Facility: [facility] Start: 02-27-2024 Non-patient / Non-visit Dr. Dayana Smith MD -[facility] Work Phone: Start: 02-27-2024 Non-patient / Non-visit Dr. Phi Castellon own -[facility] Start: 02-21-2024 ambulatory [place] James Facility:[facility] Start: 02-21-2024 ambulatory Alvaro Best Facility:[facility] Start: 02-21-2024 End: 03-03-2024 Evaluation and management of inpatient Dr. Dayana Smith MD -[facility] Work Phone: Start: 02-20-2024 ambulatory Alvaro Waldronelsen Facility:[facility] Start: 12-28-2023 End: 12-28-2023 [facility] Start: 12-20-2022 End: 12-20-2022 ambulatory [facility] Work Phone: Start: 12-20-2022 End: 12-20-2022 Patient encounter procedure [facility] Start: 12-16-2021 End: 12-16-2021 ambulatory [facility] Work Phone: Start: 12-16-2021 End: 12-16-2021 Patient encounter procedure [facility] Procedures Date Procedure Procedure Detail Performing Clinician Start: 04-02-2024 Computed tomography of abdomen and pelvis with contrast Dr. Angely Weems MD Work Phone: Start: 02-27-2024 Plain chest X-ray Dr. Carolyn Weems MD Work Phone: Start: 02-26-2024 Plain chest X-ray Dr. Carolyn Weems MD Work Phone: Start: 02-22-2024 Legionella pneumophi la antigen assay Dr. Angely Weems MD Work Phone: Start: 02-22-[address] Angely Weems MD Work Phone: Start: 02-22-2024 Sars-cov-2 Dr. Angely johnson MD Work Phone: Start: 02-22-2024 SARS-CoV-2, Influenz a & RSV (PCR) Dr. Angely Weems MD Work Phone: Start: 02-22-2024 Streptococcus pneumo niae antigen assay Dr. Angely Weems MD Work Phone: Start: 02-22-[address] Angely Weems MD Work Phone: Start: 02-22-2024 Plain chest X-ray Dr. Carolyn Weems MD Work Phone: Start: 02-22-2024 Plain chest X-ray Dr. Carolyn Weems MD Work Phone: Start: 02-22-2024 Plain X-ray abdomen Dr. Angely Weems MD Work Phone: Start: 02-21-2024 Plain chest X-ray Dr. Carolyn Weems MD Work Phone: Start: 02-21-2024 Gram stain microscopy D sai Weems MD Work Phone: Start: 02-21-2024 Respiratory microbia l culture Dr. Angely Weems MD Work Phone: Start: 02-20-2024 CT of abdomen and pe lvis with oral contrast Dr. Angely Weems MD Work Phone: Start: 02-20-2024 X-ray of chest, PA a nd lateral views Dr. Angely Weems MD Work Phone: Start: 02-20-2024 Computed tomography of abdomen and pelvis with intravenous contrast Dr. Angely Weems MD Work Phone: Start: 02-20-[address] Angely kaiser MD Work Phone: Plan of Treatment Date Care Activity Detail Author Start: 07-26-2024 Evaluation of diagnostic study results [facility] Start: 03-03-2024 Patient discharge [facility] Start: 03-02-2024 [facility] Start: 03-01-2024 Care planning and problem solving actions [facility] Start: 03-01-2024 [facility] Start: 02-29-2024 Continuous pulse oximetry [facility] Start: 02-29-2024 Incentive spirometry [facility] Start: 02-29-2024 Dual pressure spontaneous ventilation support [facility] Start: 02-28-2024 [facility] Start: 02-28-2024 [facility] Start: 02-27-2024 [facility] Start: 02-26-2024 [facility] Start: 02-24-2024 End: 02-25-2024 [facility] Start: 02-21-2024 Consultation [facility] Start: 02-21-2024 Assessment of risk of venous thromboembolism [facility] Start: 02-21-2024 Elevation of head of bed [facility] Start: 02-21-2024 Insertion of catheter into peripheral vein [facility] Start: 02-21-2024 Measuring intake and output [facility] Start: 02-21-2024 Providing care according to standard [facility] Start: 02-21-2024 Referral to occupational therapist [facility] Start: 02-21-2024 Referral to service [facility] Start: 02-21-2024 Removal of urinary catheter [facility] Start: 02-21-2024 Vital signs measurements [facility] Start: 02-21-2024 [facility] Start: 02-21-2024 Admission procedure [facility] Start: 02-21-2024 Measuring intake and output [facility] Start: 02-21-2024 Following clinical pathway protocol [facility] Start: 02-21-2024 Ambulation without limitation [facility] Start: 02-21-2024 Assessment of risk of venous thromboembolism [facility] Start: 02-21-2024 Insertion of catheter into peripheral vein [facility] Start: 02-21-2024 Oxygen therapy [facility] Start: 02-21-2024 Providing care according to standard [facility] Start: 02-21-2024 [facility] Start: 02-21-2024 Patient referral to dietitian [facility] Start: 02-20-2024 Admission procedure [facility] Patient Education Coronavirus Di sease 2019 (COVID-19): Caring for Yourself or Others [facility] Work Phone: Patient referral [facility] Work Phone: Immunizations Immunization Date Immunization Notes Care Provider Fa cili 12-26-2023 influenza, seasonal, injectable, preservative free Dr. Angely Weems MD Work Phone: [facility] 12-20-2022 influenza, injectabl e, quadrivalent, preservative free Dr. Angely Weems MD Work Phone: [facility] 08-15-2020 Covid (Moderna) Dr. Angely may MD Work Phone: [facility] 07-18-2020 Covid (Moderna) Dr. Angely may MD Work Phone: [facility] Payers Date Payer Category Payer Self-pay [id number] 2023 Unknown [id number] 1960 Unknown [id number] Unknown [employer] [id number] Unknown [id number] 2.840.1.568130.3.579.2.462 Unknown [id number] 2.840.1.708310.3.579.2.462 Unknown [id number] 2..840.1.947150.3.579.2.462 Unknown [id number] 2.840.1.422619.3.579.2.462 Unknown [id number] 2.840.1.218897.3.579.2.462 Unknown [id number] 2.840.1.698640.3.579.2.462 Unknown [id number] 2.840.1.859449.3.579.2.462 Unknown [id number] 2.840.1.777821.3.579.2.462 Unknown [id number] 2.840.1.833395.3.579.2.462 Unknown [id number] 2.840.1.192127.3.579.2.462 Unknown [id number] 2.840.1.090100.3.579.2.462 Unknown [id number] 2.840.1.774717.3.579.2.462 Unknown [id number] 2.840.1.479868.3.579.2.462 Unknown [id number] 2.840.1.715366.3.579.2.462 Unknown [id number] 2.840.1.628877.3.579.2.462 Unknown [id number] 2.840.1.250444.3.579.2.462 Unknown [id number] 2.840.1.431680.3.579.2.462 Unknown [id number] 2.840.1.739954.3.579.2.462 Unknown [id number] .840.1.480645.3.579.2.462 Unknown [id number] 2.840.1.568271.3.579.2.462 Unknown [id number] 2.840.1.918622.3.579.2.462 Unknown [id number] 2.840.1.920493.3.579.2.462 Unknown [id number] 2.16.840.1.833362.3.579.2.462 Unknown [id number] 2.16.840.1.081644.3.579.2.462 Unknown [id number] 2.16.840.1.517130.3.579.2.462 Unknown [id number] 2.16.840.1.778833.3.579.2.462 Unknown [id number] 2.16.840.1.715609.3.579.2.462 Unknown [id number] 2.16.840.1.438581.3.579.2.462 Unknown [id number] 2.16.840.1.141045.3.579.2.462 Unknown [id number] 2.16.840.1.850205.3.579.2.462 Social History Date Type Detail Facility Start: 03-21-2020 Tobacco smoking stat [facility] Unknown if ever smoked [facility] Start: 03-21-2020 Non-smoker [facility] Start: 1960 Sex Assigned At Male [facility] Start: 02-20-2024 End: 07-19-2024 Tobacco smoking status UTIS Ex-smoker (finding) [facility] Start: 06-26-2024 Sex Male (finding) [facility] Goals Date Patient Goal Desired Activity /State Functional Status Date Assessment Result Facility 03-03-2024 Functional status Patient Activity Chair [facility] Work Phone: 03-03-2024 Functional status With Assist of 1 [facility] Work Phone: Mental Status Date Assessment Result Facility 03-03-2024 Cognitive function Voice/Name [facility] Work Phone: Progress note 07-26-2024 Note Date & Type Note Facility 07-26-2024 Progress note [facility] Progress note 07-26-2024 Note Date & Type Note Facility 07-26-2024 Progress note Note Date/Time July 26, 2024 11:43am [facility] [address] [place] [address] OFFICE VISIT Date of Service: 07/26/24 MR#: [id number] Acct: [id number] Name: HERMINIA OREILLY Rep #: [id number] : 1960 Provider: Dr. Valdemar Gillespie MD Age/Sex: 63/M Location: [facility] Status: Signed HPI HPI History of Present Illness Details: This gentleman has a past medical history significant for morbid obesity, hypertension, dyslipidemia and obstructive sleep apnea. According to him, he has had "bad COVID" last February. Patient has been recently been complaining of shortness of breath with activity. According to him, he gets short of breath climbing 2 flights of stairs. No chest pain or tightness. No palpitations. No orthopnea or PND. Denies any ankle edema. Patient has had an echocardiogram done which showed moderately dilated left ventricle. His LVEF was noted to be severely down at 35%. Denies EtOH or substance abuse. Intake Vital Signs 03/02/24 10:07 07/26/24 08:38 Height 6 ft 6 ft Weight: 350 lb BMI 47.5 BP 129/85 H Blood Pressure Location Lt brachial Position Sitting Respiration 18 Pulse 92 Pulse Source NIBP Intake Visit Reasons: Abnormal Echo President And Cmo Required: No Accompanied by: Self Is patient in pain?: No Allergies No Known Allergies Allergy (Verified 07/26/24 11:11) Medications ?Medication ?Instructions ?Recorded ?Confirmed ?Type atorvastatin 20 mg tablet 20 mg PO QHS 02/20/24 History losartan 100 mg tablet 100 mg PO QHS blood pressure 02/20/24 07/26/24 History metformin 1,000 mg tablet 2,000 mg PO QHS 02/20/24 History levothyroxine 112 mcg tablet 112 mcg PO QDAY 07/19/24 07/26/24 History hydrochlorothiazide 25 mg tablet 25 mg PO QDAY 5 07/26/24 History Ejection fraction %: 35 Have you fallen in the past year?: No PFSH Medical History Abnormal chest x-ray Abnormal echocardiogram Acid reflux CHF (congestive heart failure) COVID-19 Diabetes mellitus Erectile dysfunction Fatigue Heart murmur Hyperlipidemia Hypertension Hypothyroidism Morbid obesity due to excess calories JESSICA treated with BiPAP Rectal bleeding Uncontrolled hypertension Surgical History History of back surgery History of left heart catheterization (12/24/02) Family History Father Heart disease Myocardial infarction Mother Diabetes Social History Smoking Status: Former smoker how long ago did patient quit smokin second hand exposure: Yes alcohol intake: never substance use type: former substance user caffeine: Yes Type: coffee Number of servings: 3 frequency: does not exercise ROS Const Const: Positive for daytime sleepiness; Negative for fatigue, weakness, headache(s) or weight gain ENT ENT: Negative for headache(s), dizziness, Nosebleed/epistaxis or balance problems Cardio Chest Pain: No Palpitations: No Edema: None Muscle aches with walking: None Resp Respiratory: Positive for SOB with activity; Negative for SOB at rest or SOB orthopneaundefinedSOB lying down GI GI: Negative nausea, vomiting or heartburn Musc Musc: Positive for joint pain (back; chronic); Negative for muscle aches/ myalgia, muscle weakness or balance problems Neuro Neuro: Negative for dizziness, lightheadedness, near syncope, syncope, headache(s) or weakness Endo Endo: Negative for fatigue Cardiology Exam Const Appearance: comfortable and no acute distress Nutritional Appearance: obese Neck Neck: no JVD Carotids: Negative bruit Chest Auscultation: Bilateral: Clear to Auscultation Cardio Rate: regular rate Rhythm: regular rhythm Heart sounds: S1 normal and S2 normal GI GI: obese Neuro General: patient alert, patient awake and patient oriented x3 Extremities Lower Extremity Edema: +1: Bilateral Supplemental Info Supplemental Information Echocardiogram 06/21/2024 Interpretation Summary The left ventricular ejection fraction is 35 %. Moderately dilated left ventricle. Mild concentric left ventricular hypertrophy. Contrast injection was performed. Echocardiogram 02/21/2024 Interpretation Summary Normal LV size. Left ventricular systolic function is lower limits of normal. Mildly dilated right ventricle. Moderate global right ventricular systolic dysfunction. Cardiac Catheterization 12/24/2002 Final Impression 1. Borderline to mild elevation of the left ventricular end diastolic pressure pre and post angiographic dye load. 2. Left ventricle: normal LV systolic function with and estimated LV EF of 60-65%. 3. Left main: angiographically normal 4. LAD: angiographically normal. 5. LCX: angiographically normal 6. RCA: angiographically normal. 7. Mitral valve: scalloping with mild mitral valve prolapse without obvious mitral regurgitation. Assessment and Plan Assessment and Plan (1) Chronic systolic congestive heart failure, NYHA class 2: Status: Chronic Plan: Continue losartan. Add metoprolol ER. Furosemide. SGLT2 inhibitor. (2) Cardiomyopathy: Status: Chronic Plan: Recommend coronary angiography to rule out ischemic heart disease. Also check cardiac MRI. See #1 above. (3) Hypertension: Status: Chronic Plan: Losartan, furosemide, beta-blockers. DC hydrochlorothiazide. (4) Morbid obesity with BMI of 45.0-49.9, adult: Status: Chronic Plan: Lose weight. Patient is diabetic. Consider adding GLP-1 agonists. Defer to PCP. (5) Hyperlipidemia: Status: Chronic Plan: Atorvastatin. (6) JESSICA treated with BiPAP: Status: Chronic Plan: As per sleep medicine. (7) Diabetes mellitus: Status: Chronic Plan: As per PCP. Orders: Orders 12 Lead EKG performed by [facility] Today I50.9 - Heart failure, unspecified, R01.1 - Cardiac murmur, unspecified, R53.83 - Other fatigue, R93.1 - Abnormal findings on diagnostic imaging of heart and coronary circulation Plan Details Follow Up: 3 Months Coding Level of Care Code Off vis,new,level 4 Diagnoses Chronic systolic congestive heart failure, NYHA class 2 I50.22 Cardiomyopathy I42.9 Hypertension I10 Morbid obesity with BMI of 45.0-49.9, adult E66.01; Z68.42 Hyperlipidemia E78.5 JESSICA treated with BiPAP G47.33 Diabetes mellitus E11.9 Coding Level of Care Code Off vis,new,level 4 Diagnoses Chronic systolic congestive heart failure, NYHA class 2 I50.22 Cardiomyopathy I42.9 Hypertension I10 Morbid obesity with BMI of 45.0-49.9, adult E66.01; Z68.42 Hyperlipidemia E78.5 JESSICA treated with BiPAP G47.33 Diabetes mellitus E11.9 Clinical Quality Measures Falls Risk Screening/Assistive Devices Have you fallen in the past year?: No Cardiac Ejection fraction %: 35 07/26/24 1143 <Electronically signed by Karley Gillespie MD> Date _ Karley Gillespie MD Cosigner Signature: Date (if applicable) CC: Dr. Angely Weems MD ~ [facility] Work Phone: Discharge summary note 03-03-2024 Note Date & Type Note Facility 03-03-2024 Note [facility] Microscopic observation Gram stain Nom (Unsp spec) 02-22-2024 Note Date & Type Note Facility 02-22-2024 Note Acceptable Specimen? Acceptable Specimen(Evaluation not needed) Gram Stain Rare Gram positive cocci 1+ White Blood Cells No Epithelial cells [facility] Comment on above: Performed By: #### M 100.2400, M100.2000 ####[facility] [id number] [place], [place], [id number] Evaluation note 02-21-2024 Note Date & Type Note Facility 02-21-2024 Evaluation note Diagnosis Onset Date Resolution Acute respiratory failure with hypoxia and hypercapnia resolved February 21, 2024 8:37am COVID-19 resolved February 21, 2024 8:37am Enteritis resolved February 21, 2024 8:37am Hypoxia resolved February 21, 2024 8:37am Abnormal chest x-ray inactive [facility] 2023 8:37am Diabetes mellitus inactive [facility] 2023 8:37am Hypercholesterolemia inactive [facility] 2023 8:37am Morbid obesity due to excess calories inactive February 21, 2024 8:37am Uncontrolled hypertension inactive February 21, 2024 8:37am Pneumonia deleted February 21, 2024 8:37am [facility] Work Phone: Clinical Note 02-20-2024 Note Date & Type Note Facility 02-20-2024 Note [facility] Evaluation note Note Date & Type Note Facility Evaluation note No assessment information availa ble [facility] Work Phone: Evaluation note Note Date & Type Note Facility Evaluation note Diagnosis Onset Date Resolution Cardiomyopathy chronic July 26, 2024 10:50am Chronic systolic congestive heart failure, NYHA class 2 chronic July 26, 2024 10:50am Diabetes mellitus chronic July 10:50am Hyperlipidemia chronic July 26, 2024 10:50am Hypertension chronic July 26 10:50am Morbid obesity with BMI of 45.0-49.9, adult chronic July 26 10:50am JESSICA treated with BiPAP chronic Ma 2024 10:50am [facility] Work Phone: Reason for referral (narrative) Note Date & Type Note Facility Reason for referral (narrative) No reason for referral information available [facility] Work Phone: Advance Directives No Advanced Directives Records Found Advance Directive Response Recorded Date/ Time Living Will No March 21 4:39pm Power of Osha Inspector No March 21 4:39pm Advance Directive Response Recorded Date/ Time Living Will No February 20 024 1:17am Do you have a Healthcare Power of Osha Inspector? No February 21, 2024 1:17am Summary Purpose Family History Relationship Condition Age at Onset Recorded Date/T kana father Cardiac disease Unknown Myocardial infarction Unknown mother Diabetes mellitus Unknown No Family History Records Found Chief Complaint and Reason for Visit Chief Complaint Admit Date COMMUNITY-ACQUIRED PNEUMONIA, ENTERITIS February 21, 2024 8:37am COMMUNITY-ACQUIRED PNEUMONIA, ENTERITIS February 27, 2024 5:56am COMMUNITY-ACQUIRED PNEUMONIA, ENTERITIS February 27, 2024 10:10am COMMUNITY-ACQUIRED PNEUMONIA, ENTERITIS February 28, 2024 6:08am COMMUNITY-ACQUIRED PNEUMONIA, ENTERITIS February 28, 2024 11:28am COMMUNITY-ACQUIRED PNEUMONIA, ENTERITIS February 29, 2024 6:04am COMMUNITY-ACQUIRED PNEUMONIA, ENTERITIS February 29, 2024 10:32am COMMUNITY-ACQUIRED PNEUMONIA, ENTERITIS March 01, 2024 12:24pm COMMUNITY-ACQUIRED PNEUMONIA, ENTERITIS March 02, 2024 10:05am COMMUNITY-ACQUIRED PNEUMONIA, ENTERITIS March 03, 2024 2:18pm NEED ORDER March 09, 2024 11:46am Abdominal pain April 02, 2024 5 :52pm sleep apnea June 21, 2024 12: 55pm Reason for Visit Admit Date Acute respiratory failure with hypoxia a nd hypercapnia February 21, 2024 8:37am COVID-19 February 21, 2024 8:37am Enteritis February 21, 2024 8:37am Hypoxia February 21, 2024 8:37am Abnormal chest x-ray February 21, 2024 8:37am Diabetes mellitus February 21, 2024 8:37am Hypercholesterolemia February 21, 2024 8:37am Morbid obesity due to excess calories De cember 2023 8:37am Uncontrolled hypertension February 21, 2024 8:37am Pneumonia February 21, 2024 8:37am Chief Complaint Admit Date Abdominal pain April 02, 2024 5 :52pm sleep apnea June 21, 2024 12: 55pm Abnormal Echo July 26, 2024 10:50 am Reason for Visit Admit Date Cardiomyopathy July 26, 2024 10:50 am Chronic systolic congestive heart failur e, NYHA class 2 July 26, 2024 10:50am Diabetes mellitus July 26, 2024 10:50 am Hyperlipidemia July 26, 2024 10:50 am Hypertension July 26, 2024 10:50 am Morbid obesity with BMI of 45.0-49.9, ad ult July 26, 2024 10:50am JESSICA treated with BiPAP July 26, 2024 10 :50am Additional Source Comments Goals (unrecognized section and content) Goals may be documented in a n alternate sectionGoals may be documented in an alternate sectionGoals may be documented in an alternate section Care Teams (unrecognized sec tion and content) Team Status: Active Member Role Status Dates Dr. Angely Weems MD Primary Care Provider Active Team Status: Inactive Member Role Status Dates Dr. Angely Weems MD Primary Care Provider, [facility] Provider Active Team Status: Inactive Member Role Status Dates Dr. Angely Weems MD Primary Care Provider Active Start: February 21, 2024 End: March 03, 2024 Dr. Andrew Cary DO Emergency Provider Active Start: February 21, 2024 End: March 03, 2024 Dr. Alvaro Best MD Admit Provider Active Star t: February 21, 2024 End: March 03, 2024 Dr. Alvaro Best MD Other Provider Active Star t: February 21, 2024 End: March 03, 2024 Dr. Dayana Smith MD Attending Provider Active Start: February 21, 2024 End: March 03, 2024 Dr. Alejandra Morin DO Other Provider Active Start : February 21, 2024 End: March 03, 2024 Dr. Jarret Linton MD Other Provider Active Start: February 21, 2024 End: March 03, 2024 Dr. Tang Yepez MD Other Provider Active Start: February 21, 2024 End: March 03, 2024 Dr. Cesar Sorensen MD Other Provider Active Star t: February 21, 2024 End: March 03, 2024 Dr. Phi Rhoades , Other Provider Active Start : February 21, 2024 End: March 03, 2024 Dr. Miguel Hennessy MD Other Provider Active Sta rt: February 21, 2024 End: March 03, 2024 Dr. Vidal Snow MD Other Provider Active St art: February 21, 2024 End: March 03, 2024 Dr. Segundo Wilson MD Other Provider Active S tart: February 21, 2024 End: March 03, 2024 Dr. Lidia Aguirre MD Other Provider Active Start: February 21, 2024 End: March 03, 2024 Dr. Asael Cope MD Other Provider Active Start : February 21, 2024 End: March 03, 2024 Dr. Felix Rodrigues MD Other Provider Active Start: February 21, 2024 End: March 03, 2024 Dr. Pedro Pablo Martin MD Other Provider Active Start : February 21, 2024 End: March 03, 2024 Dr. Kylee Fuller MD Other Provider Active Star t: February 21, 2024 End: March 03, 2024 Dr. Aj Greene MD Other Provider Active Sta rt: February 21, 2024 End: March 03, 2024 Dr. Mateusz Esparza MD Other Provider Active Star t: February 21, 2024 End: March 03, 2024 Dr. Fred Lobo MD Other Provider Active St art: February 21, 2024 End: March 03, 2024 Dr. Bandar Melgar MD Other Provider Active Star t: February 21, 2024 End: March 03, 2024 Dr. Paulo Pryor DO Other Provider Active St art: February 21, 2024 End: March 03, 2024 Dr. Sunita Martinez MD Other Provider Active Start: February 21, 2024 End: March 03, 2024 Dr. Tc Harkins DO Other Provider Active Start: February 21, 2024 End: March 03, 2024 Dr. Juan Schwartz MD Other Provider Active Star t: February 21, 2024 End: March 03, 2024 Dr. Herman Hunt MD Other Provider Active Sta rt: February 21, 2024 End: March 03, 2024 Team Status: Active Member Role Status Dates Dr. Angely Weems MD Primary Care Provider Active Start: February 27, 2024 Dr. Andrew Cary DO Emergency Provider Active Start: February 27, 2024 Dr. Alvaro Best MD Admit Provider Active Star t: February 27, 2024 Dr. Alvaro Best MD Other Provider Active Star t: February 27, 2024 Dr. Jarret Linton MD Other Provider Active Start: February 27, 2024 Dr. Tang Yepez MD Other Provider Active Start: February 27, 2024 Dr. Cesar Sorensen MD Other Provider Active Star t: February 27, 2024 Dr. Phi Rhoades DO Attending Provider Active S tart: February 27, 2024 Dr. Phi Rhoades DO Other Provider Active Start : February 27, 2024 Dr. Miguel Hennessy MD Other Provider Active Sta rt: February 27, 2024 Dr. Vidal Snow MD Other Provider Active St art: February 27, 2024 Dr. Segundo Wilson MD Other Provider Active S tart: February 27, 2024 Dr. Lidia Aguirre MD Other Provider Active Start: February 27, 2024 Dr. Asael Cope MD Other Provider Active Start : February 27, 2024 Dr. Felix Rodrigues MD Other Provider Active Start: February 27, 2024 Dr. Pedro Pablo Martin MD Other Provider Active Start : February 27, 2024 Dr. Kylee Fuller MD Other Provider Active Star t: February 27, 2024 Dr. Aj Greene MD Other Provider Active Sta rt: February 27, 2024 Dr. Mateusz Esparza MD Other Provider Active Star t: February 27, 2024 Dr. Fred Lobo MD Other Provider Active St art: February 27, 2024 Dr. Bandar Melgar MD Other Provider Active Star t: February 27, 2024 Dr. Paulo Pryor , Other Provider Active St art: February 27, 2024 Dr. Sunita Martinez MD Other Provider Active Start: February 27, 2024 Dr. Tc Harkins , Other Provider Active Start: February 27, 2024 Dr. Juan Schwartz MD Other Provider Active Star t: February 27, 2024 Dr. Herman Hunt MD Other Provider Active Sta rt: February 27, 2024 Dr. Dayana Smith MD Referring Provider Active Start: February 27, 2024 Dr. Dayana Smith MD Other Provider Active St art: February 27, 2024 Dr. Alejandra Morin DO Other Provider Active Start : February 27, 2024 Team Status: Active Member Role Status Dates Dr. Angely Weems MD Primary Care Provider Active Start: February 27, 2024 Dr. Andrew Cary DO Emergency Provider Active Start: February 27, 2024 Dr. Alvaro Best MD Admit Provider Active Star t: February 27, 2024 Dr. Alvaro Best MD Other Provider Active Star t: February 27, 2024 Dr. Jarret Linton MD Other Provider Active Start: February 27, 2024 Dr. Tang Yepez MD Other Provider Active Start: February 27, 2024 Dr. Cesar Sorensen MD Other Provider Active Star t: February 27, 2024 Dr. Phi Rhoades DO Other Provider Active Start : February 27, 2024 Dr. Miguel Hennessy MD Other Provider Active Sta rt: February 27, 2024 Dr. Vidal Snow MD Other Provider Active St art: February 27, 2024 Dr. Segundo Wilson MD Other Provider Active S tart: February 27, 2024 Dr. Lidia Aguirre MD Other Provider Active Start: February 27, 2024 Dr. Asael Cope MD Other Provider Active Start : February 27, 2024 Dr. Felix Rodrigues MD Other Provider Active Start: February 27, 2024 Dr. Pedro Pablo Martin MD Other Provider Active Start : February 27, 2024 Dr. Kylee Fuller MD Other Provider Active Star t: February 27, 2024 Dr. Aj Greene MD Other Provider Active Sta rt: February 27, 2024 Dr. Mateusz Esparza MD Other Provider Active Star t: February 27, 2024 Dr. Fred Lobo MD Other Provider Active St art: February 27, 2024 Dr. Bandar Melgar MD Other Provider Active Star t: February 27, 2024 Dr. Paulo Pryor DO Other Provider Active St art: February 27, 2024 Dr. Sunita Martinez MD Other Provider Active Start: February 27, 2024 Dr. Tc Harkins DO Other Provider Active Start: February 27, 2024 Dr. Juan Schwartz MD Other Provider Active Star t: February 27, 2024 Dr. Herman Hunt MD Other Provider Active Sta rt: February 27, 2024 Dr. Dayana Smith MD Attending Provider Active Start: February 27, 2024 Dr. Dayana Smith MD Other Provider Active St art: February 27, 2024 Dr. Alejandra Morin DO Other Provider Active Start : February 27, 2024 Team Status: Active Member Role Status Dates Dr. Angely Weems MD Primary Care Provider Active Start: February 28, 2024 Dr. Andrew Cary DO Emergency Provider Active Start: February 28, 2024 Dr. Alvaro Best MD Admit Provider Active Star t: February 28, 2024 Dr. Alvaro Best MD Other Provider Active Star t: February 28, 2024 Dr. Jarret Linton MD Other Provider Active Start: February 28, 2024 Dr. Tang Yepez MD Other Provider Active Start: February 28, 2024 Dr. Cesar Sorensen MD Other Provider Active Star t: February 28, 2024 Dr. Phi Rhoades DO Attending Provider Active S tart: February 28, 2024 Dr. Phi Rhoades DO Other Provider Active Start : February 28, 2024 Dr. Miguel Hennessy MD Other Provider Active Sta rt: February 28, 2024 Dr. Vidal Snow MD Other Provider Active St art: February 28, 2024 Dr. Segundo Wilson MD Other Provider Active S tart: February 28, 2024 Dr. Lidia Aguirre MD Other Provider Active Start: February 28, 2024 Dr. Asael Cope MD Other Provider Active Start : February 28, 2024 Dr. Felix Rodrigues MD Other Provider Active Start: February 28, 2024 Dr. Pedro Pablo Martin MD Other Provider Active Start : February 28, 2024 Dr. Kylee Fuller MD Other Provider Active Star t: February 28, 2024 Dr. Aj Greene MD Other Provider Active Sta rt: February 28, 2024 Dr. Mateusz Esparza MD Other Provider Active Star t: February 28, 2024 Dr. Fred Lobo MD Other Provider Active St art: February 28, 2024 Dr. Bandar Melgar MD Other Provider Active Star t: February 28, 2024 Dr. Paulo Pryor DO Other Provider Active St art: February 28, 2024 Dr. Sunita Martinez MD Other Provider Active Start: February 28, 2024 Dr. Tc Harkins DO Other Provider Active Start: February 28, 2024 Dr. Juan Schwartz MD Other Provider Active Star t: February 28, 2024 Dr. Herman Hunt MD Other Provider Active Sta rt: February 28, 2024 Dr. Dayana Smith MD Referring Provider Active Start: February 28, 2024 Dr. Dayana Smith MD Other Provider Active St art: February 28, 2024 Dr. Alejandra Morin DO Other Provider Active Start : February 28, 2024 Team Status: Active Member Role Status Dates Dr. Angely Weems MD Primary Care Provider Active Start: February 28, 2024 Dr. Andrew Cary DO Emergency Provider Active Start: February 28, 2024 Dr. Alvaro Best MD Admit Provider Active Star t: February 28, 2024 Dr. Alvaro Best MD Other Provider Active Star t: February 28, 2024 Dr. Jarret Linton MD Other Provider Active Start: February 28, 2024 Dr. Tang Yepez MD Other Provider Active Start: February 28, 2024 Dr. Cesar Sorensen MD Other Provider Active Star t: February 28, 2024 Dr. Phi Rhoades , Other Provider Active Start : February 28, 2024 Dr. Miguel Hennessy MD Other Provider Active Sta rt: February 28, 2024 Dr. Vidal Snow MD Other Provider Active St art: February 28, 2024 Dr. Segundo Wilson MD Other Provider Active S tart: February 28, 2024 Dr. Lidia Aguirre MD Other Provider Active Start: February 28, 2024 Dr. Asael Cope MD Other Provider Active Start : February 28, 2024 Dr. Felix Rodrigues MD Other Provider Active Start: February 28, 2024 Dr. Pedro Pablo Martin MD Other Provider Active Start : February 28, 2024 Dr. Kylee Fuller MD Other Provider Active Star t: February 28, 2024 Dr. Aj Greene MD Other Provider Active Sta rt: February 28, 2024 Dr. Mateusz Esparza MD Other Provider Active Star t: February 28, 2024 Dr. Fred Lobo MD Other Provider Active St art: February 28, 2024 Dr. Bandar Melgar MD Other Provider Active Star t: February 28, 2024 Dr. Paulo Pryor DO Other Provider Active St art: February 28, 2024 Dr. Sunita Martinez MD Other Provider Active Start: February 28, 2024 Dr. Tc Harkins DO Other Provider Active Start: February 28, 2024 Dr. Juan Schwartz MD Other Provider Active Star t: February 28, 2024 Dr. Herman Hunt MD Other Provider Active Sta rt: February 28, 2024 Dr. Dayana Smith MD Attending Provider Active Start: February 28, 2024 Dr. Dayana Smith MD Other Provider Active St art: February 28, 2024 Dr. Alejandra Morin DO Other Provider Active Start : February 28, 2024 Team Status: Active Member Role Status Dates Dr. Angely Weems MD Primary Care Provider Active Start: February 29, 2024 Dr. Andrew Cary DO Emergency Provider Active Start: February 29, 2024 Dr. Alvaro Best MD Admit Provider Active Star t: February 29, 2024 Dr. Alvaro Best MD Other Provider Active Star t: February 29, 2024 Dr. Jarret Linton MD Other Provider Active Start: February 29, 2024 Dr. Tang Yepez MD Other Provider Active Start: February 29, 2024 Dr. Cesar Sorensen MD Other Provider Active Star t: February 29, 2024 Dr. Phi Rhoades , Attending Provider Active S tart: February 29, 2024 Dr. Phi Rhoades DO Other Provider Active Start : February 29, 2024 Dr. Miguel Hennessy MD Other Provider Active Sta rt: February 29, 2024 Dr. Vidal Snow MD Other Provider Active St art: February 29, 2024 Dr. Segundo Wilson MD Other Provider Active S tart: February 29, 2024 Dr. Lidia Aguirre MD Other Provider Active Start: February 29, 2024 Dr. Asael Cope MD Other Provider Active Start : February 29, 2024 Dr. Felix Rodrigues MD Other Provider Active Start: February 29, 2024 Dr. Pedro Pablo Martin MD Other Provider Active Start : February 29, 2024 Dr. Kylee Fuller MD Other Provider Active Star t: February 29, 2024 Dr. Aj Greene MD Other Provider Active Sta rt: February 29, 2024 Dr. Mateusz Esparza MD Other Provider Active Star t: February 29, 2024 Dr. Fred Lobo MD Other Provider Active St art: February 29, 2024 Dr. Bandar Melgar MD Other Provider Active Star t: February 29, 2024 Dr. Paulo Pryor DO Other Provider Active St art: February 29, 2024 Dr. Sunita Martinez MD Other Provider Active Start: February 29, 2024 Dr. Tc Harkins DO Other Provider Active Start: February 29, 2024 Dr. Juan Schwartz MD Other Provider Active Star t: February 29, 2024 Dr. Herman Hunt MD Other Provider Active Sta rt: February 29, 2024 Dr. Dayana Smith MD Referring Provider Active Start: February 29, 2024 Dr. Dayana Smith MD Other Provider Active St art: February 29, 2024 Dr. Alejandra Morin DO Other Provider Active Start : February 29, 2024 Team Status: Active Member Role Status Dates Dr. Angely Weems MD Primary Care Provider Active Start: February 29, 2024 Dr. Andrew Cary , Emergency Provider Active Start: February 29, 2024 Dr. Alvaro Best MD Admit Provider Active Star t: February 29, 2024 Dr. Alvaro Best MD Other Provider Active Star t: February 29, 2024 Dr. Jarret Linton MD Other Provider Active Start: February 29, 2024 Dr. Tang Yepez MD Other Provider Active Start: February 29, 2024 Dr. Cesar Sorensen MD Other Provider Active Star t: February 29, 2024 Dr. Phi Rhoades DO Other Provider Active Start : February 29, 2024 Dr. Miguel Hennessy MD Other Provider Active Sta rt: February 29, 2024 Dr. Vidal Snow MD Other Provider Active St art: February 29, 2024 Dr. Segundo Wilson MD Other Provider Active S tart: February 29, 2024 Dr. Lidia Aguirre MD Other Provider Active Start: February 29, 2024 Dr. Asael Cope MD Other Provider Active Start : February 29, 2024 Dr. Felix Rodrigues MD Other Provider Active Start: February 29, 2024 Dr. Pedro Pablo Martin MD Other Provider Active Start : February 29, 2024 Dr. Kylee Fuller MD Other Provider Active Star t: February 29, 2024 Dr. Aj Greene MD Other Provider Active Sta rt: February 29, 2024 Dr. Mateusz Esparza MD Other Provider Active Star t: February 29, 2024 Dr. Fred Lobo MD Other Provider Active St art: February 29, 2024 Dr. Bandar Melgar MD Other Provider Active Star t: February 29, 2024 Dr. Paulo Pryor DO Other Provider Active St art: February 29, 2024 Dr. Sunita Martinez MD Other Provider Active Start: February 29, 2024 Dr. Tc Harkins DO Other Provider Active Start: February 29, 2024 Dr. Juan Schwartz MD Other Provider Active Star t: February 29, 2024 Dr. Herman Hunt MD Other Provider Active Sta rt: February 29, 2024 Dr. Dayana Smith MD Attending Provider Active Start: February 29, 2024 Dr. Dayana Smith MD Other Provider Active St art: February 29, 2024 Dr. Alejandra Morin DO Other Provider Active Start : February 29, 2024 Team Status: Active Member Role Status Dates Dr. Angely Weems MD Primary Care Provider Active Start: March 01, 2024 Dr. Andrew Cary DO Emergency Provider Active Start: March 01, 2024 Dr. Alvaro eBst MD Admit Provider Active Star t: March 01, 2024 Dr. Alvaro Best MD Other Provider Active Star t: March 01, 2024 Dr. Jarret Linton MD Other Provider Active Start: March 01, 2024 Dr. Tang Yepez MD Other Provider Active Start: March 01, 2024 Dr. Cesar Sorensen MD Other Provider Active Star t: March 01, 2024 Dr. Phi Rhoades DO Other Provider Active Start : March 01, 2024 Dr. Miguel Hennessy MD Other Provider Active Sta rt: March 01, 2024 Dr. Vidal Snow MD Other Provider Active St art: March 01, 2024 Dr. Segundo Wilson MD Other Provider Active S tart: March 01, 2024 Dr. Lidia Aguirre MD Other Provider Active Start: March 01, 2024 Dr. Asael Cope MD Other Provider Active Start : March 01, 2024 Dr. Felix Rodrigues MD Other Provider Active Start: March 01, 2024 Dr. Pedro Pablo Martin MD Other Provider Active Start : March 01, 2024 Dr. Kylee Fuller MD Other Provider Active Star t: March 01, 2024 Dr. Aj Greene MD Other Provider Active Sta rt: March 01, 2024 Dr. Mateusz Esparza MD Other Provider Active Star t: March 01, 2024 Dr. Fred Lobo MD Other Provider Active St art: March 01, 2024 Dr. Bandar Melgar MD Other Provider Active Star t: March 01, 2024 Dr. Paulo Pryor , Other Provider Active St art: March 01, 2024 Dr. Sunita Martinez MD Other Provider Active Start: March 01, 2024 Dr. Tc Harkins DO Other Provider Active Start: March 01, 2024 Dr. Juan Schwartz MD Other Provider Active Star t: March 01, 2024 Dr. Herman Hunt MD Other Provider Active Sta rt: March 01, 2024 Dr. Dayana Smith MD Attending Provider Active Start: March 01, 2024 Dr. Dayana Smith MD Other Provider Active St art: March 01, 2024 Dr. Alejandra Morin DO Other Provider Active Start : March 01, 2024 Team Status: Active Member Role Status Dates Dr. Angely Weems MD Primary Care Provider Active Start: March 02, 2024 Dr. Andrew Cary DO Emergency Provider Active Start: March 02, 2024 Dr. Alvaro Best MD Admit Provider Active Star t: March 02, 2024 Dr. Alvaro Best MD Other Provider Active Star t: March 02, 2024 Dr. Jarret Linton MD Other Provider Active Start: March 02, 2024 Dr. Tang Yepez MD Other Provider Active Start: March 02, 2024 Dr. Cesar Sorensen MD Other Provider Active Star t: March 02, 2024 Dr. Phi Rhoades DO Other Provider Active Start : March 02, 2024 Dr. Miguel Hennessy MD Other Provider Active Sta rt: March 02, 2024 Dr. Vidal Snow MD Other Provider Active St art: March 02, 2024 Dr. Segundo Wilson MD Other Provider Active S tart: March 02, 2024 Dr. Lidia Aguirre MD Other Provider Active Start: March 02, 2024 Dr. Asael Cope MD Other Provider Active Start : March 02, 2024 Dr. Felix Rodrigues MD Other Provider Active Start: March 02, 2024 Dr. Pedro Pablo Martin MD Other Provider Active Start : March 02, 2024 Dr. Kylee Fuller MD Other Provider Active Star t: March 02, 2024 Dr. Aj Greene MD Other Provider Active Sta rt: March 02, 2024 Dr. Mateusz Esparza MD Other Provider Active Star t: March 02, 2024 Dr. Fred Lobo MD Other Provider Active St art: March 02, 2024 Dr. Bandar Melgar MD Other Provider Active Star t: March 02, 2024 Dr. Paulo Pryor , DO Other Provider Active St art: March 02, 2024 Dr. Sunita Martinez MD Other Provider Active Start: March 02, 2024 Dr. Tc Harkins , Other Provider Active Start: March 02, 2024 Dr. Juan Schwartz MD Other Provider Active Star t: March 02, 2024 Dr. Herman Hunt MD Other Provider Active Sta rt: March 02, 2024 Dr. Dayana Smith MD Attending Provider Active Start: March 02, 2024 Dr. Dayana Smith MD Other Provider Active St art: March 02, 2024 Dr. Alejandra Morin DO Other Provider Active Start : March 02, 2024 Team Status: Active Member Role Status Dates Dr. Angely Weems MD Primary Care Provider Active Start: March 03, 2024 Dr. Andrew Cary , Emergency Provider Active Start: March 03, 2024 Dr. Alvaro Best MD Admit Provider Active Star t: March 03, 2024 Dr. Alvaro Best MD Other Provider Active Star t: March 03, 2024 Dr. Dayana Smith MD Attending Provider Active Start: March 03, 2024 Dr. Dayana Smith MD Other Provider Active St art: March 03, 2024 Dr. Alejandra Morin DO Other Provider Active Start : March 03, 2024 Dr. Jarret Linton MD Other Provider Active Start: March 03, 2024 Dr. Tang Yepez MD Other Provider Active Start: March 03, 2024 Dr. Cesar Sorensen MD Other Provider Active Star t: March 03, 2024 Dr. Phi Rhoades , Other Provider Active Start : March 03, 2024 Dr. Miguel Hennessy MD Other Provider Active Sta rt: March 03, 2024 Dr. Vidal Snow MD Other Provider Active St art: March 03, 2024 Dr. Segundo Wilson MD Other Provider Active S tart: March 03, 2024 Dr. Lidia Aguirre MD Other Provider Active Start: March 03, 2024 Dr. Asael Cope MD Other Provider Active Start : March 03, 2024 Dr. Felix Rodrigues MD Other Provider Active Start: March 03, 2024 Dr. Pedro Pablo Martin MD Other Provider Active Start : March 03, 2024 Dr. Kylee Fuller MD Other Provider Active Star t: March 03, 2024 Dr. Aj Greene MD Other Provider Active Sta rt: March 03, 2024 Dr. Mateusz Esparza MD Other Provider Active Star t: March 03, 2024 Dr. Fred Lobo MD Other Provider Active St art: March 03, 2024 Dr. Bandar Melgar MD Other Provider Active Star t: March 03, 2024 Dr. Paulo Pryor DO Other Provider Active St art: March 03, 2024 Dr. Sunita Martinez MD Other Provider Active Start: March 03, 2024 Dr. Tc Harkins DO Other Provider Active Start: March 03, 2024 Dr. Juan Schwartz MD Other Provider Active Star t: March 03, 2024 Dr. Herman Hunt MD Other Provider Active Sta rt: March 03, 2024 Team Status: Inactive Member Role Status Dates Dr. Angely Weems MD Primary Care Provider Active Start: March 09, 2024 End: March 09, 2024 Dr. Angely Weems MD Attending Provider Active Start: March 09, 2024 End: March 09, 2024 Dr. Angely Weems MD Referring Provider Active Start: March 09, 2024 End: March 09, 2024 Team Status: Inactive Member Role Status Dates Dr. Angely Weems MD Primary Care Provider Active Start: March 23, 2024 End: March 23, 2024 Dr. Angely Weems MD Attending Provider Active Start: March 23, 2024 End: March 23, 2024 Dr. Angely Weems MD Referring Provider Active Start: March 23, 2024 End: March 23, 2024 Team Status: Inactive Member Role Status Dates Dr. Angely Weems MD Primary Care Provider Active Start: April 02, 2024 End: April 02, 2024 Dr. Angely Weems MD Attending Provider Active Start: April 02, 2024 End: April 02, 2024 Dr. Angely Weems MD Referring Provider Active Start: April 02, 2024 End: April 02, 2024 Team Status: Inactive Member Role Status Dates Dr. Angely Weems MD Primary Care Provider Active Start: June 21, 2024 End: June 21, 2024 Dr. Isai Gonzalez MD Attending Provider Active Start: June 21, 2024 End: June 21, 2024 Dr. Isai Gonzalez MD Referring Provider Active Start: June 21, 2024 End: June 21, 2024 Team Status: Active Member Role Status Dates Dr. Angely Weems MD Primary Care Provider Active Start: June 21, 2024 Dr. Roger Ramirez MD Attending Provider Active S tart: June 21, 2024 Team Status: Inactive Member Role Status Dates Dr. Angely Weems MD Primary Care Provider Active Start: July 26, 2024 End: July 26, 2024 Dr. Angely Weems MD Referring Provider Active Start: July 26, 2024 End: July 26, 2024 Dr. Karley Gillespie MD Attending Provider Active Start: July 26, 2024 End: July 26, 2024 (unrecognized sect ion and content) No Status Records FoundNo Status Records Found INFORMATION SOURCE (unrecogn ized section and content) DATE CREATED AUTHOR 03/27/2024 [facility] DATE CREATED AUTHOR AUTHOR'S TOMAS BOSCH 08/18/2024 [facility] FOR RECORDS PERTAINING TO PATIENTS WHO ARE OR HAVE BEEN ENROLLED IN A CHEMICAL DEPENDENCY/SUBSTANCEABUSE PROGRAM, SOME INFORMATION MAY BE OMITTED. This clinical summary was aggregated from multiple sources. Caution should be exercised in using it in the provision of clinical care. This summary normalizes information from multiple sources, and as a consequence, information in this document may materially change the coding, format and clinical context of patient data. In addition, data may be omitted in some cases. CLINICAL DECISIONS SHOULD BE BASED ON THE PRIMARY CLINICAL RECORDS. [employer] provides no warranty or guarantee of the accuracy or completeness of information in this document.
--- NOTE | 2024-08-20 10:23 | PCM.DC ---
Discharge Instructions Diet Discharge Diet: 2000 Calorie Control Diet DC O2, CPAP, BIPAP needs Home O2 Discharge instructions: No Dressing / Incision Call your doctor if your incision/area has: Continuous Slow Oozing, Sudden Increased Bleeding, Increased Pain/ Swelling, Increased Redness, Foul Smelling Discharge and Swelling at the incision site Call your doctor if you observe: Fever of 101 or Higher, Coldness, Increased Pain, Numbness or Tingling and Change in Color Follow Up Care Please Follow Up With: Karley Gillespie MD When: 2-4 weeks Test Results: Test results from this visit will be discussed in further detail at your follow-up appointment, if applicable. Discharge Plan Admission Attending Provider: Karley Gillespie Primary Care Provider: Angely Weems Instructions Print Language: Citizen Of [place] Discharge Orders/Prescriptions Prescriptions: New clopidogrel 75 mg Tablet 75 mg PO DAILY Qty: 30 11RF aspirin 81 mg Tablet,Delayed Release (Dr/Ec) 81 mg PO DAILY@0800 Qty: 100 3RF Continued levothyroxine 112 mcg tablet 112 mcg PO QHS furosemide 40 mg tablet 40 mg PO QHS metoprolol succinate 50 mg tablet extended release 24 hr 50 mg PO QHS dapagliflozin propanediol 10 mg tablet 10 mg PO QHS potassium chloride 20 mEq tablet extended release 20 meq PO QHS atorvastatin 20 mg tablet 20 mg PO QHS losartan 100 mg tablet 100 mg PO QHS Held metformin 1,000 mg tablet 2,000 mg PO QHS Hold Instructions: Resume on 08/23/24. Referrals / Follow Up: Angely Weems MD [Primary Care Provider] - Disposition Disposition (needs filled in before D/C Order can be placed): Home, Self Care
[2024-08-20 12:22] LABS: ACT Activated Clotting Time 291 sec (74-137)
[2024-08-20 12:22] LABS: ACT Activated Clotting Time 233 sec (74-137)
[2024-08-20 12:22] LABS: ACT Activated Clotting Time 251 sec (74-137)
[2024-08-20 13:30] VITALS: BP 142/87; PULSE 72; RESP 16; TEMP 36.7; O2SAT 96
[2024-08-20] MEDS: 0.9% Saline Lock 10 ML Syringe IV (14:23)
[2024-08-20] MEDS: 0.9% Normal Saline (1000mL) 1,000 ML 75 ML IV (14:23)
[2024-08-20 14:27] VITALS: BP 144/86; PULSE 68; RESP 18; O2SAT 94
[2024-08-20 15:29] VITALS: O2SAT 94
--- NOTE | 2024-08-20 16:20 | CRPHASE1 ---
Patient Communication Patient Information Former Patient:: Phase I PHII Cardiac Rehab Discussed with Patient:: Yes Guide to Cardiac Rehab Given to Patient:: Yes Cardiac Rehab Facility Choice List Given to Patient:: Yes Communication to Cardiac Rehab Choice Program [facility] CR PHII:: Communication Given to CR and Refer to [facility] Choice Program Other:: Communication Given to CR Gas Appliance Mechanic:: Karley Gillespie PCP:: Angely Weems Refer Phase II Cardiac Rehab:: Yes Post Discharge Choice Letter Given to Patient:: Yes Guide to Cardiac Rehab Mailed to Patient by CR Staff:: Yes Phase I Charge:: Level I - Education Medical/Surgical History Medical History [place]:: No Angina:: Yes CAD:: Yes Congestive Heart Failure: JESSICA:: Yes Diabetes:: Yes Hypertension:: Yes Dyslipidemia:: Yes CVA/TIA: GERD:: Yes Surgical History PTCA:: Yes Ambulation Ambulation Notes:: independent Cardiac Rehabilitation Info Program Information Cardiac Rehabilitation Program Information: Cardiac Rehab The cardiac rehab team at [facility] consists of highly skilled exercise physiologists, nurses, respiratory therapists and physicians working together with you. Our purpose is to help you have a full recovery and achieve the goals you set for yourself. Over the years many of our patients have returned to activities they assumed they would never do again! We can help restore your confidence and motivation to make lifestyle changes that can have a significant impact on your health and quality of life! We can help answer questions and concerns you may have about exercise, lifestyle, medications, diet, stress and anxiety which are common following a hospitalization. WE monitor ECG and vital signs during exercise and discuss your progress with you and report to your physician(s). Cardiac Rehab is proven to help reduce readmissions, improve functional capacity and lower recurrence of problems with your heart. Our Cardiac Rehab program is Certified by the [place] [employer] Cardio-Vascular and Pulmonary Rehabilitation (AACVPR) and Accredited by the [place] [employer] through our [facility]. You can contact us at . We invite you to call us with your questions or to get started in our program. If you have other questions or concerns be sure to ask your physician/provider during your follow-up visit. WE look forward to seeing you!
--- NOTE | 2024-08-20 16:25 | CRPH1.INSTRU ---
General Education Discussed with Patient CAD and cardiac anatomy and function:: Patient communicates acknowledgment and Patient returns demonstration Explanation of diagnoses and procedures:: Patient communicates acknowledgment and Patient returns demonstration Sign/Symptoms of [place]:: Patient communicates acknowledgment and Patient returns demonstration Antiplatelet therapy: Patient communicates acknowledgment and Patient returns demonstration Proper use of NTG-SL: Patient communicates acknowledgment and Patient returns demonstration Emergency procedures and activation of EMS: Patient communicates acknowledgment and Patient returns demonstration Compliance of all prescribed medications: Patient communicates acknowledgment and Patient returns demonstration Smoking Risk Factors Patient Nicotine/Smoking Risk Factors Are:: Never smoked Response Code Nicotine/Smoking Response Code:: Not instructed Dyslipidemia Risk Factors Patient Dyslipidemia Risk Factors Are:: Total Cholesterol, Triglycerides, HDL and LDL Recommendations Recommendations Include:: Lipid profile not available and Therapeutic Lifestyle Change dietary guidelines Response Code Dyslipidemia Response Code:: Patient communicates acknowledgment and Needs reinforcement Overweight/Obesity Risk Factors Patient Overweight/Obesity Risk Factors Are:: Obesity - > or = 30 (47.5) Recommendations Recommendations Include:: Weight loss of 5-10%, Reduced calorie diet and Exercise 5-7 times/week Response Code Overweight/Obesity:: Patient communicates acknowledgment, Patient returns demonstration and Needs reinforcement Hypertension Recommendations Recommendations Include:: BP <130/80 if diabetic, DASH dietary guidelines, Decrease/maintain normal body weight and Moderation of ETOH Response Code Hypertension:: Patient communicates acknowledgment, Patient returns demonstration and Needs reinforcement Heart Disease Risk Factors Patient Heart Disease Risk Factors Are:: Previous cardiac event Recommendations Recommendations Include:: Educated family members of their risk Response Code Heart Disease Response Code:: Patient communicates acknowledgment and Patient returns demonstration Diabetes Risk Factors Patient Diabetes Risk Factors Are:: Elevated blood sugars Recommendations Recommendations Include:: Maintain fasting blood sugars 70-110 md/dL, Maintain HgbA1c of 6% or less, Monitor blood sugar as prescribed, Diabetic dietary guidelines and Decrease/maintain body weight Response Code Diabetes:: Patient communicates acknowledgment and Patient returns demonstration Metabolic Syndrome Risk Factors Patient Metabolic Syndrome Risk Factors Are [3 of 5]:: Hypertension and Low HDL <40 [male] or < 50 [female] Recommendations Recommendations Include:: Reinforce compliance to risk factor modifications, Patient is diabetic and Encouraged follow-up with Primary Care Physician Response Code Metabolic Syndrome Response Code:: Patient communicates acknowledgment and Patient returns demonstration Sedentary Recommendations Recommendations Include:: Aerobic exercise 5-7 times/week for 20-30 minutes continuously, Benefits of regular exercise, Discussed home walking program and Monitored Outpatient Cardiac Rehab Response Code Sedentary Response Code:: Patient communicates acknowledgment and Patient returns demonstration Stress Risk Factors Patient Stress Risk Factors Are:: Patient denies stress as a risk factor Response Code Stress Response Code:: Not instructed
[2024-08-20 16:35] VITALS: BP 149/78; PULSE 68; RESP 18; TEMP 36.2; O2SAT 93; BMI 46.9
[2024-08-20] MEDS: Clopidogrel Bisulfate 300 MG Tablet PO (17:05)
[2024-08-20 22:17] VITALS: BP 151/92; PULSE 71; RESP 18; TEMP 36.1; O2SAT 94
[2024-08-20 22:21] VITALS: BP 151/92; PULSE 71
[2024-08-20] MEDS: Metoprolol(XL)Succ 50 MG Tablet PO (22:21)
[2024-08-20] MEDS: Potassium Chloride Oral Tablet 20 MEQ PO (22:21)
[2024-08-20] MEDS: Furosemide 40 MG Tablet PO (22:21)
[2024-08-20] MEDS: Atorvastatin Calcium 20 MG Tablet PO (22:21)
[2024-08-20] MEDS: Empagliflozin 25 MG Tablet PO (22:21)
[2024-08-20] MEDS: Losartan Potassium 100 MG Tablet PO (22:21)
[2024-08-21 00:30] VITALS: PULSE 65; O2SAT 96
[2024-08-21 03:53] VITALS: BP 126/80; PULSE 69; RESP 17; TEMP 36.7; O2SAT 97
[2024-08-21 05:34] VITALS: BMI 46.9
[2024-08-21 06:11] LABS: Hematocrit 46.2 % (40-54); Hemoglobin 14.7 g/dL (13.0-16.5); Mean Corp Hgb Conc 31.8 g/dL (32-36); Mean Corpuscular Hgb 29.3 pg (27.0-32.0); Mean Platelet Vol. 10.4 fl (6.2-12.0); Platelet Count 165 K/mm3 (150-450); RBC Distribution Width CV 13.6 % (11.6-14.6); RBC Distribution Width SD 46.1 fl (35.1-43.9); Red Blood Count 5.02 M/mm3 (4.6-6.2); White Blood Count 7.3 K/mm3 (4.4-11.0)
[2024-08-21] MEDS: Levothyroxine 112 MCG Tablet PO (06:25)
[2024-08-21 06:48] LABS: ALB/GLOB Ratio 1.3 RATIO (0.9-2.4); AST(SGOT) 28 U/L (<=37); Alanine Aminotransfer ALT/SGPT 23 U/L (<=46); Albumin, Serum 3.9 g/dL (3.4-4.8); Alkaline Phosphatase 99 U/L (40-129); Anion Gap 10 (5-15); BUN 20 mg/dL (4-19); BUN/Creat Ratio 15.1 RATIO (10-20); Calcium,Total 9.3 mg/dL (7.6-11.0); Carbon Dioxide 27.2 mmol/L (21.0-32.0); Chloride 100 mmol/L (98-108); Creatinine, Serum 1.29 mg/dL (0.70-1.20); EST Glomerular Filtration Rate 62 (>60); Estimated Creatinine Clearance 89.55 ml/min (50-250); Globulin 3.1 g/dL (2.2-4.2); Glucose 107 mg/dL (70-99); Potassium 4.5 mmol/L (3.3-5.1); Sodium Level 137 mmol/L (133-145); Total Bilirubin 0.54 mg/dL (0.00-1.30)
[2024-08-21 08:38] VITALS: BP 128/84; PULSE 71; RESP 18; TEMP 36.3; O2SAT 94
[2024-08-21] MEDS: Clopidogrel Bisulfate 75 MG Tablet PO (08:40)
[2024-08-21] MEDS: Aspirin E.C. 81 MG Tablet PO (08:40)
--- NOTE | 2024-08-21 10:23 | CASEMGMT ---
ELAINE COPELAND noted DC order. Into pt room, Pt on O2. Pt states he uses a CPAP at night, but does not use O2 at baseline. ELAINE COPELAND asked RN to do a home going O2 test before patient DC'd home. Pt denies any additional needs at this time.
[2024-08-21 10:24] VITALS: O2SAT 90; O2SAT 95
--- NOTE | 2024-08-21 10:30 | EKG12_ITS ---
Test Reason : post pci Blood Pressure : */* mmHG Vent. Rate : 72 BPM Atrial Rate : 72 BPM P-R Int : 188 ms QRS Dur : 108 ms QT Int : 392 ms P-R-T Axes : 39 0 13 degrees QTcB Int : 429 ms Normal sinus rhythm Possible Inferior infarct , age undetermined Abnormal ECG When compared with ECG of 21-Aug-2024 05:00, No significant change was found Confirmed by NEGIN SARGENT MD ([id number]), online content editor GARRETT HUGGINS ([id number]) on 09/11/2024 6:49:45 AM Referred By: Karley Gillespie Confirmed By: NEGIN SARGENT MD
--- NOTE | 2024-10-22 09:44 | CL.I_ITS ---
Patient Name: HERMINIA OREILLY Study Date: 08/20/2024 Performing: Karley Gillespie MD Ht: 72 inches 182.88 cm : 1960 Wt: 350.01 lbs 158.76 kg Age: 63 Gender: male BSA: 2.7 PROCEDURE(S) PERFORMED DC02-(10564)LHC/COR IC10-(22422)FFR, CORONARY OR GRAFT, INITIAL VESSEL IC12-(15334/C9600)MORIAH W/WO PTCA, SINGLE CORONARY ARTERY CLINICAL PROFILE AND CO-MORBIDITIES Indications: Cardiomyopathy Heart Failure: None Stress/Imaging Stress/Image Study Performed: No CAD Presentations: No Sxs, no angina. CONCLUSIONS 70% Mid LAD (iFR 0.89) 80% Prox RCA LVEDP 26 mm Hg Successful MORIAH Mid LAD using [place] 3.0x12 mm, post-dilated using 3.5 mm balloon RECOMMENDATIONS ASA Indefinitley P2Y12 inhibitors for atleast 6 months Staged PCI to RCA DESCRIPTION OF PROCEDURE The patient arrived to the procedure lab. The risks and benefits of the procedure as well as a full description of our services here and lack of surgical backup were fully explained to the patient and/or their significant other prior to the catheterization. The Timeout was completed, verifying the correct patient and procedure. The patient's procedural site was prepped and draped in the usual fashion. Local anesthetic was given subcutaneously to right radial region with Lidocaine 2%. Using a modified Seldinger technique, arterial access was obtained via the right radial artery, a 6Fr sheath was inserted.. Left Coronary Artery selective angiography was performed in multiple views using a 5 Fr. 4.0 [place] catheter. Right Coronary Artery selective angiography was then performed in multiple views using a 5 Fr. JR 4 catheter. LV to AO pullback pressures were then recorded XB 4.0 Guide catheter was inserted and engaged into the LCA. JL 4.0 Guide catheter was inserted and engaged into the LCA. The FFR/iFR wire was inserted. Runthrough Guide wire was advanced to the LAD. iFR Ratio: 0.90 Adenosine was then given per protocol. FFR Ratio Baseline: 0.91 FFR Ratio post Adenosine: 0.91 iFR Ratio: 0.89 The FFR/iFR wire was then removed. [place] Pedro 3.0x12 Drug Eluting stent was inserted. Angiogram performed post stent deployment. [place] 3.50x8 Balloon catheter was inserted. Angiogram performed post balloon dilatation. The arterial sheath was pulled and a TR Band was applied for hemostasis CORONARY ANGIOGRAPHY DOMINANCE: Right Dominant LEFT HEART ASSESSMENT LVEDP: 26 mmHg LEFT MAIN: Angiographically normal LEFT ANTERIOR DESCENDING ARTERY: LAD: Tubular 70% Proximal lesion in LAD RAMUS: Luminal Irregularities 20% Proximal lesion in Ramus RIGHT CORONARY ARTERY: RCA: Tubular 80% Proximal lesion in RCA INTERVENTION INFORMATION LESION SITE: LAD (Proximal) Lesion Complexity: Non-High/Non-C Pre Stenosis: 70 % Pre intervention AMAURI flow: 3 PROCEDURE: Drug Eluting Stent with post dilatation Post Stenosis: 0 % Post intervention AMAURI flow: 3 Lesion Devices: In[place] Coronary FFR Wire Headstrongtronic 6 Fr JL4.0 100cm Guide Catheter Terumo .014 180cm Runthrough Extra Floppy straight Medtronic 3.0 x 12 PEDRO FRONTIER MORIAH [place] [employer] NC EMERGE MR 3.50x08 BALLOON COMPLICATIONS No Complications PROCEDURE MEDICATIONS Versed 1 mg IV Fentanyl 50 mcg IV Oxygen: 2 L/min via nasal cannula Aspirin (325mg) 1 Tabs PO 08/20/2024 08:47:55 Brilinta 180 mg PO @ 08/20/2024 09:32:02 Heparin given IA 08/20/2024 08:58:48 Heparin 49093 unit(s) IV 08/20/2024 09:15:01 Heparin 2000 unit(s) IV 08/20/2024 09:31:36 Heparin 4000 unit(s) IV 08/20/2024 10:02:44 Nitro 200 mcg IC 08/20/2024 10:07:30 Verapamil 2.5mg, Ntg 200mcgs, 2000 units of Heparin given IA 08/20/2024 08:58:48 SUMMARY OF HEMODYNAMIC DATA Time AIR REST AO 149/92 (117) SA 09:07:48 LV 119/2, 26 09:18:10 LV 99/2, 24 09:18:18 LVp 98/3, 21 09:18:26 AOp 87/56 (70) 09:18:33 AO 142/92 (113) 09:23:56 AO 130/80 (102) 10:07:15 AO 137/87 (107) 10:13:13 ECG 10:33:10 10:34:58 Signed By Karley Gillespie MD On 08/20/2024 10:35:33 Karley Gillespie MD
== END 2024-08-21 10:00 | disposition home or self-care (01) ==
LOC: CLSP 10:24 → PCU 13:44
PROVIDERS: Admitting Provider Internal Medicine Cardiovascular Disease; PCP Family Medicine; Referring Provider Internal Medicine Cardiovascular Disease; Visit Provider Internal Medicine Cardiovascular Disease
DX: I25.10 Atherosclerotic heart disease of native coronary artery without angina pectoris (principal); I11.0 Hypertensive heart disease with heart failure; I50.22 Chronic systolic (congestive) heart failure; I42.9 Cardiomyopathy, unspecified; E66.01 Morbid (severe) obesity due to excess calories; Z68.42 Body mass index [BMI] 45.0-49.9, adult; E78.5 Hyperlipidemia, unspecified; G47.33 Obstructive sleep apnea (adult) (pediatric); Z79.899 Other long term (current) drug therapy; K21.9 Gastro-esophageal reflux disease without esophagitis; E03.9 Hypothyroidism, unspecified; Z79.890 Hormone replacement therapy; Z87.891 Personal history of nicotine dependence; R01.1 Cardiac murmur, unspecified; R53.83 Other fatigue; R93.1 Abnormal findings on diagnostic imaging of heart and coronary circulation
CPT/HCPCS: 36415; 80048; 80053; 85025; 85027; 85347; 85610; 92928; 93005; 93454; 93571; 96360; 96361; 99152; 99153; 99221; J0153; Q9967; A4216; C1725; C1769; C1874; C1887; C1894; C9600; G0378

== ENCOUNTER 2024-09-06 09:02 | Day surgery (SDC) | payer BC, SELFPAY ==
[2024-09-05 15:13] VITALS: BMI 46.0
--- NOTE | 2024-09-06 11:32 | DCINST_ITS ---
Discharge Instructions Diet Discharge Diet: 2000 Calorie Control Diet DC O2, CPAP, BIPAP needs Home O2 Discharge instructions: No Dressing / Incision Discharge Activity: Return to Normal Activity Dressing / Incision Call your doctor if your incision/area has: Continuous Slow Oozing, Sudden Increased Bleeding, Increased Pain/ Swelling, Increased Redness, Foul Smelling Discharge and Swelling at the incision site Call your doctor if you observe: Fever of 101 or Higher, Coldness, Increased Pain, Numbness or Tingling and Change in Color Follow Up Care Please Follow Up With: Karley Gillespie MD When: 2-4 weeks Test Results: Test results from this visit will be discussed in further detail at your follow- up appointment, if applicable. Discharge Plan Admission Attending Provider: Karley Gillespie Primary Care Provider: Gasper Schmidt Instructions Print Language: Cypriot Discharge Orders/Prescriptions Prescriptions: Continued levothyroxine 112 mcg tablet 112 mcg PO QHS rosuvastatin 20 mg tablet 20 mg PO QHS Qty: 30 12RF furosemide 40 mg tablet 40 mg PO QHS metoprolol succinate 50 mg tablet extended release 24 hr 50 mg PO QHS dapagliflozin propanediol 10 mg tablet 10 mg PO QHS potassium chloride 20 mEq tablet extended release 20 meq PO QHS clopidogrel 75 mg Tablet 75 mg PO DAILY Qty: 30 11RF aspirin 81 mg Tablet,Delayed Release (Dr/Ec) 81 mg PO DAILY@0800 Qty: 100 3RF losartan 100 mg tablet 50 mg PO QHS Held metformin 1,000 mg tablet 2,000 mg PO QHS Hold Instructions: Resume on 09/09/24. Referrals / Follow Up: Gasper Schmidt MD [Primary Care Provider] - Disposition Disposition (needs filled in before D/C Order can be placed): Home, Self Care
[2024-09-06 11:42] LABS: ACT Activated Clotting Time 233 sec (74-137)
--- NOTE | 2024-09-06 15:05 | CRPHASE1 ---
Patient Communication Patient Information Former Patient:: Phase I PHII Cardiac Rehab Discussed with Patient:: Yes Guide to Cardiac Rehab Given to Patient:: Yes Cardiac Rehab Facility Choice List Given to Patient:: Yes Communication to Cardiac Rehab Assistant Kitchen Manager:: Karley Gillespie Sessions:: 36 sessions - 3 days/wk, 12 weeks Cardiac Rehabilitation Info Program Information Cardiac Rehabilitation Program Information: Cardiac Rehab The cardiac rehab team at [facility] consists of highly skilled exercise physiologists, nurses, respiratory therapists and physicians working together with you. Our purpose is to help you have a full recovery and achieve the goals you set for yourself. Over the years many of our patients have returned to activities they assumed they would never do again! We can help restore your confidence and motivation to make lifestyle changes that can have a significant impact on your health and quality of life! We can help answer questions and concerns you may have about exercise, lifestyle, medications, diet, stress and anxiety which are common following a hospitalization. WE monitor ECG and vital signs during exercise and discuss your progress with you and report to your physician(s). Cardiac Rehab is proven to help reduce readmissions, improve functional capacity and lower recurrence of problems with your heart. Our Cardiac Rehab program is Certified by the [place] [employer] Cardio-Vascular and Pulmonary Rehabilitation (AACVPR) and Accredited by the [place] [employer] through our [facility]. You can contact us at . We invite you to call us with your questions or to get started in our program. If you have other questions or concerns be sure to ask your physician/provider during your follow-up visit. WE look forward to seeing you!
--- NOTE | 2024-09-06 15:06 | CRPH1.INSTRU ---
General Education Discussed with Patient CAD and cardiac anatomy and function:: Patient communicates acknowledgment Explanation of diagnoses and procedures:: Patient communicates acknowledgment Sign/Symptoms of [place]:: Patient communicates acknowledgment Antiplatelet therapy: Patient communicates acknowledgment Proper use of NTG-SL: Patient communicates acknowledgment Emergency procedures and activation of EMS: Patient communicates acknowledgment Compliance of all prescribed medications: Patient communicates acknowledgment Smoking Risk Factors Patient Nicotine/Smoking Risk Factors Are:: Cigarettes Recommendations Recommendations Include:: Previous smoker; encourage continued cessation Response Code Nicotine/Smoking Response Code:: Patient communicates acknowledgment Dyslipidemia Recommendations Recommendations Include:: Lipid profile not available, Reviewed NCEP/ATP guidelines and Therapeutic Lifestyle Change dietary guidelines Response Code Dyslipidemia Response Code:: Patient communicates acknowledgment Overweight/Obesity Risk Factors Patient Overweight/Obesity Risk Factors Are:: Overweight = 26-29 and Obesity - > or = 30 Recommendations Recommendations Include:: Weight loss of 5-10%, Reduced calorie diet and Exercise 5-7 times/week Response Code Overweight/Obesity:: Patient communicates acknowledgment Hypertension Recommendations Recommendations Include:: Maintain BP <130/85, BP <130/80 if diabetic, DASH dietary guidelines, Decrease/maintain normal body weight and Moderation of ETOH Response Code Hypertension:: Patient communicates acknowledgment Heart Disease Risk Factors Patient Heart Disease Risk Factors Are:: Family history of heart disease < 65 years old and Previous cardiac event Recommendations Recommendations Include:: Educated family members of their risk and Educated family members of importance of prevention of heart disease Response Code Heart Disease Response Code:: Patient communicates acknowledgment Diabetes Risk Factors Patient Diabetes Risk Factors Are:: No documented hx of diabetes, Elevated blood sugars and Post-op hyperglycemia Recommendations Recommendations Include:: Maintain fasting blood sugars 70-110 md/dL, Maintain HgbA1c of 6% or less, Monitor blood sugar as prescribed, Diabetic dietary guidelines and Decrease/maintain body weight Response Code Diabetes:: Patient communicates acknowledgment Metabolic Syndrome Risk Factors Patient Metabolic Syndrome Risk Factors Are [3 of 5]:: Fasting blood sugar > 100 mg/dL, Waist circumference > 35 [female] or 40 [male], High triglyceride >150, Hypertension and Low HDL <40 [male] or < 50 [female] Recommendations Recommendations Include:: Reinforce compliance to risk factor modifications, Patient is diabetic and Encouraged follow-up with Primary Care Physician Response Code Metabolic Syndrome Response Code:: Patient communicates acknowledgment Sedentary Risk Factors Patient Sedentary Risk Factors Are:: Lack of regular exercise Recommendations Recommendations Include:: Aerobic exercise 5-7 times/week for 20-30 minutes continuously, Benefits of regular exercise, Discussed home walking program and Monitored Outpatient Cardiac Rehab Response Code Sedentary Response Code:: Patient communicates acknowledgment Stress Recommendations Recommendations Include:: Identification of stressors, and assessment of coping skills and Stress management techniques Response Code Stress Response Code:: Patient communicates acknowledgment
--- NOTE | 2024-10-22 09:45 | CL.I_ITS ---
Patient Name: HERMINIA OREILLY Study Date: 09/06/2024 Performing: Karley Gillespie MD Ht: 72 inches 182.88 cm : 1960 Wt: 340 lbs 154.22 kg Age: 63 Gender: male BSA: 2.67 PROCEDURE(S) PERFORMED IC12-(70781/C9600)MORIAH W/WO PTCA, SINGLE CORONARY ARTERY CLINICAL PROFILE AND CO-MORBIDITIES Indications: Staged PCI Heart Failure: None CONCLUSIONS Successful MORIAH Mid RCA using [place] 3.5x15 mm, post-dilated using 4.0 mm balloon LVEDP 17 mm Hg RECOMMENDATIONS ASA Indefinitley P2Y12 inhibitors for atleast 6 months DESCRIPTION OF PROCEDURE The patient arrived to the procedure lab. The risks and benefits of the procedure as well as a full description of our services here and current unavailability of surgical backup were fully explained to the patient and/or their significant other prior to the catheterization. The Timeout was completed, verifying the correct patient and procedure. The patient's procedural site was prepped and draped in the usual fashion. Local anesthetic was given subcutaneously to right radial region with Lidocaine 2%. Using a modified Seldinger technique, arterial access was obtained via the right radial artery, a 6Fr sheath was inserted.. LV to AO pullback pressures were then recorded JR4 Guide catheter was inserted and engaged into the RCA. Runthrough Guide wire was advanced to the RCA. [place] 3.5x15 Drug Eluting stent was inserted. Angiogram performed post stent deployment. [place] 4.0x12 Balloon catheter was inserted. Angiogram performed post balloon dilatation. The arterial sheath was pulled and a TR Band was applied for hemostasis w/ 10ml air INTERVENTION INFORMATION LESION SITE: RCA (Mid) Lesion Complexity: Non-High/Non-C, lesion length: 13 mm, In-stent restenosis: No Pre Stenosis: 80 % Pre intervention AMAURI flow: 3 PROCEDURE: Drug Eluting Stent with post dilatation Post Stenosis: 0 % Post intervention AMAURI flow: 3 Lesion Devices: Terumo .014 180cm Runthrough Extra Floppy straight Cordis 6 Fr JR4 100cm Guide Catheter Medtronic 3.5 x 15 PEDRO FRONTIER MORIAH Medtronic [place] EU[place]A RX 4.0x12 BALLOON COMPLICATIONS No Complications PROCEDURE MEDICATIONS Versed 1 mg IV Fentanyl 50 mcg IV Oxygen: 2 L/min via nasal cannula Heparin 01456 unit(s) IV 09/06/2024 10:58:15 Heparin given IA 09/06/2024 11:05:07 Heparin 2000 unit(s) IV 09/06/2024 11:35:19 Nitro 200 mcg IC 09/06/2024 11:14:33 Verapamil 2.5mg, Ntg 200mcgs, 2000 units of Heparin given IA 09/06/2024 11:05:07 SUMMARY OF HEMODYNAMIC DATA Time AIR REST ECG 09:19:37 LV 152/7, 19 11:07:31 LV 152/8, 21 11:07:40 LVp 153/8, 17 11:07:47 AOp 150/95 (118) 11:07:54 AO 144/93 (116) SA 11:08:02 AO 140/95 (116) 11:16:35 AIR REST 11:57:28 Signed By Karley Gillespie MD On 09/06/2024 11:57:44 Karley Gillespie MD
== END 2024-09-06 17:00 | disposition home or self-care (01) ==
PROVIDERS: PCP Family Medicine; Referring Provider Internal Medicine Cardiovascular Disease; Visit Provider Internal Medicine Cardiovascular Disease
DX: I25.10 Atherosclerotic heart disease of native coronary artery without angina pectoris (principal); I11.0 Hypertensive heart disease with heart failure; I50.9 Heart failure, unspecified; I42.9 Cardiomyopathy, unspecified; E66.01 Morbid (severe) obesity due to excess calories; E11.9 Type 2 diabetes mellitus without complications; E78.5 Hyperlipidemia, unspecified; Z95.5 Presence of coronary angioplasty implant and graft; Z98.890 Other specified postprocedural states; R25.2 Cramp and spasm; Z79.84 Long term (current) use of oral hypoglycemic drugs; Z79.890 Hormone replacement therapy; Z79.899 Other long term (current) drug therapy; Z79.82 Long term (current) use of aspirin; Z79.02 Long term (current) use of antithrombotics/antiplatelets; E03.9 Hypothyroidism, unspecified; K21.9 Gastro-esophageal reflux disease without esophagitis; Z87.891 Personal history of nicotine dependence; R06.09 Other forms of dyspnea; G47.33 Obstructive sleep apnea (adult) (pediatric)
CPT/HCPCS: 85347; 92928; 93005; 99152; 99153; C1725; C1769; C1874; C1887; C1894; C9600

== ENCOUNTER → 2024-09-11 | Outpatient (CLI) | payer BC, SELFPAY ==
[2024-09-11 18:24] LABS: Creatinine, Urine (random) 105.00 mg/dL (39.00-259.00); Microalbumin,Random Urine < 12.0 mg/L (NO RANGE EST.)
[2024-09-11 18:25] LABS: AST(SGOT) 30 U/L (<=37); Alanine Aminotransfer ALT/SGPT 32 U/L (<=46); Albumin, Serum 4.3 g/dL (3.4-4.8); Alkaline Phosphatase 111 U/L (40-129); Anion Gap 14 (5-15); BUN 27 mg/dL (4-19); BUN/Creat Ratio 20.4 RATIO (10-20); Calcium,Total 9.8 mg/dL (7.6-11.0); Carbon Dioxide 24.7 mmol/L (21.0-32.0); Chloride 99 mmol/L (98-108); Cholesterol 120 mg/dL (<=200); Ferritin 171 ng/mL (37-417); Globulin 3.3 g/dL (2.2-4.2); Glucose 109 mg/dL (70-99); Low Density Lipoprotein Calc. 38 mg/dL; Potassium 4.4 mmol/L (3.3-5.1); Triglycerides 251 mg/dL; Very Low Density Lipoprotein 50 mg/dL (5-40); cholesterol:hdl ratio screen 3.80
[2024-09-11 18:26] LABS: Hematocrit 44.1 % (40-54); Hemoglobin 14.1 g/dL (13.0-16.5); Immature Granulocytes Count 0.020 X10^3/uL (0.0-0.0); Mean Corp Hgb Conc 32.0 g/dL (32-36); Mean Corpuscular Volume 90.6 fL (80-94); Mean Platelet Vol. 10.6 fl (6.2-12.0); NRBC Flagged by Analyzer 0 % (0-5); Platelet Count 177 K/mm3 (150-450); RBC Distribution Width CV 13.3 % (11.6-14.6); RBC Distribution Width SD 43.9 fl (35.1-43.9); Red Blood Count 4.87 M/mm3 (4.6-6.2); White Blood Count 6.8 K/mm3 (4.4-11.0)
[2024-09-11 19:05] LABS: Iron 70 ug/dL (65-175); Iron Binding Capacity,Total 259 ug/dL (250-450); Iron Binding Capacity,Unsat 189 ug/dL (228-428)
== END | disposition home or self-care (01) ==
LOC: MFPLAB 15:54
PROVIDERS: PCP Family Medicine; Referring Provider Family Medicine; Visit Provider Family Medicine
DX: E03.9 Hypothyroidism, unspecified (principal); E11.8 Type 2 diabetes mellitus with unspecified complications; E61.1 Iron deficiency
CPT/HCPCS: 36415; 80053; 80061; 82043; 82570; 82728; 83036; 83540; 83550; 84439; 84443; 85025; 86376

== ENCOUNTER → 2024-11-22 | Outpatient (CLI) | payer BC, SELFPAY ==
--- NOTE | 2024-11-22 15:47 | RAD_ITS ---
PROCEDURE: L/S SPINE MIN 4 VIEWS 11/22/2024 REASON FOR EXAM: BACK PAIN TECHNIQUE: Procedure Code: RADSPLS Modality: DX Procedure: L/S SPINE MIN 4 VIEWS COMPARISON: None FINDINGS: Vertebrae: There are 5 lumbar-type vertebral bodies, [id number]. No compression fracture. No destructive process. No abnormality of the visible sacrum or lower thoracic vertebra. Discs: Disc space narrowing at L3-4, L4-5. And L5-S1 with uncovertebral spurring and foraminal encroachment. Alignment: Mild scoliosis of the spine seen at the thoracolumbar junction apex at T11. There is no subluxation. No jumped facets. Other: Atherosclerosis of the aorta. Moderate amount of stool in the colon. Lung bases are clear. RAD/L/S Spine Min 4 Views IMPRESSION: Multilevel degenerative disc disease worse at L4-5 and L5-S1 with suspected for aminal encroachment. No compression fracture. Atherosclerosis. Reading Location: [id number]
== END | disposition home or self-care (01) ==
LOC: MTRAD 15:45
PROVIDERS: PCP Family Medicine; Referring Provider Family Medicine; Visit Provider Family Medicine
DX: M54.9 Dorsalgia, unspecified (principal)
CPT/HCPCS: 72110

== ENCOUNTER → 2024-11-27 | Outpatient (CLI) | payer BC, SELFPAY ==
--- NOTE | 2024-11-27 09:46 | ECHOD_ITS ---
Reason For Study Reason For Study: DILATED CARDIOMYOPATHY Procedure This was a 2D Doppler, Color Flow transthoracic echocardiogram. The study was technically difficult. Contrast injection was performed. Exam performed in department. Left Ventricle Mildly dilated left ventricle. Mild concentric left ventricular hypertrophy. Moderate to severe LV global hypokinesis. Estimated LVEF 35%. At least stage I diastolic dysfunction. Right Ventricle Normal RV size. Mild to moderate global right ventricular systolic dysfunction. Atria The left atrium is moderately enlarged. The right atrium is mildly enlarged. Mitral Valve Mild-Moderate (1-2+) mitral valve insufficiency. Tricuspid Valve Normal tricuspid valve. Aortic Valve Aortic sclerosis, no stenosis. Pulmonic Valve The pulmonic valve is not well visualized. Great Vessels Normal sized aortic root. Pericardium/Pleural No pericardial effusion. Medication 22 gauge I.V. with prn adaptor inserted into left arm. Diluted definity 2.5ml given slow IV push to enhance endocardial definition. MMode/2D Measurements & Calculations LVIDd: 5.7 cm IVSd: 1.3 cm LVOT diam: 2.3 cm LVIDs: 4.4 cm LVPWd: 1.3 cm RVDd: 4.6 cm FS: 23.0 % LVOT area: 4.1 cm2 LA dimension: 4.7 cm asc Aorta Diam: 4.1 cm LAV(MOD- bp): 72.9 ml LAV(MOD- bp) Indexed: 27.7 ml/m2 LAV(MOD- sp2): 76.1 ml LAV(MOD- sp4): 69.6 ml SV(MOD- sp4): 82.0 ml LVAd ap4: 47.5 cm2 LVAd ap2: 43.9 cm2 LVLd ap4: 9.6 cm LVLd ap2: 9.7 cm SI(MOD- sp4): 31.1 ml/m2 EDV(MOD-sp4): 191.9 ml EDV(MOD-sp2): 162.8 ml EDV(sp4-el): 198.2 ml EDV(sp2-el): 168.7 ml LVAs ap4: 34.0 cm2 LVAs ap2: 31.8 cm2 LVLs ap4: 8.6 cm LVLs ap2: 8.4 cm ESV(MOD-sp4): 109.8 ml ESV(MOD-sp2): 99.1 ml ESV(sp4-el): 113.5 ml ESV(sp2-el): 102.2 ml EF(MOD-sp4): 42.8 % EF(MOD-sp2): 39.2 % EF(sp4-el): 42.7 % SV(MOD-sp2): 63.7 ml SV(sp4-el): 84.6 ml Ao sinus diam: 3.6 cm SI(MOD-sp2): 24.2 ml/m2 Ao ST Junction: 3.0 cm LA dimension(2D): 4.5 cm LA A4 area: 24.8 cm2 RA A4 area: 21.7 cm2 TAPSE: 1.5 cm Time Measurements MV dec time: 0.20 sec Doppler Measurements & Calculations MV E max jules: 128.2 cm/sec Ao V2 max: 154.5 cm/sec LV V1 max: 102.1 cm/sec Ao max P.6 mmHg LV V1 max P.2 mmHg Ao V2 mean: 106.9 cm/sec LV V1 mean P.0 mmHg Ao mean P.3 mmHg LV V1 mean: 84.9 cm/sec Ao V2 VTI: 29.1 cm LV V1 VTI: 19.7 cm AV (velocity ratio): 0.68 DHARA(I,D): 2.8 cm2 DHARA(V,D): 2.7 cm2 SV(LVOT): 80.5 ml PA V2 max: 81.1 cm/sec ECHO/Echo Complete W/ Contrast Interpretation Summary Mildly dilated left ventricle. Mild concentric left ventricular hypertrophy. Moderate to severe LV global hypokinesis. Estimated LVEF 35%. At least stage I diastolic dysfunction. Mild to moderate global right ventricular systolic dysfunction. The left atrium is moderately enlarged. The right atrium is mildly enlarged. Mild-Moderate (1-2+) mitral valve insufficiency. Aortic sclerosis, no stenosis. Ordering Physician: Julia Stanley Referring Physician: Gasper Schmidt Performed By: Anita Dumont RDCS
== END | disposition home or self-care (01) ==
PROVIDERS: PCP Family Medicine; Referring Provider Physician Assistant Medical; Visit Provider Physician Assistant Medical
DX: I42.0 Dilated cardiomyopathy (principal)
CPT/HCPCS: 93306; Q9957; A4216; C8929

== ENCOUNTER → 2024-12-12 | Outpatient (CLI) | payer BC, SELFPAY | END | disposition home or self-care (01) | LOC: OPMRI 07:49 | PROVIDERS: PCP Family Medicine; Referring Provider Family Medicine; Visit Provider Family Medicine | DX: M54.9 Dorsalgia, unspecified (principal) ==

== ENCOUNTER → 2024-12-25 | Outpatient (CLI) | payer BC, SELFPAY ==
[2024-12-25 15:31] LABS: Hematocrit 46.9 % (40-54); Hemoglobin 15.1 g/dL (13.0-16.5); Immature Granulocytes Count 0.040 X10^3/uL (0.0-0.0); Mean Corp Hgb Conc 32.2 g/dL (32-36); Mean Corpuscular Volume 91.2 fL (80-94); Mean Platelet Vol. 10.0 fl (6.2-12.0); NRBC Flagged by Analyzer 0 % (0-5); Platelet Count 199 K/mm3 (150-450); RBC Distribution Width CV 13.2 % (11.6-14.6); RBC Distribution Width SD 44.2 fl (35.1-43.9); Red Blood Count 5.14 M/mm3 (4.6-6.2); White Blood Count 7.9 K/mm3 (4.4-11.0)
[2024-12-25 15:55] LABS: Creatinine, Urine (random) 71.20 mg/dL (39.00-259.00); Microalbumin,Random Urine < 12.0 mg/L (<20 mg/L)
[2024-12-25 16:06] LABS: AST(SGOT) 23 U/L (<=37); Alanine Aminotransfer ALT/SGPT 21 U/L (<=46); Albumin, Serum 4.3 g/dL (3.4-4.8); Alkaline Phosphatase 107 U/L (40-129); Anion Gap 10 (5-15); BUN 30 mg/dL (4-19); BUN/Creat Ratio 24.0 RATIO (10-20); Calcium,Total 9.5 mg/dL (7.6-11.0); Carbon Dioxide 25.1 mmol/L (21.0-32.0); Chloride 99 mmol/L (98-108); Cholesterol 110 mg/dL (<=200); Ferritin 184 ng/mL (37-417); Globulin 3.0 g/dL (2.2-4.2); Glucose 138 mg/dL (70-99); Low Density Lipoprotein Calc. 39 mg/dL; Potassium 5.8 mmol/L (3.3-5.1); Triglycerides 149 mg/dL; Very Low Density Lipoprotein 30 mg/dL (5-40); cholesterol:hdl ratio screen 2.69
[2024-12-25 16:29] LABS: Iron 93 ug/dL (65-175); Iron Binding Capacity,Total 260 ug/dL (250-450); Iron Binding Capacity,Unsat 167 ug/dL (228-428)
== END | disposition home or self-care (01) ==
LOC: MFPLAB 11:37
PROVIDERS: PCP Family Medicine; Visit Provider Family Medicine
DX: E61.1 Iron deficiency (principal); E11.8 Type 2 diabetes mellitus with unspecified complications; E03.9 Hypothyroidism, unspecified
CPT/HCPCS: 36415; 80053; 80061; 82043; 82570; 82728; 83036; 83540; 83550; 84443; 85025

== ENCOUNTER → 2025-01-09 | Outpatient (CLI) | payer BC, SELFPAY ==
[2025-01-09 14:34] LABS: Potassium 4.3 mmol/L (3.3-5.1)
== END | disposition home or self-care (01) ==
LOC: MFPLAB 10:36
PROVIDERS: PCP Family Medicine; Visit Provider Family Medicine
DX: E87.5 Hyperkalemia (principal)
CPT/HCPCS: 36415; 84132